=== PATIENT | female | born 1930 | race Caucasian/White ===

== ENCOUNTER 2018-03-09 16:47 | Inpatient (IN) | payer OTHER, MEDICARE ==
[2018-03-09 17:27] LABS: Absolute Lymphocytes (CBC) 2.4 K/uL (0.7-4.9); Absolute Monocytes 1.1 K/uL (0.1-1.3); Absolute Neutrophil 10.2 K/uL (1.8-8.0); Basophils % 2.1 % (0-1.3); Eosinophils % 0.5 % (0-4.4); Hematocrit 36.9 % (36.0-45.0); Lymphocytes % 17.3 % (15.3-44.8); MCH 30.7 pg (27.0-35.0); MCV 92.2 fL (80-100); MPV 9.7 fL (7.6-11.3); Monocytes % 7.9 % (3.3-12.3); RBC Red Blood Cell Count 4.01 M/uL (3.86-4.86)
[2018-03-09 17:31] LABS: Protime INR 1.24
--- NOTE | 2018-03-09 17:41 | RAD REPORT ---
EXAM DESCRIPTION: CT - Head C Spine Cap Wo Con - 03/09/2018 5:28 pm CLINICAL HISTORY: Trauma, head and neck injury. Chest, abdomen and pelvis pain. fall, low back pain COMPARISON: No comparisons TECHNIQUE: CT head without contrast. CT cervical spine without contrast with coronal and sagittal reformatted images. CT chest, abdomen and pelvis without contrast with coronal and sagittal reformatted images of the [facility]. All CT scans are performed using dose optimization technique as appropriate and may include automated exposure control or mA/KV adjustment according to patient size. FINDINGS: CT HEAD WITHOUT CONTRAST: No intracranial hemorrhage, hydrocephalus or extra-axial fluid collection. Mild generalized brain atr ophy is present with mild periventricular and deep white matter chronic microvascular ischemic change s. No areas of brain edema or midline shift. Small amount of fluid is seen in both maxillary antra. The calvarium is intact. Mild vertebral athero sclerosis. CT CERVICAL SPINE WITHOUT CONTRAST: No fracture or subluxation. Mild moderate lower cervical spondylosis is present. The prevertebral sof t tissues are normal in thickness. CT CHEST, ABDOMEN, PELVIS WITHOUT CONTRAST: NOTE: Lack of contrast is a significant limitation in the assessment of trauma related findings. Spec ifically, solid organ, vascular and bowel evaluation is significantly limited. The lungs are clear.No pneumothorax or pericardial/pleural fluid. No evidence of intra-abdominal visceral injury, free fluid or free air is seen within the above detai led limitations. No concerning pelvic findings. No fractures. Advanced degenerative changes involve the thoracolumbar spine. IMPRESSION: Negative for acute traumatic findings within the above detailed limitations.
[2018-03-09 17:57] LABS: Albumin 3.2 g/dL (3.4-5.0); Bilirubin Direct 0.2 mg/dL (0-0.2); Bilirubin Total 0.6 mg/dL (0.2-1.0); Magnesium 2.3 mg/dL (1.8-2.4); Potassium 3.6 mmol/L (3.5-5.1); Protein, Total 6.9 g/dL (6.4-8.2); Troponin (Emerg Dept Use Only) 0.07 ng/mL (0.0-0.045)
--- NOTE | 2018-03-09 18:03 | RAD REPORT ---
EXAM DESCRIPTION: RAD - Chest Single View - 03/09/2018 5:54 pm CLINICAL HISTORY: fall Chest pain. COMPARISON: CHEST PA AND LAT 2 VIEW dated 04/28/2006 FINDINGS: Portable technique limits examination quality. Emphysematous changes are present throughout the lungs. No focal infiltrate detected. The heart is mi ldly prominent size. No displaced fractures. IMPRESSION: COPD.
[2018-03-09 18:24] LABS: Anisocytosis 1+; Blood Morphology Comment NOTED (NOT SEEN); Platelet Estimate DECR; Polychromasia 1+; Urine White Blood Cell Casts OK
[2018-03-09] MEDS ORDERED: HYDRALAZINE HCL 20 MG/ML VIAL ONE (19:00)
[2018-03-09] MEDS ORDERED: ASPIRIN EC 81 MG TAB PO ONE (19:00)
[2018-03-09] MEDS ORDERED: VANCOMYCIN 1 GM/250 ML BAG ONE (20:11)
--- NOTE | 2018-03-09 20:27 | EDPHYS ---
Physician Documentation [facility] Name: Ruth Alva Age: 88 yrs Sex: Female : 1930 Arrival Date: 03/09/2018 Time: 16:49 Bed 23 Private MD: ED Physician Deric Cooper HPI: 03/09 17:08 This 88 yrs old Female presents to ER via EMS with complaints of fall, cp general weakness. 17:08 Details of fall: The patient fell from an upright position, while walking. Onset: The cp symptoms/episode began/occurred this morning, at 02:30. Associated injuries: The patient sustained no obvious injury. Patient reports she walking in home without use of walker when she struck left arm against wall and then fell to ground. Patient reports crawling to bathroom and sitting on toilet until found by friends and assisted back to bed. Denies striking head or LOC. Historical: - Allergies: 16:58 PENICILLINS; ls4 18:43 Codeine; ls4 18:43 CEPHALOSPORINS; ls4 - Home Meds: 17:00 Vitamin C Oral [Active]; Calcium Carbonate Oral [Active]; INSTAFLEX [Active]; rv alprazolam 0.5 mg Oral tab [Active]; doxycycline hyclate 100 mg Oral cap [Active]; atenolol 100 mg Oral tab [Active]; colchicine 0.6 mg Oral tab [Active]; furosemide 40 mg Oral tab [Active]; Uloric 40 mg oral tab [Active]; losartan 100 mg oral tab [Active]; - PMHx: 17:36 CHF; Hypertension; Parkinsons; Gout; ls4 - Immunization history:: Adult Immunizations up to date, Adult Immunizations up to date. - Social history:: Smoking status: Patient/guardian denies using tobacco, never smoked. - Ebola Screening: : Patient negative for fever greater than or equal to 101.5 degrees Fahrenheit, and additional compatible Ebola Virus Disease symptoms Patient denies exposure to infectious person Patient denies travel to an Ebola-affected area in the 21 days before illness onset No symptoms or risks identified at this time. ROS: 17:10 Eyes: Negative for injury, pain, redness, and discharge. cp 17:10 Constitutional: Negative for fever, poor PO intake. 17:10 ENT: Negative for drainage from ear(s), ear pain, sore throat, difficulty swallowing, difficulty handling secretions. 17:10 Cardiovascular: Negative for chest pain, edema, palpitations. 17:10 Respiratory: Negative for cough, shortness of breath, wheezing. 17:10 Abdomen/GI: Negative for abdominal pain, vomiting, diarrhea, constipation, black/tarry stool, rectal bleeding. 17:10 Back: Positive for pain at rest, of the lumbar area. 17:10 MS/extremity: Negative for decreased range of motion, deformity. 17:10 Neuro: Positive for general weakness, Negative for altered mental status, headache. 17:10 All other systems are negative. Exam: 17:15 Constitutional: The patient appears in no acute distress, alert, awake, cp non-diaphoretic, non-toxic, well developed, well nourished. 17:15 Head/Face: Normocephalic, atraumatic. cp 17:15 Eyes: Periorbital structures: appear normal, Pupils: equal, round, and reactive to light and accomodation, Extraocular movements: intact throughout, Conjunctiva: normal, no exudate, no injection, Sclera: no appreciated abnormality, Lids and lashes: appear normal, bilaterally. 17:15 ENT: External ear(s): are unremarkable, Ear canal(s): are normal, clear, TM's: bulging, is not appreciated, bilaterally, dullness, bilaterally, erythema, is not appreciated, bilaterally, Nose: is normal, Mouth: Lips: moist, Oral mucosa: pink and intact, moist, Posterior pharynx: is normal, airway is patent, no erythema, no exudate, Voice: is normal. 17:15 Neck: C-spine: vertebral tenderness, is not appreciated, crepitus, is not appreciated, ROM/movement: is normal, is supple, without pain, no range of motions limitations, no meningismus, no nuchal rigidity. 17:15 Chest/axilla: Inspection: normal, Palpation: is normal, no crepitus, no tenderness. 17:15 Cardiovascular: Rate: normal, Rhythm: regular, Edema: is not appreciated, JVD: is not appreciated. 17:15 Respiratory: the patient does not display signs of respiratory distress, Respirations: normal, no use of accessory muscles, no retractions, no splinting, no tachypnea, labored breathing, is not present, Breath sounds: are clear throughout. 17:15 Abdomen/GI: Inspection: abdomen appears normal, Bowel sounds: active, all quadrants, Palpation: abdomen is soft and non-tender, in all quadrants, rebound tenderness, is not appreciated, voluntary guarding, is not appreciated, involuntary guarding, is not appreciated. 17:15 Back: pain, that is mild, vertebral tenderness, is not appreciated. cp 17:15 Musculoskeletal/extremity: Exam is negative for decreased range of motion, deformity, cp injury. 17:15 Skin: patient with pressure ulcer wounds to bilateral buttocks. cp 17:15 Neuro: Orientation: to person, place \T\ time. Mentation: is normal, Cerebellar function: cp normal finger to nose testing, Motor: moves all fours, negative for focal deficits, Sensation: no obvious gross deficits. 17:20 ECG was reviewed by the Attending Physician. cp Vital Signs: 16:58 BP 199 / 74; Pulse 60; Resp 16; Temp 98.7; Pulse Ox 100% on R/A; Pain 0/10; ls4 18:00 BP 200 / 78; Pulse 59; Resp 16; Pulse Ox 98% on R/A; Pain 0/10; ls4 19:00 BP 168 / 63; Pulse 59; Resp 16; Pulse Ox 99% ; ls4 19:00 BP 182 / 62; Pulse 60; Resp 16; Pulse Ox 99% on R/A; ls4 20:00 BP 177 / 57; Pulse 59; Resp 16; Pulse Ox 99% on R/A; ls4 21:10 BP 178 / 68; Pulse 62; Resp 16; Pulse Ox 98% ; Pain 0/10; ls4 MDM: 16:51 Patient medically screened. cp 18:00 Differential diagnosis: closed head injury, fracture, anemia, sepsis, CVA, sepsis, UTI. cp 20:20 Data reviewed: vital signs, nurses notes, lab test result(s), EKG, radiologic studies, cp CT scan, plain films. 20:20 Test interpretation: by ED physician or midlevel provider: ECG, plain radiologic cp studies. 20:25 Physician consultation: Esperanza Rand MD was called at 20:25, was contacted at 20:25, cp regarding admission, to the telemetry unit. patient's condition. 03/09 17:03 Order name: Urine Microscopic Only; Complete Time: 21:31 cp 03/09 21:31 Interpretation: Normal except: UBACT 20-50. cp 12/ 17:03 Order name: Basic Metabolic Panel; Complete Time: 18:03 cp 12/ 18:03 Interpretation: Normal except: BUN 63; CRE 2.80; GFR 16. cp 12/ 17:03 Order name: CBC with Diff; Complete Time: 18:48 cp 12/ 18:04 Interpretation: Normal except: WBC 14.1; PLT 120; RDW 15.6; BASO% 2.1; NEUT A 10.2. cp 12/ 17:03 Order name: LFT's; Complete Time: 18:03 cp 12/ 18:03 Interpretation: Normal except: AST 186; ALT 88; ALK 132; ALB 3.2; GLOB 3.7; A/G 0.9. cp 12/ 17:03 Order name: Magnesium; Complete Time: 18:03 cp 12/ 18:07 Interpretation: MG 2.3; Reviewed. cp 12/ 17:03 Order name: NT PRO-BNP; Complete Time: 18:03 cp 12/ 18:06 Interpretation: Abnormal: NT PRO-BNP 09750. cp 12/ 17:03 Order name: PT-INR; Complete Time: 18:03 cp 12/ 18:07 Interpretation: PT 14.7; Reviewed. cp 12/ 17:03 Order name: Troponin (emerg Dept Use Only); Complete Time: 18:03 cp 12/ 18:03 Interpretation: Abnormal: TROPED 0.07. cp 12/ 17:03 Order name: Procalcitonin; Complete Time: 18:48 cp 12/ 18:49 Interpretation: Abnormal: Procalcitonin 2.72. cp 12/ 17:03 Order name: Blood Culture Adult (2) cp 12/ 17:03 Order name: Lactate; Complete Time: 18:48 cp 12/ 19:01 Interpretation: LAC 1.2; Reviewed. cp / 17:56 Order name: CBC Smear Scan; Complete Time: 18:48 EDMS 03/09 19:51 Order name: Urine Dipstick--Ancillary (enter results); Complete Time: 21:31 ar5 03/09 19:59 Order name: CPK; Complete Time: 21:31 cp / 21:40 Interpretation: Abnormal: CPK 3350. cp 12/ 17:03 Order name: XRAY Chest (1 view); Complete Time: 18:06 03/09 18:06 Interpretation: Report review. 03/09 17:03 Order name: EKG; Complete Time: 17:04 cp 03/09 17:12 Order name: CT Traumagram (Head C Spine CAP wo con); Complete Time: 17:48 03/09 17:49 Interpretation: Report reviewed. 03/09 20:32 Order name: Urine Culture EDLA 03/09 21:23 Order name: Comprehensive Metabolic Panel EDLA 03/09 21:23 Order name: Comprehensive Metabolic Panel EDLA 03/09 21:24 Order name: CONS Pharmacy Consult EDLA 03/09 21:24 Order name: CBC with Automated Diff EDLA 03/09 21:24 Order name: CBC with Automated Diff EDLA 03/09 17:03 Order name: Cath 03/09 17:03 Order name: Urine Dipstick-Ancillary (obtain specimen) 03/09 17:03 Order name: Cardiac monitoring; Complete Time: 17:11 03/09 17:03 Order name: EKG - Nurse/Tech; Complete Time: 17:18 03/09 17:03 Order name: IV Saline Lock; Complete Time: 17:11 03/09 17:03 Order name: Labs collected and sent; Complete Time: 17:11 03/09 17:03 Order name: O2 Per Protocol; Complete Time: 17:11 03/09 17:03 Order name: O2 Sat Monitoring; Complete Time: 17:11 03/09 21:24 Order name: Heart Healthy EDLA 03/09 21:31 Order name: Bragg; Complete Time: 21:34 cp EC:20 Rate is 60 beats/min. Rhythm is regular. DC interval is prolonged at 244 msec. QRS cp interval is prolonged at 104 msec. QT interval is prolonged at 632 msec. Interpreted by me. Reviewed by me. Administered Medications: 18:59 Drug: hydrALAZINE 5 mg Route: IV; Rate: bolus; Site: right antecubital; ls4 19:30 Follow up: Response: No adverse reaction; Blood pressure is lowered ls4 18:59 Drug: NS 0.9% 250 ml Route: IV; Rate: bolus; Site: left antecubital; ls4 19:31 Follow up: IV Status: Completed infusion; IV Intake: 250ml ls4 19:00 Drug: Aspirin Chewable Tablet 324 mg Route: PO; ls4 19:31 Follow up: Response: No adverse reaction ls4 19:00 Not Given (Other Intervention Used): hydrALAZINE 10 mg IV at calculated rate once ls4 20:35 Drug: vancoMYCIN 1 grams Route: IVPB; Infused Over: 2 hrs; Site: right antecubital; ls4 21:07 Follow up: IV Status: Infusion continued upon admission ls4 21:35 Drug: LevaQUIN 500 mg Volume: 100 ml; Route: IVPB; Infused Over: 60 mins; Site: right ls4 antecubital; 22:09 Follow up: IV Status: Infusion continued upon admission ls4 Disposition: 03/09/18 20:27 Hospitalization ordered by Esperanza Rand for Inpatient Admission. Preliminary diagnosis are Other slipping, tripping and stumbling and falls, Rhabdomyolysis, Weakness, Pressure ulcer, Urinary tract infection, site not specified. - Bed requested for Telemetry/MedSurg (Inpatient). - Status is Inpatient Admission. ls4 - Condition is Stable. - Problem is new. - Symptoms have improved. UTI on Admission? Yes Addendum: 03/13/2018 07:02 Co-signature as Attending Physician, Deric Cooper MD. r n Signatures: Dispatcher [employer] EDLA Cindy Chisholm RN Deric Winston MD MD rn Page, Corey, PA PA cp Vicente, Ronaldo, RN RN rv Stewart, Lisa, RN RN ls4 Corrections: (The following items were deleted from the chart) 03/09 17:16 17:04 Head C Spine MPR Wo Con+CT.RAD.BRZ ordered. EDLA EDMS 19:01 18:43 Allergies: Aspirin; ls4 ls4 20:50 20:27 Hospitalization Ordered by Esperanza Rand MD for Inpatient Admission. Preliminary mw diagnosis is Other slipping, tripping and stumbling and falls. Bed requested for Telemetry/MedSurg (Inpatient). Status is Inpatient Admission. Condition is Stable. Problem is new. Symptoms have improved. UTI on Admission? No. cp 21:33 20:50 03/09/2018 20:27 Hospitalization Ordered by Esperanza Rand MD for Inpatient cp Admission. Preliminary diagnosis is Other slipping, tripping and stumbling and falls. Bed requested for Telemetry/MedSurg (Inpatient). Status is Inpatient Admission. Condition is Stable. Problem is new. Symptoms have improved. UTI on Admission? No. mw 22:09 21:33 03/09/2018 20:27 Hospitalization Ordered by Esperanza Rand MD for Inpatient ls4 Admission. Preliminary diagnosis is Other slipping, tripping and stumbling and falls; Rhabdomyolysis; Weakness; Pressure ulcer; Urinary tract infection, site not specified. Bed requested for Telemetry/MedSurg (Inpatient). Status is Inpatient Admission. Condition is Stable. Problem is new. Symptoms have improved. UTI on Admission? Yes. cp
--- NOTE | 2018-03-09 20:27 | ER ---
Nurse's Notes [facility] Name: Ruth Alva Age: 88 yrs Sex: Female : 1930 Arrival Date: 03/09/2018 Time: 16:49 Bed 23 Private MD: Diagnosis: Other slipping, tripping and stumbling and falls;Rhabdomyolysis;Weakness;Pressure ulcer;Urinary tract infection, site not specified Presentation: 03/09 16:55 Presenting complaint: EMS states: pt was too weak to get off commode last night. pt has ls4 been getting weaker over the last weak and has been falling more frequently. Transition of care: patient was not received from another setting of care. Onset of symptoms was March 09, 2018 at 16:56. Risk Assessment: Do you want to hurt yourself or someone else? Patient reports no desire to harm self or others. Initial Sepsis Screen: Does the patient meet any 2 criteria? No. Patient's initial sepsis screen is negative. Does the patient have a suspected source of infection? No. Patient's initial sepsis screen is negative. Care prior to arrival:. 16:55 Method Of Arrival: EMS: [facility] ls4 16:55 Acuity: JOEY 3 ls4 Triage Assessment: 16:58 General: Appears in no apparent distress. well groomed, Behavior is calm, cooperative. ls4 Pain: Denies pain. Neuro: No deficits noted. Cardiovascular: Denies chest pain, diaphoresis, fatigue, lightheadedness, nausea, palpitations, shortness of breath, syncope, vomiting, Capillary refill < 3 seconds. Respiratory: No deficits noted. Musculoskeletal: No deficits noted. Historical: - Allergies: 16:58 PENICILLINS; ls4 18:43 Codeine; ls4 18:43 CEPHALOSPORINS; ls4 - Home Meds: 17:00 Vitamin C Oral [Active]; Calcium Carbonate Oral [Active]; INSTAFLEX [Active]; rv alprazolam 0.5 mg Oral tab [Active]; doxycycline hyclate 100 mg Oral cap [Active]; atenolol 100 mg Oral tab [Active]; colchicine 0.6 mg Oral tab [Active]; furosemide 40 mg Oral tab [Active]; Uloric 40 mg oral tab [Active]; losartan 100 mg oral tab [Active]; - PMHx: 17:36 CHF; Hypertension; Parkinsons; Gout; ls4 - Immunization history:: Adult Immunizations up to date, Adult Immunizations up to date. - Social history:: Smoking status: Patient/guardian denies using tobacco, never smoked. - Ebola Screening: : Patient negative for fever greater than or equal to 101.5 degrees Fahrenheit, and additional compatible Ebola Virus Disease symptoms Patient denies exposure to infectious person Patient denies travel to an Ebola-affected area in the 21 days before illness onset No symptoms or risks identified at this time. Screenin:19 Abuse screen: Denies threats or abuse. Denies injuries from another. Nutritional ls4 screening: No deficits noted. Tuberculosis screening: No symptoms or risk factors identified. Fall Risk Fall in past 12 months (25 points). Secondary diagnosis (15 points) IV access (20 points). Ambulatory Aid- Crutches/Cane/Walker (15 pts). Gait- Weak (10 pts.). Mental Status- Oriented to own ability (0 pts). Total Garcia Fall Scale indicates High Risk Score (45 or more points). Fall prevention measures have been instituted. Side Rails Up X 2 Placed Close to Nursing Station Frequent Obs/Assessments Occuring Family Present and informed to notify staff if the need to leave the bedside As available patient and family educated on Fall Prevention Program and Strategies. Assessment: 17:04 General: see triage assessment . ls4 18:43 Reassessment: PT HAS DRESSED WOUND ON LEFT FOOT. STATES IT IS ELEANOR HER GOUT. PT HAS ls4 QUARTER SIZE UNSTAGEABLE WOUNDS TO HER LEFT AND RIGHT BUTTOCKS THAT APPEAR TO BE PRESSURE SORES. PT STATES THOSE WOUNDS ARE TREATED BY HER COILER. Vital Signs: 16:58 BP 199 / 74; Pulse 60; Resp 16; Temp 98.7; Pulse Ox 100% on R/A; Pain 0/10; ls4 18:00 BP 200 / 78; Pulse 59; Resp 16; Pulse Ox 98% on R/A; Pain 0/10; ls4 19:00 BP 168 / 63; Pulse 59; Resp 16; Pulse Ox 99% ; ls4 19:00 BP 182 / 62; Pulse 60; Resp 16; Pulse Ox 99% on R/A; ls4 20:00 BP 177 / 57; Pulse 59; Resp 16; Pulse Ox 99% on R/A; ls4 21:10 BP 178 / 68; Pulse 62; Resp 16; Pulse Ox 98% ; Pain 0/10; ls4 ED Course: 16:49 Patient arrived in ED. iw 16:51 Lakhwinder Esposito PA is PHCP. cp 16:51 Deric Cooper MD is Attending Physician. cp 16:54 Nelsy Pelaez, COURTNEY is Primary Nurse. ls4 16:57 Triage completed. ls4 16:58 Arm band placed on left wrist. ls4 17:[address] vm2 17:19 Patient has correct armband on for positive identification. Allergy band placed. Fall ls4 risk band placed. Bed in low position. Call light in reach. Side rails up X2. Adult w/ patient. 17:19 EKG done, by emergency response technician. reviewed by Lakhwinder MOORE. dt2 17:28 CT Traumagram (Head C Spine CAP wo con) In Process Unspecified. EDMS 17:41 First set of blood cultures drawn Second set of blood cultures drawn by me. ls4 17:46 No provider procedures requiring assistance completed. Maintain EMS IV. Dressing ls4 intact. Good blood return noted. Site clean \T\ dry. Gauge \T\ site: 20 g rt ac. Patient maintains SpO2 saturation greater than 95% on room air. 17:54 XRAY Chest (1 view) In Process Unspecified. EDMS 19:32 PT STATES THAT SHE IS NOT ALLERGIC TO ASPIRIN AND THAT SHE TAKES IT EVERY DAY. ls4 20:26 Esperanza Rand MD is Hospitalizing Provider. cp 20:49 Urine Culture Sent. ls4 20:53 Notified Nurse Practitioner and/or Physician Paralegal of a critical lab result(s), CPK fc 3350. 21:43 Bragg cath inserted, using sterile technique, 16 Fr., by me, balloon inflated, returned ls4 cloudy urine. Patient tolerated well. Administered Medications: 18:59 Drug: hydrALAZINE 5 mg Route: IV; Rate: bolus; Site: right antecubital; ls4 19:30 Follow up: Response: No adverse reaction; Blood pressure is lowered ls4 18:59 Drug: NS 0.9% 250 ml Route: IV; Rate: bolus; Site: left antecubital; ls4 19:31 Follow up: IV Status: Completed infusion; IV Intake: 250ml ls4 19:00 Drug: Aspirin Chewable Tablet 324 mg Route: PO; ls4 19:31 Follow up: Response: No adverse reaction ls4 19:00 Not Given (Other Intervention Used): hydrALAZINE 10 mg IV at calculated rate once ls4 20:35 Drug: vancoMYCIN 1 grams Route: IVPB; Infused Over: 2 hrs; Site: right antecubital; ls4 21:07 Follow up: IV Status: Infusion continued upon admission ls4 21:35 Drug: LevaQUIN 500 mg Volume: 100 ml; Route: IVPB; Infused Over: 60 mins; Site: right ls4 antecubital; 22:09 Follow up: IV Status: Infusion continued upon admission ls4 Intake: 19:31 IV: 250ml; Total: 250ml. ls4 Outcome: 20:27 Decision to Hospitalize by Provider. cp 22:06 Admitted to Tele accompanied by nurse, via stretcher, room 401, on monitor, with chart, ls4 Report called to SHAHID 22:06 Condition: stable 22:09 Patient left the ED. ls4 Signatures: Dispatcher [employer] EDMS Sharon Pierre RN RN Vero De Guzman RN RN iw Lakhwinder Esposito PA PA Kassandra Pichardo vm2 Amy Barragan dt2 Jaya Reyes RN RN rv Nelsy Pelaez RN RN ls4 Corrections: (The following items were deleted from the chart) 19:01 18:43 Allergies: Aspirin; ls4 ls4 22:08 22:06 Admitted to Tele accompanied by nurse, via stretcher, room 409, on monitor, with ls4 chart, Report called to SHAHID RODRIGUEZ ls4
[2018-03-09 20:29] LABS: Urine Amorphous Sediment 1+ /HPF (NONE SEEN); Urine Bacteria 20-50 /HPF (<20); Urine Culture Reflex Order REFLEXED; Urine RBC NONE SEEN /HPF (NONE SEEN)
[2018-03-09 21:02] LABS: Urine Blood 2+ (NEG); Urine Glucose NEGATIVE (NEG); Urine Protein 2+ (NEG); Urine pH 5.5 (5.0-7.0)
[2018-03-09] MEDS ORDERED: ONDANSETRON 4 MG/2 ML VIAL IV PRN (21:20)
[2018-03-09] MEDS ORDERED: ACETAMINOPHEN 500 MG TAB PO PRN (21:20)
[2018-03-09] MEDS ORDERED: MORPHINE 2 MG/ML SYR IV PRN (21:20)
[2018-03-09] MEDS ORDERED: Levofloxacin500mg IV 500 MG/100 ML BAG IV ONE (21:45)
[2018-03-09] MEDS ORDERED: NA CHLORIDE 0.9% 1,000 ML IV SCH (22:00)
[2018-03-10 03:07] VITALS: BMI 36.0
[2018-03-10 06:20] LABS: Absolute Lymphocytes (CBC) 1.7 K/uL (0.7-4.9); Absolute Neutrophil 6.4 K/uL (1.8-8.0); Basophils % 0.7 % (0-1.3); Eosinophils % 1.7 % (0-4.4); Hematocrit 32.3 % (36.0-45.0); Lymphocytes % 18.5 % (15.3-44.8); MCH 32.1 pg (27.0-35.0); MCV 91.8 fL (80-100); MPV 9.9 fL (7.6-11.3); Monocytes % 10.7 % (3.3-12.3); RBC Red Blood Cell Count 3.52 M/uL (3.86-4.86)
[2018-03-10 06:30] LABS: Albumin 2.7 g/dL (3.4-5.0); Bilirubin Total 0.5 mg/dL (0.2-1.0); Potassium 3.5 mmol/L (3.5-5.1); Protein, Total 5.6 g/dL (6.4-8.2)
--- NOTE | 2018-03-10 08:29 | EKG ---
Test Date: 2018-03-09 Test Time: 17:16:05 Nut Picker: BOOKER MEASUREMENT RESULTS: Intervals: Rate: 60 KS: 244 QRSD: 104 QT: 632 QTc: 632 [place]: P: 31 KS: 244 QRS: -2 T: 102 INTERPRETIVE STATEMENTS: Sinus rhythm with 1st degree AV block Possible Anterior infarct, age undetermined Prolonged QT Abnormal ECG Compared to ECG 12/18/2007 10:32:12 First degree AV block now present Prolonged QT interval now present Myocardial infarct finding still present Electronically Signed On 03-10-18 08:28:50 JEWEL SAWYER by Wilbert Nielson
--- NOTE | 2018-03-10 10:16 | P.HP ---
Certification for Inpatient Patient admitted to: Inpatient With expected LOS: >2 Midnights Patient will require the following post-hospital care: Home Health Services Practitioner: I am a practitioner with admitting privileges, knowledge of patient current condition, hospital course, and medical plan of care. Services: Services provided to patient in accordance with Admission requirements found in Title 42 Section 412.3 of the Code of Federal Regulations Patient History Date of Service: 03/09/18 Reason for admission: status post fall in a patient with Parkinson's History of Present Illness: Patient is an 88-year-old female who came into the hospital after falling. She has had multiple falls recently. She states because of her Parkinson's whenever she bumps in the something she loses her balance and falls down. She was also severely dehydrated. She was admitted to the hospital for further workup. Her lab workup revealed elevated CPK and elevated renal function. Her liver enzymes are also elevated. Patient will need to be admitted to the hospital and treated for her multiple medical issues. Will get physical therapy evaluation and rehab evaluation. Patient may benefit from going to rehab for 7-10 days to increase her strength and to learn ways to prevent her from falling. Will get neurology consultation as well. Allergies codeine Allergy (Verified 04/08/14 16:12) Itching Penicillins Allergy (Verified 04/08/14 16:12) Hives acetaminophen [From Lortab] Adverse Reaction (Verified 04/08/14 16:15) Rash allopurinol Adverse Reaction (Verified 04/08/14 16:15) Rash carbidopa [From Sinemet] Adverse Reaction (Verified 04/08/14 16:15) Rash fentanyl Adverse Reaction (Verified 04/08/14 16:15) Rash hydrocodone bitartrate [From Lortab] Adverse Reaction (Verified 04/08/14 16:15) Rash levodopa [From Sinemet] Adverse Reaction (Verified 04/08/14 16:15) Rash lidocaine HCl [From Xylocaine] Adverse Reaction (Verified 04/08/14 16:12) Nausea/Vomiting lorazepam [From Ativan] Adverse Reaction (Verified 04/08/14 16:15) Rash propoxyphene HCl [From Darvon] Adverse Reaction (Verified 04/08/14 16:15) Rash rasagiline mesylate [From Azilect] Adverse Reaction (Verified 04/08/14 16:15) Rash ropinirole HCl [From Requip] Adverse Reaction (Verified 04/08/14 16:15) Rash tramadol Adverse Reaction (Verified 04/08/14 16:15) Rash verapamil [Verapamil] Adverse Reaction (Verified 04/08/14 16:15) Rash Home Medications: ALPRAZolam [Xanax*] 0.5 mg PO DAILY 04/08/14 Atenolol [Tenormin*] 50 mg PO DAILY 04/08/14 Cholecalciferol (Vitamin D3) [Vitamin D-3] 2,000 unit PO DAILY 04/08/14 Colchicine [Colcrys] 0.6 mg PO DAILY 04/08/14 Furosemide [Lasix] 40 mg PO DAILY 04/08/14 Losartan Potassium [Cozaar] 100 mg PO DAILY 04/08/14 Febuxostat [Uloric] 40 mg PO DAILY 03/10/18 Mv-Mn/Folic Acid/Calcium/Vit K [Women's 50 Plus Multivit Tab] 1 tab PO DAILY 10/19 - Past Medical/Surgical History Has patient received pneumonia vaccine in the past: No Diabetic: No -: pressure ulcers -: gout -: HTN -: CHF -: parkinsons -: arthritis -: hysterectomy -: lap kelby -: lap appe -: throat surgery -: joint surgery left ring finger - Family History Father Medical History: Heart disease, Hypertension, Stroke Mother History Unknown: Yes Medical History: Heart disease, Hypertension, Stroke Sister Medical History: Stroke - Social History Smoking Status: Never smoker Alcohol use: No CD- Drugs: No Caffeine use: No Place of Residence: Home Review of Systems 10-point ROS is otherwise unremarkable Physical Examination - Vital Signs Temperature: 98.8 F Blood Pressure: 151/64 Pulse: 57 Respirations: 16 Pulse Ox (%): 97 - Physical Exam General: Alert, In no apparent distress, Oriented x3 HEENT: Atraumatic, PERRLA, Mucous membr. moist/pink, EOMI, Sclerae nonicteric Neck: Supple, 2+ carotid pulse no bruit, No LAD, Without JVD or thyroid abnormality Respiratory: Clear to auscultation bilaterally, Normal air movement Cardiovascular: Regular rate/rhythm, Normal S1 S2, No murmurs Gastrointestinal: Normal bowel sounds, Soft and benign, Non-distended, No tenderness Musculoskeletal: No clubbing, No swelling, No tenderness Integumentary: No rashes Neurological: Normal speech, Normal tone, Sensation intact, Cranial nerves 3-12 intact, Normal affect, Abnormal gait, Abnormal strength Lymphatics: No axilla or inguinal lymphadenopathy - Studies Laboratory Data (last 24 hrs) 03/09/18 17:10: PT 14.7 H, INR 1.24 03/09/18 17:10: WBC 14.1 H, Hgb 12.3, Hct 36.9, Plt Count 120 L 03/09/18 17:10: Sodium 143, Potassium 3.6, BUN 63 H, Creatinine 2.80 H, Glucose 93, Magnesium 2.3, Total Bilirubin 0.6, AST 186 H, ALT 88 H, Alkaline Phosphatase 132 H Assessment & Plan - Problems (Diagnosis) (1) Status post fall Current Visit: Yes Status: Acute (2) Rhabdomyolysis Current Visit: Yes Status: Acute (3) Parkinson disease Current Visit: Yes Status: Acute (4) MARGARITO (acute kidney injury) Current Visit: Yes Status: Acute (5) Elevated liver enzymes Current Visit: Yes Status: Acute - Plan Plan: 1. IV hydration 2. monitor renal function 3. monitor CPK and liver enzymes(ALT,AST) 4. Switch fluids to bicarb if not improving 5. physical therapy evaluation 6. Neurology consultation 7. Nephrology consultation 8. rehab evaluation 9. GI and DVT prophylaxis Discharge Plan: Other (rehab) Plan to discharge in: Greater than 2 days - Advance Directives Does patient have a Living Will: No Does patient have a Durable POA for Healthcare: No - Code Status/Comfort Care Code Status Assessed: Yes Code Status: Full Code Critical Care: No Time Spent Managing PTS Care (In Minutes): 50
[2018-03-10 11:11] LABS: Absolute Lymphocytes (CBC) 1.5 K/uL (0.7-4.9); Absolute Neutrophil 5.5 K/uL (1.8-8.0); Basophils % 0.7 % (0-1.3); Eosinophils % 2.2 % (0-4.4); Hematocrit 32.5 % (36.0-45.0); Lymphocytes % 18.1 % (15.3-44.8); MCV 91.7 fL (80-100); MPV 9.3 fL (7.6-11.3); Monocytes % 12.4 % (3.3-12.3); RBC Red Blood Cell Count 3.54 M/uL (3.86-4.86)
[2018-03-10] MEDS: D5W 1,000 ML with NA BICARB 8.4% 50 MEQ IV SCH ×2 (12:54)
[2018-03-10] MEDS ORDERED: PNEUMOCOCCAL VACCINE 0.5 ML IMVAC ONE (13:00)
--- NOTE | 2018-03-10 14:37 | P.PN ---
Subjective Date of Service: 03/10/18 Chief Complaint: status post fall in a patient with Parkinson's Subjective: No C/O voiced (Pending PT consult), Tolerating diet, Improving, Doing well Review of Systems 10-point ROS is otherwise unremarkable Physical Examination - Vital Signs Temperature: 98.0 F Blood Pressure: 170/80 Pulse: 59 Respirations: 16 Pulse Ox (%): 99 - Physical Exam General: Alert, In no apparent distress HEENT: Atraumatic, PERRLA, EOMI Neck: Supple, JVD not distended Respiratory: Clear to auscultation bilaterally, Normal air movement Cardiovascular: Regular rate/rhythm, Normal S1 S2 Gastrointestinal: Normal bowel sounds, No tenderness Musculoskeletal: No tenderness Integumentary: No rashes Neurological: Normal speech, Normal tone, Normal affect Lymphatics: No axilla or inguinal lymphadenopathy - Studies Laboratory Data (last 24 hrs) 03/09/18 17:10: PT 14.7 H, INR 1.24 03/09/18 17:10: WBC 14.1 H, Hgb 12.3, Hct 36.9, Plt Count 120 L 03/09/18 17:10: Sodium 143, Potassium 3.6, BUN 63 H, Creatinine 2.80 H, Glucose 93, Magnesium 2.3, Total Bilirubin 0.6, AST 186 H, ALT 88 H, Alkaline Phosphatase 132 H Medications List Reviewed: Yes Assessment And Plan - Current Problems (Diagnosis) (1) Status post fall Current Visit: Yes Status: Acute Plan: Patient had a fall at the house. Secondary to her Parkinson's -fall precautions given -PT OT consulted awaiting recommendations at this time (2) Rhabdomyolysis Current Visit: Yes Status: Acute Plan: Elevated CK at this time. -continue with IV fluids. -will monitor here closely for next 24-48 hr (3) MARGARITO (acute kidney injury) Current Visit: Yes Status: Acute Plan: Likely secondary to rhabdomyolysis -IV fluids at this time -avoid nephrotoxic agents -continue monitor closely (4) Elevated liver enzymes Current Visit: Yes Status: Resolved (5) Parkinson disease Current Visit: Yes Status: Chronic - Plan Pending clinical improvement at this time along with physical therapy consult. Discharge Plan: Other Plan to discharge in: 48 Hours - Code Status/Comfort Care Code Status Assessed: Yes Critical Care: No
[2018-03-10] MEDS: FUROSEMIDE 40 MG TABLET PO SCH (17:28)
[2018-03-10] MEDS: LOSARTAN POTASSIUM 50 MG TABLET PO SCH (17:31)
[2018-03-10] MEDS: PROMOD 30 ML DOSE PO SCH (20:56)
--- NOTE | 2018-03-11 00:39 | CON ---
Reason For Consultation: Consultation called because of falls with Parkinson disease. History Of Present Illness: Ms. Alva is an 88-year-old patient with a 6-year history of parkinsoni sm, predominantly producing mild tremor in the left hand with little bradykinesia but posture instabi lity. She was seen and diagnosed by Dr. Barnes 6 years ago and said she last saw him about 4 years ag o. She was tried on Sinemet, amantadine, and pramipexole, but reportedly had side effects and stoppe d the medication and stopped seeing Dr. Barnes. She lives alone and does her own activities of daily living and ambulates with a walker, but she said if the walker is not good in reaching the furniture walk and at times if she bumps into objects, she may fall. And the hospital admission on this occasi on occurred because she got out of bed and walked without a walker, hit the end of the bed and fell. She came to [facility] on March 09. Yesterday, she had a trauma alert protocol CT, which showed no intracranial acute findings, no fractures, no hemorrhage, no acute cervical spine issues. She did have mild lower cervical spondylosis. CT chest, abdomen, and pelvis without contrast showed no evidence of any acute injury the abdominal viscera, and pelvic region, vertebrae, and other areas . There was advanced degenerative changes seen in the thoracolumbar spine. Since her admission, she has had no additional falls, and earlier today, she ambulated with physical therapy around 75 feet with a walker with min assist. Past Medical History: As indicated. Allergies: CODEINE, PENICILLIN, ACETAMINOPHEN, ALLOPURINOL, CARBIDOPA-LEVODOPA, FENTANYL PATCH, HYDR OCODONE, LIDOCAINE, LORAZEPAM, PROPOXYPHENE, AZILECT, ROPINIROLE, TRAMADOL, VERAPAMIL. Current Medications: Xanax 0.5 mg daily, atenolol 50 mg daily, vitamin D 2000 units daily, colchicin e 0.6 mg daily, Lasix 40 mg daily, Cozaar 100 mg daily, Uloric 40 mg daily, and multivitamin daily. Past Medical History: Includes pressure ulcers, gout, hypertension, congestive heart failure, cardio vascular disease, arthritis. Past Surgical History: Hysterectomy, laparoscopic cholecystectomy, appendectomy, surgery on the left little finger, and throat surgery. Family History: Positive for heart disease, hypertension and stroke in father and mother, sister had stroke as well. Social History: Denied alcohol, tobacco, or IV drug use. Lives alone at home. Her son lives severa l miles away. Review of Systems: Aside from mentioned above, she denies any recent fevers or chills, nausea, vomiting, any myalgias, a rthralgias. Admits to the falls due to postural instability. No other positives on systems review. Physical Examination: Vital Signs: Blood pressure ranged systolic 170 to 190/70 to 80, pulse in the 50s around 50 to 59, r espiratory rate 14 to 18, temperature 98.8, oxygen saturation 99% on room air, weight 184 pounds, hei ght 5 feet, BMI 35.9. General: Ms. Alva is sitting in a chair beside her bed. She is in no acute distress. HEENT: She is normocephalic, atraumatic. Sclerae anicteric. Oropharynx is moist. Neck: Supple. Chest: Clear. Heart: Regular. Extremities: Show no significant edema or cyanosis. Neurologic: She is alert and oriented to situation, place, person. Follows all commands appropriate ly. Cranial nerves show no focal defects. She does have a mild pill rolling tremor in the left hand , but she does not have mask face. She does not have significant cogwheeling on the right, slightly noted on the left. In terms of motor, she is fully strong in the upper and lower extremities. Coord ination intact but slow in the upper and lower extremities. Reflexes depressed in the upper and lowe r extremities. Gait: She ambulates with assistance and uses a walker and its minimum assistance. Laboratory Studies: White blood cell count 8.2, hemoglobin 10.3, hematocrit 32.5, platelets 146. IN R 1.24. Chemistry: Sodium 144, potassium 4.0, chloride 109, carbon dioxide , BUN 58, crea tinine 2.5. Lactic acid 1.2. Creatine kinase decreased from 3350 on the 6th to today 1431 after hyd ration. Procalcitonin was elevated to 2.72 on the 6th. Urinalysis showed 20 to 50 bacteria, 2+ bloo d, 2+ protein. Cultures are pending. Chest x-ray shows COPD pattern and EKG shows sinus rhythm with first-degree AV block, possible anterior infarct, age undetermined, prolonged QT. Assessment: Ms. Alva is an 88-year-old patient with Parkinson's and slowly progressive affecting l eft side more than right in terms of tremor, but producing postural instability, gait instability wit h multiple falls. She has multiple comorbid conditions managed by primary care team. Plan: 1.She has had multiple medicines related to Parkinson's producing side effects including carbidopa-l evodopa, pramipexole, Azilect, amantadine. Those medications will not be restarted. 2.Physical therapy will likely be more beneficial to the patient than trying other medications that she is not able to tolerate. 3.The patient should be admitted to the inpatient rehabilitation unit for physical, occupational, an d speech therapy as appropriate. Continue with DVT prophylaxis. Currently should be on Eliquis 2.5 mg twice daily. Also continue with management of her gout, hypertension. She has some significant e levation in systolic blood pressure. This plan was discussed with the patient. Also noted that she has renal insufficiency and she is currently receiving hydration and would benefit from evaluation by the Renal Service for optimization of renal function. It should be noted that since April 08, 2014 she has had chronic renal insufficiency. Creatinine at that point was. 1.74 and yesterday was 2.82. MELISSA/EMELIA Voice ID: [id number] Report ID: [id number]
[2018-03-11] MEDS: D5W 1,000 ML with NA BICARB 8.4% 50 MEQ IV SCH ×4 (01:19→15:36)
[2018-03-11] MEDS: MULTIVIT W/ MINERAL TAB PO SCH (08:49)
[2018-03-11] MEDS: COLCHICINE 0.6 MG TAB PO SCH (08:49)
[2018-03-11] MEDS: FUROSEMIDE 40 MG TABLET PO SCH (08:50)
[2018-03-11] MEDS: FEBUXOSTAT 40 MG PO SCH (08:50)
[2018-03-11] MEDS: ATENOLOL 50 MG TAB PO SCH (08:50)
[2018-03-11] MEDS: LOSARTAN POTASSIUM 50 MG TABLET PO SCH (08:50)
[2018-03-11] MEDS: VITAMIN D 1000 UNIT TAB PO SCH (08:50)
[2018-03-11] MEDS: ALPRAZOLAM 0.5 MG TABLET PO SCH (08:50)
[2018-03-11] MEDS: PROMOD 30 ML DOSE PO SCH ×2 (08:51→20:14)
--- NOTE | 2018-03-11 11:14 | P.PN ---
Subjective Date of Service: 03/11/18 Chief Complaint: status post fall in a patient with Parkinson's Subjective: Tolerating diet, Ambulating, Improving, Working w/ PT, Doing well Review of Systems 10-point ROS is otherwise unremarkable Physical Examination - Vital Signs Temperature: 97.5 F Blood Pressure: 183/80 Pulse: 51 Respirations: 18 Pulse Ox (%): 98 - Physical Exam General: Alert, In no apparent distress HEENT: Atraumatic, PERRLA, EOMI Neck: Supple, JVD not distended Respiratory: Clear to auscultation bilaterally, Normal air movement Cardiovascular: Regular rate/rhythm, Normal S1 S2 Gastrointestinal: Normal bowel sounds, No tenderness Musculoskeletal: No tenderness Integumentary: No rashes Neurological: Normal speech, Normal tone, Normal affect Lymphatics: No axilla or inguinal lymphadenopathy - Studies Microbiology Data (last 24 hrs): 03/09/18 19:47 Clean Catch Urine [place] Count - Final >100,000 CFU/ML. Medications List Reviewed: Yes Assessment And Plan - Current Problems (Diagnosis) (1) Status post fall Current Visit: Yes Status: Acute Plan: Patient had a fall at the house. Secondary to her Parkinson's -fall precautions given -PT OT consulted recommendations Appreciated at this time (2) Rhabdomyolysis Current Visit: Yes Status: Acute Plan: Elevated CK at this time. -continue with IV fluids. -will monitor here closely for next 24-48 hr Qualifiers: Rhabdomyolysis type: non-traumatic Qualified Code(s): M62.82 - Rhabdomyolysis (3) MARGARITO (acute kidney injury) Current Visit: Yes Status: Acute Plan: Likely secondary to rhabdomyolysis -IV fluids at this time -avoid nephrotoxic agents -continue monitor closely (4) Elevated liver enzymes Current Visit: Yes Status: Resolved (5) Parkinson disease Current Visit: Yes Status: Chronic - Plan Pending Placement to Inpatient Rehab at this time. Improving Clinically
[2018-03-11 21:59] VITALS: O2SAT 97
[2018-03-12] MEDS: D5W 1,000 ML with NA BICARB 8.4% 50 MEQ IV SCH ×2 (05:00)
[2018-03-12 06:05] LABS: Absolute Lymphocytes (CBC) 1.3 K/uL (0.7-4.9); Absolute Monocytes 0.6 K/uL (0.1-1.3); Eosinophils % 6.2 % (0-4.4); Lymphocytes % 30.9 % (15.3-44.8); MCH 31.3 pg (27.0-35.0); MCV 91.8 fL (80-100); MPV 9.2 fL (7.6-11.3); RBC Red Blood Cell Count 3.48 M/uL (3.86-4.86)
[2018-03-12 06:12] LABS: Albumin 2.2 g/dL (3.4-5.0); Bilirubin Total 0.4 mg/dL (0.2-1.0); Potassium 3.1 mmol/L (3.5-5.1); Protein, Total 5.3 g/dL (6.4-8.2)
[2018-03-12] MEDS: MULTIVIT W/ MINERAL TAB PO SCH (08:15)
[2018-03-12] MEDS: VITAMIN D 1000 UNIT TAB PO SCH (08:15)
[2018-03-12] MEDS: ATENOLOL 50 MG TAB PO SCH (08:15)
[2018-03-12] MEDS: COLCHICINE 0.6 MG TAB PO SCH (08:15)
[2018-03-12] MEDS: LOSARTAN POTASSIUM 50 MG TABLET PO SCH (08:16)
[2018-03-12] MEDS: ALPRAZOLAM 0.5 MG TABLET PO SCH (08:16)
[2018-03-12] MEDS: FEBUXOSTAT 40 MG PO SCH (08:16)
[2018-03-12] MEDS: FUROSEMIDE 40 MG TABLET PO SCH (08:16)
[2018-03-12] MEDS: PROMOD 30 ML DOSE PO SCH (08:17)
[2018-03-12 12:10] VITALS: BP 142/66; TEMP 97.9
[2018-03-12] MEDS ORDERED: POTASSIUM CL SA 10 MEQ TAB PO ONE (13:00)
--- NOTE | 2018-03-12 14:03 | P.DS ---
Admission Date: 03/09/18 Discharge Date: 03/12/18 Disposition: TRANSFER TO INPATIENT REHAB Discharge Condition: GOOD Reason for Admission: status post fall in a patient with Parkinson's - Problems (1) Status post fall Status: Acute (2) Rhabdomyolysis Status: Resolved Qualifiers: Rhabdomyolysis type: non-traumatic Qualified Code(s): M62.82 - Rhabdomyolysis (3) MARGARITO (acute kidney injury) Status: Resolved (4) Elevated liver enzymes Status: Resolved (5) Parkinson disease Status: Chronic Brief History of Present Illness: Patient is an 88-year-old female who came into the hospital after falling. She has had multiple falls recently. She states because of her Parkinson's whenever she bumps in the something she loses her balance and falls down. She was also severely dehydrated. She was admitted to the hospital for further workup. Her lab workup revealed elevated CPK and elevated renal function. Her liver enzymes are also elevated. Patient will need to be admitted to the hospital and treated for her multiple medical issues. Will get physical therapy evaluation and rehab evaluation. Patient may benefit from going to rehab for 7-10 days to increase her strength and to learn ways to prevent her from falling. Will get neurology consultation as well. Hospital Course: Overall during the hospital stay patient remained stable Patient was initially admitted to the hospital for status post fall having rhabdomyolysis in a KI after the fall. It here in the hospital and had physical therapy consulted here in the hospital as well. Patient lab work had marked improvement in her abdomen elicits along with a KI did resolve. Patient then was referred over to physical therapy who recommended the patient be transferred to inpatient rehab for fall prevention an appropriate rehab toe weight frequent hospital visits an appropriate safe discharge home. Patient then had a referral made for inpatient rehab and was accepted and thus was transferred to inpatient rehab for further care. Patient does have underlying Parkinson's disease which makes her high risk for fall at home. Inpatient rehab will be most beneficial for the patient as this will allow for patient to have intense therapy and return home to her baseline with safety practices. Patient demonstrated understanding of the disease process and the plan and thus was discharged home to Rehab under stable condition. Vital Signs/Physical Exam: Temp Pulse Resp BP Pulse Ox 97.9 F 46 L 18 142/66 H 96 03/12/18 12:00 03/12/18 12:00 03/12/18 12:00 03/12/18 12:00 03/12/18 12:00 General: Alert, In no apparent distress HEENT: Atraumatic, PERRLA, EOMI Neck: Supple, JVD not distended Respiratory: Clear to auscultation bilaterally, Normal air movement Cardiovascular: Regular rate/rhythm, Normal S1 S2 Gastrointestinal: Normal bowel sounds, No tenderness Musculoskeletal: No tenderness Integumentary: No rashes Neurological: Normal speech, Normal tone, Normal affect Lymphatics: No axilla or inguinal lymphadenopathy Laboratory Data at Discharge: WBC 4.1 K/uL (4.3-10.9) L D 03/12/18 05:35 Hgb 10.9 g/dL (12.0-15.0) L 03/12/18 05:35 Hct 32.0 % (36.0-45.0) L 03/12/18 05:35 Plt Count 142 K/uL (152-406) L 03/12/18 05:35 PT 14.7 SECONDS (9.5-12.5) H 03/09/18 17:10 INR 1.24 03/09/18 17:10 Sodium 144 mmol/L (136-145) 03/12/18 05:35 Potassium 3.1 mmol/L (3.5-5.1) L 03/12/18 05:35 BUN 48 mg/dL (7-18) H 03/12/18 05:35 Creatinine 1.80 mg/dL (0.55-1.3) H 03/12/18 05:35 Glucose 86 mg/dL (74-106) 03/12/18 05:35 Magnesium 2.3 mg/dL (1.8-2.4) 03/09/18 17:10 Total Bilirubin 0.4 mg/dL (0.2-1.0) 03/12/18 05:35 AST 94 U/L (15-37) H 03/12/18 05:35 ALT 54 U/L (12-78) 03/12/18 05:35 Alkaline Phosphatase 94 U/L (45-117) 03/12/18 05:35 Home Medications: ALPRAZolam [Xanax*] 0.5 mg PO DAILY 04/08/14 Atenolol [Tenormin*] 50 mg PO DAILY 04/08/14 Cholecalciferol (Vitamin D3) [Vitamin D-3] 2,000 unit PO DAILY 04/08/14 Colchicine [Colcrys] 0.6 mg PO DAILY 04/08/14 Furosemide [Lasix] 40 mg PO DAILY 04/08/14 Losartan Potassium [Cozaar] 100 mg PO DAILY 04/08/14 Febuxostat [Uloric] 40 mg PO DAILY 03/10/18 Mv-Mn/Folic Acid/Calcium/Vit K [Women's 50 Plus Multivit Tab] 1 tab PO DAILY 10/19 Diet: Regular Activity: Ad radha
== END 2018-03-12 12:38 | DRG 57 ==
LOC: ER 16:47 → ERHOLD 21:21 → 4TH 21:38
PROVIDERS: ADMIT Hospitalist; ATTEND Family Medicine
DX: G20 Parkinson's disease (principal); M62.82 Rhabdomyolysis; N17.9 Acute kidney failure, unspecified; Z91.81 History of falling; W18.00XA Striking against unspecified object with subsequent fall, initial encounter; Y93.01 Activity, walking, marching and hiking; Y92.019 Unspecified place in single-family (private) house as the place of occurrence of the external cause; R94.5 Abnormal results of liver function studies; Z88.5 Allergy status to narcotic agent; Z88.0 Allergy status to penicillin; Z88.8 Allergy status to other drugs, medicaments and biological substances
CPT/HCPCS: 36415; 51702; 70450; 71045; 71250; 72125; 80048; 80053; 80076; 81003; 81015; 82550; 82553; 83605; 83735; 83880; 84145; 84484; 85025; 85610; 87040; 87086; 87088; 90670; 93005; 97116; 97163; 97530; 99285; G0009; J0360; J3370; J7030

== ENCOUNTER 2018-03-12 12:40 | Inpatient (IN) | payer OTHER, MEDICARE ==
--- NOTE | 2018-03-10 19:44 | R.PREADM ---
SCREENING DATE AND TIME 03/10/2018 17:17 (RESEARCH AND DEVELOPMENT MANAGER) ANTICIPATED REHAB ADMISSION DATE 03/12/2018 REFERRING FACILITY [facility] REFERRAL DATE AND TIME 03/10/2018 17:17 (RESEARCH AND DEVELOPMENT MANAGER) REFERRAL ROOM# 401 ACUTE ADMIT DATE 03/09/2018 Previous Rehabilitation(s): No. REFERRING PHYSICIAN Esperanza Rand REHAB FACILITY [facility] CLINICAL LIAISON Mickey Paniagua PHYSICIAN REVIEWER Dr. Aman Lackey M.D. [id number] [id number] NAME SHANDA BARTON [address]ESS [address] [place]IP [id number] DATE OF 1930 AGE 88 SSN# [id number] GENDER female MARITAL STATUS RACE white [facility] PRE[facility]HOSPITAL LIV[facility] SETTING 01 - Home (private home/apt. board/care, assisted living, retirement, transitional living) HOME TYPE AND DETAILS Type of home: single family house # of levels in the residence: 1 # of steps within the residence: 0 # of steps to enter the residence: 1 PRE-HOSPITAL LIVING WITH Alone FAMILY SUPPORT Yes PRIMARY FAMILY CONTACT NAME RUPINDER BARTON PRIMARY FAMILY CONTACT PHONE PRIMARY FAMILY CONTACT RELATIONSHIP [id number] PHONE PRIMARY FAMILY CONTACT ON ADM.? no IS PRIMARY FAMILY CONTACT AUTH. REP.? no 1ST EMERGENCY CONTACT RUPINDER BARTON 1ST CONTACT PHONE 1ST CONTACT RELATIONSHIP [id number] PHONE 1ST CONTACT ON ADM. no IS 1ST CONTACT AUTH. REP.? no PHONE 2ND CONTACT ON ADM.? no PATIENT EMPLOYMENT STATUS Retired (for age) PATIENT EMPLOYER No Employer PAYOR INFORMATION: 1ST PAYOR NAME MEDICARE 1ST PAYOR PHONE [phone] 1ST PAYOR INJURY/ILLNESS DUE TO ACCIDENT? No ANOTHER [employer] PARTY RESPONSIBLE? No PRIMARY REHAB/ACUTE DIAGNOSIS: Parkinson's Disease ONSET DATE 03/09/2018 REHAB IMPAIRMENT CATEGORY ([place]): 06 Neurological (Neuro) MEETS 60% rule PRIMARY DIAGNOSIS-RELATED SURGERIES: N/A COMORBID REHAB/ACUTE DIAGNOSES: - N/A Gout Pressure Ulcer Hypertension CHF Arthritis INTERVENTIONS: - Hypertension Fluid management Medications VS RISK FOR COMPLICATIONS: - Hypertension CVA Hypotension MN TIA SUMMARY OF ACUTE HOSPITALIZATION: Pt. is a 88 yo Right-handed white female. On 03/09/2018 she was admitted to [facility] with diagnosis Parkinson's Disease . Her impairment category is Neurologic Conditions 03 - Parkinsonism (03.2). Pre-morbidly, Pt. was independent/mod-I in Sphincter Control, Transfers Control, Communication, Socia l Cognition, Self-Care, and Locomotion; and she had good Sphincter Control. Currently, she has deficits of Endurance, Safety Awareness, Transfers Control, Balance, Locomotion, a nd Self-Care. Pt. is now referred to [facility] for acute in-patient rehabilitation in order to maximize patient's functional independence in activities of daily living, strength, ROM, and mobi lity. Patient has realistic goal of being discharged at assistance level 4-Dorota to reside at Home with Fam soumya/Relatives. Ms hSanda Sebastian is an 88 year old female that lives in a single luke home with a ramp to enter. She was independent with ADLs and self care. On 03/09/2018, she fell and because of her Parkinsons she losses her balance and severely dehydrated and fall down was admitted to [facility] and treated. She is now medically stab le but in need of 24-hour nursing, doctor supervision and oversite while receiving participate in 3hours of therapy a day/15 hours per week and receive care with an intensive interdisciplinary approach. CONSULT: Neuro consult PAST MEDICAL HISTORY Arthritis CHF Gout Hypertension Pressure Ulcer PAST SURGICAL HISTORY: Hysterectomy Lap Daphne Lap Appe Throat surgery Joint surgery left ring finger MEDICATION ALLERGIES: Codeine Penicillin Acetaminophen allopurinol carbidopa fentanyl hydrocodone bitartrate levodopa lidocaine lorazepam Propoxyphene HCl rasagiline mesylate ropinirole HCl TRAMADOL verapamil ENVIRONMENTAL ALLERGIES: None Known - Substance Allergies None Known - Other Allergies None Known CODE STATUS: Full code WEIGHT/HEIGHT/BMI: WEIGHT 184 lbs HEIGHT 5' BMI 35.9 DIET: - Diet Type Regular - Diet - Solid Texture Regular - Diet - Liquid Texture Regular - Tube Feed N/A REVIEW OF SYSTEMS: - Gen Alert and awake Lying in bed No apparent distress Oriented to: person, time, and place - Vital Signs Temperature: 98 F SBP/DBP: 170/80 Pulse: 59 Resp: 16 Vital signs stable, afebrile - CVS RRR VITAL SIGNS Temperature: 98 F SBP/DBP: 170/80 Pulse: 59 Resp: 16 Vital signs stable, afebrile CURRENT SPHINCTER CONTROL: Pre-hospital bladder status: continent # of bladder accidents in the last 7 days prior to screenin Pre-hospital bowel status: continent # of bowel accidents in the last 7 days prior to screenin Last Bowel Movement Date: 03/10/2018 DETAILED CURRENT FUNCTIONAL STATUS: - Bladder accident frequency: Ind - No accidents in the past 7 days - Bowel accident frequency: Ind - No accidents in the past 7 days - Walking score based on distance walked: 2(5149ft) - Wheelchair score based on distance traveled: 0(N/A) FUNCTIONAL STATUS: - Self-Care A. Eating Ind Ind B. Grooming Ind Ind C. Bathing Ind sup D. Dressing - Upper Ind sup E. Dressing - Lower Ind sup F. Toileting Ind sup - Sphincter Control G: Bladder control Ind Ind H: Bowel control Ind Ind - Transfers Control I. Bed/Chair/Wheelchair Ind modA J. Toilet Ind Dorota K. Tub/Shower Ind ADNO - Locomotion L. Walk/Wheelchair (C) Ind Dorota L. Walk/Wheelchair (W) Ind Dorota M. Stairs Ind ADNO - Communication N. Comprehension (B) Ind Ind O. Expression (B) Ind Ind - Social Cognition P. Social Interaction Ind Ind Q. Problem Solving Ind Ind R. Memory Ind Ind - Endurance Fair - Balance Fair - Safety Awareness Fair CURRENT FUNC. DEFICITS: Endurance, Safety Awareness, Transfers Control, Balance, Locomotion, and Self-Care THERAPY NOTES FROM ACUTE CARE: Attached. SPECIAL NEEDS: - Safety Concerns Skin breakdown precautions needed due to skin breakdown risk PATIENT NEEDS ACTIVE AND ONGOING THERAPEUTIC INTERVENTION OF MULTIPLE THERAPY DISCIPLINES, INCLUDING: - Occupational Therapy Evaluate and Treat. - Speech Therapy Memory Strategies. Speech Intelligibility Training. - Physical Therapy Evaluate and Treat. PATIENT NEEDS CLOSE MEDICAL SUPERVISION BY A REHABILITATION PHYSICIAN FOR: Coordination of Treatment Team Medical and Co-Morbidity Management PATIENT REQUIRES 24X7 REHAB NURSING FOR MEDICAL AND FUNCTIONAL MGT. OF THE FOLLOWING DEFICITS: ADL's Ambulation Communication Disease Management Medication Management Patient/Family Education Providing Safe Environment Transfers PATIENT REQUIRES INTENSIVE, COORDINATED INTERDISCIPLINARY APPROACH TO REHAB: Arranging Home Equipment/Services Discharge Planning Family Intervention/Training Grocery Supervisor/Case Management PATIENT REHAB POTENTIAL: Expected level of measurable improvement will be of a practical value to patient's functional capacit y or adaptations to impairments Has a viable Discharge Plan Medically appropriate; condition is sufficiently stable to participate in intensive rehab program Patient is able and expected to receive 3 hours of individualized therapy daily on at least 5 of ever y 7 days Patient's prognosis for significant practical improvement within a reasonable period of time appears Good DISCHARGE PLAN: - Estimated Length of Stay (days) 13. - Consensus on plan Discharge plan has been discussed with primary caregiver. Patient/Family is in agreement with the carrol n. Primary caregiver is in agreement with the plan. - Patient/Family Goals Return home with assistance. - Planned Living Setting Upon Discharge Home, to live with Family/Relatives. RECOMMENDED CARE LEVEL: IRF RECOMMENDATION DETAILS: Recommended Admission to Comprehensive Rehabilitation Program to Increase Functional [place] SCREENER'S COMPLETENESS CONFIRMATION: - Screening Confirmation The patient data collection on this preadmission screening form is finished - Ms. Barton has multiple active medical problems which require close medical observation, supervision and management as provided by our inpatient rehabilitation unit. Furthermore, due to progressive untr eated Parkinson's disease, she requires aggressive physical and occupational therapy to improve her g ait balance, postural instability, freezing episodes, decrease fall risk and improve her activities o f daily. Her risk of deep vein thrombosis and pain will be addressed while performing aggressive margoth y therapy. Since she lives along, admission to the acute inpatient rehabilitation unit is necessary a nd appropriate to help prevent additional falls, injury and acute worsening of Parkinson's disease an d co-morbid medical conditions. PHYSICIANS REVIEW AND ADMISSION DETERMINATION Admit - Based on my review of the Pre-Admission Screening results, in my medical judgment and experie nce, I concur with the findings and recommend admission to [facility], as this patient requires an IRF level of care. SIGNATURE PANEL: Clinical Liaison - [electronically] signed by Mickey Paniagua on 03/10/2018 at 17:43 (RESEARCH AND DEVELOPMENT MANAGER) Physician Reviewer - [electronically] signed by Dr. Aman Lackey M.D. on 03/10/2018 at 19:43 (RESEARCH AND DEVELOPMENT MANAGER )
[2018-03-12 13:59] VITALS: BMI 32.2
[2018-03-12 14:27] LABS: Urine Appearance CLEAR; Urine Bilirubin NEGATIVE (NEG); Urine Blood 3+ (NEG); Urine Color YELLOW; Urine Glucose NEGATIVE (NEG); Urine Protein TRACE (NEG); Urine Specific Gravity <=1.005 (1.005-1.030)
--- NOTE | 2018-03-12 14:56 | P.CNS ---
Date of Consult: 03/12/18 Reason for Consult: Medical Mgmt Requesting Physician: Aman Lackey Chief Complaint: S.P Fall History of Present Illness: 88 y/o F now admitted to Inpatient Rehab for 3hours therapy under supervision of Doctor, nurse and rehab services. Pt was admitted to the Acute hospital for Fall, Rhabdomylosis and MARGARITO. This acute illness are now resolved and patient admitted to inpatient rehab. No other complains to offer. Medicine consulted for Chronic Illness. Allergies codeine Allergy (Verified 04/08/14 16:12) Itching Penicillins Allergy (Verified 04/08/14 16:12) Hives acetaminophen [From Lortab] Adverse Reaction (Verified 04/08/14 16:15) Rash allopurinol Adverse Reaction (Verified 04/08/14 16:15) Rash carbidopa [From Sinemet] Adverse Reaction (Verified 04/08/14 16:15) Rash fentanyl Adverse Reaction (Verified 04/08/14 16:15) Rash hydrocodone bitartrate [From Lortab] Adverse Reaction (Verified 04/08/14 16:15) Rash levodopa [From Sinemet] Adverse Reaction (Verified 04/08/14 16:15) Rash lidocaine HCl [From Xylocaine] Adverse Reaction (Verified 04/08/14 16:12) Nausea/Vomiting lorazepam [From Ativan] Adverse Reaction (Verified 04/08/14 16:15) Rash propoxyphene HCl [From Darvon] Adverse Reaction (Verified 04/08/14 16:15) Rash rasagiline mesylate [From Azilect] Adverse Reaction (Verified 04/08/14 16:15) Rash ropinirole HCl [From Requip] Adverse Reaction (Verified 04/08/14 16:15) Rash tramadol Adverse Reaction (Verified 04/08/14 16:15) Rash verapamil [Verapamil] Adverse Reaction (Verified 04/08/14 16:15) Rash Home Medications: ALPRAZolam [Xanax*] 0.5 mg PO DAILY 04/08/14 Atenolol [Tenormin*] 50 mg PO DAILY 04/08/14 Cholecalciferol (Vitamin D3) [Vitamin D-3] 2,000 unit PO DAILY 04/08/14 Colchicine [Colcrys] 0.6 mg PO DAILY 04/08/14 Furosemide [Lasix] 40 mg PO DAILY 04/08/14 Losartan Potassium [Cozaar] 100 mg PO DAILY 04/08/14 Febuxostat [Uloric] 40 mg PO DAILY 03/10/18 Mv-Mn/Folic Acid/Calcium/Vit K [Women's 50 Plus Multivit Tab] 1 tab PO DAILY 10/19 - Past Medical/Surgical History Diabetic: No -: pressure ulcers -: gout -: HTN -: CHF -: parkinsons -: arthritis -: hysterectomy -: lap kelby -: lap appe -: throat surgery -: joint surgery left ring finger - Family History Father Medical History: Heart disease, Hypertension, Stroke Mother Medical History: Heart disease, Hypertension, Stroke Sister Medical History: Stroke - Social History Smoking Status: Never smoker Alcohol use: No CD- Drugs: No Caffeine use: No Place of Residence: Home Review of Systems 10-point ROS is otherwise unremarkable Physical Examination Temp Pulse Resp BP Pulse Ox 97.1 F 52 16 196/82 H 98 03/12/18 13:57 03/12/18 13:57 03/12/18 13:57 03/12/18 13:57 03/12/18 13:57 General: Alert, In no apparent distress HEENT: Atraumatic, PERRLA, Mucous membr. moist/pink, EOMI, Sclerae nonicteric Neck: Supple, 2+ carotid pulse no bruit, No LAD, Without JVD or thyroid abnormality Respiratory: Clear to auscultation bilaterally, Normal air movement Cardiovascular: Regular rate/rhythm, Normal S1 S2 Gastrointestinal: Normal bowel sounds, No tenderness Musculoskeletal: No tenderness Integumentary: No rashes Neurological: Normal gait, Normal speech, Normal tone, Normal affect Lymphatics: No axilla or inguinal lymphadenopathy - Problems (1) Encounter for rehabilitation Current Visit: Yes Status: Acute Plan: Patient Admitted to rehab for Rehab Services. -PT/OT/Speech consulted (2) Status post fall Current Visit: No Status: Acute Plan: Now In Inpatient Rehab. -Fall Precaution given -Patient working with PT and OT (3) Parkinson disease Current Visit: No Status: Chronic (4) MARGARITO (acute kidney injury) Current Visit: No Status: Resolved Plan: Resolved on Discharge from medical Surgery -Will monitor closely (5) Rhabdomyolysis Current Visit: No Status: Resolved Plan: Resolved now in Medical Surgery -Will continue to Monitor closely Qualifiers: Rhabdomyolysis type: non-traumatic Conclusions/Impression: Pt now Admitted to the inpatient Rehab after her Acute illness has resolved. Pt working with PT/OT/Speech. Doing well overall. Will continue to follow with Rehab on as needed basis for medical mgmt.
[2018-03-12 15:38] LABS: Urine Bacteria 20-50 /HPF (<20)
[2018-03-12 15:39] LABS: Urine Culture Reflex Order NOT NEEDED
[2018-03-12] MEDS ORDERED: ATENOLOL 50 MG TAB PO SCH (18:00)
[2018-03-12] MEDS: APIXABAN 2.5 MG TABLET PO SCH (19:31)
--- NOTE | 2018-03-12 20:06 | R.HP ---
FACILITY: [facility] ENCOUNTER DATE AND TIME: 03/12/2018 20:02 (TOP WADDY) MR#: [id number] NAME SHANDA BARTON ADDRESS: [address] [place] [address]: [place]IP [id number] PHONE: DATE OF : 1930 AGE: 88 SSN# [id number] GENDER: Female DEXTERITY Right-handed MARITAL STATUS RACE White PRE-HOSPITAL LIVING SETTING 01 - Home (private home/apt. board/care, assisted living, halfway, transitional living) PRE-HOSPITAL LIVING WITH Alone ENCOUNTER PHYSICIAN: Dr. Aman Lackey M.D. REFERRING DOCTOR: ventura Rand DATE OF ADMISSION: 03/12/2018 12:40 (TOP WADDY) REFERRING FACILITY [facility] HOME TYPE AND DETAILS: Type of home: single family house # of levels in the residence: 1 # of steps within the residence: 0 # of steps to enter the residence: 1 ADMISSION DIAGNOSIS: Parkinson's Disease ONSET DATE: 03/09/2018 PRIMARY DIAGNOSIS-RELATED SURGERIES: N/A SECONDARY/COMORBID DIAGNOSES (TIERED): - N/A Gout Hypertension Pressure Ulcer CHF Arthritis HISTORY OF PRESENT ILLNESS (HPI): Pt. is a 88 yo Right-handed white female. On 03/09/2018 she was admitted to [facility] with diagnosis Parkinson's Disease . Her impairment category is Neurologic Conditions 03 - Parkinsonism (03.2). Pre-morbidly, Pt. was independent/mod-I in Sphincter Control, Transfers Control, Communication, Socia l Cognition, Self-Care, and Locomotion; and she had good Sphincter Control. Currently, she has deficits of Endurance, Safety Awareness, Transfers Control, Balance, Locomotion, a nd Self-Care. Pt. is now referred to [facility] for acute in-patient rehabilitation in order to maximize patient's functional independence in activities of daily living, strength, ROM, and mobi lity. Patient has realistic goal of being discharged at assistance level 4-Dorota to reside at Home with Fam soumya/Relatives. Ms Shanda Sebastian is an 88 year old female that lives in a single luke home with a ramp to enter. She was independent with ADLs and self care. On 03/09/2018, she fell and because of her Parkinsons she losses her balance and severely dehydrated and fall down was admitted to [facility] and treated. She is now medically stab le but in need of 24-hour nursing, doctor supervision and oversite while receiving participate in 3hours of therapy a day/15 hours per week and receive care with an intensive interdisciplinary approach. MEDICATION ALLERGIES: Codeine Penicillin Acetaminophen allopurinol carbidopa fentanyl hydrocodone bitartrate levodopa lidocaine lorazepam Propoxyphene HCl rasagiline mesylate ropinirole HCl TRAMADOL verapamil ENVIRONMENTAL ALLERGIES: None Known - Substance Allergies None Known - Other Allergies None Known PAST MEDICAL HISTORY: Arthritis CHF Gout Hypertension Pressure Ulcer PAST SURGICAL HISTORY: Hysterectomy Lap Daphne Lap Appe Throat surgery Joint surgery left ring finger FAMILY HISTORY: Family history is not contributory. SOCIAL HISTORY: - Home Living Alone REVIEW OF SYSTEMS: - Gen No Chills Fatigue No Fever - Eyes No Double Vision No itchiness - ENMT No Difficulty Swallowing - CVS No Chest Discomfort No Chest Pain Fatigue No Weight Gain - Resp No Cough No Shortness of Breath - GI Continent No Abdominal Pain No Constipation No Diarrhea - Continent No Kidney Pain No Painful Urination No Urinary Urgency - MSK No Joint Pain Muscle Cramps No Stiffness - Skin No Itching No Rash No Suspicious Lesions - Neuro No Coordination Difficulty No Difficulty with Concentration No Memory Loss No Seizures Weakness - Psych No Anxiety No Depression No HIV Exposure No Persistent Infections No Seasonal Allergies - Endo No Cold/Heat Intolerance No Excessive Hunger No Excessive Thirst No Excessive Urination PHYSICAL EXAM - Gen Alert and awake Lying in bed No apparent distress Oriented to: person, time, and place - Skin No skin breakdown. Normacephalic - Eyes No abnormalities - ENMT No abnormalities - Neck No abnormalities - CVS RRR - Chest Clear - Resp Clear to auscultation - Abd Soft - GI Soft Deferred - No abnormalities - Ext no edema - MSK 4/5 weakness in both lower extremities. - Neuro 4/5 strength right upper and lower extremities. - Psych No abnormalities VITAL SIGNS Temperature: 98 F SBP/DBP: 170/80 Pulse: 59 Resp: 16 NURSING: - Shower allowing shower ACTIVITIES OOB only with supervision FUNCTIONAL STATUS: - Self-Care A. Eating Ind Ind B. Grooming Ind Ind C. Bathing Ind sup D. Dressing - Upper Ind sup E. Dressing - Lower Ind sup F. Toileting Ind sup - Sphincter Control G: Bladder control Ind Ind H: Bowel control Ind Ind - Transfers Control I. Bed/Chair/Wheelchair Ind modA J. Toilet Ind Dorota K. Tub/Shower Ind ADNO - Locomotion L. Walk/Wheelchair (C) Ind Dorota L. Walk/Wheelchair (W) Ind Dorota M. Stairs Ind ADNO - Communication N. Comprehension (B) Ind Ind O. Expression (B) Ind Ind - Social Cognition P. Social Interaction Ind Ind Q. Problem Solving Ind Ind R. Memory Ind Ind - Endurance Fair - Balance Fair - Safety Awareness Fair CURRENT FUNC. DEFICITS: Endurance, Safety Awareness, Transfers Control, Balance, Locomotion, and Self-Care ASSESSMENT: Pt. is a 88 yo Right-handed white female.On 03/09/2018 she was admitted to [facility] with diagnosis Parkinson's Disease.Her impairment category is Neurologic Conditions 03 - Park insonism (03.2).Pre-morbidly, Pt. was independent/mod-I in Sphincter Control, Transfers Control, Comm unication, Social Cognition, Self-Care, and Locomotion; and she had good Sphincter Control.Currently, she has deficits of Endurance, Safety Awareness, Transfers Control, Balance, Locomotion, and Self-Ca re.Pt. is now referred to [facility] for acute in-patient rehabilitation in or bj[place] to maximize patient's functional independence in activities of daily living, strength, ROM, and m obility.- Rehab Goal Patient has realistic goal of being discharged at assistance level 4-Dorota to reside at Home with Fam soumya/Relatives. Ms Shanda Sebastian is an 88 year old female that lives in a single luke home with a ramp to enter. She was independent with ADLs and self care. On 03/09/2018, she fell and because of her Parkinsons she losses her balance and severely dehydrated and fall down was admitted to [facility] and treated. She is now medically stab le but in need of 24-hour nursing, doctor supervision and oversite while receiving participate in 3hours of therapy a day/15 hours per week and receive care with an intensive interdisciplinary approach.REHAB PLAN: - Physical Therapy Gait dysfunction - to improve, our physical therapists will perform initial evaluation of pt's status upon admission and devise an individualized program for Gait Training, and Wheel Chair mobility Inability to transfer - to improve, our physical therapists will perform initial evaluation of pt's s tatus upon admission and devise an individualized program for Bed mobility Need for home safety evaluation - to improve, our physical therapists will perform initial evaluation of pt's status upon admission and devise an individualized program for Home Evaluation Need in caregiver upon discharge - to improve, our physical therapists will perform initial evaluatio n of pt's status upon admission and devise an individualized program for Caregiver Training New precaution - to improve, our physical therapists will perform initial evaluation of pt's status u delores admission and devise an individualized program for Patient precaution education Poor balance - to improve, our physical therapists will perform initial evaluation of pt's status upo n admission and devise an individualized program for Balance Training Poor endurance - to improve, our physical therapists will perform initial evaluation of pt's status u delores admission and devise an individualized program for Endurance Training Weakness - to improve, our physical therapists will perform initial evaluation of pt's status upon ad mission and devise an individualized program for Aquatic Therapy, Neuromuscular Reeducation, and Stre ngthening Achieving independence - to improve, our physical therapists will perform initial evaluation of pt's status upon admission and devise an individualized program for Community Reintegration Activities - Occupational Therapy ADL deficits - to improve, our occupation therapists will perform initial evaluation of pt's status u delores admission and devise an individualized program for Bathing, Bed mobility, Community Reintegration , Cooking, Dressing, Eating, Fine Motor Skills, Grooming, Homemaking, Kitchen Mobility, Laundry, Deepthi ent Education, Safety Awareness, Splinting - Positioning, Transfers(Toilet, Tub, Shower), and Wheel C hair Management Need for career guidance technician - to improve, our occupation therapists will perform initial evaluation of pt's s tatus upon admission and devise an individualized program for Caregiver Training Weakness - to improve, our occupation therapists will perform initial evaluation of pt's status upon admission and devise an individualized program for Aquatic Therapy, Balance, Endurance, UE ROM, and U E strengthening MEDICAL PLAN: - Diet Type Start Regular - Diet - Liquid Texture Start Regular - Tube Feed Start N/A - N/A Perform Neuro consult - Diet - Solid Texture Regular - Shower shower DISCHARGE PLAN: - Estimated Length of Stay (days) 13. - Consensus on plan Discharge plan has been discussed with primary caregiver. Patient/Family is in agreement with the carrol n. Primary caregiver is in agreement with the plan. - Patient/Family Goals Return home with assistance. - Planned Living Setting Upon Discharge Home, to live with Family/Relatives. SIGNATURE PANEL: (TOP WADDY)
--- NOTE | 2018-03-12 20:07 | PAPE ---
PATIENT: [facility] MR# [id number] REFERRING DOCTOR ventura Rand EVALUATION DATE AND TIME 03/12/2018 20:05 (PHARMACY DISTRICT MANAGER) NAME SHANDA BARTON DATE OF 1930 AGE 88 PHONE SSN# [id number] GENDER female EVALUATING PHYSICIAN Dr. Aman Lackey M.D. ADMISSION DIAGNOSIS: Parkinson's Disease ONSET DATE 03/09/2018 SECONDARY/COMORBID DIAGNOSES TIERED: - N/A Gout Hypertension Pressure Ulcer CHF Arthritis POST-ADMISSION FUNCTIONAL/MEDICAL STATUS: - Bladder Same accident frequency: Ind - No accidents in the past 7 days - Bowel Same accident frequency: Ind - No accidents in the past 7 days - Walking Same score based on distance walked: 2(5149ft) - Wheelchair Same score based on distance traveled: 0(N/A) STATUS CHANGE EVALUATION: No change in Functional or Medical Status is identified compared with Pre-Admission screening. PATIENT NEEDS CLOSE MEDICAL SUPERVISION BY A REHABILITATION PHYSICIAN FOR: Coordination of Treatment Team Medical and Co-Morbidity Management PATIENT REQUIRES 24X7 REHAB NURSING FOR MEDICAL AND FUNCTIONAL MGT. OF THE FOLLOWING DEFICITS: ADL's Ambulation Communication Disease Management Medication Management Patient/Family Education Providing Safe Environment Transfers PATIENT REQUIRES INTENSIVE, COORDINATED INTERDISCIPLINARY APPROACH TO REHAB: Arranging Home Equipment/Services Discharge Planning Family Intervention/Training Eligibility Manager/Case Management LIST OF IDENTIFIED AND POTENTIAL PROBLEMS: Alteration in leisure activities Bladder, Incontinence Blood Pressure, Hypertension/hypotension Issues Bowel, Incontinence Fluid volume overload related to Congestive Heart Failure (CHF) Infection, Actual or Potential Mobility Impaired Pain, Alteration in Comfort Self Care Deficit Skin Integrity, Actual or Potential Urinary Tract Infection (UTI), Actual or Potential RISK FOR COMPLICATIONS - Hypertension CVA. Hypotension. CT. TIA. INTERVENTIONS - Hypertension PATIENT COULD BE AT RISK FOR COMPLICATIONS FROM ADVERSE MEDICAL CONDITIONS DUE TO HIS/HER COMORBIDITI ES AND THE RIGORS OF THE INTENSIVE REHABILLITATION PROGRAM. METHODS OR INTERVENTIONS TO AVOID COMPLIC ATIONS INCLUDE: - Infection Clinical staff to assess and manage the signs and symptoms of infection including fever, redness, war mth, etc. - Urinary Tract Infection - Falls Patient will be evaluated for Fall Precautions and will be placed on Fall Precautions as indicated pe r protocol. - Skin Breakdown Nursing will assess skin daily using assessment tool and will place on Skin Breakdown Precautions as indicated per protocol. - Pain Clinical staff may employ non-medication methods such as massage, distraction, decrease stimulus, etc . as needed. Clinical staff will assess patient's pain level every shift per protocol to assess and e nsure pain management effectiveness. Medications will be given and the pain level re-assessed. PRELIMINARY PLAN OF CARE: - Physical Therapy Patient needs Physical Therapy for a daily minimum of 1.5 hours at least 5 out of 7 days, to improve: Mobility, Strengthening, Transfers, Stretching, ROM, Endurance, Ability to manage stairs, Gait, and Balance. - Speech Therapy Patient needs Speech Therapy for a daily minimum of 0.5 hours at least 5 out of 7 days, to improve: S wallowing, Cognition, Language Skills, and Compensatory Strategies. - Rehabilitation Nursing Patient requires 24x7 Rehabilitation Nursing for: Pain Issues, Identifying and preventing risk factor s, Monitoring and reporting current medical conditions, Assisting with ambulation and transfer, Zechariah ting with all ADL-s, Teaching patients about disease process and medications, Family teaching, Provid ing safe environment, Bowel and Bladder Issues, Skin Integrity, and Medication Management. Patient needs Eligibility Manager and/or Case Management for: Discharge Planning, Arranging Home Equipmen t or Services, and Family Interventions. - Dietary and Nutrition Services Patient needs Dietary and Nutrition Services for: Adequate Nutrition, Nutritional Supplements, and Nu tritional Education. - Occupational Therapy Patient needs Occupational Therapy for a daily minimum of 1.5 hours at least 5 out of 7 days, to impr ove Activities of Daily Living, including: Eating, Grooming, Bathing, Dressing, Toileting, Toilet Tra nsfers, Community Reintegration, Higher functional activities, Adaptive Equipment, Splinting, Househo ld Tasks, and Other activities as determined. POTENTIAL FUNCTIONAL GOALS FOR PATIENT TO ACHIEVE BY DISCHARGE: - Safety Precaution Patient will remain free from falls or injury at time of discharge. - Bed Mobility Patient will perform bed mobility at 4-Dorota level of assistance. - Transfers Patient will complete transfers from bed to chair at 4-Dorota level of assistance. - Mobility Patient will ambulate 150 ft with 4-Dorota level of assistance with RW. PATIENT REHAB POTENTIAL Expected level of measurable improvement will be of a practical value to patient's functional capacit y or adaptations to impairments Has a viable Discharge Plan Medically appropriate; condition is sufficiently stable to participate in intensive rehab program Patient is able and expected to receive 3 hours of individualized therapy daily on at least 5 of ever y 7 days Patient's prognosis for significant practical improvement within a reasonable period of time appears Good DISCHARGE PLAN: - Estimated Length of Stay (days) 13. - Consensus on plan Discharge plan has been discussed with primary caregiver. Patient/Family is in agreement with the carrol n. Primary caregiver is in agreement with the plan. - Patient/Family Goals Return home with assistance. - Planned Living Setting Upon Discharge Home, to live with Family/Relatives. CONCLUSION ON REHABILITATION NECESSITY: I have evaluated patient's pre-admission functional status and, comparing it to the patient's post-ad mission functional status now, I conclude that the pre-admission assessment was accurate. Patient's c ondition on admission supports the medical necessity of admission to IRF. It is safe to proceed with patient's therapy program. SIGNATURE PANEL: (PHARMACY DISTRICT MANAGER)
[2018-03-12] MEDS: BACLOFEN 10 MG TAB PO SCH (20:34)
--- NOTE | 2018-03-13 02:13 | FAST ---
SHIFT START DATE/TIME: 03/12/2018 19:00 (TAX COMPLIANCE MANAGER) SHIFT END DATE/TIME: 03/13/2018 07:00 (TAX COMPLIANCE MANAGER) NAME SHANDA BARTON DATE OF : 1930 DATE OF ADMISSION: 03/12/2018 12:40 (TAX COMPLIANCE MANAGER) PHONE: AGE: 88 SSN# [id number] GENDER: Female ENCOUNTER PHYSICIAN: Dr. Aman Lackey M.D. ADMISSION DIAGNOSIS: - Neurologic Conditions 03 - Parkinsonism (03.2) Parkinson's Disease. EATING: Activity did not occur on this shift EATING - SCORE: 0-UNK GROOMING: Activity did not occur on this shift GROOMING - SCORE: 0-UNK BATHING: Activity did not occur on this shift BATHING - SCORE: 0-UNK DRESSING - UPPER BODY: Patient is not dressing in public clothing ARTICLES SCORE Total number of steps: 0 DRESSING - UPPER BODY - SCORE: 0-UNK DRESSING - LOWER BODY: Patient is not dressing in public clothing ARTICLES SCORE Total number of steps: 0 DRESSING - LOWER BODY - SCORE: 0-UNK TOILETING: TOILETING - STEP 1: Does the patient require the assistance of a person or device, or need extra time with toileting? Yes . TOILETING - STEP 2: Does the patient require the assistance of a helper? Yes. TOILETING - STEP 3: How much assistance does the patient require from the helper? Hands-on assistance from the helper TOILETING - STEP 4: Of the 3 tasks: 1) Adjusting clothing prior to use, 2) Cleansing of perineal area, 3) Adjusting clot vania after use; How many tasks does the patient perform WITHOUT assistance of the helper? No tasks; h dmitry performs all three tasks TOILETING - SCORE: 1-DEP BLADDER MANAGEMENT: [place] cares for salomon catheter including emptying drainage bag. BLADDER MANAGEMENT - SCORE: 1-DEP BOWEL MANAGEMENT: Activity did not occur on this shift BOWEL MANAGEMENT - SCORE: 7-IND TRANSFERS: BED, CHAIR, WHEELCHAIR: Activity did not occur on this shift TRANSFERS: BED, CHAIR, WHEELCHAIR - SCORE: 0-UNK TRANSFERS: TOILET: Activity did not occur on this shift TRANSFERS: TOILET - SCORE: 0-UNK TRANSFERS: SHOWER: Activity did not occur on this shift TRANSFERS: SHOWER - SCORE: 0-UNK TRANSFERS: TUB: Activity did not occur on this shift TRANSFERS: TUB - SCORE: 0-UNK LOCOMOTION: WALK: Activity did not occur on this shift LOCOMOTION: WALK - SCORE: 0-UNK LOCOMOTION: WHEELCHAIR: Activity did not occur on this shift LOCOMOTION: WHEELCHAIR - SCORE: 0-UNK COMPREHENSION: COMPREHENSION: TYPE: Both COMPREHENSION - STEP 1: Does the patient require help from a person or device, or need extra time to understand complex and a bstract ideas (such as current events, finances, discharge planning, medical issues, relationships, e tc)? No. COMPREHENSION - STEP 2: Does the patient need extra time, require an assistive device (such as glasses for visual comprehensi on or a hearing aid for auditory comprehension) or does s/he have mild difficulty understanding compl ex and abstract information? Yes. COMPREHENSION - SCORE: 6-VINNY EXPRESSION EXPRESSION: TYPE: Both EXPRESSION - STEP 1: Does the patient require help from a person or device, or need extra time expressing complex and abst ract ideas (such as current events, finances, discharge planning, medical issues, relationships, etc) ? No. EXPRESSION - STEP 2: Does the patient need extra time, require an assistive device (such as augmentive communication syste m or a communication board), OR does s/he have mild difficulty expressing complex and abstract ideas (including mild dysarthria or mild word-find problems)? Yes. EXPRESSION - SCORE: 6-VINNY SOCIAL INTERACTION: SOCIAL INTERACTION - STEP 1: Does the patient require a helper to interact with others in social and therapeutic situations? No. SOCIAL INTERACTION - STEP 2: Does the patient need extra time in social situations, OR does s/he interact with staff, other patien ts, and family members ONLY in structured environments, OR does s/he require medication for social in teraction? Yes, patient needs extra time SOCIAL INTERACTION - SCORE: 6-VINNY PROBLEM SOLVING: PROBLEM SOLVING - STEP 1: Does the patient need help from a person or device, or need extra time to solve complex problems such as managing a checking account or confronting interpersonal problems? No. PROBLEM SOLVING - STEP 2: Does the patient require extra time to make decisions or solve problems, OR does s/he have slight dif ficulty reading, initiating, or self-correcting in unfamiliar situations? Yes, patient needs extra ti me. PROBLEM SOLVING - SCORE: 6-VINNY MEMORY: MEMORY - STEP 1: Does the patient need help from a person or device, or need extra time to remember frequently encount ered people, daily routines, and executing requests? No. MEMORY - STEP 2: Does the patient have slight difficulty recognizing frequently encountered people, daily routines, or executing requests without the need for repetition or using self-initiated or environmental cues to remember? Yes. MEMORY - SCORE: 6-VINNY SIGNATURE PANEL: The following modified sections: Eating - Score, Grooming - Score, Dressing - Upper Body - Score, Emmanuel ssing - Lower Body - Score, Toileting - Score, Bladder Management - Score, Bowel Management - Score, Transfers: Bed, Chair, Wheelchair - Score, Transfers: Toilet - Score, Transfers: Shower - Score, Meyer sfers: Tub - Score, Locomotion: Walk - Score, Locomotion: Wheelchair - Score, Comprehension - Score, Expression - Score, Social Interaction - Score, Problem Solving - Score, Memory - Score were [electro nically] signed by Tamela Casey CNA on TueMar 13 2018 02:13:37 GMT-0600 (Central Standard Time)
[2018-03-13] MEDS: ATENOLOL 25 MG TAB PO SCH (06:00)
[2018-03-13 06:06] LABS: Absolute Lymphocytes (CBC) 1.4 K/uL (0.7-4.9); Absolute Monocytes 0.6 K/uL (0.1-1.3); Basophils % 1.8 % (0-1.3); Eosinophils % 6.6 % (0-4.4); Hematocrit 33.5 % (36.0-45.0); Lymphocytes % 31.2 % (15.3-44.8); MPV 9.1 fL (7.6-11.3); RBC Red Blood Cell Count 3.64 M/uL (3.86-4.86)
[2018-03-13 06:39] LABS: Albumin 2.3 g/dL (3.4-5.0); Magnesium 2.1 mg/dL (1.8-2.4); Potassium 3.8 mmol/L (3.5-5.1); Prealbumin 10.2 mg/dL (20-40)
[2018-03-13] MEDS ORDERED: HOME MED 1 EA UNK PO SCH (08:00)
[2018-03-13] MEDS: VITAMIN D 1000 UNIT TAB PO SCH (08:32)
[2018-03-13] MEDS: FUROSEMIDE 40 MG TABLET PO SCH (08:32)
[2018-03-13] MEDS: COLCHICINE 0.6 MG TAB PO SCH (08:32)
[2018-03-13] MEDS: LOSARTAN POTASSIUM 50 MG TABLET PO SCH (08:32)
[2018-03-13] MEDS: MULTIVITAMIN TAB PO SCH (08:32)
[2018-03-13] MEDS: BACLOFEN 10 MG TAB PO SCH ×2 (08:32→20:58)
[2018-03-13] MEDS: ALPRAZOLAM 0.5 MG TABLET PO SCH (08:33)
[2018-03-13] MEDS: APIXABAN 2.5 MG TABLET PO SCH ×2 (08:33→20:58)
[2018-03-13] MEDS: ASPIRIN EC 81 MG TAB PO SCH (08:33)
--- NOTE | 2018-03-13 14:04 | P.PN ---
Subjective Date of Service: 03/13/18 Chief Complaint: S.P Fall Subjective: No C/O voiced, Tolerating diet, Ambulating, Improving, Working w/ PT , Doing well Review of Systems 10-point ROS is otherwise unremarkable Physical Examination - Vital Signs Temperature: 97.2 F Blood Pressure: 192/90 Pulse: 52 Respirations: 16 Pulse Ox (%): 93 - Physical Exam General: Alert, In no apparent distress HEENT: Atraumatic, PERRLA, EOMI Neck: Supple, JVD not distended Respiratory: Clear to auscultation bilaterally, Normal air movement Cardiovascular: Regular rate/rhythm, Normal S1 S2 Gastrointestinal: Normal bowel sounds, No tenderness Musculoskeletal: No tenderness Integumentary: No rashes Neurological: Normal speech, Normal tone, Normal affect Lymphatics: No axilla or inguinal lymphadenopathy - Studies Laboratory Data (last 24 hrs) 03/13/18 05:50: Sodium 144, Potassium 3.8, BUN 43 H, Creatinine 1.80 H, Glucose 81, Magnesium 2.1 03/13/18 05:50: WBC 4.3, Hgb 11.7 L, Hct 33.5 L, Plt Count 168 Medications List Reviewed: Yes Assessment And Plan - Current Problems (Diagnosis) (1) Encounter for rehabilitation Current Visit: Yes Status: Acute Plan: Patient Admitted to rehab for Rehab Services. -PT/OT/Speech Working with Patient (2) Status post fall Current Visit: No Status: Acute Plan: Now In Inpatient Rehab. -Fall Precaution given -Patient working with PT and OT (3) Parkinson disease Current Visit: No Status: Chronic (4) MARGARITO (acute kidney injury) Current Visit: No Status: Resolved Plan: Resolved on Discharge from medical Surgery -Will monitor closely (5) Rhabdomyolysis Current Visit: No Status: Resolved Plan: Resolved now in Medical Surgery -Will continue to Monitor closely Qualifiers: Rhabdomyolysis type: non-traumatic Qualified Code(s): M62.82 - Rhabdomyolysis - Plan Pt now Admitted to the inpatient Rehab after her Acute illness has resolved. Pt working with PT/OT/Speech. Doing well overall. Will continue to follow with Rehab on as needed basis for medical mgmt. Discharge Plan: Home Plan to discharge in: 48 Hours - Code Status/Comfort Care Code Status Assessed: Yes Critical Care: No
--- NOTE | 2018-03-13 15:27 | FAST ---
ENCOUNTER DATE AND TIME: 03/13/2018 08:00 (ORE FIELDER) NAME SHANDA BARTON DATE OF : 1930 DATE OF ADMISSION: 03/12/2018 12:40 (ORE FIELDER) PHONE: AGE: 88 SSN# [id number] GENDER: Female ENCOUNTER PHYSICIAN: Dr. Aman Lackey M.D. ADMISSION DIAGNOSIS: - Neurologic Conditions 03 - Parkinsonism (03.2) Parkinson's Disease. EATING: Activity did not occur on this shift EATING - SCORE: 0-UNK GROOMING: Activity did not occur on this shift GROOMING - SCORE: 0-UNK BATHING: Activity did not occur on this shift BATHING - SCORE: 0-UNK DRESSING - UPPER BODY: Activity did not occur on this shift Patient is not dressing in public clothing ARTICLES SCORE Total number of steps: 0 DRESSING - UPPER BODY - SCORE: 0-UNK DRESSING - LOWER BODY: Activity did not occur on this shift Patient is not dressing in public clothing ARTICLES SCORE Total number of steps: 0 DRESSING - LOWER BODY - SCORE: 0-UNK TOILETING: Activity did not occur on this shift TOILETING - SCORE: 0-UNK BLADDER MANAGEMENT: Activity did not occur on this shift BLADDER MANAGEMENT - SCORE: 7-IND BOWEL MANAGEMENT: Activity did not occur on this shift BOWEL MANAGEMENT - SCORE: 7-IND TRANSFERS: BED, CHAIR, WHEELCHAIR: TRANSFERS: BED, CHAIR, WHEELCHAIR - STEP 1: Does the patient require assistance of a person or device, or need extra time with bed, chair, or whe elchair transfers? Yes. TRANSFERS: BED, CHAIR, WHEELCHAIR - STEP 2: Does the patient require the assistance of a helper? Yes. TRANSFERS: BED, CHAIR, WHEELCHAIR - STEP 3: How much assistance does the patient require from the helper? Steadying/guiding assistance TRANSFERS: BED, CHAIR, WHEELCHAIR - SCORE: 4-MIN TRANSFERS: TOILET: Activity did not occur on this shift TRANSFERS: TOILET - SCORE: 0-UNK TRANSFERS: SHOWER: Activity did not occur on this shift TRANSFERS: SHOWER - SCORE: 0-UNK TRANSFERS: TUB: Activity did not occur on this shift TRANSFERS: TUB - SCORE: 0-UNK LOCOMOTION: WALK: LOCOMOTION: WALK - STEP 1: Does the patient need help from a person or device, or need extra time to walk 150 feet? Yes. LOCOMOTION: WALK - STEP 2: How much assistance does the patient require to walk a minimum of 150 feet? Patient walks less than 1 50 feet - but more than 50 feet - with the assistance of only one helper LOCOMOTION: WALK - SCORE: 2-MAX LOCOMOTION: WHEELCHAIR: Activity did not occur on this shift LOCOMOTION: WHEELCHAIR - SCORE: 0-UNK LOCOMOTION: STAIRS: Activity did not occur on this shift LOCOMOTION: STAIRS - SCORE: 0-UNK COMPREHENSION: COMPREHENSION - SCORE: 0-UNK EXPRESSION EXPRESSION - SCORE: 0-UNK SOCIAL INTERACTION: SOCIAL INTERACTION - SCORE: 0-UNK PROBLEM SOLVING: PROBLEM SOLVING - SCORE: 0-UNK MEMORY: MEMORY - SCORE: 0-UNK SIGNATURE PANEL: The following modified sections: Transfers: Bed, Chair, Wheelchair - Score, Transfers: Toilet - Score , Locomotion: Walk - Score, Locomotion: Wheelchair - Score, Locomotion: Stairs - Score were [electron mary] signed by Joon Persaud PTA on TueMar 13 2018 15:26:37 GMT-0600 (Central Standard Time)
--- NOTE | 2018-03-13 17:01 | FAST ---
SHIFT START DATE/TIME: 03/13/2018 07:00 (CRAFT COORDINATOR) SHIFT END DATE/TIME: 03/13/2018 19:00 (CRAFT COORDINATOR) NAME SHANDA BARTON DATE OF : 1930 DATE OF ADMISSION: 03/12/2018 12:40 (CRAFT COORDINATOR) PHONE: AGE: 88 SSN# [id number] GENDER: Female ENCOUNTER PHYSICIAN: Dr. Aman Lackey M.D. ADMISSION DIAGNOSIS: - Neurologic Conditions 03 - Parkinsonism (03.2) Parkinson's Disease. EATING: EATING - STEP 1: Does the patient require the assistance of a person or device, or need extra time when eating? Yes. EATING - STEP 2: Does the patient require the assistance of a helper? Yes. EATING - STEP 3: Does the patient perform half or more of the eating tasks? Yes. EATING - STEP 4: Does the patient need only supervision, cuing, coaxing OR help to apply an orthosis OR help to cut fo od, open containers, pour liquids, or butter bread? Yes. EATING - SCORE: 5-SUP GROOMING: Activity did not occur on this shift GROOMING - SCORE: 0-UNK BATHING: Activity did not occur on this shift BATHING - SCORE: 0-UNK DRESSING - UPPER BODY: Activity did not occur on this shift ARTICLES SCORE Total number of steps: 0 DRESSING - UPPER BODY - SCORE: 0-UNK DRESSING - LOWER BODY: Activity did not occur on this shift ARTICLES SCORE Total number of steps: 0 DRESSING - LOWER BODY - SCORE: 0-UNK TOILETING: TOILETING - STEP 1: Does the patient require the assistance of a person or device, or need extra time with toileting? Yes . TOILETING - STEP 2: Does the patient require the assistance of a helper? Yes. TOILETING - STEP 3: How much assistance does the patient require from the helper? Hands-on assistance from the helper TOILETING - STEP 4: Of the 3 tasks: 1) Adjusting clothing prior to use, 2) Cleansing of perineal area, 3) Adjusting clot vania after use; How many tasks does the patient perform WITHOUT assistance of the helper? Two tasks TOILETING - SCORE: 3-MOD BLADDER MANAGEMENT: [place] cares for salomon catheter including emptying drainage bag. BLADDER MANAGEMENT - SCORE: 1-DEP BOWEL MANAGEMENT: Activity did not occur on this shift BOWEL MANAGEMENT - SCORE: 7-IND TRANSFERS: BED, CHAIR, WHEELCHAIR: TRANSFERS: BED, CHAIR, WHEELCHAIR - STEP 1: Does the patient require assistance of a person or device, or need extra time with bed, chair, or whe elchair transfers? Yes. TRANSFERS: BED, CHAIR, WHEELCHAIR - STEP 2: Does the patient require the assistance of a helper? Yes. TRANSFERS: BED, CHAIR, WHEELCHAIR - STEP 3: How much assistance does the patient require from the helper? Steadying/guiding assistance TRANSFERS: BED, CHAIR, WHEELCHAIR - SCORE: 4-MIN TRANSFERS: TOILET: TRANSFERS: TOILET - STEP 1: Does the patient require the assistance of a person or device, or need extra time with toilet transfe rs? Yes. TRANSFERS: TOILET - STEP 2: Does the patient require the assistance of a helper? Yes. TRANSFERS: TOILET - STEP 3: How much assistance does the patient require from the helper? Patient performs half or more of the tr ansferring tasks TRANSFERS: TOILET - STEP 4: Does the patient need only incidental help such as contact guard or steadying during toilet transfer? Yes. TRANSFERS: TOILET - SCORE: 4-MIN TRANSFERS: SHOWER: Activity did not occur on this shift TRANSFERS: SHOWER - SCORE: 0-UNK TRANSFERS: TUB: Activity did not occur on this shift TRANSFERS: TUB - SCORE: 0-UNK LOCOMOTION: WALK: Activity did not occur on this shift LOCOMOTION: WALK - SCORE: 0-UNK LOCOMOTION: WHEELCHAIR: Activity did not occur on this shift LOCOMOTION: WHEELCHAIR - SCORE: 0-UNK COMPREHENSION: COMPREHENSION: TYPE: Both COMPREHENSION - STEP 1: Does the patient require help from a person or device, or need extra time to understand complex and a bstract ideas (such as current events, finances, discharge planning, medical issues, relationships, e tc)? No. COMPREHENSION - STEP 2: Does the patient need extra time, require an assistive device (such as glasses for visual comprehensi on or a hearing aid for auditory comprehension) or does s/he have mild difficulty understanding compl ex and abstract information? Yes. COMPREHENSION - SCORE: 6-VINNY EXPRESSION EXPRESSION: TYPE: Both EXPRESSION - STEP 1: Does the patient require help from a person or device, or need extra time expressing complex and abst ract ideas (such as current events, finances, discharge planning, medical issues, relationships, etc) ? No. EXPRESSION - STEP 2: Does the patient need extra time, require an assistive device (such as augmentive communication syste m or a communication board), OR does s/he have mild difficulty expressing complex and abstract ideas (including mild dysarthria or mild word-find problems)? Yes. EXPRESSION - SCORE: 6-VINNY SOCIAL INTERACTION: SOCIAL INTERACTION - STEP 1: Does the patient require a helper to interact with others in social and therapeutic situations? No. SOCIAL INTERACTION - STEP 2: Does the patient need extra time in social situations, OR does s/he interact with staff, other patien ts, and family members ONLY in structured environments, OR does s/he require medication for social in teraction? Yes, patient needs extra time SOCIAL INTERACTION - SCORE: 6-VINNY PROBLEM SOLVING: PROBLEM SOLVING - STEP 1: Does the patient need help from a person or device, or need extra time to solve complex problems such as managing a checking account or confronting interpersonal problems? No. PROBLEM SOLVING - STEP 2: Does the patient require extra time to make decisions or solve problems, OR does s/he have slight dif ficulty reading, initiating, or self-correcting in unfamiliar situations? Yes, patient needs extra ti me. PROBLEM SOLVING - SCORE: 6-VINNY MEMORY: MEMORY - STEP 1: Does the patient need help from a person or device, or need extra time to remember frequently encount ered people, daily routines, and executing requests? No. MEMORY - STEP 2: Does the patient have slight difficulty recognizing frequently encountered people, daily routines, or executing requests without the need for repetition or using self-initiated or environmental cues to remember? Yes. MEMORY - SCORE: 6-VINNY SIGNATURE PANEL: The following modified sections: Eating - Score, Grooming - Score, Bathing - Score, Dressing - Upper Body - Score, Dressing - Lower Body - Score, Toileting - Score, Bladder Management - Score, Bowel Man agement - Score, Transfers: Bed, Chair, Wheelchair - Score, Transfers: Toilet - Score, Transfers: Sammie wer - Score, Transfers: Tub - Score, Locomotion: Walk - Score, Locomotion: Wheelchair - Score, Compre hension - Score, Expression - Score, Social Interaction - Score, Problem Solving - Score, Memory - Sc ore were [electronically] signed by Floyd Smith on TueMar 13 2018 17:01:16 GMT-0600 (Central Standard Time)
--- NOTE | 2018-03-13 17:29 | R.PN ---
ENCOUNTER DATE AND TIME: 03/13/2018 17:24 (INSTRUCTOR WARPER) NAME SHANDA BARTON DATE OF : 1930 DATE OF ADMISSION: 03/12/2018 12:40 (INSTRUCTOR WARPER) Parkinson's DiseaseCHIEF COMPLAINT: Postural and gait instability secondary to Parkinson's disease. SUBJECTIVE: Pt denied any depression. Pt denied any Shortness of Breath. Ambulated 100 x 2 and 125 feet with rolling walker and contact guard assistance. Kyphotic posture wit h slow erika. VITAL SIGNS Temperature: 98 F SBP/DBP: 142-198/52-82 Pulse: 52 Resp: 16 MEDICATION ALLERGIES: Codeine Penicillin Acetaminophen allopurinol carbidopa fentanyl hydrocodone bitartrate levodopa lidocaine lorazepam Propoxyphene HCl rasagiline mesylate ropinirole HCl TRAMADOL verapamil ENVIRONMENTAL ALLERGIES: None Known - Substance Allergies None Known - Other Allergies None Known CONSULT: Perform Neuro consult NURSING: - Shower allowing shower ACTIVITIES OOB only with supervision THERAPIES: - Occupational Therapy Evaluate and Treat. - Speech Therapy Memory Strategies. Speech Intelligibility Training. - Physical Therapy Evaluate and Treat. PHYSICAL EXAM - Gen Alert and awake Lying in bed No apparent distress Oriented to: person, time, and place - Skin No skin breakdown. Normacephalic - Eyes No abnormalities - ENMT No abnormalities - Neck No abnormalities - CVS RRR - Chest Clear - Resp Clear to auscultation - Abd Soft - GI Soft Deferred - No abnormalities - Ext no edema - MSK 4/5 weakness in both lower extremities. - Neuro 4/5 strength right upper and lower extremities. - Psych No abnormalities ASSESSMENT: Pt. is a 88 yo Right-handed white female.On 03/09/2018 she was admitted to [facility] with diagnosis Parkinson's Disease.Her impairment category is Neurologic Conditions 03 - Park insonism (03.2).Pre-morbidly, Pt. was independent/mod-I in Sphincter Control, Transfers Control, Comm unication, Social Cognition, Self-Care, and Locomotion; and she had good Sphincter Control.Currently, she has deficits of Endurance, Safety Awareness, Transfers Control, Balance, Locomotion, and Self-Ca re.Pt. is now referred to [facility] for acute in-patient rehabilitation in [place] to maximize patient's functional independence in activities of daily living, strength, ROM, and m obility.- Rehab Goal Patient has realistic goal of being discharged at assistance level 4-Dorota to reside at Home with Fam soumya/Relatives. MDM/PLAN: - Physical Therapy Gait dysfunction - to improve, our physical therapists will perform initial evaluation of pt's statu s upon admission and devise an individualized program for Gait Training, and Wheel Chair mobility Inability to transfer - to improve, our physical therapists will perform initial evaluation of pt's status upon admission and devise an individualized program for Bed mobility Need for home safety evaluation - to improve, our physical therapists will perform initial evaluatio n of pt's status upon admission and devise an individualized program for Home Evaluation Need in caregiver upon discharge - to improve, our physical therapists will perform initial evaluati on of pt's status upon admission and devise an individualized program for Caregiver Training New precaution - to improve, our physical therapists will perform initial evaluation of pt's status upon admission and devise an individualized program for Patient precaution education Poor balance - to improve, our physical therapists will perform initial evaluation of pt's status up on admission and devise an individualized program for Balance Training Poor endurance - to improve, our physical therapists will perform initial evaluation of pt's status upon admission and devise an individualized program for Endurance Training Weakness - to improve, our physical therapists will perform initial evaluation of pt's status upon a dmission and devise an individualized program for Aquatic Therapy, Neuromuscular Reeducation, and Str engthening Achieving independence - to improve, our physical therapists will perform initial evaluation of pt's status upon admission and devise an individualized program for Community Reintegration Activities - Occupational Therapy ADL deficits - to improve, our occupation therapists will perform initial evaluation of pt's status upon admission and devise an individualized program for Bathing, Bed mobility, Community Reintegratio n, Cooking, Dressing, Eating, Fine Motor Skills, Grooming, Homemaking, Kitchen Mobility, Laundry, Pat ient Education, Safety Awareness, Splinting - Positioning, Transfers(Toilet, Tub, Shower), and Wheel Chair Management Need for ambulatory care coordinator - to improve, our occupation therapists will perform initial evaluation of pt's status upon admission and devise an individualized program for Caregiver Training Weakness - to improve, our occupation therapists will perform initial evaluation of pt's status upon admission and devise an individualized program for Aquatic Therapy, Balance, Endurance, UE ROM, and UE strengthening - Diet Type Continue Regular - Diet - Liquid Texture Continue Regular - Tube Feed Continue N/A - N/A Perform Neuro consult - Diet - Solid Texture Continue Regular - Shower allowing shower FUNCTIONAL STATUS: UPDATED AT WEEKLY TEAM CONFERENCE - Bladder Same accident frequency: 7-Ind - No accidents in the past 7 days - Bowel Same accident frequency: 7-Ind - No accidents in the past 7 days - Walking Same score based on distance walked: 2(50-149ft) - Wheelchair Same score based on distance traveled: 0(N/A) FUNCTIONAL STATUS: - Self-Care A. Eating Ind B. Grooming Ind C. Bathing sup D. Dressing - Upper sup E. Dressing - Lower sup F. Toileting sup - Sphincter Control G: Bladder control Ind H: Bowel control Ind - Transfers Control I. Bed/Chair/Wheelchair modA J. Toilet Dorota K. Tub/Shower ADNO - Locomotion L. Walk/Wheelchair (C) Dorota L. Walk/Wheelchair (W) Dorota M. Stairs ADNO - Communication N. Comprehension (B) Ind O. Expression (B) Ind - Social Cognition P. Social Interaction Ind Q. Problem Solving Ind R. Memory Ind - Endurance Fair - Balance Fair - Safety Awareness Fair CURRENT FUNC. DEFICITS: Endurance, Safety Awareness, Transfers Control, Balance, Locomotion, and Self-Care SIGNATURE PANEL: (INSTRUCTOR WARPER)
[2018-03-13] MEDS: PROMOD 30 ML DOSE PO SCH (20:00)
--- NOTE | 2018-03-14 00:25 | FAST ---
SHIFT START DATE/TIME: 03/13/2018 19:00 (PROGRAMMER ENGINEERING AND SCIENTIFIC) SHIFT END DATE/TIME: 03/14/2018 07:00 (PROGRAMMER ENGINEERING AND SCIENTIFIC) NAME SHANDA BARTON DATE OF : 1930 DATE OF ADMISSION: 03/12/2018 12:40 (PROGRAMMER ENGINEERING AND SCIENTIFIC) PHONE: AGE: 88 SSN# [id number] GENDER: Female ENCOUNTER PHYSICIAN: Dr. Aman Lackey M.D. ADMISSION DIAGNOSIS: - Neurologic Conditions 03 - Parkinsonism (03.2) Parkinson's Disease. EATING: Activity did not occur on this shift EATING - SCORE: 0-UNK GROOMING: Wash, rinse, and dry hands GROOMING - STEP 1: Does the patient require the assistance of a person or device, or need extra time when grooming? Yes. GROOMING - STEP 2: Does the patient require the assistance of a helper? Yes. GROOMING - STEP 3: How much assistance does the patient require from the helper? Cuing, coaxing, instructions, or encour agement for completion of grooming GROOMING - SCORE: 5-SUP BATHING: Activity did not occur on this shift BATHING - SCORE: 0-UNK DRESSING - UPPER BODY: Patient is not dressing in public clothing ARTICLES SCORE Total number of steps: 0 DRESSING - UPPER BODY - SCORE: 0-UNK DRESSING - LOWER BODY: Patient is not dressing in public clothing ARTICLES SCORE Total number of steps: 0 DRESSING - LOWER BODY - SCORE: 0-UNK TOILETING: TOILETING - STEP 1: Does the patient require the assistance of a person or device, or need extra time with toileting? Yes . TOILETING - STEP 2: Does the patient require the assistance of a helper? Yes. TOILETING - STEP 3: How much assistance does the patient require from the helper? Hands-on assistance from the helper TOILETING - STEP 4: Of the 3 tasks: 1) Adjusting clothing prior to use, 2) Cleansing of perineal area, 3) Adjusting clot vania after use; How many tasks does the patient perform WITHOUT assistance of the helper? Two tasks TOILETING - SCORE: 3-MOD BLADDER MANAGEMENT: BLADDER MANAGEMENT - STEP 1: Does the patient control the bladder completely and intentionally without equipment or devices or med ications, and is always continent? No. BLADDER MANAGEMENT - STEP 2: Does the patient require the assistance of a helper? Yes. BLADDER MANAGEMENT - STEP 3: How much assistance does the patient require from the helper? Only set-up of equipment - such as plac ing it within reach of the patient or emptying a device - to maintain either satisfactory voiding pat tern or managing an external device, such as an absorbent pad, ileal device, or catheter BLADDER MANAGEMENT - SCORE: 5-SUP BOWEL MANAGEMENT: BOWEL MANAGEMENT - STEP 1: Does the patient control bowels completely and intentionally without equipment devices or medications AND is always continent? No. BOWEL MANAGEMENT - STEP 2: Does the patient require the assistance of a helper? No, patient requires medication for control such as stool softeners, suppositories, laxatives, enemas, or OTC medications BOWEL MANAGEMENT - SCORE: 6-VINNY TRANSFERS: BED, CHAIR, WHEELCHAIR: TRANSFERS: BED, CHAIR, WHEELCHAIR - STEP 1: Does the patient require assistance of a person or device, or need extra time with bed, chair, or whe elchair transfers? Yes. TRANSFERS: BED, CHAIR, WHEELCHAIR - STEP 2: Does the patient require the assistance of a helper? Yes. TRANSFERS: BED, CHAIR, WHEELCHAIR - STEP 3: How much assistance does the patient require from the helper? Lifting of the patient TRANSFERS: BED, CHAIR, WHEELCHAIR - STEP 4: Does the helper lift the patient ONLY up? ONLY down? Up AND Down? Up AND Down. TRANSFERS: BED, CHAIR, WHEELCHAIR - SCORE: 2-MAX TRANSFERS: TOILET: TRANSFERS: TOILET - STEP 1: Does the patient require the assistance of a person or device, or need extra time with toilet transfe rs? Yes. TRANSFERS: TOILET - STEP 2: Does the patient require the assistance of a helper? Yes. TRANSFERS: TOILET - STEP 3: How much assistance does the patient require from the helper? Patient performs half or more of the tr ansferring tasks TRANSFERS: TOILET - STEP 4: Does the patient need only incidental help such as contact guard or steadying during toilet transfer? No. Patient needs more than incidental help TRANSFERS: TOILET - SCORE: 3-MOD TRANSFERS: SHOWER: Activity did not occur on this shift TRANSFERS: SHOWER - SCORE: 0-UNK TRANSFERS: TUB: Activity did not occur on this shift TRANSFERS: TUB - SCORE: 0-UNK LOCOMOTION: WALK: Activity did not occur on this shift LOCOMOTION: WALK - SCORE: 0-UNK LOCOMOTION: WHEELCHAIR: Activity did not occur on this shift LOCOMOTION: WHEELCHAIR - SCORE: 0-UNK COMPREHENSION: COMPREHENSION: TYPE: Both COMPREHENSION - STEP 1: Does the patient require help from a person or device, or need extra time to understand complex and a bstract ideas (such as current events, finances, discharge planning, medical issues, relationships, e tc)? No. COMPREHENSION - STEP 2: Does the patient need extra time, require an assistive device (such as glasses for visual comprehensi on or a hearing aid for auditory comprehension) or does s/he have mild difficulty understanding compl ex and abstract information? Yes. COMPREHENSION - SCORE: 6-VINNY EXPRESSION EXPRESSION: TYPE: Both EXPRESSION - STEP 1: Does the patient require help from a person or device, or need extra time expressing complex and abst ract ideas (such as current events, finances, discharge planning, medical issues, relationships, etc) ? No. EXPRESSION - STEP 2: Does the patient need extra time, require an assistive device (such as augmentive communication syste m or a communication board), OR does s/he have mild difficulty expressing complex and abstract ideas (including mild dysarthria or mild word-find problems)? No. EXPRESSION - SCORE: 7-IND SOCIAL INTERACTION: SOCIAL INTERACTION - STEP 1: Does the patient require a helper to interact with others in social and therapeutic situations? No. SOCIAL INTERACTION - STEP 2: Does the patient need extra time in social situations, OR does s/he interact with staff, other patien ts, and family members ONLY in structured environments, OR does s/he require medication for social in teraction? Yes, patient needs extra time SOCIAL INTERACTION - SCORE: 6-VINNY PROBLEM SOLVING: PROBLEM SOLVING - STEP 1: Does the patient need help from a person or device, or need extra time to solve complex problems such as managing a checking account or confronting interpersonal problems? Yes. PROBLEM SOLVING - STEP 2: Does the patient solve basic routine problems half or more of the time? Yes. PROBLEM SOLVING - STEP 3: How often does the patient need help to solve basic routine problems? 10%-24% of the time PROBLEM SOLVING - SCORE: 4-MIN MEMORY: MEMORY - STEP 1: Does the patient need help from a person or device, or need extra time to remember frequently encount ered people, daily routines, and executing requests? No. MEMORY - STEP 2: Does the patient have slight difficulty recognizing frequently encountered people, daily routines, or executing requests without the need for repetition or using self-initiated or environmental cues to remember? Yes. MEMORY - SCORE: 6-VINNY SIGNATURE PANEL: The following modified sections: Eating - Score, Grooming - Score, Dressing - Upper Body - Score, Emmanuel ssing - Lower Body - Score, Toileting - Score, Bladder Management - Score, Bowel Management - Score, Transfers: Bed, Chair, Wheelchair - Score, Transfers: Toilet - Score, Transfers: Shower - Score, Meyer sfers: Tub - Score, Locomotion: Walk - Score, Locomotion: Wheelchair - Score, Comprehension - Score, Expression - Score, Social Interaction - Score, Problem Solving - Score, Memory - Score were [electro nically] signed by Tamela Casey CNA on TueMar 14 2018 00:24:47 GMT-0600 (Central Standard Time)
[2018-03-14] MEDS: ATENOLOL 25 MG TAB PO SCH (05:27)
[2018-03-14] MEDS: PROMOD 30 ML DOSE PO SCH ×3 (08:00→19:54)
[2018-03-14] MEDS: MEDIHONEY 44 ML TOPICAL TUBE TOP SCH (08:00)
[2018-03-14] MEDS: FUROSEMIDE 40 MG TABLET PO SCH (08:08)
[2018-03-14] MEDS: FERROUS SULFATE 325 MG TAB PO SCH (08:08)
[2018-03-14] MEDS: VITAMIN D 1000 UNIT TAB PO SCH (08:08)
[2018-03-14] MEDS: ALPRAZOLAM 0.5 MG TABLET PO SCH (08:08)
[2018-03-14] MEDS: MULTIVITAMIN TAB PO SCH (08:08)
[2018-03-14] MEDS: COLCHICINE 0.6 MG TAB PO SCH (08:08)
[2018-03-14] MEDS: ASPIRIN EC 81 MG TAB PO SCH (08:08)
[2018-03-14] MEDS: ULORIC 40 MG PO SCH (08:08)
[2018-03-14] MEDS: BACLOFEN 10 MG TAB PO SCH ×2 (08:08→19:50)
[2018-03-14] MEDS: FE SULF/FA/VIT B COMP & C TAB PO SCH (08:08)
[2018-03-14] MEDS: LOSARTAN POTASSIUM 50 MG TABLET PO SCH (08:09)
[2018-03-14] MEDS: APIXABAN 2.5 MG TABLET PO SCH ×2 (08:09→19:50)
[2018-03-14] MEDS: ACETAMINOPHEN 325 MG TABLET PO PRN (09:47)
--- NOTE | 2018-03-14 10:09 | FAST ---
ENCOUNTER DATE AND TIME: 03/14/2018 08:00 (MASTER FIRE CONTROL TECHNICIAN) NAME SHANDA BARTON DATE OF : 1930 DATE OF ADMISSION: 03/12/2018 12:40 (MASTER FIRE CONTROL TECHNICIAN) PHONE: AGE: 88 SSN# [id number] GENDER: Female ENCOUNTER PHYSICIAN: Dr. Aman Lackey M.D. ADMISSION DIAGNOSIS: - Neurologic Conditions 03 - Parkinsonism (03.2) Parkinson's Disease. EATING: Activity did not occur on this shift EATING - SCORE: 0-UNK GROOMING: Activity did not occur on this shift GROOMING - SCORE: 0-UNK BATHING: Activity did not occur on this shift BATHING - SCORE: 0-UNK DRESSING - UPPER BODY: Activity did not occur on this shift Patient is not dressing in public clothing ARTICLES SCORE Total number of steps: 0 DRESSING - UPPER BODY - SCORE: 0-UNK DRESSING - LOWER BODY: Activity did not occur on this shift Patient is not dressing in public clothing ARTICLES SCORE Total number of steps: 0 DRESSING - LOWER BODY - SCORE: 0-UNK TOILETING: Activity did not occur on this shift TOILETING - SCORE: 0-UNK BLADDER MANAGEMENT: Activity did not occur on this shift BLADDER MANAGEMENT - SCORE: 7-IND BOWEL MANAGEMENT: Activity did not occur on this shift BOWEL MANAGEMENT - SCORE: 7-IND TRANSFERS: BED, CHAIR, WHEELCHAIR: TRANSFERS: BED, CHAIR, WHEELCHAIR - STEP 1: Does the patient require assistance of a person or device, or need extra time with bed, chair, or whe elchair transfers? Yes. TRANSFERS: BED, CHAIR, WHEELCHAIR - STEP 2: Does the patient require the assistance of a helper? Yes. TRANSFERS: BED, CHAIR, WHEELCHAIR - STEP 3: How much assistance does the patient require from the helper? Steadying/guiding assistance TRANSFERS: BED, CHAIR, WHEELCHAIR - SCORE: 4-MIN TRANSFERS: TOILET: Activity did not occur on this shift TRANSFERS: TOILET - SCORE: 0-UNK TRANSFERS: SHOWER: Activity did not occur on this shift TRANSFERS: SHOWER - SCORE: 0-UNK TRANSFERS: TUB: Activity did not occur on this shift TRANSFERS: TUB - SCORE: 0-UNK LOCOMOTION: WALK: LOCOMOTION: WALK - STEP 1: Does the patient need help from a person or device, or need extra time to walk 150 feet? Yes. LOCOMOTION: WALK - STEP 2: How much assistance does the patient require to walk a minimum of 150 feet? Patient walks less than 1 50 feet - but more than 50 feet - with the assistance of only one helper LOCOMOTION: WALK - SCORE: 2-MAX LOCOMOTION: WHEELCHAIR: LOCOMOTION: WHEELCHAIR - STEP 1: Does the patient need help to go 150 feet in a wheelchair? Yes. LOCOMOTION: WHEELCHAIR - STEP 2: How much assistance does the patient need from the helper? Only supervision, cuing, or coaxing LOCOMOTION: WHEELCHAIR - SCORE: 5-SUP LOCOMOTION: STAIRS: Activity did not occur on this shift LOCOMOTION: STAIRS - SCORE: 0-UNK COMPREHENSION: COMPREHENSION - SCORE: 0-UNK EXPRESSION EXPRESSION - SCORE: 0-UNK SOCIAL INTERACTION: SOCIAL INTERACTION - SCORE: 0-UNK PROBLEM SOLVING: PROBLEM SOLVING - SCORE: 0-UNK MEMORY: MEMORY - SCORE: 0-UNK SIGNATURE PANEL: The following modified sections: Transfers: Bed, Chair, Wheelchair - Score, Transfers: Toilet - Score , Locomotion: Walk - Score, Locomotion: Wheelchair - Score, Locomotion: Stairs - Score were [electron mary] signed by Vamsi Salinas PT on TueMar 14 2018 10:08:39 GMT-0600 (Central Standard Time)
--- NOTE | 2018-03-14 16:15 | FAST ---
SHIFT START DATE/TIME: 03/14/2018 07:00 (AUTOMATION CLERK) SHIFT END DATE/TIME: 03/14/2018 19:00 (AUTOMATION CLERK) NAME SHANDA BARTON DATE OF : 1930 DATE OF ADMISSION: 03/12/2018 12:40 (AUTOMATION CLERK) PHONE: AGE: 88 SSN# [id number] GENDER: Female ENCOUNTER PHYSICIAN: Dr. Aman Lackey M.D. ADMISSION DIAGNOSIS: - Neurologic Conditions 03 - Parkinsonism (03.2) Parkinson's Disease. EATING: EATING - STEP 1: Does the patient require the assistance of a person or device, or need extra time when eating? Yes. EATING - STEP 2: Does the patient require the assistance of a helper? No, patient only requires an assistive device, O R s/he takes more than reasonable time to eat, OR there is a safety concern, OR s/he requires modifie d food consistency EATING - SCORE: 6-VINNY GROOMING: Comb/brush hair Oral care GROOMING - STEP 1: Does the patient require the assistance of a person or device, or need extra time when grooming? Yes. GROOMING - STEP 2: Does the patient require the assistance of a helper? No. The patient only requires an assistive devic e, OR takes more than reasonable time to groom, OR there is a concern for safety as the patient groom s GROOMING - SCORE: 6-VINNY BATHING: Activity did not occur on this shift BATHING - SCORE: 0-UNK DRESSING - UPPER BODY: Button down shirt or blouse - NOT tucked in (four steps) ARTICLES SCORE Total number of steps: 4 DRESSING - UPPER BODY - STEP 1: Does the patient require help from a person or device, or need extra time when dressing above the jess st? Yes. DRESSING - UPPER BODY - STEP 2: Does the patient require the assistance of a helper? Yes. DRESSING - UPPER BODY - STEP 3: Does the helper touch the patient while dressing? Yes. DRESSING - UPPER BODY - STEP 4: How many of the total steps does the patient complete on his/her own? 4 DRESSING - UPPER BODY - SCORE: 4-MIN DRESSING - LOWER BODY: ARTICLES SCORE Total number of steps: 3 DRESSING - LOWER BODY - STEP 1: Does the patient require help from a person or device, or need extra time when dressing below the jess st? Yes. DRESSING - LOWER BODY - STEP 2: Does the patient require the assistance of a helper? Yes. DRESSING - LOWER BODY - STEP 3: Does the helper touch the patient while dressing? Yes. DRESSING - LOWER BODY - STEP 4: How many of the total steps does the patient complete on his/her own? 3 DRESSING - LOWER BODY - SCORE: 4-MIN TOILETING: TOILETING - STEP 1: Does the patient require the assistance of a person or device, or need extra time with toileting? Yes . TOILETING - STEP 2: Does the patient require the assistance of a helper? Yes. TOILETING - STEP 3: How much assistance does the patient require from the helper? Hands-on assistance from the helper TOILETING - STEP 4: Of the 3 tasks: 1) Adjusting clothing prior to use, 2) Cleansing of perineal area, 3) Adjusting clot vania after use; How many tasks does the patient perform WITHOUT assistance of the helper? Two tasks TOILETING - SCORE: 3-MOD BLADDER MANAGEMENT: [place] cares for salomon catheter including emptying drainage bag. BLADDER MANAGEMENT - SCORE: 1-DEP BOWEL MANAGEMENT: Activity did not occur on this shift BOWEL MANAGEMENT - SCORE: 7-IND TRANSFERS: BED, CHAIR, WHEELCHAIR: TRANSFERS: BED, CHAIR, WHEELCHAIR - STEP 1: Does the patient require assistance of a person or device, or need extra time with bed, chair, or whe elchair transfers? Yes. TRANSFERS: BED, CHAIR, WHEELCHAIR - STEP 2: Does the patient require the assistance of a helper? Yes. TRANSFERS: BED, CHAIR, WHEELCHAIR - STEP 3: How much assistance does the patient require from the helper? Lifting of the legs TRANSFERS: BED, CHAIR, WHEELCHAIR - STEP 4: How many legs does the patient require the helper to lift? one leg TRANSFERS: BED, CHAIR, WHEELCHAIR - SCORE: 4-MIN TRANSFERS: TOILET: Activity did not occur on this shift TRANSFERS: TOILET - SCORE: 0-UNK TRANSFERS: SHOWER: Activity did not occur on this shift TRANSFERS: SHOWER - SCORE: 0-UNK TRANSFERS: TUB: Activity did not occur on this shift TRANSFERS: TUB - SCORE: 0-UNK LOCOMOTION: WALK: Activity did not occur on this shift LOCOMOTION: WALK - SCORE: 0-UNK LOCOMOTION: WHEELCHAIR: Activity did not occur on this shift LOCOMOTION: WHEELCHAIR - SCORE: 0-UNK COMPREHENSION: COMPREHENSION: TYPE: Both COMPREHENSION - STEP 1: Does the patient require help from a person or device, or need extra time to understand complex and a bstract ideas (such as current events, finances, discharge planning, medical issues, relationships, e tc)? No. COMPREHENSION - STEP 2: Does the patient need extra time, require an assistive device (such as glasses for visual comprehensi on or a hearing aid for auditory comprehension) or does s/he have mild difficulty understanding compl ex and abstract information? Yes. COMPREHENSION - SCORE: 6-VINNY EXPRESSION EXPRESSION: TYPE: Both EXPRESSION - STEP 1: Does the patient require help from a person or device, or need extra time expressing complex and abst ract ideas (such as current events, finances, discharge planning, medical issues, relationships, etc) ? No. EXPRESSION - STEP 2: Does the patient need extra time, require an assistive device (such as augmentive communication syste m or a communication board), OR does s/he have mild difficulty expressing complex and abstract ideas (including mild dysarthria or mild word-find problems)? Yes. EXPRESSION - SCORE: 6-VINNY SOCIAL INTERACTION: SOCIAL INTERACTION - STEP 1: Does the patient require a helper to interact with others in social and therapeutic situations? No. SOCIAL INTERACTION - STEP 2: Does the patient need extra time in social situations, OR does s/he interact with staff, other patien ts, and family members ONLY in structured environments, OR does s/he require medication for social in teraction? Yes, patient needs extra time SOCIAL INTERACTION - SCORE: 6-VINNY PROBLEM SOLVING: PROBLEM SOLVING - STEP 1: Does the patient need help from a person or device, or need extra time to solve complex problems such as managing a checking account or confronting interpersonal problems? No. PROBLEM SOLVING - STEP 2: Does the patient require extra time to make decisions or solve problems, OR does s/he have slight dif ficulty reading, initiating, or self-correcting in unfamiliar situations? Yes, patient needs extra ti me. PROBLEM SOLVING - SCORE: 6-VINNY MEMORY: MEMORY - STEP 1: Does the patient need help from a person or device, or need extra time to remember frequently encount ered people, daily routines, and executing requests? No. MEMORY - STEP 2: Does the patient have slight difficulty recognizing frequently encountered people, daily routines, or executing requests without the need for repetition or using self-initiated or environmental cues to remember? Yes. MEMORY - SCORE: 6-VINNY SIGNATURE PANEL: The following modified sections: Eating - Score, Grooming - Score, Bathing - Score, Dressing - Upper Body - Score, Dressing - Lower Body - Score, Toileting - Score, Bladder Management - Score, Bowel Man agement - Score, Transfers: Bed, Chair, Wheelchair - Score, Transfers: Toilet - Score, Transfers: Sammie wer - Score, Transfers: Tub - Score, Locomotion: Walk - Score, Locomotion: Wheelchair - Score, Compre hension - Score, Expression - Score, Social Interaction - Score, Problem Solving - Score, Memory - Sc ore were [electronically] signed by Floyd Smith on TueMar 14 2018 16:14:28 GMT-0600 (Central Standard Time)
--- NOTE | 2018-03-14 18:09 | R.PN ---
ENCOUNTER DATE AND TIME: 03/14/2018 18:05 (CLERK OF COURT) NAME SHANDA BARTON DATE OF : 1930 DATE OF ADMISSION: 03/12/2018 12:40 (CLERK OF COURT) Parkinson's DiseaseCHIEF COMPLAINT: Postural and gait instability secondary to Parkinson's disease. SUBJECTIVE: Pt denied any depression. Pt denied any Shortness of Breath. Self-propelled wheelchair 300 feet with standby assistance. Ambulated 350' with contact guard assista nce using a rolling walker with slow kyphotic erika. VITAL SIGNS Temperature: 98 F SBP/DBP: 138-194/62-78 Pulse: 64 Resp: 16 MEDICATION ALLERGIES: Codeine Penicillin Acetaminophen allopurinol carbidopa fentanyl hydrocodone bitartrate levodopa lidocaine lorazepam Propoxyphene HCl rasagiline mesylate ropinirole HCl TRAMADOL verapamil ENVIRONMENTAL ALLERGIES: None Known - Substance Allergies None Known - Other Allergies None Known CONSULT: Perform Neuro consult NURSING: - Shower allowing shower ACTIVITIES OOB only with supervision THERAPIES: - Occupational Therapy Evaluate and Treat. - Speech Therapy Memory Strategies. Speech Intelligibility Training. - Physical Therapy Evaluate and Treat. PHYSICAL EXAM - Gen Alert and awake Lying in bed No apparent distress Oriented to: person, time, and place - Skin No skin breakdown. Normacephalic - Eyes No abnormalities - ENMT No abnormalities - Neck No abnormalities - CVS RRR - Chest Clear - Resp Clear to auscultation - Abd Soft - GI Soft Deferred - No abnormalities - Ext no edema - MSK 4/5 weakness in both lower extremities. - Neuro 4/5 strength right upper and lower extremities. - Psych No abnormalities ASSESSMENT: Pt. is a 88 yo Right-handed white female.On 03/09/2018 she was admitted to [facility] with diagnosis Parkinson's Disease.Her impairment category is Neurologic Conditions 03 - Park insonism (03.2).Pre-morbidly, Pt. was independent/mod-I in Sphincter Control, Transfers Control, Comm unication, Social Cognition, Self-Care, and Locomotion; and she had good Sphincter Control.Currently, she has deficits of Endurance, Safety Awareness, Transfers Control, Balance, Locomotion, and Self-Ca re.Pt. is now referred to [facility] for acute in-patient rehabilitation in [place] to maximize patient's functional independence in activities of daily living, strength, ROM, and m obility.- Rehab Goal Patient has realistic goal of being discharged at assistance level 4-Dorota to reside at Home with Fam soumya/Relatives. MDM/PLAN: - Physical Therapy Gait dysfunction - to improve, our physical therapists will perform initial evaluation of pt's statu s upon admission and devise an individualized program for Gait Training, and Wheel Chair mobility Inability to transfer - to improve, our physical therapists will perform initial evaluation of pt's status upon admission and devise an individualized program for Bed mobility Need for home safety evaluation - to improve, our physical therapists will perform initial evaluatio n of pt's status upon admission and devise an individualized program for Home Evaluation Need in caregiver upon discharge - to improve, our physical therapists will perform initial evaluati on of pt's status upon admission and devise an individualized program for Caregiver Training New precaution - to improve, our physical therapists will perform initial evaluation of pt's status upon admission and devise an individualized program for Patient precaution education Poor balance - to improve, our physical therapists will perform initial evaluation of pt's status up on admission and devise an individualized program for Balance Training Poor endurance - to improve, our physical therapists will perform initial evaluation of pt's status upon admission and devise an individualized program for Endurance Training Weakness - to improve, our physical therapists will perform initial evaluation of pt's status upon a dmission and devise an individualized program for Aquatic Therapy, Neuromuscular Reeducation, and Str engthening Achieving independence - to improve, our physical therapists will perform initial evaluation of pt's status upon admission and devise an individualized program for Community Reintegration Activities - Occupational Therapy ADL deficits - to improve, our occupation therapists will perform initial evaluation of pt's status upon admission and devise an individualized program for Bathing, Bed mobility, Community Reintegratio n, Cooking, Dressing, Eating, Fine Motor Skills, Grooming, Homemaking, Kitchen Mobility, Laundry, Pat ient Education, Safety Awareness, Splinting - Positioning, Transfers(Toilet, Tub, Shower), and Wheel Chair Management Need for career development counselor - to improve, our occupation therapists will perform initial evaluation of pt's status upon admission and devise an individualized program for Caregiver Training Weakness - to improve, our occupation therapists will perform initial evaluation of pt's status upon admission and devise an individualized program for Aquatic Therapy, Balance, Endurance, UE ROM, and UE strengthening - Diet Type Continue Regular - Diet - Liquid Texture Continue Regular - Tube Feed Continue N/A - N/A Perform Neuro consult - Diet - Solid Texture Continue Regular - Shower allowing shower FUNCTIONAL STATUS: UPDATED AT WEEKLY TEAM CONFERENCE - Bladder Same accident frequency: 7-Ind - No accidents in the past 7 days - Bowel Same accident frequency: 7-Ind - No accidents in the past 7 days - Walking Same score based on distance walked: 2(50-149ft) - Wheelchair Same score based on distance traveled: 0(N/A) FUNCTIONAL STATUS: - Self-Care A. Eating Ind B. Grooming Ind C. Bathing sup D. Dressing - Upper sup E. Dressing - Lower sup F. Toileting sup - Sphincter Control G: Bladder control Ind H: Bowel control Ind - Transfers Control I. Bed/Chair/Wheelchair modA J. Toilet Dorota K. Tub/Shower ADNO - Locomotion L. Walk/Wheelchair (C) Dorota L. Walk/Wheelchair (W) Dorota M. Stairs ADNO - Communication N. Comprehension (B) Ind O. Expression (B) Ind - Social Cognition P. Social Interaction Ind Q. Problem Solving Ind R. Memory Ind - Endurance Fair - Balance Fair - Safety Awareness Fair CURRENT FUNC. DEFICITS: Endurance, Safety Awareness, Transfers Control, Balance, Locomotion, and Self-Care SIGNATURE PANEL: ([facility])
[2018-03-14] MEDS: CIPROFLOXACIN HCL 500 MG TAB PO SCH (19:50)
[2018-03-14] MEDS ORDERED: HYDRALAZINE HCL 20 MG/ML VIAL IV PRN (22:48)
--- NOTE | 2018-03-14 22:50 | P.PN ---
Subjective Date of Service: 03/14/18 Chief Complaint: S.P Fall patient gradually improving, no fever no chills. Physical Examination - Vital Signs Temperature: 97.0 F Blood Pressure: 165/62 Pulse: 96 Respirations: 18 Pulse Ox (%): 95 - Physical Exam General: Alert, In no apparent distress HEENT: Atraumatic, PERRLA, EOMI Neck: Supple, JVD not distended Respiratory: Clear to auscultation bilaterally, Normal air movement Cardiovascular: Regular rate/rhythm, Normal S1 S2 Gastrointestinal: Normal bowel sounds, No tenderness Musculoskeletal: No tenderness Integumentary: No rashes Neurological: Normal speech, Normal tone, Normal affect - Studies Microbiology Data (last 24 hrs): 03/12/18 13:55 Catheterized Urine Willard Count - Final BETWEEN 10,000 & 100,000 CFU/ML 03/12/18 13:55 Catheterized Urine - Final Escherichia Coli Medications List Reviewed: Yes Assessment And Plan - Current Problems (Diagnosis) (1) Encounter for rehabilitation Current Visit: Yes Status: Acute (2) Status post fall Current Visit: No Status: Acute (3) Parkinson disease Current Visit: No Status: Chronic (4) MARGARITO (acute kidney injury) Current Visit: No Status: Resolved (5) HTN (hypertension) Current Visit: Yes Status: Acute Qualifiers: Hypertension type: essential hypertension Qualified Code(s): I10 - Essential (primary) hypertension - Plan 1. Will D/C folley catheter. 2 Will order PRN Hydralazine for HTN 3 continue PT
[2018-03-14] MEDS: LOSARTAN POTASSIUM 50 MG TABLET PO ONE ×2 (23:16→23:21)
--- NOTE | 2018-03-15 02:04 | FAST ---
SHIFT START DATE/TIME: 03/14/2018 19:00 (BABBITTER) SHIFT END DATE/TIME: 03/15/2018 07:00 (BABBITTER) NAME SHANDA BARTON DATE OF : 1930 DATE OF ADMISSION: 03/12/2018 12:40 (BABBITTER) PHONE: AGE: 88 SSN# [id number] GENDER: Female ENCOUNTER PHYSICIAN: Dr. Aman Lackey M.D. ADMISSION DIAGNOSIS: - Neurologic Conditions 03 - Parkinsonism (03.2) Parkinson's Disease. EATING: Activity did not occur on this shift EATING - SCORE: 0-UNK GROOMING: Activity did not occur on this shift GROOMING - SCORE: 0-UNK BATHING: Activity did not occur on this shift BATHING - SCORE: 0-UNK DRESSING - UPPER BODY: Patient is not dressing in public clothing ARTICLES SCORE Total number of steps: 0 DRESSING - UPPER BODY - SCORE: 0-UNK DRESSING - LOWER BODY: Patient is not dressing in public clothing ARTICLES SCORE Total number of steps: 0 DRESSING - LOWER BODY - SCORE: 0-UNK TOILETING: TOILETING - STEP 1: Does the patient require the assistance of a person or device, or need extra time with toileting? Yes . TOILETING - STEP 2: Does the patient require the assistance of a helper? Yes. TOILETING - STEP 3: How much assistance does the patient require from the helper? Hands-on assistance from the helper TOILETING - STEP 4: Of the 3 tasks: 1) Adjusting clothing prior to use, 2) Cleansing of perineal area, 3) Adjusting clot vania after use; How many tasks does the patient perform WITHOUT assistance of the helper? Two tasks TOILETING - SCORE: 3-MOD BLADDER MANAGEMENT: BLADDER MANAGEMENT - STEP 1: Does the patient control the bladder completely and intentionally without equipment or devices or med ications, and is always continent? No. BLADDER MANAGEMENT - STEP 2: Does the patient require the assistance of a helper? Yes. BLADDER MANAGEMENT - STEP 3: How much assistance does the patient require from the helper? Only set-up of equipment - such as plac ing it within reach of the patient or emptying a device - to maintain either satisfactory voiding pat tern or managing an external device, such as an absorbent pad, ileal device, or catheter BLADDER MANAGEMENT - SCORE: 5-SUP BOWEL MANAGEMENT: Activity did not occur on this shift BOWEL MANAGEMENT - SCORE: 7-IND TRANSFERS: BED, CHAIR, WHEELCHAIR: Activity did not occur on this shift TRANSFERS: BED, CHAIR, WHEELCHAIR - SCORE: 0-UNK TRANSFERS: TOILET: Activity did not occur on this shift TRANSFERS: TOILET - SCORE: 0-UNK TRANSFERS: SHOWER: Activity did not occur on this shift TRANSFERS: SHOWER - SCORE: 0-UNK TRANSFERS: TUB: Activity did not occur on this shift TRANSFERS: TUB - SCORE: 0-UNK LOCOMOTION: WALK: Activity did not occur on this shift LOCOMOTION: WALK - SCORE: 0-UNK LOCOMOTION: WHEELCHAIR: Activity did not occur on this shift LOCOMOTION: WHEELCHAIR - SCORE: 0-UNK COMPREHENSION: COMPREHENSION: TYPE: Both COMPREHENSION - STEP 1: Does the patient require help from a person or device, or need extra time to understand complex and a bstract ideas (such as current events, finances, discharge planning, medical issues, relationships, e tc)? No. COMPREHENSION - STEP 2: Does the patient need extra time, require an assistive device (such as glasses for visual comprehensi on or a hearing aid for auditory comprehension) or does s/he have mild difficulty understanding compl ex and abstract information? Yes. COMPREHENSION - SCORE: 6-VINNY EXPRESSION EXPRESSION: TYPE: Both EXPRESSION - STEP 1: Does the patient require help from a person or device, or need extra time expressing complex and abst ract ideas (such as current events, finances, discharge planning, medical issues, relationships, etc) ? No. EXPRESSION - STEP 2: Does the patient need extra time, require an assistive device (such as augmentive communication syste m or a communication board), OR does s/he have mild difficulty expressing complex and abstract ideas (including mild dysarthria or mild word-find problems)? Yes. EXPRESSION - SCORE: 6-VINNY SOCIAL INTERACTION: SOCIAL INTERACTION - STEP 1: Does the patient require a helper to interact with others in social and therapeutic situations? No. SOCIAL INTERACTION - STEP 2: Does the patient need extra time in social situations, OR does s/he interact with staff, other patien ts, and family members ONLY in structured environments, OR does s/he require medication for social in teraction? Yes, patient needs extra time SOCIAL INTERACTION - SCORE: 6-VINNY PROBLEM SOLVING: PROBLEM SOLVING - STEP 1: Does the patient need help from a person or device, or need extra time to solve complex problems such as managing a checking account or confronting interpersonal problems? Yes. PROBLEM SOLVING - STEP 2: Does the patient solve basic routine problems half or more of the time? Yes. PROBLEM SOLVING - STEP 3: How often does the patient need help to solve basic routine problems? 10%-24% of the time PROBLEM SOLVING - SCORE: 4-MIN MEMORY: MEMORY - STEP 1: Does the patient need help from a person or device, or need extra time to remember frequently encount ered people, daily routines, and executing requests? Yes. MEMORY - STEP 2: How often does the patient need help to remember frequently encountered people, daily routines, and e xecuting requests? Less than 10% of the time MEMORY - SCORE: 5-SUP
[2018-03-15] MEDS ORDERED: ATENOLOL 25 MG TAB ONE (04:35)
[2018-03-15] MEDS: LOSARTAN POTASSIUM 50 MG TABLET PO SCH ×2 (05:10→07:59)
[2018-03-15] MEDS: ATENOLOL 25 MG TAB PO SCH (05:11)
[2018-03-15] MEDS: ULORIC 40 MG PO SCH (07:56)
[2018-03-15] MEDS: MEDIHONEY 44 ML TOPICAL TUBE TOP SCH (07:56)
[2018-03-15] MEDS: ASPIRIN EC 81 MG TAB PO SCH (07:57)
[2018-03-15] MEDS: FE SULF/FA/VIT B COMP & C TAB PO SCH (07:57)
[2018-03-15] MEDS: FERROUS SULFATE 325 MG TAB PO SCH (07:57)
[2018-03-15] MEDS: APIXABAN 2.5 MG TABLET PO SCH ×2 (07:58→20:39)
[2018-03-15] MEDS: MULTIVITAMIN TAB PO SCH (07:58)
[2018-03-15] MEDS: CIPROFLOXACIN HCL 500 MG TAB PO SCH ×2 (07:58→20:38)
[2018-03-15] MEDS: BACLOFEN 10 MG TAB PO SCH ×2 (07:58→20:39)
[2018-03-15] MEDS: FUROSEMIDE 40 MG TABLET PO SCH (07:59)
[2018-03-15] MEDS: PROMOD 30 ML DOSE PO SCH ×3 (08:00→20:40)
[2018-03-15] MEDS: ALPRAZOLAM 0.5 MG TABLET PO SCH (08:00)
[2018-03-15] MEDS: VITAMIN D 1000 UNIT TAB PO SCH (08:00)
[2018-03-15] MEDS: COLCHICINE 0.6 MG TAB PO SCH (08:01)
--- NOTE | 2018-03-15 14:56 | FAST ---
SHIFT START DATE/TIME: 03/15/2018 07:00 (AGRICULTURAL EDUCATION TEACHER) SHIFT END DATE/TIME: 03/15/2018 19:00 (AGRICULTURAL EDUCATION TEACHER) NAME SHANDA BARTON DATE OF : 1930 DATE OF ADMISSION: 03/12/2018 12:40 (AGRICULTURAL EDUCATION TEACHER) PHONE: AGE: 88 SSN# [id number] GENDER: Female ENCOUNTER PHYSICIAN: Dr. Aman Lackey M.D. ADMISSION DIAGNOSIS: - Neurologic Conditions 03 - Parkinsonism (03.2) Parkinson's Disease. EATING: EATING - STEP 1: Does the patient require the assistance of a person or device, or need extra time when eating? Yes. EATING - STEP 2: Does the patient require the assistance of a helper? No, patient only requires an assistive device, O R s/he takes more than reasonable time to eat, OR there is a safety concern, OR s/he requires modifie d food consistency EATING - SCORE: 6-VINNY GROOMING: Comb/brush hair Oral care GROOMING - STEP 1: Does the patient require the assistance of a person or device, or need extra time when grooming? Yes. GROOMING - STEP 2: Does the patient require the assistance of a helper? No. The patient only requires an assistive devic e, OR takes more than reasonable time to groom, OR there is a concern for safety as the patient groom s GROOMING - SCORE: 6-VINNY BATHING: Activity did not occur on this shift BATHING - SCORE: 0-UNK DRESSING - UPPER BODY: Button down shirt or blouse - NOT tucked in (four steps) ARTICLES SCORE Total number of steps: 4 DRESSING - UPPER BODY - STEP 1: Does the patient require help from a person or device, or need extra time when dressing above the jess st? Yes. DRESSING - UPPER BODY - STEP 2: Does the patient require the assistance of a helper? Yes. DRESSING - UPPER BODY - STEP 3: Does the helper touch the patient while dressing? Yes. DRESSING - UPPER BODY - STEP 4: How many of the total steps does the patient complete on his/her own? 4 DRESSING - UPPER BODY - SCORE: 4-MIN DRESSING - LOWER BODY: Elastic waist pants (three steps) Underwear (three steps) ARTICLES SCORE Total number of steps: 6 DRESSING - LOWER BODY - STEP 1: Does the patient require help from a person or device, or need extra time when dressing below the jess st? Yes. DRESSING - LOWER BODY - STEP 2: Does the patient require the assistance of a helper? Yes. DRESSING - LOWER BODY - STEP 3: Does the helper touch the patient while dressing? Yes. DRESSING - LOWER BODY - STEP 4: How many of the total steps does the patient complete on his/her own? 3 DRESSING - LOWER BODY - SCORE: 3-MOD TOILETING: TOILETING - STEP 1: Does the patient require the assistance of a person or device, or need extra time with toileting? Yes . TOILETING - STEP 2: Does the patient require the assistance of a helper? Yes. TOILETING - STEP 3: How much assistance does the patient require from the helper? Hands-on assistance from the helper TOILETING - STEP 4: Of the 3 tasks: 1) Adjusting clothing prior to use, 2) Cleansing of perineal area, 3) Adjusting clot vania after use; How many tasks does the patient perform WITHOUT assistance of the helper? Two tasks TOILETING - SCORE: 3-MOD BLADDER MANAGEMENT: BLADDER MANAGEMENT - STEP 1: Does the patient control the bladder completely and intentionally without equipment or devices or med ications, and is always continent? No. BLADDER MANAGEMENT - STEP 2: Does the patient require the assistance of a helper? Yes. BLADDER MANAGEMENT - STEP 3: How much assistance does the patient require from the helper? Only supervision, stand-by, cuing, or c oaxing BLADDER MANAGEMENT - SCORE: 5-SUP BLADDER MANAGEMENT - FREQUENCY OF ACCIDENTS: BLADDER MANAGEMENT(FA) - STEP 1: How many accidents has the patient had during the current shift? 0 BOWEL MANAGEMENT: Activity did not occur on this shift BOWEL MANAGEMENT - SCORE: 7-IND BOWEL MANAGEMENT - FREQUENCY OF ACCIDENTS: BOWEL MANAGEMENT(FA) - STEP 1: How many accidents has the patient had during the current shift? 0 TRANSFERS: BED, CHAIR, WHEELCHAIR: TRANSFERS: BED, CHAIR, WHEELCHAIR - STEP 1: Does the patient require assistance of a person or device, or need extra time with bed, chair, or whe elchair transfers? Yes. TRANSFERS: BED, CHAIR, WHEELCHAIR - STEP 2: Does the patient require the assistance of a helper? Yes. TRANSFERS: BED, CHAIR, WHEELCHAIR - STEP 3: How much assistance does the patient require from the helper? Lifting of the legs TRANSFERS: BED, CHAIR, WHEELCHAIR - STEP 4: How many legs does the patient require the helper to lift? both legs TRANSFERS: BED, CHAIR, WHEELCHAIR - SCORE: 3-MOD TRANSFERS: TOILET: TRANSFERS: TOILET - STEP 1: Does the patient require the assistance of a person or device, or need extra time with toilet transfe rs? Yes. TRANSFERS: TOILET - STEP 2: Does the patient require the assistance of a helper? Yes. TRANSFERS: TOILET - STEP 3: How much assistance does the patient require from the helper? Patient performs half or more of the tr ansferring tasks TRANSFERS: TOILET - STEP 4: Does the patient need only incidental help such as contact guard or steadying during toilet transfer? Yes. TRANSFERS: TOILET - SCORE: 4-MIN TRANSFERS: SHOWER: Activity did not occur on this shift TRANSFERS: SHOWER - SCORE: 0-UNK TRANSFERS: TUB: Activity did not occur on this shift TRANSFERS: TUB - SCORE: 0-UNK LOCOMOTION: WALK: Activity did not occur on this shift LOCOMOTION: WALK - SCORE: 0-UNK LOCOMOTION: WHEELCHAIR: Activity did not occur on this shift LOCOMOTION: WHEELCHAIR - SCORE: 0-UNK COMPREHENSION: COMPREHENSION: TYPE: Both COMPREHENSION - STEP 1: Does the patient require help from a person or device, or need extra time to understand complex and a bstract ideas (such as current events, finances, discharge planning, medical issues, relationships, e tc)? No. COMPREHENSION - STEP 2: Does the patient need extra time, require an assistive device (such as glasses for visual comprehensi on or a hearing aid for auditory comprehension) or does s/he have mild difficulty understanding compl ex and abstract information? Yes. COMPREHENSION - SCORE: 6-VINNY EXPRESSION EXPRESSION: TYPE: Both EXPRESSION - STEP 1: Does the patient require help from a person or device, or need extra time expressing complex and abst ract ideas (such as current events, finances, discharge planning, medical issues, relationships, etc) ? No. EXPRESSION - STEP 2: Does the patient need extra time, require an assistive device (such as augmentive communication syste m or a communication board), OR does s/he have mild difficulty expressing complex and abstract ideas (including mild dysarthria or mild word-find problems)? Yes. EXPRESSION - SCORE: 6-VINNY SOCIAL INTERACTION: SOCIAL INTERACTION - STEP 1: Does the patient require a helper to interact with others in social and therapeutic situations? No. SOCIAL INTERACTION - STEP 2: Does the patient need extra time in social situations, OR does s/he interact with staff, other patien ts, and family members ONLY in structured environments, OR does s/he require medication for social in teraction? Yes, patient needs extra time SOCIAL INTERACTION - SCORE: 6-VINNY PROBLEM SOLVING: PROBLEM SOLVING - STEP 1: Does the patient need help from a person or device, or need extra time to solve complex problems such as managing a checking account or confronting interpersonal problems? No. PROBLEM SOLVING - STEP 2: Does the patient require extra time to make decisions or solve problems, OR does s/he have slight dif ficulty reading, initiating, or self-correcting in unfamiliar situations? Yes, patient needs extra ti me. PROBLEM SOLVING - SCORE: 6-VINNY MEMORY: MEMORY - STEP 1: Does the patient need help from a person or device, or need extra time to remember frequently encount ered people, daily routines, and executing requests? No. MEMORY - STEP 2: Does the patient have slight difficulty recognizing frequently encountered people, daily routines, or executing requests without the need for repetition or using self-initiated or environmental cues to remember? Yes. MEMORY - SCORE: 6-VINNY SIGNATURE PANEL: The following modified sections: Eating - Score, Grooming - Score, Bathing - Score, Dressing - Upper Body - Score, Toileting - Score, Bladder Management - Score, Bowel Management - Score, Transfers: Bed , Chair, Wheelchair - Score, Transfers: Toilet - Score, Transfers: Shower - Score, Transfers: Tub - S core, Locomotion: Walk - Score, Locomotion: Wheelchair - Score, Comprehension - Score, Social Interac tion - Score, Problem Solving - Score, Memory - Score, Expression - Score, Dressing - Lower Body - Sc ore were [electronically] signed by Oneyda Cavazos C.N.A. on TueMar 15 2018 14:55:14 GMT-0600 (Centra [place] Standard Time)
--- NOTE | 2018-03-15 17:04 | P.CNS ---
Date of Consult: 03/15/18 Reason for Consult: wounds to left foot Requesting Physician: Aman Lackey Chief Complaint: S.P Fall Allergies codeine Allergy (Verified 04/08/14 16:12) Itching Penicillins Allergy (Verified 04/08/14 16:12) Hives acetaminophen [From Lortab] Adverse Reaction (Verified 04/08/14 16:15) Rash allopurinol Adverse Reaction (Verified 04/08/14 16:15) Rash carbidopa [From Sinemet] Adverse Reaction (Verified 04/08/14 16:15) Rash fentanyl Adverse Reaction (Verified 04/08/14 16:15) Rash hydrocodone bitartrate [From Lortab] Adverse Reaction (Verified 04/08/14 16:15) Rash levodopa [From Sinemet] Adverse Reaction (Verified 04/08/14 16:15) Rash lidocaine HCl [From Xylocaine] Adverse Reaction (Verified 04/08/14 16:12) Nausea/Vomiting lorazepam [From Ativan] Adverse Reaction (Verified 04/08/14 16:15) Rash propoxyphene HCl [From Darvon] Adverse Reaction (Verified 04/08/14 16:15) Rash rasagiline mesylate [From Azilect] Adverse Reaction (Verified 04/08/14 16:15) Rash ropinirole HCl [From Requip] Adverse Reaction (Verified 04/08/14 16:15) Rash tramadol Adverse Reaction (Verified 04/08/14 16:15) Rash verapamil [Verapamil] Adverse Reaction (Verified 04/08/14 16:15) Rash Home Medications: ALPRAZolam [Xanax*] 0.5 mg PO DAILY 04/08/14 Atenolol [Tenormin*] 50 mg PO DAILY 04/08/14 Cholecalciferol (Vitamin D3) [Vitamin D-3] 2,000 unit PO DAILY 04/08/14 Colchicine [Colcrys] 0.6 mg PO DAILY 04/08/14 Furosemide [Lasix] 40 mg PO DAILY 04/08/14 Losartan Potassium [Cozaar] 100 mg PO DAILY 04/08/14 Febuxostat [Uloric] 40 mg PO DAILY 03/10/18 Mv-Mn/Folic Acid/Calcium/Vit K [Women's 50 Plus Multivit Tab] 1 tab PO DAILY 10/19 - Past Medical/Surgical History Diabetic: No -: pressure ulcers -: gout -: HTN -: CHF -: parkinsons -: arthritis -: hysterectomy -: lap kelby -: lap appe -: throat surgery -: joint surgery left ring finger - Family History Father Medical History: Heart disease, Hypertension, Stroke Mother Medical History: Heart disease, Hypertension, Stroke Sister Medical History: Stroke - Social History Smoking Status: Never smoker Alcohol use: No CD- Drugs: No Caffeine use: No Place of Residence: Home Review of Systems 10-point ROS is otherwise unremarkable Physical Examination Temp Pulse Resp BP Pulse Ox 96.8 F 48 L 20 182/76 H 98 03/15/18 06:58 03/15/18 07:59 03/15/18 06:58 03/15/18 07:59 03/15/18 06:58 General: Alert, In no apparent distress, Oriented x3 Cardiovascular: No edema, Abnormal pulses Capillary refill: <2 Seconds Musculoskeletal: No clubbing, No swelling, No contractures, No erythema, No tenderness, No warmth Integumentary: Other (ulceratin to dorsum left fourth digit is healed. It has been treated recently with stimulen powder. New wound to medial left hallux measuring 1cm X 0.6cm X 0.3cm with fibrinous base. Periwound erythema, no purulence present) Neurological: Sensation intact - Problems (1) Pressure ulcer of foot, stage 3 Current Visit: Yes Status: Acute Plan: santyl to wound daily with saline moistened gauze. Awaiting MRI results Physician Review: Patient Assessed, Agree with Above Assessment and Plan Critical Care: Yes Time Spent Managing Pts care (In Minutes): 30
[2018-03-15] MEDS ORDERED: LORAZEPAM 0.5 MG TABLET PO PRN (17:52)
[2018-03-15] MEDS ORDERED: LORAZEPAM 0.5 MG TABLET ONE (18:03)
--- NOTE | 2018-03-15 18:49 | RAD REPORT ---
EXAM DESCRIPTION: MRI - Foot Left Wo Cont - 03/15/2018 6:34 pm CLINICAL HISTORY: wound to L foot, R/O Osteomyelitis COMPARISON: No comparisons FINDINGS: Ill-defined soft tissue thickening and edema is seen along the plantar anterior aspect of the left foot. A soft tissue wound is seen at the level of the first metatarsal head plantar aspect. Abnormal diminished T1 signal is seen involving the plantar aspect of the first metatarsal head as we ll as the base of the proximal phalanx of the great toe. Abnormal marrow signal is also noted involvi ng the interphalangeal joint of the great toe. A fracture is seen involving the plantar base of the d istal phalanx of the great toe. These regions demonstrate correlating T2/IR hyperintensity. Abnormal poorly defined diminished areas of T1 signal are seen involving the distal fifth metatarsal head and base of the proximal phalanx of the fifth toe. T2/IR hyperintensity is also present in these regions. No drainable fluid collection. IMPRESSION: Moderate osteomyelitis of the great toe is present with involvement of the first metatar michel head. Mild osteomyelitis also likely present involving the distal fifth metatarsal and proximal phalanx of the fifth toe.
[2018-03-15] MEDS: HYDRALAZINE HCL 25 MG TABLET PO SCH (20:39)
--- NOTE | 2018-03-16 01:42 | FAST ---
SHIFT START DATE/TIME: 03/15/2018 19:00 (DATA REVIEW SPECIALIST) SHIFT END DATE/TIME: 03/16/2018 07:00 (DATA REVIEW SPECIALIST) NAME SHANDA BARTON DATE OF : 1930 DATE OF ADMISSION: 03/12/2018 12:40 (DATA REVIEW SPECIALIST) PHONE: AGE: 88 SSN# [id number] GENDER: Female ENCOUNTER PHYSICIAN: Dr. Aman Lackey M.D. ADMISSION DIAGNOSIS: - Neurologic Conditions 03 - Parkinsonism (03.2) Parkinson's Disease. EATING: Activity did not occur on this shift EATING - SCORE: 0-UNK GROOMING: Activity did not occur on this shift GROOMING - SCORE: 0-UNK BATHING: Activity did not occur on this shift BATHING - SCORE: 0-UNK DRESSING - UPPER BODY: Patient is not dressing in public clothing ARTICLES SCORE Total number of steps: 0 DRESSING - UPPER BODY - SCORE: 0-UNK DRESSING - LOWER BODY: Patient is not dressing in public clothing ARTICLES SCORE Total number of steps: 0 DRESSING - LOWER BODY - SCORE: 0-UNK TOILETING: TOILETING - STEP 1: Does the patient require the assistance of a person or device, or need extra time with toileting? Yes . TOILETING - STEP 2: Does the patient require the assistance of a helper? Yes. TOILETING - STEP 3: How much assistance does the patient require from the helper? Hands-on assistance from the helper TOILETING - STEP 4: Of the 3 tasks: 1) Adjusting clothing prior to use, 2) Cleansing of perineal area, 3) Adjusting clot vania after use; How many tasks does the patient perform WITHOUT assistance of the helper? One task TOILETING - SCORE: 2-MAX BLADDER MANAGEMENT: BLADDER MANAGEMENT - STEP 1: Does the patient control the bladder completely and intentionally without equipment or devices or med ications, and is always continent? No. BLADDER MANAGEMENT - STEP 2: Does the patient require the assistance of a helper? Yes. BLADDER MANAGEMENT - STEP 3: How much assistance does the patient require from the helper? Only set-up of equipment - such as plac ing it within reach of the patient or emptying a device - to maintain either satisfactory voiding pat tern or managing an external device, such as an absorbent pad, ileal device, or catheter BLADDER MANAGEMENT - SCORE: 5-SUP BOWEL MANAGEMENT: Activity did not occur on this shift BOWEL MANAGEMENT - SCORE: 7-IND TRANSFERS: BED, CHAIR, WHEELCHAIR: TRANSFERS: BED, CHAIR, WHEELCHAIR - STEP 1: Does the patient require assistance of a person or device, or need extra time with bed, chair, or whe elchair transfers? Yes. TRANSFERS: BED, CHAIR, WHEELCHAIR - STEP 2: Does the patient require the assistance of a helper? Yes. TRANSFERS: BED, CHAIR, WHEELCHAIR - STEP 3: How much assistance does the patient require from the helper? Lifting of the legs TRANSFERS: BED, CHAIR, WHEELCHAIR - STEP 4: How many legs does the patient require the helper to lift? both legs TRANSFERS: BED, CHAIR, WHEELCHAIR - SCORE: 3-MOD TRANSFERS: TOILET: TRANSFERS: TOILET - STEP 1: Does the patient require the assistance of a person or device, or need extra time with toilet transfe rs? Yes. TRANSFERS: TOILET - STEP 2: Does the patient require the assistance of a helper? Yes. TRANSFERS: TOILET - STEP 3: How much assistance does the patient require from the helper? Patient performs half or more of the tr ansferring tasks TRANSFERS: TOILET - STEP 4: Does the patient need only incidental help such as contact guard or steadying during toilet transfer? Yes. TRANSFERS: TOILET - SCORE: 4-MIN TRANSFERS: SHOWER: Activity did not occur on this shift TRANSFERS: SHOWER - SCORE: 0-UNK TRANSFERS: TUB: Activity did not occur on this shift TRANSFERS: TUB - SCORE: 0-UNK LOCOMOTION: WALK: Activity did not occur on this shift LOCOMOTION: WALK - SCORE: 0-UNK LOCOMOTION: WHEELCHAIR: Activity did not occur on this shift LOCOMOTION: WHEELCHAIR - SCORE: 0-UNK COMPREHENSION: COMPREHENSION: TYPE: Both COMPREHENSION - STEP 1: Does the patient require help from a person or device, or need extra time to understand complex and a bstract ideas (such as current events, finances, discharge planning, medical issues, relationships, e tc)? No. COMPREHENSION - STEP 2: Does the patient need extra time, require an assistive device (such as glasses for visual comprehensi on or a hearing aid for auditory comprehension) or does s/he have mild difficulty understanding compl ex and abstract information? Yes. COMPREHENSION - SCORE: 6-VINNY EXPRESSION EXPRESSION: TYPE: Both EXPRESSION - STEP 1: Does the patient require help from a person or device, or need extra time expressing complex and abst ract ideas (such as current events, finances, discharge planning, medical issues, relationships, etc) ? No. EXPRESSION - STEP 2: Does the patient need extra time, require an assistive device (such as augmentive communication syste m or a communication board), OR does s/he have mild difficulty expressing complex and abstract ideas (including mild dysarthria or mild word-find problems)? No. EXPRESSION - SCORE: 7-IND SOCIAL INTERACTION: SOCIAL INTERACTION - STEP 1: Does the patient require a helper to interact with others in social and therapeutic situations? No. SOCIAL INTERACTION - STEP 2: Does the patient need extra time in social situations, OR does s/he interact with staff, other patien ts, and family members ONLY in structured environments, OR does s/he require medication for social in teraction? Yes, patient needs extra time SOCIAL INTERACTION - SCORE: 6-VINNY PROBLEM SOLVING: PROBLEM SOLVING - STEP 1: Does the patient need help from a person or device, or need extra time to solve complex problems such as managing a checking account or confronting interpersonal problems? No. PROBLEM SOLVING - STEP 2: Does the patient require extra time to make decisions or solve problems, OR does s/he have slight dif ficulty reading, initiating, or self-correcting in unfamiliar situations? Yes, patient needs extra ti me. PROBLEM SOLVING - SCORE: 6-VINNY MEMORY: MEMORY - STEP 1: Does the patient need help from a person or device, or need extra time to remember frequently encount ered people, daily routines, and executing requests? No. MEMORY - STEP 2: Does the patient have slight difficulty recognizing frequently encountered people, daily routines, or executing requests without the need for repetition or using self-initiated or environmental cues to remember? Yes. MEMORY - SCORE: 6-VINNY SIGNATURE PANEL: The following modified sections: Eating - Score, Grooming - Score, Dressing - Upper Body - Score, Emmanuel ssing - Lower Body - Score, Toileting - Score, Bladder Management - Score, Bowel Management - Score, Transfers: Bed, Chair, Wheelchair - Score, Transfers: Toilet - Score, Transfers: Shower - Score, Meyer sfers: Tub - Score, Locomotion: Walk - Score, Locomotion: Wheelchair - Score, Comprehension - Score, Expression - Score, Social Interaction - Score, Problem Solving - Score, Memory - Score were [electro nically] signed by Tamela Casey CNA on TueMar 16 2018 01:41:38 GMT-0600 (Central Standard Time)
[2018-03-16] MEDS: ATENOLOL 25 MG TAB PO SCH (05:10)
[2018-03-16 06:29] LABS: Albumin 2.6 g/dL (3.4-5.0); Potassium 3.6 mmol/L (3.5-5.1); Prealbumin 13.2 mg/dL (20-40)
[2018-03-16 06:30] LABS: Absolute Lymphocytes (CBC) 1.2 K/uL (0.7-4.9); Absolute Monocytes 0.6 K/uL (0.1-1.3); Absolute Neutrophil 2.4 K/uL (1.8-8.0); Basophils % 1.3 % (0-1.3); Eosinophils % 6.4 % (0-4.4); Lymphocytes % 26.1 % (15.3-44.8); Monocytes % 13.8 % (3.3-12.3); RBC Red Blood Cell Count 3.62 M/uL (3.86-4.86)
[2018-03-16] MEDS: MEDIHONEY 44 ML TOPICAL TUBE TOP SCH (06:51)
[2018-03-16] MEDS: COLLAGENASE 30 GM OINTMENT TOP SCH (07:32)
[2018-03-16] MEDS: ULORIC 40 MG PO SCH (07:33)
[2018-03-16] MEDS: FUROSEMIDE 40 MG TABLET PO SCH (07:33)
[2018-03-16] MEDS: FERROUS SULFATE 325 MG TAB PO SCH (07:33)
[2018-03-16] MEDS: FE SULF/FA/VIT B COMP & C TAB PO SCH (07:33)
[2018-03-16] MEDS: COLCHICINE 0.6 MG TAB PO SCH (07:33)
[2018-03-16] MEDS: ASPIRIN EC 81 MG TAB PO SCH (07:34)
[2018-03-16] MEDS: BACLOFEN 10 MG TAB PO SCH ×2 (07:34→20:03)
[2018-03-16] MEDS: ALPRAZOLAM 0.5 MG TABLET PO SCH (07:34)
[2018-03-16] MEDS: CIPROFLOXACIN HCL 500 MG TAB PO SCH (07:34)
[2018-03-16] MEDS: ACETAMINOPHEN 325 MG TABLET PO PRN (07:34)
[2018-03-16] MEDS: APIXABAN 2.5 MG TABLET PO SCH ×2 (07:34→20:03)
[2018-03-16] MEDS: MULTIVITAMIN TAB PO SCH (07:34)
[2018-03-16] MEDS: LOSARTAN POTASSIUM 50 MG TABLET PO SCH (07:34)
[2018-03-16] MEDS: VITAMIN D 1000 UNIT TAB PO SCH (07:35)
[2018-03-16] MEDS: PROMOD 30 ML DOSE PO SCH ×2 (07:35→20:05)
[2018-03-16] MEDS: HYDRALAZINE HCL 25 MG TABLET PO SCH ×2 (07:35→20:03)
[2018-03-16] MEDS ORDERED: guaiFENesin 100 MG/5 ML UCUP PO PRN (13:58)
--- NOTE | 2018-03-16 14:43 | FAST ---
SHIFT START DATE/TIME: 03/16/2018 07:00 (SUPPLIES PACKER) SHIFT END DATE/TIME: 03/16/2018 19:00 (SUPPLIES PACKER) NAME SHANDA BARTON DATE OF : 1930 DATE OF ADMISSION: 03/12/2018 12:40 (SUPPLIES PACKER) PHONE: AGE: 88 SSN# [id number] GENDER: Female ENCOUNTER PHYSICIAN: Dr. Aman Lackey M.D. ADMISSION DIAGNOSIS: - Neurologic Conditions 03 - Parkinsonism (03.2) Parkinson's Disease. EATING: EATING - STEP 1: Does the patient require the assistance of a person or device, or need extra time when eating? Yes. EATING - STEP 2: Does the patient require the assistance of a helper? No, patient only requires an assistive device, O R s/he takes more than reasonable time to eat, OR there is a safety concern, OR s/he requires modifie d food consistency EATING - SCORE: 6-VINNY GROOMING: Comb/brush hair Oral care Wash, rinse, and dry face Wash, rinse, and dry hands GROOMING - STEP 1: Does the patient require the assistance of a person or device, or need extra time when grooming? Yes. GROOMING - STEP 2: Does the patient require the assistance of a helper? No. The patient only requires an assistive devic e, OR takes more than reasonable time to groom, OR there is a concern for safety as the patient groom s GROOMING - SCORE: 6-VINNY BATHING: Activity did not occur on this shift BATHING - SCORE: 0-UNK DRESSING - UPPER BODY: ARTICLES SCORE Total number of steps: 0 DRESSING - UPPER BODY - STEP 1: Does the patient require help from a person or device, or need extra time when dressing above the jess st? Yes. DRESSING - UPPER BODY - STEP 2: Does the patient require the assistance of a helper? Yes. DRESSING - UPPER BODY - STEP 3: Does the helper touch the patient while dressing? No. DRESSING - UPPER BODY - SCORE: 5-SUP DRESSING - LOWER BODY: Elastic waist pants (three steps) Underwear (three steps) ARTICLES SCORE Total number of steps: 6 DRESSING - LOWER BODY - STEP 1: Does the patient require help from a person or device, or need extra time when dressing below the jess st? Yes. DRESSING - LOWER BODY - STEP 2: Does the patient require the assistance of a helper? Yes. DRESSING - LOWER BODY - STEP 3: Does the helper touch the patient while dressing? Yes. DRESSING - LOWER BODY - STEP 4: How many of the total steps does the patient complete on his/her own? 4 DRESSING - LOWER BODY - SCORE: 3-MOD TOILETING: TOILETING - STEP 1: Does the patient require the assistance of a person or device, or need extra time with toileting? Yes . TOILETING - STEP 2: Does the patient require the assistance of a helper? Yes. TOILETING - STEP 3: How much assistance does the patient require from the helper? Only supervision TOILETING - SCORE: 5-SUP BLADDER MANAGEMENT: BLADDER MANAGEMENT - STEP 1: Does the patient control the bladder completely and intentionally without equipment or devices or med ications, and is always continent? No. BLADDER MANAGEMENT - STEP 2: Does the patient require the assistance of a helper? No, patient only requires extra time BLADDER MANAGEMENT - SCORE: 6-VINNY BLADDER MANAGEMENT - FREQUENCY OF ACCIDENTS: BLADDER MANAGEMENT(FA) - STEP 1: How many accidents has the patient had during the current shift? 0 BOWEL MANAGEMENT: Activity did not occur on this shift BOWEL MANAGEMENT - SCORE: 7-IND TRANSFERS: BED, CHAIR, WHEELCHAIR: TRANSFERS: BED, CHAIR, WHEELCHAIR - STEP 1: Does the patient require assistance of a person or device, or need extra time with bed, chair, or whe elchair transfers? Yes. TRANSFERS: BED, CHAIR, WHEELCHAIR - STEP 2: Does the patient require the assistance of a helper? Yes. TRANSFERS: BED, CHAIR, WHEELCHAIR - STEP 3: How much assistance does the patient require from the helper? Lifting of the legs TRANSFERS: BED, CHAIR, WHEELCHAIR - STEP 4: How many legs does the patient require the helper to lift? both legs TRANSFERS: BED, CHAIR, WHEELCHAIR - SCORE: 3-MOD TRANSFERS: TOILET: TRANSFERS: TOILET - STEP 1: Does the patient require the assistance of a person or device, or need extra time with toilet transfe rs? Yes. TRANSFERS: TOILET - STEP 2: Does the patient require the assistance of a helper? Yes. TRANSFERS: TOILET - STEP 3: How much assistance does the patient require from the helper? Patient performs half or more of the tr ansferring tasks TRANSFERS: TOILET - STEP 4: Does the patient need only incidental help such as contact guard or steadying during toilet transfer? Yes. TRANSFERS: TOILET - SCORE: 4-MIN TRANSFERS: SHOWER: Activity did not occur on this shift TRANSFERS: SHOWER - SCORE: 0-UNK TRANSFERS: TUB: Activity did not occur on this shift TRANSFERS: TUB - SCORE: 0-UNK LOCOMOTION: WALK: Activity did not occur on this shift LOCOMOTION: WALK - SCORE: 0-UNK LOCOMOTION: WHEELCHAIR: Activity did not occur on this shift LOCOMOTION: WHEELCHAIR - SCORE: 0-UNK COMPREHENSION: COMPREHENSION: TYPE: Both COMPREHENSION - STEP 1: Does the patient require help from a person or device, or need extra time to understand complex and a bstract ideas (such as current events, finances, discharge planning, medical issues, relationships, e tc)? Yes. COMPREHENSION - STEP 2: Does the patient require help to understand questions or statements about basic needs or ideas (such as hunger, thirst, sleep, safety, daily schedule, room location, or discomfort) half or more of the t carissa? No. COMPREHENSION - STEP 3: How often does the patient need help to understand directions and conversation about basic needs? Les s than 10% of the time COMPREHENSION - SCORE: 5-SUP EXPRESSION EXPRESSION: TYPE: Both EXPRESSION - STEP 1: Does the patient require help from a person or device, or need extra time expressing complex and abst ract ideas (such as current events, finances, discharge planning, medical issues, relationships, etc) ? Yes. EXPRESSION - STEP 2: Does the patient require help to express basic necessities or ideas (such as hunger, thirst, sleep, s afety, daily schedule, room location, or discomfort) half or more of the time? No. EXPRESSION - STEP 3: How often does the patient need help to express directions and conversation about basic needs? Less t bustillo 10% of the time EXPRESSION - SCORE: 5-SUP SOCIAL INTERACTION: SOCIAL INTERACTION - STEP 1: Does the patient require a helper to interact with others in social and therapeutic situations? No. SOCIAL INTERACTION - STEP 2: Does the patient need extra time in social situations, OR does s/he interact with staff, other patien ts, and family members ONLY in structured environments, OR does s/he require medication for social in teraction? Yes, patient needs extra time SOCIAL INTERACTION - SCORE: 6-VINNY PROBLEM SOLVING: PROBLEM SOLVING - STEP 1: Does the patient need help from a person or device, or need extra time to solve complex problems such as managing a checking account or confronting interpersonal problems? Yes. PROBLEM SOLVING - STEP 2: Does the patient solve basic routine problems half or more of the time? Yes. PROBLEM SOLVING - STEP 3: How often does the patient need help to solve basic routine problems? Less than 10% of the time PROBLEM SOLVING - SCORE: 5-SUP MEMORY: MEMORY - STEP 1: Does the patient need help from a person or device, or need extra time to remember frequently encount ered people, daily routines, and executing requests? Yes. MEMORY - STEP 2: How often does the patient need help to remember frequently encountered people, daily routines, and e xecuting requests? Less than 10% of the time MEMORY - SCORE: 5-SUP SIGNATURE PANEL: The following modified sections: Eating - Score, Grooming - Score, Bathing - Score, Dressing - Upper Body - Score, Dressing - Lower Body - Score, Toileting - Score, Bladder Management - Score, Bowel Man agement - Score, Transfers: Bed, Chair, Wheelchair - Score, Transfers: Toilet - Score, Transfers: Sammie wer - Score, Transfers: Tub - Score, Locomotion: Walk - Score, Locomotion: Wheelchair - Score, Compre hension - Score, Expression - Score, Social Interaction - Score, Problem Solving - Score, Memory - Sc ore were [electronically] signed by Oneyda Cavazos C.N.A. on TueMar 16 2018 14:42:54 T-0600 (Centra [place] Standard Time)
[2018-03-16] MEDS ORDERED: VANCOMYCIN 1.75 GM in NA CHLORIDE 0.9% 500 ML IVPB ONE (15:00)
--- NOTE | 2018-03-16 15:38 | RAD REPORT ---
EXAM DESCRIPTION: RAD - Chest Pa And Lat (2 Views) - 03/16/2018 3:33 pm CLINICAL HISTORY: Cough and congestion, pneumonia COMPARISON: March 09 TECHNIQUE: PA and lateral views of the chest were obtained. FINDINGS: The lungs are clear. Patient has mild chronic interstitial lung disease similar or less p rominent than seen March 09. No new or progressive lung parenchymal process. Heart size is normal a nd central vasculature is within normal limits. No pleural effusion or pneumothorax seen. No acute bony finding noted. No aortic abnormality. IMPRESSION: Mild chronic interstitial lung disease. Lung markings are less pronounced than seen on D ecember 6. No focal pneumonia identified. No new or progressive finding from prior study.
--- NOTE | 2018-03-16 15:50 | FAST ---
ENCOUNTER DATE AND TIME: 03/16/2018 08:00 (HPLC CHEMIST) NAME SHANDA BARTON DATE OF : 1930 DATE OF ADMISSION: 03/12/2018 12:40 (HPLC CHEMIST) PHONE: AGE: 88 SSN# [id number] GENDER: Female ENCOUNTER PHYSICIAN: Dr. Aman Lackey M.D. ADMISSION DIAGNOSIS: - Neurologic Conditions 03 - Parkinsonism (03.2) Parkinson's Disease. EATING: Activity did not occur on this shift EATING - SCORE: 0-UNK GROOMING: Activity did not occur on this shift GROOMING - SCORE: 0-UNK BATHING: Activity did not occur on this shift BATHING - SCORE: 0-UNK DRESSING - UPPER BODY: Activity did not occur on this shift Patient is not dressing in public clothing ARTICLES SCORE Total number of steps: 0 DRESSING - UPPER BODY - SCORE: 0-UNK DRESSING - LOWER BODY: Activity did not occur on this shift Patient is not dressing in public clothing ARTICLES SCORE Total number of steps: 0 DRESSING - LOWER BODY - SCORE: 0-UNK TOILETING: Activity did not occur on this shift TOILETING - SCORE: 0-UNK BLADDER MANAGEMENT: Activity did not occur on this shift BLADDER MANAGEMENT - SCORE: 7-IND BOWEL MANAGEMENT: Activity did not occur on this shift BOWEL MANAGEMENT - SCORE: 7-IND TRANSFERS: BED, CHAIR, WHEELCHAIR: TRANSFERS: BED, CHAIR, WHEELCHAIR - STEP 1: Does the patient require assistance of a person or device, or need extra time with bed, chair, or whe elchair transfers? Yes. TRANSFERS: BED, CHAIR, WHEELCHAIR - STEP 2: Does the patient require the assistance of a helper? Yes. TRANSFERS: BED, CHAIR, WHEELCHAIR - STEP 3: How much assistance does the patient require from the helper? Only supervision TRANSFERS: BED, CHAIR, WHEELCHAIR - SCORE: 5-SUP TRANSFERS: TOILET: Activity did not occur on this shift TRANSFERS: TOILET - SCORE: 0-UNK TRANSFERS: SHOWER: Activity did not occur on this shift TRANSFERS: SHOWER - SCORE: 0-UNK TRANSFERS: TUB: Activity did not occur on this shift TRANSFERS: TUB - SCORE: 0-UNK LOCOMOTION: WALK: LOCOMOTION: WALK - STEP 1: Does the patient need help from a person or device, or need extra time to walk 150 feet? Yes. LOCOMOTION: WALK - STEP 2: How much assistance does the patient require to walk a minimum of 150 feet? Patient walks less than 1 50 feet - but more than 50 feet - with the assistance of only one helper LOCOMOTION: WALK - SCORE: 2-MAX LOCOMOTION: WHEELCHAIR: LOCOMOTION: WHEELCHAIR - STEP 1: Does the patient need help to go 150 feet in a wheelchair? Yes. LOCOMOTION: WHEELCHAIR - STEP 2: How much assistance does the patient need from the helper? Only supervision, cuing, or coaxing LOCOMOTION: WHEELCHAIR - SCORE: 5-SUP LOCOMOTION: STAIRS: LOCOMOTION: STAIRS - STEP 1: Does the patient need help to go up and down 12 to 14 stairs? Yes. LOCOMOTION: STAIRS - STEP 2: How much assistance does the patient need from the helper to go a minimum of 12 to 14 stairs? Only barillas pervision, cuing, or coaxing LOCOMOTION: STAIRS - SCORE: 5-SUP COMPREHENSION: COMPREHENSION - SCORE: 0-UNK EXPRESSION EXPRESSION - SCORE: 0-UNK SOCIAL INTERACTION: SOCIAL INTERACTION - SCORE: 0-UNK PROBLEM SOLVING: PROBLEM SOLVING - SCORE: 0-UNK MEMORY: MEMORY - SCORE: 0-UNK SIGNATURE PANEL: The following modified sections: Transfers: Bed, Chair, Wheelchair - Score, Transfers: Toilet - Score , Locomotion: Walk - Score, Locomotion: Wheelchair - Score, Locomotion: Stairs - Score were [fouzia hernandez] signed by Joon Persaud PTA on TueMar 16 2018 15:49:16 GMT-0600 (Central Standard Time)
--- NOTE | 2018-03-16 15:52 | FAST ---
ENCOUNTER DATE AND TIME: 03/15/2018 08:00 (STEEL ANALYST) NAME SHANDA BARTON DATE OF : 1930 DATE OF ADMISSION: 03/12/2018 12:40 (STEEL ANALYST) PHONE: AGE: 88 SSN# [id number] GENDER: Female ENCOUNTER PHYSICIAN: Dr. Aman Lackey M.D. ADMISSION DIAGNOSIS: - Neurologic Conditions 03 - Parkinsonism (03.2) Parkinson's Disease. EATING: Activity did not occur on this shift EATING - SCORE: 0-UNK GROOMING: Activity did not occur on this shift GROOMING - SCORE: 0-UNK BATHING: Activity did not occur on this shift BATHING - SCORE: 0-UNK DRESSING - UPPER BODY: Activity did not occur on this shift Patient is not dressing in public clothing ARTICLES SCORE Total number of steps: 0 DRESSING - UPPER BODY - SCORE: 0-UNK DRESSING - LOWER BODY: Activity did not occur on this shift Patient is not dressing in public clothing ARTICLES SCORE Total number of steps: 0 DRESSING - LOWER BODY - SCORE: 0-UNK TOILETING: Activity did not occur on this shift TOILETING - SCORE: 0-UNK BLADDER MANAGEMENT: Activity did not occur on this shift BLADDER MANAGEMENT - SCORE: 7-IND BOWEL MANAGEMENT: Activity did not occur on this shift BOWEL MANAGEMENT - SCORE: 7-IND TRANSFERS: BED, CHAIR, WHEELCHAIR: TRANSFERS: BED, CHAIR, WHEELCHAIR - STEP 1: Does the patient require assistance of a person or device, or need extra time with bed, chair, or whe elchair transfers? Yes. TRANSFERS: BED, CHAIR, WHEELCHAIR - STEP 2: Does the patient require the assistance of a helper? Yes. TRANSFERS: BED, CHAIR, WHEELCHAIR - STEP 3: How much assistance does the patient require from the helper? Only supervision TRANSFERS: BED, CHAIR, WHEELCHAIR - SCORE: 5-SUP TRANSFERS: TOILET: Activity did not occur on this shift TRANSFERS: TOILET - SCORE: 0-UNK TRANSFERS: SHOWER: Activity did not occur on this shift TRANSFERS: SHOWER - SCORE: 0-UNK TRANSFERS: TUB: Activity did not occur on this shift TRANSFERS: TUB - SCORE: 0-UNK LOCOMOTION: WALK: LOCOMOTION: WALK - STEP 1: Does the patient need help from a person or device, or need extra time to walk 150 feet? Yes. LOCOMOTION: WALK - STEP 2: How much assistance does the patient require to walk a minimum of 150 feet? Patient walks less than 1 50 feet - but more than 50 feet - with the assistance of only one helper LOCOMOTION: WALK - SCORE: 2-MAX LOCOMOTION: WHEELCHAIR: LOCOMOTION: WHEELCHAIR - STEP 1: Does the patient need help to go 150 feet in a wheelchair? Yes. LOCOMOTION: WHEELCHAIR - STEP 2: How much assistance does the patient need from the helper? Only supervision, cuing, or coaxing LOCOMOTION: WHEELCHAIR - SCORE: 5-SUP LOCOMOTION: STAIRS: LOCOMOTION: STAIRS - STEP 1: Does the patient need help to go up and down 12 to 14 stairs? Yes. LOCOMOTION: STAIRS - STEP 2: How much assistance does the patient need from the helper to go a minimum of 12 to 14 stairs? Only in cidental help such as contact guarding or steadying LOCOMOTION: STAIRS - SCORE: 4-MIN COMPREHENSION: COMPREHENSION - SCORE: 0-UNK EXPRESSION EXPRESSION - SCORE: 0-UNK SOCIAL INTERACTION: SOCIAL INTERACTION - SCORE: 0-UNK PROBLEM SOLVING: PROBLEM SOLVING - SCORE: 0-UNK MEMORY: MEMORY - SCORE: 0-UNK SIGNATURE PANEL: The following modified sections: Transfers: Bed, Chair, Wheelchair - Score, Transfers: Toilet - Score , Locomotion: Walk - Score, Locomotion: Wheelchair - Score, Locomotion: Stairs - Score were [fouzia hernandez] signed by Joon Persaud PTA on TueMar 16 2018 15:51:32 GMT-0600 (Central Standard Time)
--- NOTE | 2018-03-16 17:32 | P.PN ---
Subjective Date of Service: 03/16/18 Primary Care Provider: Nephrology-Dr. Pruitt Chief Complaint: S.P Fall Subjective: Other (Patient doing fair at this time. No significant complaints. Patient recently found to have osteomyelitis of the left foot.) Physical Examination - Vital Signs Temperature: 97.5 F Blood Pressure: 186/78 Pulse: 65 Respirations: 16 Pulse Ox (%): 95 - Physical Exam General: Alert, In no apparent distress, Oriented x3, Cooperative HEENT: Atraumatic Neck: Supple Respiratory: Clear to auscultation bilaterally, Normal air movement Cardiovascular: Normal pulses, Regular rate/rhythm Gastrointestinal: Normal bowel sounds, Soft and benign, Non-distended, No tenderness, No masses, No rebound, No guarding Musculoskeletal: No erythema, No tenderness, No warmth Integumentary: Other (Left foot bandaged) Neurological: Normal speech, Normal strength at 5/5 x4 extr, Normal tone, Normal affect - Studies Laboratory Data (last 24 hrs) 03/16/18 05:46: Sodium 144, Potassium 3.6, BUN 40 H, Creatinine 1.80 H, Glucose 83 03/16/18 05:46: WBC 4.6, Hgb 11.5 L, Hct 33.0 L, Plt Count 187 Medications List Reviewed: Yes Assessment & Plan Discharge Plan: Other (Skilled facility) Plan to discharge in: Greater than 2 days Physician Review Additional Text: Impression: Left great toe osteomyelitis of the metatarsal and 5th distal metatarsal and phalanx UTI, urine culture positive for E coli Hypertension Chronic kidney disease, stage IV Parkinson's Anemia of chronic disease with iron deficiency Plan: Left great toe osteomyelitis of the 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 Patient seen by infectious disease and podiatry. Patient will require IV antibiotic therapy for 6 weeks. Will continue with current wound care. Patient will require a PICC line. Patient will likely need to be transferred from inpatient rehab to skilled facility to continue IV antibiotic therapy. Will need to discuss with criminal justice social worker. Will discuss with rehab spec. Will discuss case with infectious disease. UTI, urine culture positive for E coli: Patient currently on Cipro. Patient to complete course of antibiotic therapy. Hypertension: Blood pressure still elevated. Will increase hydralazine. Chronic kidney disease, stage IV: Currently stable this time. Renal function will need to be monitored closely as the patient will be on vancomycin. Will consult Nephrology to further evaluate and assess. Parkinson's: Continue with her medication. Anemia of chronic disease with iron deficiency: Will continue with iron supplementation. Will monitor closely. Time Spent Managing Pts Care (In Minutes): 55
--- NOTE | 2018-03-16 17:50 | R.PN ---
ENCOUNTER DATE AND TIME: 03/16/2018 17:45 (MODEL PHOTOGRAPHERS') NAME SHANDA BARTON DATE OF : 1930 DATE OF ADMISSION: 03/12/2018 12:40 (MODEL PHOTOGRAPHERS') Parkinson's DiseaseCHIEF COMPLAINT: Postural and gait instability secondary to Parkinson's disease. SUBJECTIVE: Pt denied any depression. Pt denied any Shortness of Breath. Self-propelled wheelchair 300 feet with standby assistance. Ambulated 350' with contact guard assista nce using a rolling walker with slow kyphotic erika. Up and down 15 steps with standby assistance. MRI of the left foot shows moderate osteomyelitis of the first metatarsal head. Dr. Harley is followin g the patient. Will start vancomycin. Chest x-ray shows chronic interstitial lung disease. No pneumon ia. VITAL SIGNS Temperature: 98 F SBP/DBP: 138-194/62-78 Pulse: 64 Resp: 16 MEDICATION ALLERGIES: Codeine Penicillin Acetaminophen allopurinol carbidopa fentanyl hydrocodone bitartrate levodopa lidocaine lorazepam Propoxyphene HCl rasagiline mesylate ropinirole HCl TRAMADOL verapamil ENVIRONMENTAL ALLERGIES: None Known - Substance Allergies None Known - Other Allergies None Known CONSULT: Perform Neuro consult NURSING: - Shower allowing shower ACTIVITIES OOB only with supervision THERAPIES: - Occupational Therapy Evaluate and Treat. - Speech Therapy Memory Strategies. Speech Intelligibility Training. - Physical Therapy Evaluate and Treat. PHYSICAL EXAM - Gen Alert and awake Lying in bed No apparent distress Oriented to: person, time, and place - Skin No skin breakdown. Normacephalic - Eyes No abnormalities - ENMT No abnormalities - Neck No abnormalities - CVS RRR - Chest Clear - Resp Clear to auscultation - Abd Soft - GI Soft Deferred - No abnormalities - Ext no edema - MSK 4/5 weakness in both lower extremities. - Neuro 4/5 strength right upper and lower extremities. - Psych No abnormalities ASSESSMENT: Pt. is a 88 yo Right-handed white female.On 03/09/2018 she was admitted to [facility] with diagnosis Parkinson's Disease.Her impairment category is Neurologic Conditions 03 - Park insonism (03.2).Pre-morbidly, Pt. was independent/mod-I in Sphincter Control, Transfers Control, Comm unication, Social Cognition, Self-Care, and Locomotion; and she had good Sphincter Control.Currently, she has deficits of Endurance, Safety Awareness, Transfers Control, Balance, Locomotion, and Self-Ca re.Pt. is now referred to [facility] for acute in-patient rehabilitation in [place] to maximize patient's functional independence in activities of daily living, strength, ROM, and m obility.- Rehab Goal Patient has realistic goal of being discharged at assistance level 4-Dorota to reside at Home with Fam soumya/Relatives. MDM/PLAN: - Physical Therapy Gait dysfunction - to improve, our physical therapists will perform initial evaluation of pt's statu s upon admission and devise an individualized program for Gait Training, and Wheel Chair mobility Inability to transfer - to improve, our physical therapists will perform initial evaluation of pt's status upon admission and devise an individualized program for Bed mobility Need for home safety evaluation - to improve, our physical therapists will perform initial evaluatio n of pt's status upon admission and devise an individualized program for Home Evaluation Need in caregiver upon discharge - to improve, our physical therapists will perform initial evaluati on of pt's status upon admission and devise an individualized program for Caregiver Training New precaution - to improve, our physical therapists will perform initial evaluation of pt's status upon admission and devise an individualized program for Patient precaution education Poor balance - to improve, our physical therapists will perform initial evaluation of pt's status up on admission and devise an individualized program for Balance Training Poor endurance - to improve, our physical therapists will perform initial evaluation of pt's status upon admission and devise an individualized program for Endurance Training Weakness - to improve, our physical therapists will perform initial evaluation of pt's status upon a dmission and devise an individualized program for Aquatic Therapy, Neuromuscular Reeducation, and Str engthening Achieving independence - to improve, our physical therapists will perform initial evaluation of pt's status upon admission and devise an individualized program for Community Reintegration Activities - Occupational Therapy ADL deficits - to improve, our occupation therapists will perform initial evaluation of pt's status upon admission and devise an individualized program for Bathing, Bed mobility, Community Reintegratio n, Cooking, Dressing, Eating, Fine Motor Skills, Grooming, Homemaking, Kitchen Mobility, Laundry, Pat ient Education, Safety Awareness, Splinting - Positioning, Transfers(Toilet, Tub, Shower), and Wheel Chair Management Need for ocular care technologist - to improve, our occupation therapists will perform initial evaluation of pt's status upon admission and devise an individualized program for Caregiver Training Weakness - to improve, our occupation therapists will perform initial evaluation of pt's status upon admission and devise an individualized program for Aquatic Therapy, Balance, Endurance, UE ROM, and UE strengthening - Diet Type Continue Regular - Diet - Liquid Texture Continue Regular - Tube Feed Continue N/A - N/A Perform Neuro consult - Diet - Solid Texture Continue Regular - Shower allowing shower FUNCTIONAL STATUS: UPDATED AT WEEKLY TEAM CONFERENCE - Bladder Same accident frequency: 7-Ind - No accidents in the past 7 days - Bowel Same accident frequency: 7-Ind - No accidents in the past 7 days - Walking Same score based on distance walked: 2(50-149ft) - Wheelchair Same score based on distance traveled: 0(N/A) FUNCTIONAL STATUS: - Self-Care A. Eating Ind B. Grooming Ind C. Bathing sup D. Dressing - Upper sup E. Dressing - Lower sup F. Toileting sup - Sphincter Control G: Bladder control Ind H: Bowel control Ind - Transfers Control I. Bed/Chair/Wheelchair modA J. Toilet Dorota K. Tub/Shower ADNO - Locomotion L. Walk/Wheelchair (C) Dorota L. Walk/Wheelchair (W) Dorota M. Stairs ADNO - Communication N. Comprehension (B) Ind O. Expression (B) Ind - Social Cognition P. Social Interaction Ind Q. Problem Solving Ind R. Memory Ind - Endurance Fair - Balance Fair - Safety Awareness Fair CURRENT FUNC. DEFICITS: Endurance, Safety Awareness, Transfers Control, Balance, Locomotion, and Self-Care SIGNATURE PANEL: (MODEL PHOTOGRAPHERS')
[2018-03-16] MEDS: PROPRANOLOL HCL 10 MG TAB PO SCH (20:04)
--- NOTE | 2018-03-16 21:29 | CON ---
History Of Present Illness: This is an 88-year-old old female which I was consulted for osteomyeliti s of the left foot involving the fourth toe and first metatarsal on the medial aspect. The patient d enies any headache, nausea, vomiting, chest pain, abdominal pain, constipation, diarrhea. Past Medical History: Urinary tract infection with E coli being treated with Cipro, gout, arthritis, congestive heart failure, hypertension, pressure ulcers. Social History: Nonsmoker, nondrinker. Family History: Noncontributory. Medications: Vancomycin and Cipro. Allergies: PENICILLIN, CODEINE, ACETAMINOPHEN, ALLOPURINOL, CARBIDOPA, FENTANYL. Review of Systems: A 10-point review was performed. Physical Examination: General: This is an 88-year-old female lying in bed, not in any acute cardiopulmonary distress. Vital Signs: Temperature 97.5, pulse 65, respiration rate 16, blood pressure 186/ . HEENT: Unremarkable. Neck: Supple. Lungs: Basal crackles. Heart: S1, S2. Regular. Abdomen: Soft, nontender. Bowel sounds present. Extremities: Left foot with wounds noted on the first metatarsal head and fourth phalanx. Laboratory Data: Shows WBC 4.6, hemoglobin 11.5, platelets are 187. Chemistry shows sodium 144, pot assium 3.6, chloride 110, bicarb 28, BUN 40, creatinine 1.8, glucose is 83. Urine culture is E coli. Assessment And Plan: Osteomyelitis of left foot, urinary tract infection secondary to Escherichia co li. Continue antibiotic course of 6 weeks. I agree with Santyl and keep foot elevated. Total cours e of 42 days with vancomycin. Wound cultures should be obtained. We will follow the patient as need ed. NF/MODL Voice ID: [id number] Report ID: [id number]
--- NOTE | 2018-03-17 01:51 | FAST ---
SHIFT START DATE/TIME: 03/16/2018 19:00 (DIGITAL SALES ASSISTANT) SHIFT END DATE/TIME: 03/17/2018 07:00 (DIGITAL SALES ASSISTANT) NAME SHANDA BARTON DATE OF : 1930 DATE OF ADMISSION: 03/12/2018 12:40 (DIGITAL SALES ASSISTANT) PHONE: AGE: 88 SSN# [id number] GENDER: Female ENCOUNTER PHYSICIAN: Dr. Aman Lackey M.D. ADMISSION DIAGNOSIS: - Neurologic Conditions 03 - Parkinsonism (03.2) Parkinson's Disease. EATING: Activity did not occur on this shift EATING - SCORE: 0-UNK GROOMING: Activity did not occur on this shift GROOMING - SCORE: 0-UNK BATHING: Activity did not occur on this shift BATHING - SCORE: 0-UNK DRESSING - UPPER BODY: Patient is not dressing in public clothing ARTICLES SCORE Total number of steps: 0 DRESSING - UPPER BODY - SCORE: 0-UNK DRESSING - LOWER BODY: Patient is not dressing in public clothing ARTICLES SCORE Total number of steps: 0 DRESSING - LOWER BODY - SCORE: 0-UNK TOILETING: TOILETING - STEP 1: Does the patient require the assistance of a person or device, or need extra time with toileting? Yes . TOILETING - STEP 2: Does the patient require the assistance of a helper? Yes. TOILETING - STEP 3: How much assistance does the patient require from the helper? Hands-on assistance from the helper TOILETING - STEP 4: Of the 3 tasks: 1) Adjusting clothing prior to use, 2) Cleansing of perineal area, 3) Adjusting clot vania after use; How many tasks does the patient perform WITHOUT assistance of the helper? One task TOILETING - SCORE: 2-MAX BLADDER MANAGEMENT: [place] removes incontinent device (Depends, pull ups, etc.); cleans the patient after accident / inco ntinent episode; and, applies new incontinent device. BLADDER MANAGEMENT - SCORE: 1-DEP BOWEL MANAGEMENT: Activity did not occur on this shift BOWEL MANAGEMENT - SCORE: 7-IND TRANSFERS: BED, CHAIR, WHEELCHAIR: TRANSFERS: BED, CHAIR, WHEELCHAIR - STEP 1: Does the patient require assistance of a person or device, or need extra time with bed, chair, or whe elchair transfers? Yes. TRANSFERS: BED, CHAIR, WHEELCHAIR - STEP 2: Does the patient require the assistance of a helper? Yes. TRANSFERS: BED, CHAIR, WHEELCHAIR - STEP 3: How much assistance does the patient require from the helper? Lifting of the legs TRANSFERS: BED, CHAIR, WHEELCHAIR - STEP 4: How many legs does the patient require the helper to lift? both legs TRANSFERS: BED, CHAIR, WHEELCHAIR - SCORE: 3-MOD TRANSFERS: TOILET: TRANSFERS: TOILET - STEP 1: Does the patient require the assistance of a person or device, or need extra time with toilet transfe rs? Yes. TRANSFERS: TOILET - STEP 2: Does the patient require the assistance of a helper? Yes. TRANSFERS: TOILET - STEP 3: How much assistance does the patient require from the helper? Patient performs half or more of the tr ansferring tasks TRANSFERS: TOILET - STEP 4: Does the patient need only incidental help such as contact guard or steadying during toilet transfer? No. Patient needs more than incidental help TRANSFERS: TOILET - SCORE: 3-MOD TRANSFERS: SHOWER: Activity did not occur on this shift TRANSFERS: SHOWER - SCORE: 0-UNK TRANSFERS: TUB: Activity did not occur on this shift TRANSFERS: TUB - SCORE: 0-UNK LOCOMOTION: WALK: Activity did not occur on this shift LOCOMOTION: WALK - SCORE: 0-UNK LOCOMOTION: WHEELCHAIR: Activity did not occur on this shift LOCOMOTION: WHEELCHAIR - SCORE: 0-UNK COMPREHENSION: COMPREHENSION: TYPE: Both COMPREHENSION - STEP 1: Does the patient require help from a person or device, or need extra time to understand complex and a bstract ideas (such as current events, finances, discharge planning, medical issues, relationships, e tc)? No. COMPREHENSION - STEP 2: Does the patient need extra time, require an assistive device (such as glasses for visual comprehensi on or a hearing aid for auditory comprehension) or does s/he have mild difficulty understanding compl ex and abstract information? Yes. COMPREHENSION - SCORE: 6-VINNY EXPRESSION EXPRESSION: TYPE: Both EXPRESSION - STEP 1: Does the patient require help from a person or device, or need extra time expressing complex and abst ract ideas (such as current events, finances, discharge planning, medical issues, relationships, etc) ? No. EXPRESSION - STEP 2: Does the patient need extra time, require an assistive device (such as augmentive communication syste m or a communication board), OR does s/he have mild difficulty expressing complex and abstract ideas (including mild dysarthria or mild word-find problems)? Yes. EXPRESSION - SCORE: 6-VINNY SOCIAL INTERACTION: SOCIAL INTERACTION - STEP 1: Does the patient require a helper to interact with others in social and therapeutic situations? No. SOCIAL INTERACTION - STEP 2: Does the patient need extra time in social situations, OR does s/he interact with staff, other patien ts, and family members ONLY in structured environments, OR does s/he require medication for social in teraction? Yes, patient needs extra time SOCIAL INTERACTION - SCORE: 6-VINNY PROBLEM SOLVING: PROBLEM SOLVING - STEP 1: Does the patient need help from a person or device, or need extra time to solve complex problems such as managing a checking account or confronting interpersonal problems? Yes. PROBLEM SOLVING - STEP 2: Does the patient solve basic routine problems half or more of the time? Yes. PROBLEM SOLVING - STEP 3: How often does the patient need help to solve basic routine problems? 10%-24% of the time PROBLEM SOLVING - SCORE: 4-MIN MEMORY: MEMORY - STEP 1: Does the patient need help from a person or device, or need extra time to remember frequently encount ered people, daily routines, and executing requests? No. MEMORY - STEP 2: Does the patient have slight difficulty recognizing frequently encountered people, daily routines, or executing requests without the need for repetition or using self-initiated or environmental cues to remember? Yes. MEMORY - SCORE: 6-VINNY SIGNATURE PANEL: The following modified sections: Eating - Score, Grooming - Score, Dressing - Upper Body - Score, Emmanuel ssing - Lower Body - Score, Toileting - Score, Bladder Management - Score, Bowel Management - Score, Transfers: Bed, Chair, Wheelchair - Score, Transfers: Toilet - Score, Transfers: Shower - Score, Meyer sfers: Tub - Score, Locomotion: Walk - Score, Locomotion: Wheelchair - Score, Comprehension - Score, Expression - Score, Social Interaction - Score, Problem Solving - Score, Memory - Score were [electro nically] signed by Tamela Casey CNA on TueMar 17 2018 01:50:47 GMT-0600 (Central Standard Time)
[2018-03-17 06:04] LABS: Absolute Lymphocytes (CBC) 0.7 K/uL (0.7-4.9); Absolute Monocytes 0.7 K/uL (0.1-1.3); Basophils % 1.4 % (0-1.3); Eosinophils % 5.2 % (0-4.4); Hematocrit 33.8 % (36.0-45.0); Lymphocytes % 11.8 % (15.3-44.8); MPV 8.9 fL (7.6-11.3); RBC Red Blood Cell Count 3.67 M/uL (3.86-4.86)
[2018-03-17 06:37] LABS: Magnesium 2.1 mg/dL (1.8-2.4); Potassium 3.7 mmol/L (3.5-5.1)
[2018-03-17] MEDS: ALPRAZOLAM 0.5 MG TABLET PO SCH ×2 (08:00→20:57)
[2018-03-17] MEDS: PROMOD 30 ML DOSE PO SCH (08:00)
[2018-03-17] MEDS: ULORIC 40 MG PO SCH (08:31)
[2018-03-17] MEDS: FERROUS SULFATE 325 MG TAB PO SCH (08:32)
[2018-03-17] MEDS: HYDRALAZINE HCL 25 MG TABLET PO SCH ×2 (08:32→20:58)
[2018-03-17] MEDS: COLCHICINE 0.6 MG TAB PO SCH (08:32)
[2018-03-17] MEDS: VITAMIN D 1000 UNIT TAB PO SCH (08:33)
[2018-03-17] MEDS: APIXABAN 2.5 MG TABLET PO SCH ×2 (08:33→20:58)
[2018-03-17] MEDS: FE SULF/FA/VIT B COMP & C TAB PO SCH (08:33)
[2018-03-17] MEDS: FUROSEMIDE 40 MG TABLET PO SCH (08:33)
[2018-03-17] MEDS: MULTIVITAMIN TAB PO SCH (08:33)
[2018-03-17] MEDS: ASPIRIN EC 81 MG TAB PO SCH (08:34)
[2018-03-17] MEDS: BACLOFEN 10 MG TAB PO SCH ×2 (08:34→20:59)
--- NOTE | 2018-03-17 09:50 | P.RH.PN ---
Estimated Length of Stay: 12 Expected Discharge Date: 03/24/18 Discharge Disposition Plan: Home Family Support: Yes [facility] Goal: Mobility, Transfers, Self Care Vital Signs: Last Vital Signs Temp 98.2 F 03/17/18 06:45 Pulse 60 03/17/18 08:33 Resp 16 03/17/18 06:45 BP 180/70 H 03/17/18 08:33 Pulse Ox 97 03/17/18 06:45 Laboratory: Laboratory Last Values WBC 5.7 K/uL (4.3-10.9) D 03/17/18 05:34 RBC 3.67 M/uL (3.86-4.86) L 03/17/18 05:34 Hgb 11.6 g/dL (12.0-15.0) L 03/17/18 05:34 Hct 33.8 % (36.0-45.0) L 03/17/18 05:34 MCV 92.0 fL (80-100) 03/17/18 05:34 MCH 31.5 pg (27.0-35.0) 03/17/18 05:34 MCHC 34.2 g/dL (32.0-36.0) 03/17/18 05:34 RDW 15.5 % (12.1-15.2) H 03/17/18 05:34 Plt Count 167 K/uL (152-406) 03/17/18 05:34 MPV 8.9 fL (7.6-11.3) 03/17/18 05:34 Neutrophils % 69.6 % (41.7-73.7) 03/17/18 05:34 Lymphocytes % 11.8 % (15.3-44.8) L 03/17/18 05:34 Monocytes % 12.0 % (3.3-12.3) 03/17/18 05:34 Eosinophils % 5.2 % (0-4.4) H 03/17/18 05:34 Basophils % 1.4 % (0-1.3) H 03/17/18 05:34 Absolute Neutrophils 4.0 K/uL (1.8-8.0) 03/17/18 05:34 Absolute Lymphocytes 0.7 K/uL (0.7-4.9) 03/17/18 05:34 Absolute Monocytes 0.7 K/uL (0.1-1.3) 03/17/18 05:34 Absolute Eosinophils 0.3 K/uL (0-0.5) 03/17/18 05:34 Absolute Basophils 0.1 K/uL (0-0.5) 03/17/18 05:34 Sodium 143 mmol/L (136-145) 03/17/18 05:34 Potassium 3.7 mmol/L (3.5-5.1) 03/17/18 05:34 Chloride 109 mmol/L (98-107) H 03/17/18 05:34 Carbon Dioxide 27 mmol/L (21-32) 03/17/18 05:34 BUN 40 mg/dL (7-18) H 03/17/18 05:34 Creatinine 1.90 mg/dL (0.55-1.3) H 03/17/18 05:34 Estimated GFR 25 mL/min (=/>90) L 03/17/18 05:34 Glucose 88 mg/dL (74-106) 03/17/18 05:34 Calcium 8.2 mg/dL (8.5-10.1) L 03/17/18 05:34 Magnesium 2.1 mg/dL (1.8-2.4) 03/17/18 05:34 Albumin 2.6 g/dL (3.4-5.0) L 03/16/18 05:46 Prealbumin 13.2 mg/dL (20-40) L 03/16/18 05:46 Urine Color Yellow 03/12/18 13:55 Urine Appearance Clear 03/12/18 13:55 Urine pH 7.0 (5.0-7.0) 03/12/18 13:55 Ur Specific [place] <=1.005 (1.005-1.030) 03/12/18 13:55 Urine Ketones Negative (NEG) 03/12/18 13:55 Urine Blood 3+ (NEG) H 03/12/18 13:55 Urine Nitrite Negative (NEG) 03/12/18 13:55 Urine Bilirubin Negative (NEG) 03/12/18 13:55 Urine Urobilinogen 1.0 mg/dL (0.2-1.0) 03/12/18 13:55 Ur Leukocyte Esterase 2+ (NEG) H 03/12/18 13:55 Urine RBC 10-20 /HPF (NONE SEEN) H 03/12/18 13:55 Urine WBC 5-10 /HPF (<5) H 03/12/18 13:55 Ur Squamous Epith Cells <5 /HPF (NONE SEEN) 03/12/18 13:55 Urine Bacteria 20-50 /HPF (<20) H 03/12/18 13:55 Urine Culture Reflexed Not needed 12 13:55 Urine Glucose Negative (NEG) 03/12/18 13:55 Urine Total Protein Trace (NEG) 03/12/18 13:55 Weight: 160 lb 6 oz Wound Present: Yes Closed Surgical Incision Present: No Negative Pressure Wound Therapy Present: No Physician Update: Her labs have been reviewed and are stable. Her right toe has mild to moderate osteomyelitis. She has IV vanc to continue for 6 weeks with santyl on the wound. Dr. Harley is following the patient. She is still having daily headaches. She has mild Parkiinson's disease without medications. She is otherwise doing very well with physical and occupational therapy. Functional Improvement: Patient has met all short-term goals at this time, w/ the exception of distance travelled for gait tx. and is progressing toward long- term goals. Patient is showing improvement, however distance on gait is low. Summary: Patient's care plan and half-way goals have been reviewed and revised as necessary. Please see the Rehabilitation Signature page for all necessary signatures.
[2018-03-17] MEDS: PROPRANOLOL HCL 10 MG TAB PO SCH ×2 (10:13→20:57)
[2018-03-17] MEDS: ACETAMINOPHEN 325 MG TABLET PO PRN ×2 (10:13→20:56)
[2018-03-17] MEDS: LOSARTAN POTASSIUM 50 MG TABLET PO SCH (10:14)
[2018-03-17] MEDS: COLLAGENASE 30 GM OINTMENT TOP SCH (10:15)
[2018-03-17] MEDS: MEDIHONEY 44 ML TOPICAL TUBE TOP SCH (10:16)
--- NOTE | 2018-03-17 14:19 | FAST ---
ENCOUNTER DATE AND TIME: 03/17/2018 08:00 (DIESEL SERVICE APPRENTICE) NAME SHANDA BARTON DATE OF : 1930 DATE OF ADMISSION: 03/12/2018 12:40 (DIESEL SERVICE APPRENTICE) PHONE: AGE: 88 SSN# [id number] GENDER: Female ENCOUNTER PHYSICIAN: Dr. Aman Lackey M.D. ADMISSION DIAGNOSIS: - Neurologic Conditions 03 - Parkinsonism (03.2) Parkinson's Disease. EATING: Activity did not occur on this shift EATING - SCORE: 0-UNK GROOMING: Activity did not occur on this shift GROOMING - SCORE: 0-UNK BATHING: Activity did not occur on this shift BATHING - SCORE: 0-UNK DRESSING - UPPER BODY: Activity did not occur on this shift Patient is not dressing in public clothing ARTICLES SCORE Total number of steps: 0 DRESSING - UPPER BODY - SCORE: 0-UNK DRESSING - LOWER BODY: Activity did not occur on this shift Patient is not dressing in public clothing ARTICLES SCORE Total number of steps: 0 DRESSING - LOWER BODY - SCORE: 0-UNK TOILETING: Activity did not occur on this shift TOILETING - SCORE: 0-UNK BLADDER MANAGEMENT: Activity did not occur on this shift BLADDER MANAGEMENT - SCORE: 7-IND BOWEL MANAGEMENT: Activity did not occur on this shift BOWEL MANAGEMENT - SCORE: 7-IND TRANSFERS: BED, CHAIR, WHEELCHAIR: TRANSFERS: BED, CHAIR, WHEELCHAIR - STEP 1: Does the patient require assistance of a person or device, or need extra time with bed, chair, or whe elchair transfers? Yes. TRANSFERS: BED, CHAIR, WHEELCHAIR - STEP 2: Does the patient require the assistance of a helper? Yes. TRANSFERS: BED, CHAIR, WHEELCHAIR - STEP 3: How much assistance does the patient require from the helper? Lifting of the patient TRANSFERS: BED, CHAIR, WHEELCHAIR - STEP 4: Does the helper lift the patient ONLY up? ONLY down? Up AND Down? ONLY up. TRANSFERS: BED, CHAIR, WHEELCHAIR - SCORE: 3-MOD TRANSFERS: TOILET: Activity did not occur on this shift TRANSFERS: TOILET - SCORE: 0-UNK TRANSFERS: SHOWER: Activity did not occur on this shift TRANSFERS: SHOWER - SCORE: 0-UNK TRANSFERS: TUB: Activity did not occur on this shift TRANSFERS: TUB - SCORE: 0-UNK LOCOMOTION: WALK: LOCOMOTION: WALK - STEP 1: Does the patient need help from a person or device, or need extra time to walk 150 feet? Yes. LOCOMOTION: WALK - STEP 2: How much assistance does the patient require to walk a minimum of 150 feet? Patient walks less than 1 50 feet - but more than 50 feet - with the assistance of only one helper LOCOMOTION: WALK - SCORE: 2-MAX LOCOMOTION: WHEELCHAIR: LOCOMOTION: WHEELCHAIR - STEP 1: Does the patient need help to go 150 feet in a wheelchair? Yes. LOCOMOTION: WHEELCHAIR - STEP 2: How much assistance does the patient need from the helper? Only supervision, cuing, or coaxing LOCOMOTION: WHEELCHAIR - SCORE: 5-SUP LOCOMOTION: STAIRS: Activity did not occur on this shift LOCOMOTION: STAIRS - SCORE: 0-UNK COMPREHENSION: COMPREHENSION - SCORE: 0-UNK EXPRESSION EXPRESSION - SCORE: 0-UNK SOCIAL INTERACTION: SOCIAL INTERACTION - SCORE: 0-UNK PROBLEM SOLVING: PROBLEM SOLVING - SCORE: 0-UNK MEMORY: MEMORY - SCORE: 0-UNK SIGNATURE PANEL: The following modified sections: Transfers: Bed, Chair, Wheelchair - Score, Transfers: Toilet - Score , Locomotion: Walk - Score, Locomotion: Wheelchair - Score, Locomotion: Stairs - Score were [electron mary] signed by Vamsi Salinas PT on TueMar 17 2018 14:18:07 GMT-0600 (Central Standard Time)
--- NOTE | 2018-03-17 17:31 | FAST ---
SHIFT START DATE/TIME: 03/17/2018 07:00 (JORDAN MAN) SHIFT END DATE/TIME: 03/17/2018 19:00 (JORDAN MAN) NAME SHANDA BARTON DATE OF : 1930 DATE OF ADMISSION: 03/12/2018 12:40 (JORDAN MAN) PHONE: AGE: 88 SSN# [id number] GENDER: Female ENCOUNTER PHYSICIAN: Dr. Aman Lackey M.D. ADMISSION DIAGNOSIS: - Neurologic Conditions 03 - Parkinsonism (03.2) Parkinson's Disease. EATING: EATING - STEP 1: Does the patient require the assistance of a person or device, or need extra time when eating? No. EATING - SCORE: 7-IND GROOMING: Activity did not occur on this shift GROOMING - SCORE: 0-UNK BATHING: Activity did not occur on this shift BATHING - SCORE: 0-UNK DRESSING - UPPER BODY: Activity did not occur on this shift ARTICLES SCORE Total number of steps: 0 DRESSING - UPPER BODY - SCORE: 0-UNK DRESSING - LOWER BODY: Activity did not occur on this shift ARTICLES SCORE Total number of steps: 0 DRESSING - LOWER BODY - SCORE: 0-UNK TOILETING: TOILETING - STEP 1: Does the patient require the assistance of a person or device, or need extra time with toileting? Yes . TOILETING - STEP 2: Does the patient require the assistance of a helper? Yes. TOILETING - STEP 3: How much assistance does the patient require from the helper? Hands-on assistance from the helper TOILETING - STEP 4: Of the 3 tasks: 1) Adjusting clothing prior to use, 2) Cleansing of perineal area, 3) Adjusting clot vania after use; How many tasks does the patient perform WITHOUT assistance of the helper? No tasks; h dmitry performs all three tasks TOILETING - SCORE: 1-DEP BLADDER MANAGEMENT: BLADDER MANAGEMENT - STEP 1: Does the patient control the bladder completely and intentionally without equipment or devices or med ications, and is always continent? No. BLADDER MANAGEMENT - STEP 2: Does the patient require the assistance of a helper? No, patient requires and independently uses an a ssistive device, such as a urinal, bedpan, bedside commode, catheter, absorbent pad, or collecting de vice BLADDER MANAGEMENT - SCORE: 6-VINNY BLADDER MANAGEMENT - FREQUENCY OF ACCIDENTS: BLADDER MANAGEMENT(FA) - STEP 1: How many accidents has the patient had during the current shift? 0 BOWEL MANAGEMENT: BOWEL MANAGEMENT - STEP 1: Does the patient control bowels completely and intentionally without equipment devices or medications AND is always continent? Yes. BOWEL MANAGEMENT - SCORE: 7-IND BOWEL MANAGEMENT - FREQUENCY OF ACCIDENTS: BOWEL MANAGEMENT(FA) - STEP 1: How many accidents has the patient had during the current shift? 0 TRANSFERS: BED, CHAIR, WHEELCHAIR: TRANSFERS: BED, CHAIR, WHEELCHAIR - STEP 1: Does the patient require assistance of a person or device, or need extra time with bed, chair, or whe elchair transfers? Yes. TRANSFERS: BED, CHAIR, WHEELCHAIR - STEP 2: Does the patient require the assistance of a helper? Yes. TRANSFERS: BED, CHAIR, WHEELCHAIR - STEP 3: How much assistance does the patient require from the helper? Lifting of the patient TRANSFERS: BED, CHAIR, WHEELCHAIR - STEP 4: Does the helper lift the patient ONLY up? ONLY down? Up AND Down? ONLY up. TRANSFERS: BED, CHAIR, WHEELCHAIR - SCORE: 3-MOD TRANSFERS: TOILET: Activity did not occur on this shift TRANSFERS: TOILET - SCORE: 0-UNK TRANSFERS: SHOWER: Activity did not occur on this shift TRANSFERS: SHOWER - SCORE: 0-UNK TRANSFERS: TUB: Activity did not occur on this shift TRANSFERS: TUB - SCORE: 0-UNK LOCOMOTION: WALK: Activity did not occur on this shift LOCOMOTION: WALK - SCORE: 0-UNK LOCOMOTION: WHEELCHAIR: Activity did not occur on this shift LOCOMOTION: WHEELCHAIR - SCORE: 0-UNK COMPREHENSION: COMPREHENSION - SCORE: 0-UNK EXPRESSION EXPRESSION - SCORE: 0-UNK SOCIAL INTERACTION: SOCIAL INTERACTION - SCORE: 0-UNK PROBLEM SOLVING: PROBLEM SOLVING - SCORE: 0-UNK MEMORY: MEMORY - SCORE: 0-UNK SIGNATURE PANEL: The following modified sections: Eating - Score, Grooming - Score, Bathing - Score, Dressing - Upper Body - Score, Dressing - Lower Body - Score, Toileting - Score, Bladder Management - Score, Bowel Man agement - Score, Transfers: Bed, Chair, Wheelchair - Score, Transfers: Toilet - Score, Transfers: Sammie wer - Score, Transfers: Tub - Score, Locomotion: Walk - Score, Locomotion: Wheelchair - Score, Compre hension - Score, Expression - Score, Social Interaction - Score, Problem Solving - Score, Memory - Sc ore were [electronically] signed by Eliza Greco CNA on TueMar 17 2018 17:30:57 GMT-0600 ([facility] Standard Time)
--- NOTE | 2018-03-17 17:36 | PN ---
Subjective: The sitting in a wheelchair. Complains of headache, not feeling that well today. Denie s any other problems. No new acute event since last night. Was not able to eat much today. Objective: Vital signs: Temperature 98.2, pulse 59, respirations 16, blood pressure 180/70. Lungs: Basal crackles. Heart: S1, S2. Regular. Abdomen: Soft, nontender. Bowel sounds positive. Extremity: Wound noted. Laboratory Data: Shows WBC 5.7, hemoglobin 11.6, platelets are 167. Chemistry shows sodium 143, pot assium 3.7, chloride 109, bicarb 27, BUN 40, creatinine 1.9, glucose is 88. Assessment And Plan: Osteomyelitis of foot. Continue total course of 6 weeks. Consider transferrin g to long-term acute care. Headache, most likely secondary to positional, and kyphosis of the upper back. Continue current medications including vancomycin. We will follow the patient as needed. NF/MODL Voice ID: [id number] Report ID: [id number]
[2018-03-17] MEDS ORDERED: NA CHLORIDE 0.9% 1,000 ML IV SCH ×2 (18:00→19:00)
[2018-03-17] MEDS: JUVEN PACKET PO SCH (20:58)
--- NOTE | 2018-03-18 02:36 | FAST ---
SHIFT START DATE/TIME: 03/17/2018 19:00 (SAUSAGE SMOKER) SHIFT END DATE/TIME: 03/18/2018 07:00 (SAUSAGE SMOKER) NAME SHANDA BARTON DATE OF : 1930 DATE OF ADMISSION: 03/12/2018 12:40 (SAUSAGE SMOKER) PHONE: AGE: 88 SSN# [id number] GENDER: Female ENCOUNTER PHYSICIAN: Dr. Aman Lackey M.D. ADMISSION DIAGNOSIS: - Neurologic Conditions 03 - Parkinsonism (03.2) Parkinson's Disease. EATING: Activity did not occur on this shift EATING - SCORE: 0-UNK GROOMING: Activity did not occur on this shift GROOMING - SCORE: 0-UNK BATHING: Activity did not occur on this shift BATHING - SCORE: 0-UNK DRESSING - UPPER BODY: Patient is not dressing in public clothing ARTICLES SCORE Total number of steps: 0 DRESSING - UPPER BODY - SCORE: 0-UNK DRESSING - LOWER BODY: Patient is not dressing in public clothing ARTICLES SCORE Total number of steps: 0 DRESSING - LOWER BODY - SCORE: 0-UNK TOILETING: TOILETING - STEP 1: Does the patient require the assistance of a person or device, or need extra time with toileting? Yes . TOILETING - STEP 2: Does the patient require the assistance of a helper? Yes. TOILETING - STEP 3: How much assistance does the patient require from the helper? Hands-on assistance from the helper TOILETING - STEP 4: Of the 3 tasks: 1) Adjusting clothing prior to use, 2) Cleansing of perineal area, 3) Adjusting clot vania after use; How many tasks does the patient perform WITHOUT assistance of the helper? No tasks; h elper performs all three tasks TOILETING - SCORE: 1-DEP BLADDER MANAGEMENT: [place] removes incontinent device (Depends, pull ups, etc.); cleans the patient after accident / inco ntinent episode; and, applies new incontinent device. BLADDER MANAGEMENT - SCORE: 1-DEP BLADDER MANAGEMENT - FREQUENCY OF ACCIDENTS: BLADDER MANAGEMENT(FA) - STEP 1: How many accidents has the patient had during the current shift? 1 BOWEL MANAGEMENT: Activity did not occur on this shift BOWEL MANAGEMENT - SCORE: 7-IND TRANSFERS: BED, CHAIR, WHEELCHAIR: TRANSFERS: BED, CHAIR, WHEELCHAIR - STEP 1: Does the patient require assistance of a person or device, or need extra time with bed, chair, or whe elchair transfers? Yes. TRANSFERS: BED, CHAIR, WHEELCHAIR - STEP 2: Does the patient require the assistance of a helper? Yes. TRANSFERS: BED, CHAIR, WHEELCHAIR - STEP 3: How much assistance does the patient require from the helper? Lifting of the patient TRANSFERS: BED, CHAIR, WHEELCHAIR - STEP 4: Does the helper lift the patient ONLY up? ONLY down? Up AND Down? Up AND Down. TRANSFERS: BED, CHAIR, WHEELCHAIR - SCORE: 2-MAX TRANSFERS: TOILET: Patient requires more than one helper and/or the use of a mechanical lift is utilized TRANSFERS: TOILET - SCORE: 1-DEP TRANSFERS: SHOWER: Activity did not occur on this shift TRANSFERS: SHOWER - SCORE: 0-UNK TRANSFERS: TUB: Activity did not occur on this shift TRANSFERS: TUB - SCORE: 0-UNK LOCOMOTION: WALK: Activity did not occur on this shift LOCOMOTION: WALK - SCORE: 0-UNK LOCOMOTION: WHEELCHAIR: Activity did not occur on this shift LOCOMOTION: WHEELCHAIR - SCORE: 0-UNK COMPREHENSION: COMPREHENSION: TYPE: Both COMPREHENSION - STEP 1: Does the patient require help from a person or device, or need extra time to understand complex and a bstract ideas (such as current events, finances, discharge planning, medical issues, relationships, e tc)? No. COMPREHENSION - STEP 2: Does the patient need extra time, require an assistive device (such as glasses for visual comprehensi on or a hearing aid for auditory comprehension) or does s/he have mild difficulty understanding compl ex and abstract information? Yes. COMPREHENSION - SCORE: 6-VINNY EXPRESSION EXPRESSION: TYPE: Both EXPRESSION - STEP 1: Does the patient require help from a person or device, or need extra time expressing complex and abst ract ideas (such as current events, finances, discharge planning, medical issues, relationships, etc) ? No. EXPRESSION - STEP 2: Does the patient need extra time, require an assistive device (such as augmentive communication syste m or a communication board), OR does s/he have mild difficulty expressing complex and abstract ideas (including mild dysarthria or mild word-find problems)? Yes. EXPRESSION - SCORE: 6-VINNY SOCIAL INTERACTION: SOCIAL INTERACTION - STEP 1: Does the patient require a helper to interact with others in social and therapeutic situations? No. SOCIAL INTERACTION - STEP 2: Does the patient need extra time in social situations, OR does s/he interact with staff, other patien ts, and family members ONLY in structured environments, OR does s/he require medication for social in teraction? Yes, patient needs extra time SOCIAL INTERACTION - SCORE: 6-VINNY PROBLEM SOLVING: PROBLEM SOLVING - STEP 1: Does the patient need help from a person or device, or need extra time to solve complex problems such as managing a checking account or confronting interpersonal problems? Yes. PROBLEM SOLVING - STEP 2: Does the patient solve basic routine problems half or more of the time? Yes. PROBLEM SOLVING - STEP 3: How often does the patient need help to solve basic routine problems? Less than 10% of the time PROBLEM SOLVING - SCORE: 5-SUP MEMORY: MEMORY - STEP 1: Does the patient need help from a person or device, or need extra time to remember frequently encount ered people, daily routines, and executing requests? No. MEMORY - STEP 2: Does the patient have slight difficulty recognizing frequently encountered people, daily routines, or executing requests without the need for repetition or using self-initiated or environmental cues to remember? Yes. MEMORY - SCORE: 6-VINNY
[2018-03-18] MEDS ORDERED: VANCOMYCIN 1.25 GM in NA CHLORIDE 0.9% 250 ML IVPB SCH (03:00)
[2018-03-18] MEDS: ASPIRIN EC 81 MG TAB PO SCH (08:44)
[2018-03-18] MEDS: FE SULF/FA/VIT B COMP & C TAB PO SCH (08:44)
[2018-03-18] MEDS: FERROUS SULFATE 325 MG TAB PO SCH (08:44)
[2018-03-18] MEDS: FUROSEMIDE 20 MG TABLET PO SCH (08:45)
[2018-03-18] MEDS: VITAMIN D 1000 UNIT TAB PO SCH (08:46)
[2018-03-18] MEDS: HYDRALAZINE HCL 25 MG TABLET PO SCH ×2 (08:47→20:15)
[2018-03-18] MEDS: MULTIVITAMIN TAB PO SCH (08:48)
[2018-03-18] MEDS: BACLOFEN 10 MG TAB PO SCH (08:48)
[2018-03-18] MEDS: APIXABAN 2.5 MG TABLET PO SCH ×2 (08:48→20:16)
[2018-03-18] MEDS: ULORIC 40 MG PO SCH (08:49)
[2018-03-18] MEDS: ACETAMINOPHEN 325 MG TABLET PO PRN (08:53)
[2018-03-18] MEDS: PROPRANOLOL HCL 10 MG TAB PO SCH ×2 (10:48→20:15)
[2018-03-18] MEDS: LOSARTAN POTASSIUM 50 MG TABLET PO SCH (10:49)
[2018-03-18] MEDS: COLCHICINE 0.6 MG TAB PO SCH (10:49)
[2018-03-18] MEDS: JUVEN PACKET PO SCH ×2 (10:58→20:16)
[2018-03-18] MEDS: COLLAGENASE 30 GM OINTMENT TOP SCH (10:58)
[2018-03-18] MEDS: MEDIHONEY 44 ML TOPICAL TUBE TOP SCH (10:58)
--- NOTE | 2018-03-18 11:33 | P.PN ---
Subjective Date of Service: 03/18/18 Primary Care Provider: Nephrology-Dr. Pruitt Chief Complaint: S.P Fall Subjective: Other (Patient not liking her food without salt. Nurses report that she is eating less.) Physical Examination - Vital Signs Temperature: 97.2 F Blood Pressure: 161/70 Pulse: 64 Respirations: 14 Pulse Ox (%): 96 - Physical Exam General: Alert, In no apparent distress, Oriented x3, Cooperative HEENT: Atraumatic Neck: Supple - Studies Laboratory Data (last 24 hrs) 03/18/18 02:03: Creatinine 2.20 H Medications List Reviewed: Yes Assessment & Plan Discharge Plan: LTAC Plan to discharge in: 48 Hours Physician Review Additional Text: Impression: Left great toe osteomyelitis of the metatarsal and 5th distal metatarsal and phalanx Asymptomatic bacteriuria, urine culture positive for E coli Hypertension Chronic kidney disease, stage IV Parkinson's Anemia of chronic disease with iron deficiency Poor oral intake Possible Depression Plan: Left great toe osteomyelitis of the 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 Patient seen by infectious disease and podiatry. Patient will require IV antibiotic therapy for 6 weeks. Will continue with current wound care. Case discussed with Neurology. Arrangements for LTAC placement to continue IV antibiotic therapy is to be arranged. Asymptomatic bacteriuria, urine culture positive for E coli: Case reviewed with pharmacy. No need for antibiotic therapy at this time. Will monitor closely. Hypertension: Blood pressure improved with adjustment in medication. Will continue to monitor and adjust appropriately. Chronic kidney disease, stage IV: Currently stable this time. Renal function will need to be monitored closely as the patient will be on vancomycin. Nephrology has been consulted to further monitor. Parkinson's: Continue with her medication. Anemia of chronic disease with iron deficiency: Will continue with iron supplementation. Will monitor closely. Poor oral intake: Encourage oral intake. Addressed while patient eating lunch. Will change Baclofen to PRN. Possible Depression: Will need to consider adding medication for depression if oral intake not improving. Time Spent Managing Pts Care (In Minutes): 55
[2018-03-18] MEDS ORDERED: BACLOFEN 10 MG TAB PO PRN (12:12)
--- NOTE | 2018-03-18 13:57 | FAST ---
SHIFT START DATE/TIME: 03/18/2018 07:00 ([employer] WEIGHTER) SHIFT END DATE/TIME: 03/18/2018 19:00 ([employer] WEIGHTER) NAME SHANDA BARTON DATE OF : 1930 DATE OF ADMISSION: 03/12/2018 12:40 (G[employer] WEIGHTER) PHONE: AGE: 88 SSN# [id number] GENDER: Female ENCOUNTER PHYSICIAN: Dr. Aman Lackey M.D. ADMISSION DIAGNOSIS: - Neurologic Conditions 03 - Parkinsonism (03.2) Parkinson's Disease. EATING: EATING - STEP 1: Does the patient require the assistance of a person or device, or need extra time when eating? Yes. EATING - STEP 2: Does the patient require the assistance of a helper? Yes. EATING - STEP 3: Does the patient perform half or more of the eating tasks? Yes. EATING - STEP 4: Does the patient need only supervision, cuing, coaxing OR help to apply an orthosis OR help to cut fo od, open containers, pour liquids, or butter bread? Yes. EATING - SCORE: 5-SUP GROOMING: Activity did not occur on this shift GROOMING - SCORE: 0-UNK BATHING: Activity did not occur on this shift BATHING - SCORE: 0-UNK DRESSING - UPPER BODY: Button down shirt or blouse - NOT tucked in (four steps) ARTICLES SCORE Total number of steps: 4 DRESSING - UPPER BODY - STEP 1: Does the patient require help from a person or device, or need extra time when dressing above the jess st? Yes. DRESSING - UPPER BODY - STEP 2: Does the patient require the assistance of a helper? Yes. DRESSING - UPPER BODY - STEP 3: Does the helper touch the patient while dressing? Yes. DRESSING - UPPER BODY - STEP 4: How many of the total steps does the patient complete on his/her own? 2 DRESSING - UPPER BODY - SCORE: 3-MOD DRESSING - LOWER BODY: ARTICLES SCORE Total number of steps: 3 DRESSING - LOWER BODY - STEP 1: Does the patient require help from a person or device, or need extra time when dressing below the jess st? Yes. DRESSING - LOWER BODY - STEP 2: Does the patient require the assistance of a helper? Yes. DRESSING - LOWER BODY - STEP 3: Does the helper touch the patient while dressing? Yes. DRESSING - LOWER BODY - STEP 4: How many of the total steps does the patient complete on his/her own? 2 DRESSING - LOWER BODY - SCORE: 3-MOD TOILETING: TOILETING - STEP 1: Does the patient require the assistance of a person or device, or need extra time with toileting? Yes . TOILETING - STEP 2: Does the patient require the assistance of a helper? Yes. TOILETING - STEP 3: How much assistance does the patient require from the helper? Hands-on assistance from the helper TOILETING - STEP 4: Of the 3 tasks: 1) Adjusting clothing prior to use, 2) Cleansing of perineal area, 3) Adjusting clot vania after use; How many tasks does the patient perform WITHOUT assistance of the helper? One task TOILETING - SCORE: 2-MAX BLADDER MANAGEMENT: BLADDER MANAGEMENT - STEP 1: Does the patient control the bladder completely and intentionally without equipment or devices or med ications, and is always continent? No. BLADDER MANAGEMENT - STEP 2: Does the patient require the assistance of a helper? No, patient requires and independently uses an a ssistive device, such as a urinal, bedpan, bedside commode, catheter, absorbent pad, or collecting de vice BLADDER MANAGEMENT - SCORE: 6-VINNY BLADDER MANAGEMENT - FREQUENCY OF ACCIDENTS: BLADDER MANAGEMENT(FA) - STEP 1: How many accidents has the patient had during the current shift? 2 BOWEL MANAGEMENT: BOWEL MANAGEMENT - STEP 1: Does the patient control bowels completely and intentionally without equipment devices or medications AND is always continent? No. BOWEL MANAGEMENT - STEP 2: Does the patient require the assistance of a helper? No, patient requires medication for control such as stool softeners, suppositories, laxatives, enemas, or OTC medications BOWEL MANAGEMENT - SCORE: 6-VINNY TRANSFERS: BED, CHAIR, WHEELCHAIR: TRANSFERS: BED, CHAIR, WHEELCHAIR - STEP 1: Does the patient require assistance of a person or device, or need extra time with bed, chair, or whe elchair transfers? Yes. TRANSFERS: BED, CHAIR, WHEELCHAIR - STEP 2: Does the patient require the assistance of a helper? Yes. TRANSFERS: BED, CHAIR, WHEELCHAIR - STEP 3: How much assistance does the patient require from the helper? Lifting of the patient TRANSFERS: BED, CHAIR, WHEELCHAIR - STEP 4: Does the helper lift the patient ONLY up? ONLY down? Up AND Down? ONLY up. TRANSFERS: BED, CHAIR, WHEELCHAIR - SCORE: 3-MOD TRANSFERS: TOILET: TRANSFERS: TOILET - STEP 1: Does the patient require the assistance of a person or device, or need extra time with toilet transfe rs? Yes. TRANSFERS: TOILET - STEP 2: Does the patient require the assistance of a helper? Yes. TRANSFERS: TOILET - STEP 3: How much assistance does the patient require from the helper? Patient performs half or more of the tr ansferring tasks TRANSFERS: TOILET - STEP 4: Does the patient need only incidental help such as contact guard or steadying during toilet transfer? No. Patient needs more than incidental help TRANSFERS: TOILET - SCORE: 3-MOD TRANSFERS: SHOWER: Activity did not occur on this shift TRANSFERS: SHOWER - SCORE: 0-UNK TRANSFERS: TUB: Activity did not occur on this shift TRANSFERS: TUB - SCORE: 0-UNK LOCOMOTION: WALK: Activity did not occur on this shift LOCOMOTION: WALK - SCORE: 0-UNK LOCOMOTION: WHEELCHAIR: Activity did not occur on this shift LOCOMOTION: WHEELCHAIR - SCORE: 0-UNK COMPREHENSION: COMPREHENSION: TYPE: Both COMPREHENSION - STEP 1: Does the patient require help from a person or device, or need extra time to understand complex and a bstract ideas (such as current events, finances, discharge planning, medical issues, relationships, e tc)? No. COMPREHENSION - STEP 2: Does the patient need extra time, require an assistive device (such as glasses for visual comprehensi on or a hearing aid for auditory comprehension) or does s/he have mild difficulty understanding compl ex and abstract information? No. COMPREHENSION - SCORE: 7-IND EXPRESSION EXPRESSION: TYPE: Both EXPRESSION - STEP 1: Does the patient require help from a person or device, or need extra time expressing complex and abst ract ideas (such as current events, finances, discharge planning, medical issues, relationships, etc) ? No. EXPRESSION - STEP 2: Does the patient need extra time, require an assistive device (such as augmentive communication syste m or a communication board), OR does s/he have mild difficulty expressing complex and abstract ideas (including mild dysarthria or mild word-find problems)? Yes. EXPRESSION - SCORE: 6-VINNY SOCIAL INTERACTION: SOCIAL INTERACTION - STEP 1: Does the patient require a helper to interact with others in social and therapeutic situations? Yes. SOCIAL INTERACTION - STEP 2: Does the patient interact appropriately half or more of the time? Yes. SOCIAL INTERACTION - STEP 3: How often does the patient need help to interact appropriately? Less than 10% of the time SOCIAL INTERACTION - SCORE: 5-SUP PROBLEM SOLVING: PROBLEM SOLVING - STEP 1: Does the patient need help from a person or device, or need extra time to solve complex problems such as managing a checking account or confronting interpersonal problems? Yes. PROBLEM SOLVING - STEP 2: Does the patient solve basic routine problems half or more of the time? Yes. PROBLEM SOLVING - STEP 3: How often does the patient need help to solve basic routine problems? Less than 10% of the time PROBLEM SOLVING - SCORE: 5-SUP MEMORY: MEMORY - STEP 1: Does the patient need help from a person or device, or need extra time to remember frequently encount ered people, daily routines, and executing requests? Yes. MEMORY - STEP 2: How often does the patient need help to remember frequently encountered people, daily routines, and e xecuting requests? Less than 10% of the time MEMORY - SCORE: 5-SUP SIGNATURE PANEL: The following modified sections: Eating - Score, Grooming - Score, Bathing - Score, Dressing - Upper Body - Score, Dressing - Lower Body - Score, Toileting - Score, Bladder Management - Score, Bowel Man agement - Score, Transfers: Bed, Chair, Wheelchair - Score, Transfers: Toilet - Score, Transfers: Sammie wer - Score, Transfers: Tub - Score, Locomotion: Walk - Score, Locomotion: Wheelchair - Score, Compre hension - Score, Expression - Score, Social Interaction - Score, Problem Solving - Score, Memory - Sc ore were [electronically] signed by Floyd Smith on Sat Mar 18 2018 13:56:30 GMT-0600 (Central Standard Time)
[2018-03-18] MEDS: ALPRAZOLAM 0.5 MG TABLET PO SCH (20:16)
--- NOTE | 2018-03-19 01:48 | FAST ---
SHIFT START DATE/TIME: 03/18/2018 19:00 (WAX ROOM SUPERVISOR) SHIFT END DATE/TIME: 03/19/2018 07:00 (WAX ROOM SUPERVISOR) NAME SHANDA BARTON DATE OF : 1930 DATE OF ADMISSION: 03/12/2018 12:40 (WAX ROOM SUPERVISOR) PHONE: AGE: 88 SSN# [id number] GENDER: Female ENCOUNTER PHYSICIAN: Dr. Aman Lackey M.D. ADMISSION DIAGNOSIS: - Neurologic Conditions 03 - Parkinsonism (03.2) Parkinson's Disease. EATING: Activity did not occur on this shift EATING - SCORE: 0-UNK GROOMING: Wash, rinse, and dry hands GROOMING - STEP 1: Does the patient require the assistance of a person or device, or need extra time when grooming? Yes. GROOMING - STEP 2: Does the patient require the assistance of a helper? Yes. GROOMING - STEP 3: How much assistance does the patient require from the helper? Cuing, coaxing, instructions, or encour agement for completion of grooming GROOMING - SCORE: 5-SUP BATHING: Activity did not occur on this shift BATHING - SCORE: 0-UNK DRESSING - UPPER BODY: Activity did not occur on this shift ARTICLES SCORE Total number of steps: 0 DRESSING - UPPER BODY - SCORE: 0-UNK DRESSING - LOWER BODY: Activity did not occur on this shift ARTICLES SCORE Total number of steps: 0 DRESSING - LOWER BODY - SCORE: 0-UNK TOILETING: TOILETING - STEP 1: Does the patient require the assistance of a person or device, or need extra time with toileting? Yes . TOILETING - STEP 2: Does the patient require the assistance of a helper? Yes. TOILETING - STEP 3: How much assistance does the patient require from the helper? Hands-on assistance from the helper TOILETING - STEP 4: Of the 3 tasks: 1) Adjusting clothing prior to use, 2) Cleansing of perineal area, 3) Adjusting clot vania after use; How many tasks does the patient perform WITHOUT assistance of the helper? No tasks; h sadeper performs all three tasks TOILETING - SCORE: 1-DEP BLADDER MANAGEMENT: BLADDER MANAGEMENT - STEP 1: Does the patient control the bladder completely and intentionally without equipment or devices or med ications, and is always continent? No. BLADDER MANAGEMENT - STEP 2: Does the patient require the assistance of a helper? Yes. BLADDER MANAGEMENT - STEP 3: How much assistance does the patient require from the helper? Patient requires contact assistance fro m the helper BLADDER MANAGEMENT - STEP 4: How much contact assistance does the patient require from the helper? Patient requires maximal assist ance, and only performs 25% to 49% of bladder management tasks BLADDER MANAGEMENT - SCORE: 2-MAX BOWEL MANAGEMENT: Activity did not occur on this shift BOWEL MANAGEMENT - SCORE: 7-IND TRANSFERS: BED, CHAIR, WHEELCHAIR: TRANSFERS: BED, CHAIR, WHEELCHAIR - STEP 1: Does the patient require assistance of a person or device, or need extra time with bed, chair, or whe elchair transfers? Yes. TRANSFERS: BED, CHAIR, WHEELCHAIR - STEP 2: Does the patient require the assistance of a helper? Yes. TRANSFERS: BED, CHAIR, WHEELCHAIR - STEP 3: How much assistance does the patient require from the helper? Lifting of the patient TRANSFERS: BED, CHAIR, WHEELCHAIR - STEP 4: Does the helper lift the patient ONLY up? ONLY down? Up AND Down? Patient needs help with all lifting TRANSFERS: BED, CHAIR, WHEELCHAIR - SCORE: 1-DEP TRANSFERS: TOILET: TRANSFERS: TOILET - STEP 1: Does the patient require the assistance of a person or device, or need extra time with toilet transfe rs? Yes. TRANSFERS: TOILET - STEP 2: Does the patient require the assistance of a helper? Yes. TRANSFERS: TOILET - STEP 3: How much assistance does the patient require from the helper? Patient performs less than half of the transferring tasks TRANSFERS: TOILET - STEP 4: Does the patient require total assistance for the toilet transfer such as the helper doing basically all the lifting? Yes. TRANSFERS: TOILET - SCORE: 1-DEP TRANSFERS: SHOWER: Activity did not occur on this shift TRANSFERS: SHOWER - SCORE: 0-UNK TRANSFERS: TUB: Activity did not occur on this shift TRANSFERS: TUB - SCORE: 0-UNK LOCOMOTION: WALK: Activity did not occur on this shift LOCOMOTION: WALK - SCORE: 0-UNK LOCOMOTION: WHEELCHAIR: Activity did not occur on this shift LOCOMOTION: WHEELCHAIR - SCORE: 0-UNK COMPREHENSION: COMPREHENSION: TYPE: Both COMPREHENSION - STEP 1: Does the patient require help from a person or device, or need extra time to understand complex and a bstract ideas (such as current events, finances, discharge planning, medical issues, relationships, e tc)? No. COMPREHENSION - STEP 2: Does the patient need extra time, require an assistive device (such as glasses for visual comprehensi on or a hearing aid for auditory comprehension) or does s/he have mild difficulty understanding compl ex and abstract information? Yes. COMPREHENSION - SCORE: 6-VINNY EXPRESSION EXPRESSION: TYPE: Both EXPRESSION - STEP 1: Does the patient require help from a person or device, or need extra time expressing complex and abst ract ideas (such as current events, finances, discharge planning, medical issues, relationships, etc) ? No. EXPRESSION - STEP 2: Does the patient need extra time, require an assistive device (such as augmentive communication syste m or a communication board), OR does s/he have mild difficulty expressing complex and abstract ideas (including mild dysarthria or mild word-find problems)? No. EXPRESSION - SCORE: 7-IND SOCIAL INTERACTION: SOCIAL INTERACTION - STEP 1: Does the patient require a helper to interact with others in social and therapeutic situations? No. SOCIAL INTERACTION - STEP 2: Does the patient need extra time in social situations, OR does s/he interact with staff, other patien ts, and family members ONLY in structured environments, OR does s/he require medication for social in teraction? No. SOCIAL INTERACTION - SCORE: 7-IND PROBLEM SOLVING: PROBLEM SOLVING - STEP 1: Does the patient need help from a person or device, or need extra time to solve complex problems such as managing a checking account or confronting interpersonal problems? No. PROBLEM SOLVING - STEP 2: Does the patient require extra time to make decisions or solve problems, OR does s/he have slight dif ficulty reading, initiating, or self-correcting in unfamiliar situations? No. PROBLEM SOLVING - SCORE: 7-IND MEMORY: MEMORY - STEP 1: Does the patient need help from a person or device, or need extra time to remember frequently encount ered people, daily routines, and executing requests? No. MEMORY - STEP 2: Does the patient have slight difficulty recognizing frequently encountered people, daily routines, or executing requests without the need for repetition or using self-initiated or environmental cues to remember? No. MEMORY - SCORE: 7-IND SIGNATURE PANEL: The following modified sections: Eating - Score, Grooming - Score, Bathing - Score, Dressing - Upper Body - Score, Dressing - Lower Body - Score, Toileting - Score, Bladder Management - Score, Bowel Man agement - Score, Transfers: Bed, Chair, Wheelchair - Score, Transfers: Toilet - Score, Transfers: Sammie wer - Score, Transfers: Tub - Score, Locomotion: Walk - Score, Locomotion: Wheelchair - Score, Compre hension - Score, Expression - Score, Social Interaction - Score, Problem Solving - Score, Memory - Sc ore were [electronically] signed by Mariaa Ramirez RN on TueMar 19 2018 01:47:54 GMT-0600 (Central Stand shant Time)
[2018-03-19] MEDS ORDERED: ESCITALOPRAM 20 MG TAB PO SCH (08:00)
[2018-03-19] MEDS: MEDIHONEY 44 ML TOPICAL TUBE TOP SCH (08:00)
[2018-03-19] MEDS: JUVEN PACKET PO SCH ×2 (08:00→19:33)
[2018-03-19] MEDS: FERROUS SULFATE 325 MG TAB PO SCH (08:06)
[2018-03-19] MEDS: VITAMIN D 1000 UNIT TAB PO SCH (08:06)
[2018-03-19] MEDS: ACETAMINOPHEN 325 MG TABLET PO PRN ×2 (08:07→19:33)
[2018-03-19] MEDS: HYDRALAZINE HCL 25 MG TABLET PO SCH ×2 (08:07→19:32)
[2018-03-19] MEDS: ASPIRIN EC 81 MG TAB PO SCH (08:07)
[2018-03-19] MEDS: APIXABAN 2.5 MG TABLET PO SCH ×2 (08:08→19:32)
[2018-03-19] MEDS: FUROSEMIDE 20 MG TABLET PO SCH (08:08)
[2018-03-19] MEDS: MULTIVITAMIN TAB PO SCH (08:08)
[2018-03-19] MEDS: COLCHICINE 0.6 MG TAB PO SCH (08:08)
[2018-03-19] MEDS: FE SULF/FA/VIT B COMP & C TAB PO SCH (10:18)
[2018-03-19] MEDS: PROPRANOLOL HCL 10 MG TAB PO SCH ×2 (10:18→19:32)
[2018-03-19] MEDS: LOSARTAN POTASSIUM 50 MG TABLET PO SCH (10:19)
[2018-03-19] MEDS: ULORIC 40 MG PO SCH (10:20)
[2018-03-19] MEDS: COLLAGENASE 30 GM OINTMENT TOP SCH (10:20)
--- NOTE | 2018-03-19 12:50 | FAST ---
SHIFT START DATE/TIME: 03/19/2018 07:00 (CLERK TRAVEL RESERVATIONS) SHIFT END DATE/TIME: 03/19/2018 19:00 (CLERK TRAVEL RESERVATIONS) NAME SHANDA BARTON DATE OF : 1930 DATE OF ADMISSION: 03/12/2018 12:40 (CLERK TRAVEL RESERVATIONS) PHONE: AGE: 88 SSN# [id number] GENDER: Female ENCOUNTER PHYSICIAN: Dr. Aman Lackey M.D. ADMISSION DIAGNOSIS: - Neurologic Conditions 03 - Parkinsonism (03.2) Parkinson's Disease. EATING: EATING - STEP 1: Does the patient require the assistance of a person or device, or need extra time when eating? Yes. EATING - STEP 2: Does the patient require the assistance of a helper? Yes. EATING - STEP 3: Does the patient perform half or more of the eating tasks? Yes. EATING - STEP 4: Does the patient need only supervision, cuing, coaxing OR help to apply an orthosis OR help to cut fo od, open containers, pour liquids, or butter bread? No. EATING - SCORE: 4-MIN GROOMING: Activity did not occur on this shift GROOMING - SCORE: 0-UNK BATHING: Activity did not occur on this shift BATHING - SCORE: 0-UNK DRESSING - UPPER BODY: Patient is not dressing in public clothing ARTICLES SCORE Total number of steps: 0 DRESSING - UPPER BODY - SCORE: 0-UNK DRESSING - LOWER BODY: Patient is not dressing in public clothing ARTICLES SCORE Total number of steps: 0 DRESSING - LOWER BODY - SCORE: 0-UNK TOILETING: TOILETING - STEP 1: Does the patient require the assistance of a person or device, or need extra time with toileting? Yes . TOILETING - STEP 2: Does the patient require the assistance of a helper? Yes. TOILETING - STEP 3: How much assistance does the patient require from the helper? Hands-on assistance from the helper TOILETING - STEP 4: Of the 3 tasks: 1) Adjusting clothing prior to use, 2) Cleansing of perineal area, 3) Adjusting clot vania after use; How many tasks does the patient perform WITHOUT assistance of the helper? No tasks; h elper performs all three tasks TOILETING - SCORE: 1-DEP BLADDER MANAGEMENT: BLADDER MANAGEMENT - STEP 1: Does the patient control the bladder completely and intentionally without equipment or devices or med ications, and is always continent? No. BLADDER MANAGEMENT - STEP 2: Does the patient require the assistance of a helper? No, patient requires and independently uses an a ssistive device, such as a urinal, bedpan, bedside commode, catheter, absorbent pad, or collecting de vice BLADDER MANAGEMENT - SCORE: 6-VINNY BOWEL MANAGEMENT: Activity did not occur on this shift BOWEL MANAGEMENT - SCORE: 7-IND TRANSFERS: BED, CHAIR, WHEELCHAIR: TRANSFERS: BED, CHAIR, WHEELCHAIR - STEP 1: Does the patient require assistance of a person or device, or need extra time with bed, chair, or whe elchair transfers? Yes. TRANSFERS: BED, CHAIR, WHEELCHAIR - STEP 2: Does the patient require the assistance of a helper? Yes. TRANSFERS: BED, CHAIR, WHEELCHAIR - STEP 3: How much assistance does the patient require from the helper? Lifting of the patient TRANSFERS: BED, CHAIR, WHEELCHAIR - STEP 4: Does the helper lift the patient ONLY up? ONLY down? Up AND Down? Up AND Down. TRANSFERS: BED, CHAIR, WHEELCHAIR - SCORE: 2-MAX TRANSFERS: TOILET: TRANSFERS: TOILET - STEP 1: Does the patient require the assistance of a person or device, or need extra time with toilet transfe rs? Yes. TRANSFERS: TOILET - STEP 2: Does the patient require the assistance of a helper? Yes. TRANSFERS: TOILET - STEP 3: How much assistance does the patient require from the helper? Patient performs less than half of the transferring tasks TRANSFERS: TOILET - STEP 4: Does the patient require total assistance for the toilet transfer such as the helper doing basically all the lifting? No. TRANSFERS: TOILET - SCORE: 2-MAX TRANSFERS: SHOWER: Activity did not occur on this shift TRANSFERS: SHOWER - SCORE: 0-UNK TRANSFERS: TUB: Activity did not occur on this shift TRANSFERS: TUB - SCORE: 0-UNK LOCOMOTION: WALK: Activity did not occur on this shift LOCOMOTION: WALK - SCORE: 0-UNK LOCOMOTION: WHEELCHAIR: Activity did not occur on this shift LOCOMOTION: WHEELCHAIR - SCORE: 0-UNK COMPREHENSION: COMPREHENSION: TYPE: Both COMPREHENSION - STEP 1: Does the patient require help from a person or device, or need extra time to understand complex and a bstract ideas (such as current events, finances, discharge planning, medical issues, relationships, e tc)? Yes. COMPREHENSION - STEP 2: Does the patient require help to understand questions or statements about basic needs or ideas (such as hunger, thirst, sleep, safety, daily schedule, room location, or discomfort) half or more of the t carissa? No. COMPREHENSION - STEP 3: How often does the patient need help to understand directions and conversation about basic needs? Les s than 10% of the time COMPREHENSION - SCORE: 5-SUP EXPRESSION EXPRESSION: TYPE: Both EXPRESSION - STEP 1: Does the patient require help from a person or device, or need extra time expressing complex and abst ract ideas (such as current events, finances, discharge planning, medical issues, relationships, etc) ? No. EXPRESSION - STEP 2: Does the patient need extra time, require an assistive device (such as augmentive communication syste m or a communication board), OR does s/he have mild difficulty expressing complex and abstract ideas (including mild dysarthria or mild word-find problems)? Yes. EXPRESSION - SCORE: 6-VINNY SOCIAL INTERACTION: SOCIAL INTERACTION - STEP 1: Does the patient require a helper to interact with others in social and therapeutic situations? No. SOCIAL INTERACTION - STEP 2: Does the patient need extra time in social situations, OR does s/he interact with staff, other patien ts, and family members ONLY in structured environments, OR does s/he require medication for social in teraction? Yes, patient needs extra time SOCIAL INTERACTION - SCORE: 6-VINNY PROBLEM SOLVING: PROBLEM SOLVING - STEP 1: Does the patient need help from a person or device, or need extra time to solve complex problems such as managing a checking account or confronting interpersonal problems? No. PROBLEM SOLVING - STEP 2: Does the patient require extra time to make decisions or solve problems, OR does s/he have slight dif ficulty reading, initiating, or self-correcting in unfamiliar situations? Yes, patient needs extra ti me. PROBLEM SOLVING - SCORE: 6-VINNY MEMORY: MEMORY - STEP 1: Does the patient need help from a person or device, or need extra time to remember frequently encount ered people, daily routines, and executing requests? No. MEMORY - STEP 2: Does the patient have slight difficulty recognizing frequently encountered people, daily routines, or executing requests without the need for repetition or using self-initiated or environmental cues to remember? Yes. MEMORY - SCORE: 6-VINNY SIGNATURE PANEL: The following modified sections: Eating - Score, Grooming - Score, Bathing - Score, Dressing - Upper Body - Score, Dressing - Lower Body - Score, Toileting - Score, Bladder Management - Score, Bowel Man agement - Score, Transfers: Bed, Chair, Wheelchair - Score, Transfers: Toilet - Score, Transfers: Sammie wer - Score, Transfers: Tub - Score, Locomotion: Walk - Score, Locomotion: Wheelchair - Score, Compre hension - Score, Expression - Score, Social Interaction - Score, Problem Solving - Score, Memory - Sc ore were [electronically] signed by Floyd Smith on TueMar 19 2018 12:49:17 GMT-0600 (Central Standard Time)
[2018-03-19] MEDS ORDERED: VANCOMYCIN 1.5 GM in NA CHLORIDE 0.9% 500 ML IVPB SCH (15:00)
[2018-03-19] MEDS: ALPRAZOLAM 0.5 MG TABLET PO SCH (20:15)
--- NOTE | 2018-03-20 01:46 | FAST ---
SHIFT START DATE/TIME: 03/19/2018 19:00 (SANITATION INSPECTOR) SHIFT END DATE/TIME: 03/20/2018 07:00 (SANITATION INSPECTOR) NAME SHANDA BARTON DATE OF : 1930 DATE OF ADMISSION: 03/12/2018 12:40 (SANITATION INSPECTOR) PHONE: AGE: 88 SSN# [id number] GENDER: Female ENCOUNTER PHYSICIAN: Dr. Aman Lackey M.D. ADMISSION DIAGNOSIS: - Neurologic Conditions 03 - Parkinsonism (03.2) Parkinson's Disease. EATING: Activity did not occur on this shift EATING - SCORE: 0-UNK GROOMING: Activity did not occur on this shift GROOMING - SCORE: 0-UNK BATHING: Activity did not occur on this shift BATHING - SCORE: 0-UNK DRESSING - UPPER BODY: Patient is not dressing in public clothing ARTICLES SCORE Total number of steps: 0 DRESSING - UPPER BODY - SCORE: 0-UNK DRESSING - LOWER BODY: Patient is not dressing in public clothing ARTICLES SCORE Total number of steps: 0 DRESSING - LOWER BODY - SCORE: 0-UNK TOILETING: Activity did not occur on this shift TOILETING - SCORE: 0-UNK BLADDER MANAGEMENT: [place] removes incontinent device (Depends, pull ups, etc.); cleans the patient after accident / inco ntinent episode; and, applies new incontinent device. BLADDER MANAGEMENT - SCORE: 1-DEP BOWEL MANAGEMENT: Activity did not occur on this shift BOWEL MANAGEMENT - SCORE: 7-IND TRANSFERS: BED, CHAIR, WHEELCHAIR: Activity did not occur on this shift TRANSFERS: BED, CHAIR, WHEELCHAIR - SCORE: 0-UNK TRANSFERS: TOILET: Activity did not occur on this shift TRANSFERS: TOILET - SCORE: 0-UNK TRANSFERS: SHOWER: Activity did not occur on this shift TRANSFERS: SHOWER - SCORE: 0-UNK TRANSFERS: TUB: Activity did not occur on this shift TRANSFERS: TUB - SCORE: 0-UNK LOCOMOTION: WALK: Activity did not occur on this shift LOCOMOTION: WALK - SCORE: 0-UNK LOCOMOTION: WHEELCHAIR: Activity did not occur on this shift LOCOMOTION: WHEELCHAIR - SCORE: 0-UNK COMPREHENSION: COMPREHENSION: TYPE: Both COMPREHENSION - STEP 1: Does the patient require help from a person or device, or need extra time to understand complex and a bstract ideas (such as current events, finances, discharge planning, medical issues, relationships, e tc)? No. COMPREHENSION - STEP 2: Does the patient need extra time, require an assistive device (such as glasses for visual comprehensi on or a hearing aid for auditory comprehension) or does s/he have mild difficulty understanding compl ex and abstract information? Yes. COMPREHENSION - SCORE: 6-VINNY EXPRESSION EXPRESSION: TYPE: Both EXPRESSION - STEP 1: Does the patient require help from a person or device, or need extra time expressing complex and abst ract ideas (such as current events, finances, discharge planning, medical issues, relationships, etc) ? No. EXPRESSION - STEP 2: Does the patient need extra time, require an assistive device (such as augmentive communication syste m or a communication board), OR does s/he have mild difficulty expressing complex and abstract ideas (including mild dysarthria or mild word-find problems)? Yes. EXPRESSION - SCORE: 6-VINNY SOCIAL INTERACTION: SOCIAL INTERACTION - STEP 1: Does the patient require a helper to interact with others in social and therapeutic situations? No. SOCIAL INTERACTION - STEP 2: Does the patient need extra time in social situations, OR does s/he interact with staff, other patien ts, and family members ONLY in structured environments, OR does s/he require medication for social in teraction? Yes, patient needs extra time SOCIAL INTERACTION - SCORE: 6-VINNY PROBLEM SOLVING: PROBLEM SOLVING - STEP 1: Does the patient need help from a person or device, or need extra time to solve complex problems such as managing a checking account or confronting interpersonal problems? Yes. PROBLEM SOLVING - STEP 2: Does the patient solve basic routine problems half or more of the time? Yes. PROBLEM SOLVING - STEP 3: How often does the patient need help to solve basic routine problems? 10%-24% of the time PROBLEM SOLVING - SCORE: 4-MIN MEMORY: MEMORY - STEP 1: Does the patient need help from a person or device, or need extra time to remember frequently encount ered people, daily routines, and executing requests? No. MEMORY - STEP 2: Does the patient have slight difficulty recognizing frequently encountered people, daily routines, or executing requests without the need for repetition or using self-initiated or environmental cues to remember? Yes. MEMORY - SCORE: 6-VINNY SIGNATURE PANEL: The following modified sections: Eating - Score, Grooming - Score, Dressing - Upper Body - Score, Emmanuel ssing - Lower Body - Score, Toileting - Score, Bladder Management - Score, Bowel Management - Score, Transfers: Bed, Chair, Wheelchair - Score, Transfers: Toilet - Score, Transfers: Shower - Score, Meyer sfers: Tub - Score, Locomotion: Walk - Score, Locomotion: Wheelchair - Score, Comprehension - Score, Expression - Score, Social Interaction - Score, Problem Solving - Score, Memory - Score were [electro nically] signed by Tamela Casey CNA on TueMar 20 2018 01:45:19 GMT-0600 (Central Standard Time)
[2018-03-20] MEDS ORDERED: VANCOMYCIN 1.5 GM in NA CHLORIDE 0.9% 500 ML IVPB SCH (03:00)
[2018-03-20] MEDS: ACETAMINOPHEN 325 MG TABLET PO PRN (04:08)
[2018-03-20] MEDS: VITAMIN D 1000 UNIT TAB PO SCH (08:00)
[2018-03-20] MEDS: FUROSEMIDE 20 MG TABLET PO SCH (08:00)
[2018-03-20] MEDS: COLLAGENASE 30 GM OINTMENT TOP SCH (08:00)
[2018-03-20] MEDS: JUVEN PACKET PO SCH ×2 (08:00→19:27)
[2018-03-20] MEDS: ASPIRIN EC 81 MG TAB PO SCH (08:00)
[2018-03-20] MEDS: HYDRALAZINE HCL 25 MG TABLET PO SCH ×2 (08:00→19:27)
[2018-03-20] MEDS: ULORIC 40 MG PO SCH (08:00)
[2018-03-20] MEDS: APIXABAN 2.5 MG TABLET PO SCH ×2 (08:00→19:27)
[2018-03-20] MEDS: MEDIHONEY 44 ML TOPICAL TUBE TOP SCH (08:00)
[2018-03-20] MEDS: FERROUS SULFATE 325 MG TAB PO SCH (08:00)
[2018-03-20] MEDS: PROPRANOLOL HCL 10 MG TAB PO SCH ×2 (08:00→19:27)
[2018-03-20] MEDS: COLCHICINE 0.6 MG TAB PO SCH (08:00)
[2018-03-20] MEDS: MULTIVITAMIN TAB PO SCH (08:00)
[2018-03-20] MEDS: FE SULF/FA/VIT B COMP & C TAB PO SCH (08:00)
[2018-03-20] MEDS: LOSARTAN POTASSIUM 50 MG TABLET PO SCH (10:51)
--- NOTE | 2018-03-20 13:18 | P.PN ---
Subjective Date of Service: 03/20/18 Primary Care Provider: Nephrology-Dr. 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 Infectious disease will reassess patient today. Patient may require 2 IV antibiotic therapies for approval for long-term acute care facility placement. Case discussed with infectious disease. Infectious disease to determine what antibiotic of choice will be required. Asymptomatic bacteriuria, urine culture positive for E coli: Case reviewed with pharmacy. No need for antibiotic therapy at this time. Will monitor closely. Hypertension: Blood pressure improved with adjustment in medication. Will continue to monitor and adjust appropriately. Chronic kidney disease, stage IV: Currently stable this time. Renal function will need to be monitored closely as the nephrology to continue to monitor closely. Parkinson's: Continue with her medication. Anemia of chronic disease with iron deficiency: Will continue with iron supplementation. Will monitor closely. Poor oral intake: Encourage oral intake. Addressed while patient eating lunch. Will change Baclofen to PRN. Possible Depression: Patient doing better today. Care discussed with Neurology. Will need to consider adding medication for depression if oral intake not improving. Time Spent Managing Pts Care (In Minutes): 55
--- NOTE | 2018-03-20 15:15 | FAST ---
ENCOUNTER DATE AND TIME: 03/20/2018 08:00 (INSTITUTE SCIENTIST) NAME SHANDA BARTON DATE OF : 1930 DATE OF ADMISSION: 03/12/2018 12:40 (INSTITUTE SCIENTIST) PHONE: AGE: 88 SSN# [id number] GENDER: Female ENCOUNTER PHYSICIAN: Dr. Aman Lackey M.D. ADMISSION DIAGNOSIS: - Neurologic Conditions 03 - Parkinsonism (03.2) Parkinson's Disease. EATING: Activity did not occur on this shift EATING - SCORE: 0-UNK GROOMING: Activity did not occur on this shift GROOMING - SCORE: 0-UNK BATHING: Activity did not occur on this shift BATHING - SCORE: 0-UNK DRESSING - UPPER BODY: Activity did not occur on this shift Patient is not dressing in public clothing ARTICLES SCORE Total number of steps: 0 DRESSING - UPPER BODY - SCORE: 0-UNK DRESSING - LOWER BODY: Activity did not occur on this shift Patient is not dressing in public clothing ARTICLES SCORE Total number of steps: 0 DRESSING - LOWER BODY - SCORE: 0-UNK TOILETING: Activity did not occur on this shift TOILETING - SCORE: 0-UNK BLADDER MANAGEMENT: Activity did not occur on this shift BLADDER MANAGEMENT - SCORE: 7-IND BOWEL MANAGEMENT: Activity did not occur on this shift BOWEL MANAGEMENT - SCORE: 7-IND TRANSFERS: BED, CHAIR, WHEELCHAIR: TRANSFERS: BED, CHAIR, WHEELCHAIR - STEP 1: Does the patient require assistance of a person or device, or need extra time with bed, chair, or whe elchair transfers? Yes. TRANSFERS: BED, CHAIR, WHEELCHAIR - STEP 2: Does the patient require the assistance of a helper? Yes. TRANSFERS: BED, CHAIR, WHEELCHAIR - STEP 3: How much assistance does the patient require from the helper? Steadying/guiding assistance TRANSFERS: BED, CHAIR, WHEELCHAIR - SCORE: 4-MIN TRANSFERS: TOILET: Activity did not occur on this shift TRANSFERS: TOILET - SCORE: 0-UNK TRANSFERS: SHOWER: Activity did not occur on this shift TRANSFERS: SHOWER - SCORE: 0-UNK TRANSFERS: TUB: Activity did not occur on this shift TRANSFERS: TUB - SCORE: 0-UNK LOCOMOTION: WALK: Patient walks less than 50 feet LOCOMOTION: WALK - SCORE: 1-DEP LOCOMOTION: WHEELCHAIR: LOCOMOTION: WHEELCHAIR - STEP 1: Does the patient need help to go 150 feet in a wheelchair? Yes. LOCOMOTION: WHEELCHAIR - STEP 2: How much assistance does the patient need from the helper? Only supervision, cuing, or coaxing LOCOMOTION: WHEELCHAIR - SCORE: 5-SUP LOCOMOTION: STAIRS: Activity did not occur on this shift LOCOMOTION: STAIRS - SCORE: 0-UNK COMPREHENSION: COMPREHENSION - SCORE: 0-UNK EXPRESSION EXPRESSION - SCORE: 0-UNK SOCIAL INTERACTION: SOCIAL INTERACTION - SCORE: 0-UNK PROBLEM SOLVING: PROBLEM SOLVING - SCORE: 0-UNK MEMORY: MEMORY - SCORE: 0-UNK SIGNATURE PANEL: The following modified sections: Transfers: Bed, Chair, Wheelchair - Score, Transfers: Toilet - Score , Locomotion: Walk - Score, Locomotion: Wheelchair - Score, Locomotion: Stairs - Score were [fouzia hernandez] signed by Joon Persaud PTA on TueMar 20 2018 15:14:08 GMT-0600 (Central Standard Time)
--- NOTE | 2018-03-20 18:17 | R.PN ---
ENCOUNTER DATE AND TIME: 03/20/2018 18:13 (SEARCH STRATEGIST) NAME SHANDA BARTON DATE OF : 1930 DATE OF ADMISSION: 03/12/2018 12:40 (SEARCH STRATEGIST) Parkinson's DiseaseCHIEF COMPLAINT: Postural and gait instability secondary to Parkinson's disease. SUBJECTIVE: Pt denied any depression. Pt denied any Shortness of Breath. Self-propelled wheelchair 250 feet with standby assistance. Ambulated 70' with contact guard assistan ce using a rolling walker with slow kyphotic erika. Up and down 15 steps with standby assistance. MRI of the left foot shows moderate osteomyelitis of the first metatarsal head. Dr. Harley and Dr. Mitzy olvera are following the patient. Continue vancomycin per ID. Chest x-ray shows chronic interstitial raffi g disease. No pneumonia. VITAL SIGNS Temperature: 98 F SBP/DBP: 154/57 Pulse: 60 Resp: 16 MEDICATION ALLERGIES: Codeine Penicillin Acetaminophen allopurinol carbidopa fentanyl hydrocodone bitartrate levodopa lidocaine lorazepam Propoxyphene HCl rasagiline mesylate ropinirole HCl TRAMADOL verapamil ENVIRONMENTAL ALLERGIES: None Known - Substance Allergies None Known - Other Allergies None Known CONSULT: Perform Neuro consult NURSING: - Shower allowing shower ACTIVITIES OOB only with supervision THERAPIES: - Occupational Therapy Evaluate and Treat. - Speech Therapy Memory Strategies. Speech Intelligibility Training. - Physical Therapy Evaluate and Treat. PHYSICAL EXAM - Gen Alert and awake Lying in bed No apparent distress Oriented to: person, time, and place - Skin No skin breakdown. Normacephalic - Eyes No abnormalities - ENMT No abnormalities - Neck No abnormalities - CVS RRR - Chest Clear - Resp Clear to auscultation - Abd Soft - GI Soft Deferred - No abnormalities - Ext no edema - MSK 4/5 weakness in both lower extremities. - Neuro 4/5 strength right upper and lower extremities. - Psych No abnormalities ASSESSMENT: Pt. is a 88 yo Right-handed white female.On 03/09/2018 she was admitted to [facility] with diagnosis Parkinson's Disease.Her impairment category is Neurologic Conditions 03 - Parrish insonism (03.2).Pre-morbidly, Pt. was independent/mod-I in Sphincter Control, Transfers Control, Comm unication, Social Cognition, Self-Care, and Locomotion; and she had good Sphincter Control.Currently, she has deficits of Endurance, Safety Awareness, Transfers Control, Balance, Locomotion, and Self-Ca re.Pt. is now referred to [facility] for acute in-patient rehabilitation in [place] to maximize patient's functional independence in activities of daily living, strength, ROM, and m obility.- Rehab Goal Patient has realistic goal of being discharged at assistance level 4-Dorota to reside at Home with Fam soumya/Relatives. MDM/PLAN: - Physical Therapy Gait dysfunction - to improve, our physical therapists will perform initial evaluation of pt's statu s upon admission and devise an individualized program for Gait Training, and Wheel Chair mobility Inability to transfer - to improve, our physical therapists will perform initial evaluation of pt's status upon admission and devise an individualized program for Bed mobility Need for home safety evaluation - to improve, our physical therapists will perform initial evaluatio n of pt's status upon admission and devise an individualized program for Home Evaluation Need in caregiver upon discharge - to improve, our physical therapists will perform initial evaluati on of pt's status upon admission and devise an individualized program for Caregiver Training New precaution - to improve, our physical therapists will perform initial evaluation of pt's status upon admission and devise an individualized program for Patient precaution education Poor balance - to improve, our physical therapists will perform initial evaluation of pt's status up on admission and devise an individualized program for Balance Training Poor endurance - to improve, our physical therapists will perform initial evaluation of pt's status upon admission and devise an individualized program for Endurance Training Weakness - to improve, our physical therapists will perform initial evaluation of pt's status upon a dmission and devise an individualized program for Aquatic Therapy, Neuromuscular Reeducation, and Str engthening Achieving independence - to improve, our physical therapists will perform initial evaluation of pt's status upon admission and devise an individualized program for Community Reintegration Activities - Occupational Therapy ADL deficits - to improve, our occupation therapists will perform initial evaluation of pt's status upon admission and devise an individualized program for Bathing, Bed mobility, Community Reintegratio n, Cooking, Dressing, Eating, Fine Motor Skills, Grooming, Homemaking, Kitchen Mobility, Laundry, Pat ient Education, Safety Awareness, Splinting - Positioning, Transfers(Toilet, Tub, Shower), and Wheel Chair Management Need for transitional care liaison - to improve, our occupation therapists will perform initial evaluation of pt's status upon admission and devise an individualized program for Caregiver Training Weakness - to improve, our occupation therapists will perform initial evaluation of pt's status upon admission and devise an individualized program for Aquatic Therapy, Balance, Endurance, UE ROM, and UE strengthening - Diet Type Continue Regular - Diet - Liquid Texture Continue Regular - Tube Feed Continue N/A - N/A Perform Neuro consult - Diet - Solid Texture Continue Regular - Shower allowing shower FUNCTIONAL STATUS: UPDATED AT WEEKLY TEAM CONFERENCE - Bladder Same accident frequency: 7-Ind - No accidents in the past 7 days - Bowel Same accident frequency: 7-Ind - No accidents in the past 7 days - Walking Same score based on distance walked: 2(50-149ft) - Wheelchair Same score based on distance traveled: 0(N/A) FUNCTIONAL STATUS: - Self-Care A. Eating Ind B. Grooming Ind C. Bathing sup D. Dressing - Upper sup E. Dressing - Lower sup F. Toileting sup - Sphincter Control G: Bladder control Ind H: Bowel control Ind - Transfers Control I. Bed/Chair/Wheelchair modA J. Toilet Dorota K. Tub/Shower ADNO - Locomotion L. Walk/Wheelchair (C) Dorota L. Walk/Wheelchair (W) Dorota M. Stairs ADNO - Communication N. Comprehension (B) Ind O. Expression (B) Ind - Social Cognition P. Social Interaction Ind Q. Problem Solving Ind R. Memory Ind - Endurance Fair - Balance Fair - Safety Awareness Fair CURRENT FUNC. DEFICITS: Endurance, Safety Awareness, Transfers Control, Balance, Locomotion, and Self-Care SIGNATURE PANEL: (SEARCH STRATEGIST)
[2018-03-20] MEDS: Ciprofloxacin 200mg IV 200 MG/100 ML IV.SOLN. IV SCH (19:26)
[2018-03-20] MEDS: ALPRAZOLAM 0.5 MG TABLET PO SCH (19:27)
[2018-03-20] MEDS ORDERED: Ciprofloxacin 200mg IV 200 MG/100 ML IV.SOLN. IV SCH (20:00)
[2018-03-20] MEDS: DOXYCYCLINE 100 MG in NA CHLORIDE 0.9% 100 ML IVPB SCH (20:42)
--- NOTE | 2018-03-21 01:57 | FAST ---
SHIFT START DATE/TIME: 03/20/2018 19:00 (JOINER HELPER) SHIFT END DATE/TIME: 03/21/2018 07:00 (JOINER HELPER) NAME SHANDA BARTON DATE OF : 1930 DATE OF ADMISSION: 03/12/2018 12:40 (JOINER HELPER) PHONE: AGE: 88 SSN# [id number] GENDER: Female ENCOUNTER PHYSICIAN: Dr. Aman Lackey M.D. ADMISSION DIAGNOSIS: - Neurologic Conditions 03 - Parkinsonism (03.2) Parkinson's Disease. EATING: Activity did not occur on this shift EATING - SCORE: 0-UNK GROOMING: Activity did not occur on this shift GROOMING - SCORE: 0-UNK BATHING: Activity did not occur on this shift BATHING - SCORE: 0-UNK DRESSING - UPPER BODY: Patient is not dressing in public clothing ARTICLES SCORE Total number of steps: 0 DRESSING - UPPER BODY - SCORE: 0-UNK DRESSING - LOWER BODY: Patient is not dressing in public clothing ARTICLES SCORE Total number of steps: 0 DRESSING - LOWER BODY - SCORE: 0-UNK TOILETING: TOILETING - STEP 1: Does the patient require the assistance of a person or device, or need extra time with toileting? Yes . TOILETING - STEP 2: Does the patient require the assistance of a helper? Yes. TOILETING - STEP 3: How much assistance does the patient require from the helper? Hands-on assistance from the helper TOILETING - STEP 4: Of the 3 tasks: 1) Adjusting clothing prior to use, 2) Cleansing of perineal area, 3) Adjusting clot vania after use; How many tasks does the patient perform WITHOUT assistance of the helper? No tasks; h elper performs all three tasks TOILETING - SCORE: 1-DEP BLADDER MANAGEMENT: Chemult removes incontinent device (Depends, pull ups, etc.); cleans the patient after accident / inco ntinent episode; and, applies new incontinent device. BLADDER MANAGEMENT - SCORE: 1-DEP BOWEL MANAGEMENT: Activity did not occur on this shift BOWEL MANAGEMENT - SCORE: 7-IND TRANSFERS: BED, CHAIR, WHEELCHAIR: TRANSFERS: BED, CHAIR, WHEELCHAIR - STEP 1: Does the patient require assistance of a person or device, or need extra time with bed, chair, or whe elchair transfers? Yes. TRANSFERS: BED, CHAIR, WHEELCHAIR - STEP 2: Does the patient require the assistance of a helper? Yes. TRANSFERS: BED, CHAIR, WHEELCHAIR - STEP 3: How much assistance does the patient require from the helper? Lifting of the patient TRANSFERS: BED, CHAIR, WHEELCHAIR - STEP 4: Does the helper lift the patient ONLY up? ONLY down? Up AND Down? ONLY up. TRANSFERS: BED, CHAIR, WHEELCHAIR - SCORE: 3-MOD TRANSFERS: TOILET: TRANSFERS: TOILET - STEP 1: Does the patient require the assistance of a person or device, or need extra time with toilet transfe rs? Yes. TRANSFERS: TOILET - STEP 2: Does the patient require the assistance of a helper? Yes. TRANSFERS: TOILET - STEP 3: How much assistance does the patient require from the helper? Patient performs half or more of the tr ansferring tasks TRANSFERS: TOILET - STEP 4: Does the patient need only incidental help such as contact guard or steadying during toilet transfer? No. Patient needs more than incidental help TRANSFERS: TOILET - SCORE: 3-MOD TRANSFERS: SHOWER: Activity did not occur on this shift TRANSFERS: SHOWER - SCORE: 0-UNK TRANSFERS: TUB: Activity did not occur on this shift TRANSFERS: TUB - SCORE: 0-UNK LOCOMOTION: WALK: Activity did not occur on this shift LOCOMOTION: WALK - SCORE: 0-UNK LOCOMOTION: WHEELCHAIR: Activity did not occur on this shift LOCOMOTION: WHEELCHAIR - SCORE: 0-UNK COMPREHENSION: COMPREHENSION: TYPE: Both COMPREHENSION - STEP 1: Does the patient require help from a person or device, or need extra time to understand complex and a bstract ideas (such as current events, finances, discharge planning, medical issues, relationships, e tc)? No. COMPREHENSION - STEP 2: Does the patient need extra time, require an assistive device (such as glasses for visual comprehensi on or a hearing aid for auditory comprehension) or does s/he have mild difficulty understanding compl ex and abstract information? Yes. COMPREHENSION - SCORE: 6-VINNY EXPRESSION EXPRESSION: TYPE: Both EXPRESSION - STEP 1: Does the patient require help from a person or device, or need extra time expressing complex and abst ract ideas (such as current events, finances, discharge planning, medical issues, relationships, etc) ? No. EXPRESSION - STEP 2: Does the patient need extra time, require an assistive device (such as augmentive communication syste m or a communication board), OR does s/he have mild difficulty expressing complex and abstract ideas (including mild dysarthria or mild word-find problems)? Yes. EXPRESSION - SCORE: 6-VINNY SOCIAL INTERACTION: SOCIAL INTERACTION - STEP 1: Does the patient require a helper to interact with others in social and therapeutic situations? No. SOCIAL INTERACTION - STEP 2: Does the patient need extra time in social situations, OR does s/he interact with staff, other patien ts, and family members ONLY in structured environments, OR does s/he require medication for social in teraction? Yes, patient needs extra time SOCIAL INTERACTION - SCORE: 6-VINNY PROBLEM SOLVING: PROBLEM SOLVING - STEP 1: Does the patient need help from a person or device, or need extra time to solve complex problems such as managing a checking account or confronting interpersonal problems? Yes. PROBLEM SOLVING - STEP 2: Does the patient solve basic routine problems half or more of the time? Yes. PROBLEM SOLVING - STEP 3: How often does the patient need help to solve basic routine problems? 10%-24% of the time PROBLEM SOLVING - SCORE: 4-MIN MEMORY: MEMORY - STEP 1: Does the patient need help from a person or device, or need extra time to remember frequently encount ered people, daily routines, and executing requests? No. MEMORY - STEP 2: Does the patient have slight difficulty recognizing frequently encountered people, daily routines, or executing requests without the need for repetition or using self-initiated or environmental cues to remember? Yes. MEMORY - SCORE: 6-VINNY SIGNATURE PANEL: The following modified sections: Eating - Score, Grooming - Score, Dressing - Upper Body - Score, Emmanuel ssing - Lower Body - Score, Toileting - Score, Bladder Management - Score, Bowel Management - Score, Transfers: Bed, Chair, Wheelchair - Score, Transfers: Toilet - Score, Transfers: Shower - Score, Meyer sfers: Tub - Score, Locomotion: Walk - Score, Locomotion: Wheelchair - Score, Comprehension - Score, Expression - Score, Social Interaction - Score, Problem Solving - Score, Memory - Score were [electro nically] signed by Tamela Casey CNA on TueMar 21 2018 01:56:19 GMT-0600 (Central Standard Time)
[2018-03-21 06:22] LABS: Absolute Monocytes 0.6 K/uL (0.1-1.3); Absolute Neutrophil 3.7 K/uL (1.8-8.0); Basophils % 1.2 % (0-1.3); Eosinophils % 3.5 % (0-4.4); Hematocrit 30.7 % (36.0-45.0); Lymphocytes % 18.5 % (15.3-44.8); MPV 8.9 fL (7.6-11.3); Monocytes % 10.3 % (3.3-12.3); RBC Red Blood Cell Count 3.31 M/uL (3.86-4.86)
[2018-03-21 06:42] LABS: Magnesium 2.5 mg/dL (1.8-2.4); Potassium 3.9 mmol/L (3.5-5.1)
[2018-03-21] MEDS: JUVEN PACKET PO SCH ×2 (08:00→21:28)
[2018-03-21] MEDS: MEDIHONEY 44 ML TOPICAL TUBE TOP SCH (08:00)
[2018-03-21] MEDS: ULORIC 40 MG PO SCH (08:20)
[2018-03-21] MEDS: MULTIVITAMIN TAB PO SCH (08:21)
[2018-03-21] MEDS: VITAMIN D 1000 UNIT TAB PO SCH (08:21)
[2018-03-21] MEDS: PROPRANOLOL HCL 10 MG TAB PO SCH ×2 (08:22→21:25)
[2018-03-21] MEDS: FERROUS SULFATE 325 MG TAB PO SCH (08:23)
[2018-03-21] MEDS: FUROSEMIDE 20 MG TABLET PO SCH (08:24)
[2018-03-21] MEDS: ASPIRIN EC 81 MG TAB PO SCH (08:24)
[2018-03-21] MEDS: APIXABAN 2.5 MG TABLET PO SCH ×2 (08:24→21:26)
[2018-03-21] MEDS: HYDRALAZINE HCL 25 MG TABLET PO SCH ×2 (08:25→21:25)
[2018-03-21] MEDS: FE SULF/FA/VIT B COMP & C TAB PO SCH (08:25)
[2018-03-21] MEDS: COLCHICINE 0.6 MG TAB PO SCH (08:25)
[2018-03-21] MEDS: LOSARTAN POTASSIUM 50 MG TABLET PO SCH (08:26)
[2018-03-21] MEDS: DOXYCYCLINE 100 MG in NA CHLORIDE 0.9% 100 ML IVPB SCH ×2 (08:38→21:26)
[2018-03-21] MEDS: COLLAGENASE 30 GM OINTMENT TOP SCH (14:30)
--- NOTE | 2018-03-21 14:51 | FAST ---
SHIFT START DATE/TIME: 03/21/2018 07:00 (CROWN BLOCKER) SHIFT END DATE/TIME: 03/21/2018 19:00 (CROWN BLOCKER) NAME SHANDA BARTON DATE OF : 1930 DATE OF ADMISSION: 03/12/2018 12:40 (CROWN BLOCKER) PHONE: AGE: 88 SSN# [id number] GENDER: Female ENCOUNTER PHYSICIAN: Dr. Aman Lackey M.D. ADMISSION DIAGNOSIS: - Neurologic Conditions 03 - Parkinsonism (03.2) Parkinson's Disease. EATING: EATING - STEP 1: Does the patient require the assistance of a person or device, or need extra time when eating? Yes. EATING - STEP 2: Does the patient require the assistance of a helper? Yes. EATING - STEP 3: Does the patient perform half or more of the eating tasks? Yes. EATING - STEP 4: Does the patient need only supervision, cuing, coaxing OR help to apply an orthosis OR help to cut fo od, open containers, pour liquids, or butter bread? Yes. EATING - SCORE: 5-SUP GROOMING: Comb/brush hair Wash, rinse, and dry face Wash, rinse, and dry hands GROOMING - STEP 1: Does the patient require the assistance of a person or device, or need extra time when grooming? Yes. GROOMING - STEP 2: Does the patient require the assistance of a helper? No. The patient only requires an assistive devic e, OR takes more than reasonable time to groom, OR there is a concern for safety as the patient groom s GROOMING - SCORE: 6-VINNY BATHING: Activity did not occur on this shift BATHING - SCORE: 0-UNK DRESSING - UPPER BODY: T-shirt/pullover shirt (four steps) ARTICLES SCORE Total number of steps: 4 DRESSING - UPPER BODY - STEP 1: Does the patient require help from a person or device, or need extra time when dressing above the jess st? Yes. DRESSING - UPPER BODY - STEP 2: Does the patient require the assistance of a helper? Yes. DRESSING - UPPER BODY - STEP 3: Does the helper touch the patient while dressing? Yes. DRESSING - UPPER BODY - STEP 4: How many of the total steps does the patient complete on his/her own? 0 DRESSING - UPPER BODY - STEP 5: Does Patient require total assistance for dressing above the waist such as the helper holding clothin g and performing basically all the activities? Yes. DRESSING - UPPER BODY - SCORE: 1-DEP DRESSING - LOWER BODY: Elastic waist pants (three steps) ARTICLES SCORE Total number of steps: 3 DRESSING - LOWER BODY - STEP 1: Does the patient require help from a person or device, or need extra time when dressing below the jess st? Yes. DRESSING - LOWER BODY - STEP 2: Does the patient require the assistance of a helper? Yes. DRESSING - LOWER BODY - STEP 3: Does the helper touch the patient while dressing? Yes. DRESSING - LOWER BODY - STEP 4: How many of the total steps does the patient complete on his/her own? 0 DRESSING - LOWER BODY - STEP 5: Does patient require total assistance for dressing below the waist such as the helper holding clothin g and performing basically all the activities? Yes. DRESSING - LOWER BODY - SCORE: 1-DEP TOILETING: TOILETING - STEP 1: Does the patient require the assistance of a person or device, or need extra time with toileting? Yes . TOILETING - STEP 2: Does the patient require the assistance of a helper? Yes. TOILETING - STEP 3: How much assistance does the patient require from the helper? Hands-on assistance from the helper TOILETING - STEP 4: Of the 3 tasks: 1) Adjusting clothing prior to use, 2) Cleansing of perineal area, 3) Adjusting clot vania after use; How many tasks does the patient perform WITHOUT assistance of the helper? No tasks; h sadeper performs all three tasks TOILETING - SCORE: 1-DEP BLADDER MANAGEMENT: BLADDER MANAGEMENT - STEP 1: Does the patient control the bladder completely and intentionally without equipment or devices or med ications, and is always continent? No. BLADDER MANAGEMENT - STEP 2: Does the patient require the assistance of a helper? No, patient requires and independently uses an a ssistive device, such as a urinal, bedpan, bedside commode, catheter, absorbent pad, or collecting de vice BLADDER MANAGEMENT - SCORE: 6-VINNY BLADDER MANAGEMENT - FREQUENCY OF ACCIDENTS: BLADDER MANAGEMENT(FA) - STEP 1: How many accidents has the patient had during the current shift? 0 BOWEL MANAGEMENT: Activity did not occur on this shift BOWEL MANAGEMENT - SCORE: 7-IND BOWEL MANAGEMENT - FREQUENCY OF ACCIDENTS: BOWEL MANAGEMENT(FA) - STEP 1: How many accidents has the patient had during the current shift? 0 TRANSFERS: BED, CHAIR, WHEELCHAIR: TRANSFERS: BED, CHAIR, WHEELCHAIR - STEP 1: Does the patient require assistance of a person or device, or need extra time with bed, chair, or whe elchair transfers? Yes. TRANSFERS: BED, CHAIR, WHEELCHAIR - STEP 2: Does the patient require the assistance of a helper? Yes. TRANSFERS: BED, CHAIR, WHEELCHAIR - STEP 3: How much assistance does the patient require from the helper? Lifting of the patient TRANSFERS: BED, CHAIR, WHEELCHAIR - STEP 4: Does the helper lift the patient ONLY up? ONLY down? Up AND Down? Up AND Down. TRANSFERS: BED, CHAIR, WHEELCHAIR - SCORE: 2-MAX TRANSFERS: TOILET: TRANSFERS: TOILET - STEP 1: Does the patient require the assistance of a person or device, or need extra time with toilet transfe rs? Yes. TRANSFERS: TOILET - STEP 2: Does the patient require the assistance of a helper? Yes. TRANSFERS: TOILET - STEP 3: How much assistance does the patient require from the helper? Patient performs less than half of the transferring tasks TRANSFERS: TOILET - STEP 4: Does the patient require total assistance for the toilet transfer such as the helper doing basically all the lifting? Yes. TRANSFERS: TOILET - SCORE: 1-DEP TRANSFERS: SHOWER: Activity did not occur on this shift TRANSFERS: SHOWER - SCORE: 0-UNK TRANSFERS: TUB: Activity did not occur on this shift TRANSFERS: TUB - SCORE: 0-UNK LOCOMOTION: WALK: Activity did not occur on this shift LOCOMOTION: WALK - SCORE: 0-UNK LOCOMOTION: WHEELCHAIR: Activity did not occur on this shift LOCOMOTION: WHEELCHAIR - SCORE: 0-UNK COMPREHENSION: COMPREHENSION: TYPE: Both COMPREHENSION - STEP 1: Does the patient require help from a person or device, or need extra time to understand complex and a bstract ideas (such as current events, finances, discharge planning, medical issues, relationships, e tc)? Yes. COMPREHENSION - STEP 2: Does the patient require help to understand questions or statements about basic needs or ideas (such as hunger, thirst, sleep, safety, daily schedule, room location, or discomfort) half or more of the t carissa? No. COMPREHENSION - STEP 3: How often does the patient need help to understand directions and conversation about basic needs? Les s than 10% of the time COMPREHENSION - SCORE: 5-SUP EXPRESSION EXPRESSION: TYPE: Both EXPRESSION - STEP 1: Does the patient require help from a person or device, or need extra time expressing complex and abst ract ideas (such as current events, finances, discharge planning, medical issues, relationships, etc) ? No. EXPRESSION - STEP 2: Does the patient need extra time, require an assistive device (such as augmentive communication syste m or a communication board), OR does s/he have mild difficulty expressing complex and abstract ideas (including mild dysarthria or mild word-find problems)? Yes. EXPRESSION - SCORE: 6-VINNY SOCIAL INTERACTION: SOCIAL INTERACTION - STEP 1: Does the patient require a helper to interact with others in social and therapeutic situations? No. SOCIAL INTERACTION - STEP 2: Does the patient need extra time in social situations, OR does s/he interact with staff, other patien ts, and family members ONLY in structured environments, OR does s/he require medication for social in teraction? Yes, patient needs extra time SOCIAL INTERACTION - SCORE: 6-VINNY PROBLEM SOLVING: PROBLEM SOLVING - STEP 1: Does the patient need help from a person or device, or need extra time to solve complex problems such as managing a checking account or confronting interpersonal problems? No. PROBLEM SOLVING - STEP 2: Does the patient require extra time to make decisions or solve problems, OR does s/he have slight dif ficulty reading, initiating, or self-correcting in unfamiliar situations? Yes, patient needs extra ti me. PROBLEM SOLVING - SCORE: 6-VINNY MEMORY: MEMORY - STEP 1: Does the patient need help from a person or device, or need extra time to remember frequently encount ered people, daily routines, and executing requests? No. MEMORY - STEP 2: Does the patient have slight difficulty recognizing frequently encountered people, daily routines, or executing requests without the need for repetition or using self-initiated or environmental cues to remember? Yes. MEMORY - SCORE: 6-VINNY SIGNATURE PANEL: The following modified sections: Eating - Score, Grooming - Score, Bathing - Score, Dressing - Upper Body - Score, Dressing - Lower Body - Score, Toileting - Score, Bladder Management - Score, Bowel Man agement - Score, Transfers: Bed, Chair, Wheelchair - Score, Transfers: Toilet - Score, Transfers: Sammie wer - Score, Transfers: Tub - Score, Locomotion: Walk - Score, Locomotion: Wheelchair - Score, Compre hension - Score, Expression - Score, Social Interaction - Score, Problem Solving - Score, Memory - Sc ore were [electronically] signed by Oneyda Cavazos C.N.A. on TueMar 21 2018 14:50:22 GMT-0600 ([facility] Standard Time)
--- NOTE | 2018-03-21 15:00 | FAST ---
SHIFT START DATE/TIME: 03/20/2018 07:00 (DECK LID FITTER) SHIFT END DATE/TIME: 03/20/2018 19:00 (DECK LID FITTER) NAME SHANDA BARTON DATE OF : 1930 DATE OF ADMISSION: 03/12/2018 12:40 (DECK LID FITTER) PHONE: AGE: 88 SSN# [id number] GENDER: Female ENCOUNTER PHYSICIAN: Dr. Aman Lackey M.D. ADMISSION DIAGNOSIS: - Neurologic Conditions 03 - Parkinsonism (03.2) Parkinson's Disease. EATING: EATING - STEP 1: Does the patient require the assistance of a person or device, or need extra time when eating? Yes. EATING - STEP 2: Does the patient require the assistance of a helper? Yes. EATING - STEP 3: Does the patient perform half or more of the eating tasks? Yes. EATING - STEP 4: Does the patient need only supervision, cuing, coaxing OR help to apply an orthosis OR help to cut fo od, open containers, pour liquids, or butter bread? Yes. EATING - SCORE: 5-SUP GROOMING: Comb/brush hair Oral care Wash, rinse, and dry face Wash, rinse, and dry hands GROOMING - STEP 1: Does the patient require the assistance of a person or device, or need extra time when grooming? Yes. GROOMING - STEP 2: Does the patient require the assistance of a helper? No. The patient only requires an assistive devic e, OR takes more than reasonable time to groom, OR there is a concern for safety as the patient groom s GROOMING - SCORE: 6-VINNY BATHING: Activity did not occur on this shift BATHING - SCORE: 0-UNK DRESSING - UPPER BODY: Button down shirt or blouse - NOT tucked in (four steps) ARTICLES SCORE Total number of steps: 4 DRESSING - UPPER BODY - STEP 1: Does the patient require help from a person or device, or need extra time when dressing above the jess st? Yes. DRESSING - UPPER BODY - STEP 2: Does the patient require the assistance of a helper? Yes. DRESSING - UPPER BODY - STEP 3: Does the helper touch the patient while dressing? Yes. DRESSING - UPPER BODY - STEP 4: How many of the total steps does the patient complete on his/her own? 0 DRESSING - UPPER BODY - STEP 5: Does Patient require total assistance for dressing above the waist such as the helper holding clothin g and performing basically all the activities? Yes. DRESSING - UPPER BODY - SCORE: 1-DEP DRESSING - LOWER BODY: Elastic waist pants (three steps) ARTICLES SCORE Total number of steps: 3 DRESSING - LOWER BODY - STEP 1: Does the patient require help from a person or device, or need extra time when dressing below the jess st? Yes. DRESSING - LOWER BODY - STEP 2: Does the patient require the assistance of a helper? Yes. DRESSING - LOWER BODY - STEP 3: Does the helper touch the patient while dressing? Yes. DRESSING - LOWER BODY - STEP 4: How many of the total steps does the patient complete on his/her own? 0 DRESSING - LOWER BODY - STEP 5: Does patient require total assistance for dressing below the waist such as the helper holding clothin g and performing basically all the activities? Yes. DRESSING - LOWER BODY - SCORE: 1-DEP TOILETING: TOILETING - STEP 1: Does the patient require the assistance of a person or device, or need extra time with toileting? Yes . TOILETING - STEP 2: Does the patient require the assistance of a helper? Yes. TOILETING - STEP 3: How much assistance does the patient require from the helper? Hands-on assistance from the helper TOILETING - STEP 4: Of the 3 tasks: 1) Adjusting clothing prior to use, 2) Cleansing of perineal area, 3) Adjusting clot vania after use; How many tasks does the patient perform WITHOUT assistance of the helper? No tasks; h elper performs all three tasks TOILETING - SCORE: 1-DEP BLADDER MANAGEMENT: BLADDER MANAGEMENT - STEP 1: Does the patient control the bladder completely and intentionally without equipment or devices or med ications, and is always continent? No. BLADDER MANAGEMENT - STEP 2: Does the patient require the assistance of a helper? No, patient only requires extra time BLADDER MANAGEMENT - SCORE: 6-VINNY BLADDER MANAGEMENT - FREQUENCY OF ACCIDENTS: BLADDER MANAGEMENT(FA) - STEP 1: How many accidents has the patient had during the current shift? 0 BOWEL MANAGEMENT: Activity did not occur on this shift BOWEL MANAGEMENT - SCORE: 7-IND BOWEL MANAGEMENT - FREQUENCY OF ACCIDENTS: BOWEL MANAGEMENT(FA) - STEP 1: How many accidents has the patient had during the current shift? 0 TRANSFERS: BED, CHAIR, WHEELCHAIR: TRANSFERS: BED, CHAIR, WHEELCHAIR - STEP 1: Does the patient require assistance of a person or device, or need extra time with bed, chair, or whe elchair transfers? Yes. TRANSFERS: BED, CHAIR, WHEELCHAIR - STEP 2: Does the patient require the assistance of a helper? Yes. TRANSFERS: BED, CHAIR, WHEELCHAIR - STEP 3: How much assistance does the patient require from the helper? Lifting of the patient TRANSFERS: BED, CHAIR, WHEELCHAIR - STEP 4: Does the helper lift the patient ONLY up? ONLY down? Up AND Down? Patient needs help with all lifting TRANSFERS: BED, CHAIR, WHEELCHAIR - SCORE: 1-DEP TRANSFERS: TOILET: TRANSFERS: TOILET - STEP 1: Does the patient require the assistance of a person or device, or need extra time with toilet transfe rs? Yes. TRANSFERS: TOILET - STEP 2: Does the patient require the assistance of a helper? Yes. TRANSFERS: TOILET - STEP 3: How much assistance does the patient require from the helper? Patient performs less than half of the transferring tasks TRANSFERS: TOILET - STEP 4: Does the patient require total assistance for the toilet transfer such as the helper doing basically all the lifting? No. TRANSFERS: TOILET - SCORE: 2-MAX TRANSFERS: SHOWER: Activity did not occur on this shift TRANSFERS: SHOWER - SCORE: 0-UNK TRANSFERS: TUB: Activity did not occur on this shift TRANSFERS: TUB - SCORE: 0-UNK LOCOMOTION: WALK: Activity did not occur on this shift LOCOMOTION: WALK - SCORE: 0-UNK LOCOMOTION: WHEELCHAIR: Activity did not occur on this shift LOCOMOTION: WHEELCHAIR - SCORE: 0-UNK COMPREHENSION: COMPREHENSION: TYPE: Both COMPREHENSION - STEP 1: Does the patient require help from a person or device, or need extra time to understand complex and a bstract ideas (such as current events, finances, discharge planning, medical issues, relationships, e tc)? Yes. COMPREHENSION - STEP 2: Does the patient require help to understand questions or statements about basic needs or ideas (such as hunger, thirst, sleep, safety, daily schedule, room location, or discomfort) half or more of the t carissa? No. COMPREHENSION - STEP 3: How often does the patient need help to understand directions and conversation about basic needs? Les s than 10% of the time COMPREHENSION - SCORE: 5-SUP EXPRESSION EXPRESSION: TYPE: Both EXPRESSION - STEP 1: Does the patient require help from a person or device, or need extra time expressing complex and abst ract ideas (such as current events, finances, discharge planning, medical issues, relationships, etc) ? No. EXPRESSION - STEP 2: Does the patient need extra time, require an assistive device (such as augmentive communication syste m or a communication board), OR does s/he have mild difficulty expressing complex and abstract ideas (including mild dysarthria or mild word-find problems)? Yes. EXPRESSION - SCORE: 6-VINNY SOCIAL INTERACTION: SOCIAL INTERACTION - STEP 1: Does the patient require a helper to interact with others in social and therapeutic situations? No. SOCIAL INTERACTION - STEP 2: Does the patient need extra time in social situations, OR does s/he interact with staff, other patien ts, and family members ONLY in structured environments, OR does s/he require medication for social in teraction? Yes, patient needs extra time SOCIAL INTERACTION - SCORE: 6-VINNY PROBLEM SOLVING: PROBLEM SOLVING - STEP 1: Does the patient need help from a person or device, or need extra time to solve complex problems such as managing a checking account or confronting interpersonal problems? No. PROBLEM SOLVING - STEP 2: Does the patient require extra time to make decisions or solve problems, OR does s/he have slight dif ficulty reading, initiating, or self-correcting in unfamiliar situations? Yes, patient needs extra ti me. PROBLEM SOLVING - SCORE: 6-VINNY MEMORY: MEMORY - STEP 1: Does the patient need help from a person or device, or need extra time to remember frequently encount ered people, daily routines, and executing requests? No. MEMORY - STEP 2: Does the patient have slight difficulty recognizing frequently encountered people, daily routines, or executing requests without the need for repetition or using self-initiated or environmental cues to remember? Yes. MEMORY - SCORE: 6-VINNY SIGNATURE PANEL: The following modified sections: Eating - Score, Grooming - Score, Bathing - Score, Dressing - Upper Body - Score, Dressing - Lower Body - Score, Toileting - Score, Bladder Management - Score, Bowel Man agement - Score, Transfers: Bed, Chair, Wheelchair - Score, Transfers: Toilet - Score, Transfers: Sammie wer - Score, Transfers: Tub - Score, Locomotion: Walk - Score, Locomotion: Wheelchair - Score, Compre hension - Score, Expression - Score, Social Interaction - Score, Problem Solving - Score, Memory - Sc ore were [electronically] signed by Oneyda Cavazos C.N.A. on TueMar 21 2018 14:59:24 GMT-0600 ([facility] Standard Time)
[2018-03-21] MEDS ORDERED: ONDANSETRON 4 MG/2 ML VIAL IV ONE ×2 (15:02→20:00)
--- NOTE | 2018-03-21 15:33 | FAST ---
ENCOUNTER DATE AND TIME: 03/21/2018 08:00 (SANDBLAST CARVER) NAME SHANDA BARTON DATE OF : 1930 DATE OF ADMISSION: 03/12/2018 12:40 (SANDBLAST CARVER) PHONE: AGE: 88 SSN# [id number] GENDER: Female ENCOUNTER PHYSICIAN: Dr. Aman Lackey M.D. ADMISSION DIAGNOSIS: - Neurologic Conditions 03 - Parkinsonism (03.2) Parkinson's Disease. EATING: Activity did not occur on this shift EATING - SCORE: 0-UNK GROOMING: Activity did not occur on this shift GROOMING - SCORE: 0-UNK BATHING: Activity did not occur on this shift BATHING - SCORE: 0-UNK DRESSING - UPPER BODY: Activity did not occur on this shift Patient is not dressing in public clothing ARTICLES SCORE Total number of steps: 0 DRESSING - UPPER BODY - SCORE: 0-UNK DRESSING - LOWER BODY: Activity did not occur on this shift Patient is not dressing in public clothing ARTICLES SCORE Total number of steps: 0 DRESSING - LOWER BODY - SCORE: 0-UNK TOILETING: Activity did not occur on this shift TOILETING - SCORE: 0-UNK BLADDER MANAGEMENT: Activity did not occur on this shift BLADDER MANAGEMENT - SCORE: 7-IND BOWEL MANAGEMENT: Activity did not occur on this shift BOWEL MANAGEMENT - SCORE: 7-IND TRANSFERS: BED, CHAIR, WHEELCHAIR: TRANSFERS: BED, CHAIR, WHEELCHAIR - STEP 1: Does the patient require assistance of a person or device, or need extra time with bed, chair, or whe elchair transfers? Yes. TRANSFERS: BED, CHAIR, WHEELCHAIR - STEP 2: Does the patient require the assistance of a helper? Yes. TRANSFERS: BED, CHAIR, WHEELCHAIR - STEP 3: How much assistance does the patient require from the helper? Steadying/guiding assistance TRANSFERS: BED, CHAIR, WHEELCHAIR - SCORE: 4-MIN TRANSFERS: TOILET: Activity did not occur on this shift TRANSFERS: TOILET - SCORE: 0-UNK TRANSFERS: SHOWER: Activity did not occur on this shift TRANSFERS: SHOWER - SCORE: 0-UNK TRANSFERS: TUB: Activity did not occur on this shift TRANSFERS: TUB - SCORE: 0-UNK LOCOMOTION: WALK: LOCOMOTION: WALK - STEP 1: Does the patient need help from a person or device, or need extra time to walk 150 feet? Yes. LOCOMOTION: WALK - STEP 2: How much assistance does the patient require to walk a minimum of 150 feet? Patient walks less than 1 50 feet - but more than 50 feet - with the assistance of only one helper LOCOMOTION: WALK - SCORE: 2-MAX LOCOMOTION: WHEELCHAIR: LOCOMOTION: WHEELCHAIR - STEP 1: Does the patient need help to go 150 feet in a wheelchair? Yes. LOCOMOTION: WHEELCHAIR - STEP 2: How much assistance does the patient need from the helper? Only supervision, cuing, or coaxing LOCOMOTION: WHEELCHAIR - SCORE: 5-SUP LOCOMOTION: STAIRS: Activity did not occur on this shift LOCOMOTION: STAIRS - SCORE: 0-UNK COMPREHENSION: COMPREHENSION - SCORE: 0-UNK EXPRESSION EXPRESSION - SCORE: 0-UNK SOCIAL INTERACTION: SOCIAL INTERACTION - SCORE: 0-UNK PROBLEM SOLVING: PROBLEM SOLVING - SCORE: 0-UNK MEMORY: MEMORY - SCORE: 0-UNK SIGNATURE PANEL: The following modified sections: Transfers: Bed, Chair, Wheelchair - Score, Transfers: Toilet - Score , Locomotion: Walk - Score, Locomotion: Wheelchair - Score, Locomotion: Stairs - Score were [electron mary] signed by Joon Presaud PTA on TueMar 21 2018 15:32:55 GMT-0600 (Central Standard Time)
--- NOTE | 2018-03-21 17:51 | P.PN ---
Subjective Date of Service: 03/21/18 Primary Care Provider: Nephrology-Dr. Pruitt Chief Complaint: S.P Fall Subjective: Tolerating diet, Ambulating, Improving, Working w/ PT, Doing well Review of Systems 10-point ROS is otherwise unremarkable Physical Examination - Vital Signs Temperature: 97 F Blood Pressure: 139/53 Pulse: 61 Respirations: 16 Pulse Ox (%): 96 - Physical Exam General: Alert, In no apparent distress HEENT: Atraumatic, PERRLA, EOMI Neck: Supple, JVD not distended Respiratory: Clear to auscultation bilaterally, Normal air movement Cardiovascular: Regular rate/rhythm, Normal S1 S2 Gastrointestinal: Normal bowel sounds, No tenderness Musculoskeletal: No tenderness Integumentary: No rashes Neurological: Normal speech, Normal tone, Normal affect Lymphatics: No axilla or inguinal lymphadenopathy - Studies Laboratory Data (last 24 hrs) 03/21/18 06:08: Sodium 142, Potassium 3.9, BUN 75 H D, Creatinine 2.30 H, Glucose 84, Magnesium 2.5 H 03/21/18 06:08: WBC 5.6, Hgb 10.4 L, Hct 30.7 L, Plt Count 147 L Medications List Reviewed: Yes Assessment And Plan - Current Problems (Diagnosis) (1) Osteomyelitis Current Visit: Yes Status: Acute Plan: Left great toe osteomyelitis of the metatarsal and 5th distal metatarsal and phalanx -the patient currently on IV antibiotics. Will continue that here in the hospital -infectious disease consulted. Appreciated recommendations at this time. -pending placement to long-term acute care facility at this time. (2) Encounter for rehabilitation Current Visit: Yes Status: Acute Plan: Patient Admitted to rehab for Rehab Services. -PT/OT/Speech Working with Patient (3) Status post fall Current Visit: No Status: Acute Plan: Now In Inpatient Rehab. -Fall Precaution given -Patient working with PT and OT (4) MARGARITO (acute kidney injury) Current Visit: No Status: Resolved Plan: Resolved on Discharge from medical Surgery -Will monitor closely (5) Rhabdomyolysis Current Visit: No Status: Resolved Plan: Resolved now in Medical Surgery -Will continue to Monitor closely Qualifiers: Rhabdomyolysis type: non-traumatic Qualified Code(s): M62.82 - Rhabdomyolysis (6) Parkinson disease Current Visit: No Status: Chronic - Plan Pt now Admitted to the inpatient Rehab after her Acute illness has resolved. Pt working with PT/OT/Speech. Doing well overall. Currently pending placement to a long-term acute care facility for IV antibiotics. Continue to monitor closely Discharge Plan: Home Plan to discharge in: 48 Hours - Code Status/Comfort Care Code Status Assessed: Yes Physician Review: Patient Assessed, Agree with Above Assessment and Plan Critical Care: No
--- NOTE | 2018-03-21 19:10 | R.PN ---
ENCOUNTER DATE AND TIME: 03/21/2018 19:08 (DOOR MAKER) NAME SHANDA BARTON DATE OF : 1930 DATE OF ADMISSION: 03/12/2018 12:40 (DOOR MAKER) Parkinson's DiseaseCHIEF COMPLAINT: Postural and gait instability secondary to Parkinson's disease. SUBJECTIVE: Pt denied any depression. Pt denied any Shortness of Breath. Self-propelled wheelchair 250 feet with standby assistance. Ambulated 70' with contact guard assistan ce using a rolling walker with slow kyphotic erika. Up and down 15 steps with standby assistance. MRI of the left foot shows moderate osteomyelitis of the first metatarsal head. Dr. Harley and Dr. Mitzy olvera are following the patient. Continue vancomycin per ID. Chest x-ray shows chronic interstitial raffi g disease. No pneumonia. VITAL SIGNS Temperature: 98 F SBP/DBP: 139/53 Pulse: 61 Resp: 16 MEDICATION ALLERGIES: Codeine Penicillin Acetaminophen allopurinol carbidopa fentanyl hydrocodone bitartrate levodopa lidocaine lorazepam Propoxyphene HCl rasagiline mesylate ropinirole HCl TRAMADOL verapamil ENVIRONMENTAL ALLERGIES: None Known - Substance Allergies None Known - Other Allergies None Known CONSULT: Perform Neuro consult NURSING: - Shower allowing shower ACTIVITIES OOB only with supervision THERAPIES: - Occupational Therapy Evaluate and Treat. - Speech Therapy Memory Strategies. Speech Intelligibility Training. - Physical Therapy Evaluate and Treat. PHYSICAL EXAM - Gen Alert and awake Lying in bed No apparent distress Oriented to: person, time, and place - Skin No skin breakdown. Normacephalic - Eyes No abnormalities - ENMT No abnormalities - Neck No abnormalities - CVS RRR - Chest Clear - Resp Clear to auscultation - Abd Soft - GI Soft Deferred - No abnormalities - Ext no edema - MSK 4/5 weakness in both lower extremities. - Neuro 4/5 strength right upper and lower extremities. - Psych No abnormalities ASSESSMENT: Pt. is a 88 yo Right-handed white female.On 03/09/2018 she was admitted to [facility] with diagnosis Parkinson's Disease.Her impairment category is Neurologic Conditions 03 - [place] insonism (03.2).Pre-morbidly, Pt. was independent/mod-I in Sphincter Control, Transfers Control, Comm unication, Social Cognition, Self-Care, and Locomotion; and she had good Sphincter Control.Currently, she has deficits of Endurance, Safety Awareness, Transfers Control, Balance, Locomotion, and Self-Ca re.Pt. is now referred to [facility] for acute in-patient rehabilitation in [place] to maximize patient's functional independence in activities of daily living, strength, ROM, and m obility.- Rehab Goal Patient has realistic goal of being discharged at assistance level 4-Dorota to reside at Home with Fam soumya/Relatives. MDM/PLAN: - Physical Therapy Gait dysfunction - to improve, our physical therapists will perform initial evaluation of pt's statu s upon admission and devise an individualized program for Gait Training, and Wheel Chair mobility Inability to transfer - to improve, our physical therapists will perform initial evaluation of pt's status upon admission and devise an individualized program for Bed mobility Need for home safety evaluation - to improve, our physical therapists will perform initial evaluatio n of pt's status upon admission and devise an individualized program for Home Evaluation Need in caregiver upon discharge - to improve, our physical therapists will perform initial evaluati on of pt's status upon admission and devise an individualized program for Caregiver Training New precaution - to improve, our physical therapists will perform initial evaluation of pt's status upon admission and devise an individualized program for Patient precaution education Poor balance - to improve, our physical therapists will perform initial evaluation of pt's status up on admission and devise an individualized program for Balance Training Poor endurance - to improve, our physical therapists will perform initial evaluation of pt's status upon admission and devise an individualized program for Endurance Training Weakness - to improve, our physical therapists will perform initial evaluation of pt's status upon a dmission and devise an individualized program for Aquatic Therapy, Neuromuscular Reeducation, and Str engthening Achieving independence - to improve, our physical therapists will perform initial evaluation of pt's status upon admission and devise an individualized program for Community Reintegration Activities - Occupational Therapy ADL deficits - to improve, our occupation therapists will perform initial evaluation of pt's status upon admission and devise an individualized program for Bathing, Bed mobility, Community Reintegratio n, Cooking, Dressing, Eating, Fine Motor Skills, Grooming, Homemaking, Kitchen Mobility, Laundry, Pat ient Education, Safety Awareness, Splinting - Positioning, Transfers(Toilet, Tub, Shower), and Wheel Chair Management Need for direct care provider - to improve, our occupation therapists will perform initial evaluation of pt's status upon admission and devise an individualized program for Caregiver Training Weakness - to improve, our occupation therapists will perform initial evaluation of pt's status upon admission and devise an individualized program for Aquatic Therapy, Balance, Endurance, UE ROM, and UE strengthening - Diet Type Continue Regular - Diet - Liquid Texture Continue Regular - Tube Feed Continue N/A - N/A Perform Neuro consult - Diet - Solid Texture Continue Regular - Shower allowing shower FUNCTIONAL STATUS: UPDATED AT WEEKLY TEAM CONFERENCE - Bladder Same accident frequency: 7-Ind - No accidents in the past 7 days - Bowel Same accident frequency: 7-Ind - No accidents in the past 7 days - Walking Same score based on distance walked: 2(50-149ft) - Wheelchair Same score based on distance traveled: 0(N/A) FUNCTIONAL STATUS: - Self-Care A. Eating Ind B. Grooming Ind C. Bathing sup D. Dressing - Upper sup E. Dressing - Lower sup F. Toileting sup - Sphincter Control G: Bladder control Ind H: Bowel control Ind - Transfers Control I. Bed/Chair/Wheelchair modA J. Toilet Dorota K. Tub/Shower ADNO - Locomotion L. Walk/Wheelchair (C) Dorota L. Walk/Wheelchair (W) Dorota M. Stairs ADNO - Communication N. Comprehension (B) Ind O. Expression (B) Ind - Social Cognition P. Social Interaction Ind Q. Problem Solving Ind R. Memory Ind - Endurance Fair - Balance Fair - Safety Awareness Fair CURRENT FUNC. DEFICITS: Endurance, Safety Awareness, Transfers Control, Balance, Locomotion, and Self-Care SIGNATURE PANEL: (DOOR MAKER)
[2018-03-21] MEDS: CAFFEINE PO SCH (21:24)
[2018-03-21] MEDS: ASPIRIN PO SCH (21:24)
[2018-03-21] MEDS: ALPRAZOLAM 0.5 MG TABLET PO SCH (21:26)
[2018-03-21] MEDS: Ciprofloxacin 200mg IV 200 MG/100 ML IV.SOLN. IV SCH (21:27)
--- NOTE | 2018-03-21 22:16 | RAD REPORT ---
EXAM DESCRIPTION: RAD - Chest Single View - 03/21/2018 9:44 pm CLINICAL HISTORY: PICC line placement COMPARISON: None. FINDINGS: Portable chest was obtained following placement of a left upper extremity PICC line. The c atheter tip is in the mid SVC. Tip of the catheter is directed towards the lateral wall. This potentially affects function of the PI CC line. Patient has a relatively short SVC ; however, the PICC line probably needs to be advanced by 2 cm to correct the positioning.
--- NOTE | 2018-03-22 07:03 | RAD REPORT ---
EXAM DESCRIPTION: RAD - Chest Single View - 03/22/2018 6:49 am CLINICAL HISTORY: PICC line placement COMPARISON: PICC line film March 21 FINDINGS: Portable chest was obtained following placement of a left upper extremity PICC line. The c atheter has been replaced or repositioned. The tip is now inferiorly directed in good positioning at the distal SVC.
[2018-03-22] MEDS: HYDRALAZINE HCL 25 MG TABLET PO SCH ×3 (08:00→19:33)
[2018-03-22] MEDS: COLLAGENASE 30 GM OINTMENT TOP SCH (08:00)
[2018-03-22] MEDS: LOSARTAN POTASSIUM 50 MG TABLET PO SCH ×2 (08:00→09:33)
[2018-03-22] MEDS: CAFFEINE PO SCH (08:10)
[2018-03-22] MEDS: ASPIRIN PO SCH (08:10)
[2018-03-22] MEDS: COLCHICINE 0.6 MG TAB PO SCH (08:12)
[2018-03-22] MEDS: PROPRANOLOL HCL 10 MG TAB PO SCH ×2 (08:12→19:33)
[2018-03-22] MEDS: FE SULF/FA/VIT B COMP & C TAB PO SCH (08:13)
[2018-03-22] MEDS: FERROUS SULFATE 325 MG TAB PO SCH (08:14)
[2018-03-22] MEDS: ASPIRIN EC 81 MG TAB PO SCH (08:14)
[2018-03-22] MEDS: VITAMIN D 1000 UNIT TAB PO SCH (08:14)
[2018-03-22] MEDS: FUROSEMIDE 20 MG TABLET PO SCH (08:14)
[2018-03-22] MEDS: APIXABAN 2.5 MG TABLET PO SCH ×2 (08:14→19:29)
[2018-03-22] MEDS: MULTIVITAMIN TAB PO SCH (08:15)
[2018-03-22] MEDS: JUVEN PACKET PO SCH ×2 (08:18→19:32)
[2018-03-22] MEDS: DOXYCYCLINE 100 MG in NA CHLORIDE 0.9% 100 ML IVPB SCH ×2 (08:46→20:43)
[2018-03-22 13:32] LABS: Potassium 4.1 mmol/L (3.5-5.1)
[2018-03-22 13:33] LABS: Absolute Monocytes 0.8 K/uL (0.1-1.3); Absolute Neutrophil 4.1 K/uL (1.8-8.0); Basophils % 1.5 % (0-1.3); Eosinophils % 3.6 % (0-4.4); Hematocrit 34.6 % (36.0-45.0); Lymphocytes % 15.9 % (15.3-44.8); MPV 9.3 fL (7.6-11.3); Monocytes % 12.5 % (3.3-12.3); RBC Red Blood Cell Count 3.74 M/uL (3.86-4.86)
[2018-03-22] MEDS ORDERED: MEDIHONEY 44 ML TOPICAL TUBE TOP SCH (14:00)
--- NOTE | 2018-03-22 15:43 | FAST ---
SHIFT START DATE/TIME: 03/22/2018 07:00 (TECHNICAL COMMUNICATION TEACHER) SHIFT END DATE/TIME: 03/22/2018 19:00 (TECHNICAL COMMUNICATION TEACHER) NAME SHANDA BARTON DATE OF : 1930 DATE OF ADMISSION: 03/12/2018 12:40 (TECHNICAL COMMUNICATION TEACHER) PHONE: AGE: 88 SSN# [id number] GENDER: Female ENCOUNTER PHYSICIAN: Dr. Aman Lackey M.D. ADMISSION DIAGNOSIS: - Neurologic Conditions 03 - Parkinsonism (03.2) Parkinson's Disease. EATING: EATING - STEP 1: Does the patient require the assistance of a person or device, or need extra time when eating? Yes. EATING - STEP 2: Does the patient require the assistance of a helper? Yes. EATING - STEP 3: Does the patient perform half or more of the eating tasks? Yes. EATING - STEP 4: Does the patient need only supervision, cuing, coaxing OR help to apply an orthosis OR help to cut fo od, open containers, pour liquids, or butter bread? Yes. EATING - SCORE: 5-SUP GROOMING: Comb/brush hair Oral care Wash, rinse, and dry face Wash, rinse, and dry hands GROOMING - STEP 1: Does the patient require the assistance of a person or device, or need extra time when grooming? Yes. GROOMING - STEP 2: Does the patient require the assistance of a helper? No. The patient only requires an assistive devic e, OR takes more than reasonable time to groom, OR there is a concern for safety as the patient groom s GROOMING - SCORE: 6-VINNY BATHING: Activity did not occur on this shift BATHING - SCORE: 0-UNK DRESSING - UPPER BODY: Activity did not occur on this shift ARTICLES SCORE Total number of steps: 0 DRESSING - UPPER BODY - SCORE: 0-UNK DRESSING - LOWER BODY: Activity did not occur on this shift ARTICLES SCORE Total number of steps: 0 DRESSING - LOWER BODY - SCORE: 0-UNK TOILETING: TOILETING - STEP 1: Does the patient require the assistance of a person or device, or need extra time with toileting? Yes . TOILETING - STEP 2: Does the patient require the assistance of a helper? Yes. TOILETING - STEP 3: How much assistance does the patient require from the helper? Hands-on assistance from the helper TOILETING - STEP 4: Of the 3 tasks: 1) Adjusting clothing prior to use, 2) Cleansing of perineal area, 3) Adjusting clot vania after use; How many tasks does the patient perform WITHOUT assistance of the helper? Two tasks TOILETING - SCORE: 3-MOD BLADDER MANAGEMENT: BLADDER MANAGEMENT - STEP 1: Does the patient control the bladder completely and intentionally without equipment or devices or med ications, and is always continent? No. BLADDER MANAGEMENT - STEP 2: Does the patient require the assistance of a helper? No, patient requires and independently uses an a ssistive device, such as a urinal, bedpan, bedside commode, catheter, absorbent pad, or collecting de vice BLADDER MANAGEMENT - SCORE: 6-VINNY BOWEL MANAGEMENT: Activity did not occur on this shift BOWEL MANAGEMENT - SCORE: 7-IND TRANSFERS: BED, CHAIR, WHEELCHAIR: TRANSFERS: BED, CHAIR, WHEELCHAIR - STEP 1: Does the patient require assistance of a person or device, or need extra time with bed, chair, or whe elchair transfers? Yes. TRANSFERS: BED, CHAIR, WHEELCHAIR - STEP 2: Does the patient require the assistance of a helper? Yes. TRANSFERS: BED, CHAIR, WHEELCHAIR - STEP 3: How much assistance does the patient require from the helper? Lifting of the legs TRANSFERS: BED, CHAIR, WHEELCHAIR - STEP 4: How many legs does the patient require the helper to lift? both legs TRANSFERS: BED, CHAIR, WHEELCHAIR - SCORE: 3-MOD TRANSFERS: TOILET: TRANSFERS: TOILET - STEP 1: Does the patient require the assistance of a person or device, or need extra time with toilet transfe rs? Yes. TRANSFERS: TOILET - STEP 2: Does the patient require the assistance of a helper? Yes. TRANSFERS: TOILET - STEP 3: How much assistance does the patient require from the helper? Patient performs half or more of the tr ansferring tasks TRANSFERS: TOILET - STEP 4: Does the patient need only incidental help such as contact guard or steadying during toilet transfer? Yes. TRANSFERS: TOILET - SCORE: 4-MIN TRANSFERS: SHOWER: Activity did not occur on this shift TRANSFERS: SHOWER - SCORE: 0-UNK TRANSFERS: TUB: Activity did not occur on this shift TRANSFERS: TUB - SCORE: 0-UNK LOCOMOTION: WALK: Activity did not occur on this shift LOCOMOTION: WALK - SCORE: 0-UNK LOCOMOTION: WHEELCHAIR: Activity did not occur on this shift LOCOMOTION: WHEELCHAIR - SCORE: 0-UNK COMPREHENSION: COMPREHENSION: TYPE: Both COMPREHENSION - STEP 1: Does the patient require help from a person or device, or need extra time to understand complex and a bstract ideas (such as current events, finances, discharge planning, medical issues, relationships, e tc)? No. COMPREHENSION - STEP 2: Does the patient need extra time, require an assistive device (such as glasses for visual comprehensi on or a hearing aid for auditory comprehension) or does s/he have mild difficulty understanding compl ex and abstract information? Yes. COMPREHENSION - SCORE: 6-VINNY EXPRESSION EXPRESSION: TYPE: Both EXPRESSION - STEP 1: Does the patient require help from a person or device, or need extra time expressing complex and abst ract ideas (such as current events, finances, discharge planning, medical issues, relationships, etc) ? No. EXPRESSION - STEP 2: Does the patient need extra time, require an assistive device (such as augmentive communication syste m or a communication board), OR does s/he have mild difficulty expressing complex and abstract ideas (including mild dysarthria or mild word-find problems)? Yes. EXPRESSION - SCORE: 6-VINNY SOCIAL INTERACTION: SOCIAL INTERACTION - STEP 1: Does the patient require a helper to interact with others in social and therapeutic situations? No. SOCIAL INTERACTION - STEP 2: Does the patient need extra time in social situations, OR does s/he interact with staff, other patien ts, and family members ONLY in structured environments, OR does s/he require medication for social in teraction? Yes, patient needs extra time SOCIAL INTERACTION - SCORE: 6-VINNY PROBLEM SOLVING: PROBLEM SOLVING - STEP 1: Does the patient need help from a person or device, or need extra time to solve complex problems such as managing a checking account or confronting interpersonal problems? No. PROBLEM SOLVING - STEP 2: Does the patient require extra time to make decisions or solve problems, OR does s/he have slight dif ficulty reading, initiating, or self-correcting in unfamiliar situations? Yes, patient needs extra ti me. PROBLEM SOLVING - SCORE: 6-VINNY MEMORY: MEMORY - STEP 1: Does the patient need help from a person or device, or need extra time to remember frequently encount ered people, daily routines, and executing requests? No. MEMORY - STEP 2: Does the patient have slight difficulty recognizing frequently encountered people, daily routines, or executing requests without the need for repetition or using self-initiated or environmental cues to remember? Yes. MEMORY - SCORE: 6-VINNY SIGNATURE PANEL: The following modified sections: Eating - Score, Grooming - Score, Bathing - Score, Dressing - Upper Body - Score, Dressing - Lower Body - Score, Toileting - Score, Bladder Management - Score, Bowel Man agement - Score, Transfers: Bed, Chair, Wheelchair - Score, Transfers: Toilet - Score, Transfers: Sammie wer - Score, Transfers: Tub - Score, Locomotion: Walk - Score, Locomotion: Wheelchair - Score, Compre hension - Score, Expression - Score, Social Interaction - Score, Problem Solving - Score, Memory - Sc ore were [electronically] signed by Floyd Smith on TueMar 22 2018 15:42:45 GMT-0600 (Central Standard Time)
--- NOTE | 2018-03-22 16:17 | P.CNS ---
Date of Consult: 03/22/18 Reason for Consult: CKD Requesting Physician: Aman Lackey Primary Care Provider: Nephrology-Dr. Pruitt Chief Complaint: S.P Fall History of Present Illness: 88 y/o F now admitted to Inpatient Rehab for 3hours therapy under supervision of Doctor, nurse and rehab services. Pt was admitted to the Acute hospital for Fall, Rhabdomylosis and MARGARITO. This acute illness are now resolved and patient admitted to inpatient rehab. No other complains to offer. Patient is an 88-year-old female who came into the hospital after falling. She has had multiple falls recently. She states because of her Parkinson's whenever she bumps in the something she loses her balance and falls down. She was also severely dehydrated. She was admitted to the hospital for further workup. Her lab workup revealed elevated CPK and elevated renal function. Her liver enzymes are also elevated. Patient will need to be admitted to the hospital and treated for her multiple medical issues. Will get physical therapy evaluation and rehab evaluation. Patient may benefit from going to rehab for 7-10 days to increase her strength and to learn ways to prevent her from falling. Will get neurology consultation as well. 17:08 This 88 yrs old Female presents to ER via EMS with complaints of fall, cp general weakness. 17:08 Details of fall: The patient fell from an upright position, while walking. Onset: The cp symptoms/episode began/occurred this morning, at 02:30. Associated injuries: The patient sustained no obvious injury. Patient reports she walking in home without use of walker when she struck left arm against wall and then fell to ground. Patient reports crawling to bathroom and sitting on toilet until found by friends and assisted back to bed. Denies striking head or LOC. Allergies codeine Allergy (Verified 04/08/14 16:12) Itching Penicillins Allergy (Verified 04/08/14 16:12) Hives acetaminophen [From Lortab] Adverse Reaction (Verified 04/08/14 16:15) Rash allopurinol Adverse Reaction (Verified 04/08/14 16:15) Rash carbidopa [From Sinemet] Adverse Reaction (Verified 04/08/14 16:15) Rash fentanyl Adverse Reaction (Verified 04/08/14 16:15) Rash hydrocodone bitartrate [From Lortab] Adverse Reaction (Verified 04/08/14 16:15) Rash levodopa [From Sinemet] Adverse Reaction (Verified 04/08/14 16:15) Rash lidocaine HCl [From Xylocaine] Adverse Reaction (Verified 04/08/14 16:12) Nausea/Vomiting lorazepam [From Ativan] Adverse Reaction (Verified 04/08/14 16:15) Rash propoxyphene HCl [From Darvon] Adverse Reaction (Verified 04/08/14 16:15) Rash rasagiline mesylate [From Azilect] Adverse Reaction (Verified 04/08/14 16:15) Rash ropinirole HCl [From Requip] Adverse Reaction (Verified 04/08/14 16:15) Rash tramadol Adverse Reaction (Verified 04/08/14 16:15) Rash verapamil [Verapamil] Adverse Reaction (Verified 04/08/14 16:15) Rash Home medications list reviewed: Yes Home Medications: ALPRAZolam [Xanax*] 0.5 mg PO DAILY 04/08/14 Atenolol [Tenormin*] 50 mg PO DAILY 04/08/14 Cholecalciferol (Vitamin D3) [Vitamin D-3] 2,000 unit PO DAILY 04/08/14 Colchicine [Colcrys] 0.6 mg PO DAILY 04/08/14 Furosemide [Lasix] 40 mg PO DAILY 04/08/14 Losartan Potassium [Cozaar] 100 mg PO DAILY 04/08/14 Febuxostat [Uloric] 40 mg PO DAILY 03/10/18 Mv-Mn/Folic Acid/Calcium/Vit K [Women's 50 Plus Multivit Tab] 1 tab PO DAILY 10/19 - Past Medical/Surgical History Diabetic: No -: pressure ulcers -: gout -: HTN -: CHF -: parkinsons -: arthritis -: hysterectomy -: lap kelby -: lap appe -: throat surgery -: joint surgery left ring finger - Family History Father Medical History: Heart disease, Hypertension, Stroke Mother Medical History: Heart disease, Hypertension, Stroke Sister Medical History: Stroke - Social History Smoking Status: Never smoker Alcohol use: No CD- Drugs: No Caffeine use: No Place of Residence: Home Review of Systems 10-point ROS is otherwise unremarkable Physical Examination Temp Pulse Resp BP Pulse Ox 96.8 F 66 14 156/64 H 95 03/22/18 08:00 03/22/18 09:33 03/22/18 08:00 03/22/18 09:33 03/22/18 08:00 Laboratory Data (last 24 hrs) 03/22/18 12:21: Sodium 139, Potassium 4.1, BUN 66 H, Creatinine 2.40 H, Glucose 113 H 03/22/18 12:21: WBC 6.1, Hgb 11.7 L, Hct 34.6 L, Plt Count 182 D Imagings Data: EXAM DESCRIPTION: RAD - Chest Pa And Lat (2 Views) - 03/16/2018 3:33 pm CLINICAL HISTORY: Cough and congestion, pneumonia COMPARISON: March 09 TECHNIQUE: PA and lateral views of the chest were obtained. FINDINGS: The lungs are clear. Patient has mild chronic interstitial lung disease similar or less prominent than seen March 09. No new or progressive lung parenchymal process. Heart size is normal and central vasculature is within normal limits. No pleural effusion or pneumothorax seen. No acute bony finding noted. No aortic abnormality. IMPRESSION: Mild chronic interstitial lung disease. Lung markings are less pronounced than seen on March 09. No focal pneumonia identified. No new or progressive finding from prior study. EXAM DESCRIPTION: MRI - Foot Left Wo Cont - 03/15/2018 6:34 pm CLINICAL HISTORY: wound to L foot, R/O Osteomyelitis COMPARISON: No comparisons FINDINGS: Ill-defined soft tissue thickening and edema is seen along the plantar anterior aspect of the left foot. A soft tissue wound is seen at the level of the first metatarsal head plantar aspect. Abnormal diminished T1 signal is seen involving the plantar aspect of the first metatarsal head as well as the base of the proximal phalanx of the great toe. Abnormal marrow signal is also noted involving the interphalangeal joint of the great toe. A fracture is seen involving the plantar base of the distal phalanx of the great toe. These regions demonstrate correlating T2/IR hyperintensity. Abnormal poorly defined diminished areas of T1 signal are seen involving the distal fifth metatarsal head and base of the proximal phalanx of the fifth toe. T2/IR hyperintensity is also present in these regions. No drainable fluid collection. IMPRESSION: Moderate osteomyelitis of the great toe is present with involvement of the first metatarsal head. Mild osteomyelitis also likely present involving the distal fifth metatarsal and proximal phalanx of the fifth toe. EXAM DESCRIPTION: CT - Head C Spine Cap Wo Con - 03/09/2018 5:28 pm CLINICAL HISTORY: Trauma, head and neck injury. Chest, abdomen and pelvis pain. fall, low back pain COMPARISON: No comparisons TECHNIQUE: CT head without contrast. CT cervical spine without contrast with coronal and sagittal reformatted images. CT chest, abdomen and pelvis without contrast with coronal and sagittal reformatted images of the spine. All CT scans are performed using dose optimization technique as appropriate and may include automated exposure control or mA/KV adjustment according to patient size. FINDINGS: CT HEAD WITHOUT CONTRAST: No intracranial hemorrhage, hydrocephalus or extra-axial fluid collection. Mild generalized brain atrophy is present with mild periventricular and deep white matter chronic microvascular ischemic changes. No areas of brain edema or midline shift. Small amount of fluid is seen in both maxillary antra. The calvarium is intact. Mild vertebral atherosclerosis. CT CERVICAL SPINE WITHOUT CONTRAST: No fracture or subluxation. Mild moderate lower cervical spondylosis is present. The prevertebral soft tissues are normal in thickness. CT CHEST, ABDOMEN, PELVIS WITHOUT CONTRAST: NOTE: Lack of contrast is a significant limitation in the assessment of trauma related findings. Specifically, solid organ, vascular and bowel evaluation is significantly limited. The lungs are clear.No pneumothorax or pericardial/pleural fluid. No evidence of intra-abdominal visceral injury, free fluid or free air is seen within the above detailed limitations. No concerning pelvic findings. No fractures. Advanced degenerative changes involve the thoracolumbar spine. IMPRESSION: Negative for acute traumatic findings within the above detailed limitations. Conclusions/Impression: A/ MARGARITO may be due to overdiuresis. CKD III with proteinuria. HTN with CKD. Edema, controlled. 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 Iron Deficiency. Gout. Hypocalcemia. Hypoalbuminemia. Chronic Pain/ Diffuse OA. Chronic pyuria. Acute osteomyelitis of the left 1st toe. P/ Continue current POC and Medications. Agree with abx. Stop Lasix. Give only one MVI. No NSAIDs. AM labs. Daily weight. Encourage nutrition. PT as tolerated. Thank you kindly for the consultation.
--- NOTE | 2018-03-22 16:58 | R.PN ---
ENCOUNTER DATE AND TIME: 03/22/2018 16:56 (DRAWING TRACER) NAME SHANDA BARTON DATE OF : 1930 DATE OF ADMISSION: 03/12/2018 12:40 (DRAWING TRACER) Parkinson's DiseaseCHIEF COMPLAINT: Postural and gait instability secondary to Parkinson's disease. SUBJECTIVE: Pt denied any depression. Pt denied any Shortness of Breath. Self-propelled wheelchair 450 feet with standby assistance. Ambulated 115' with standby assistance us ing a rolling walker with slow kyphotic erika. Up and down 15 steps with standby assistance. MRI of the left foot shows moderate osteomyelitis of the first metatarsal head. Dr. Harley and Dr. Mitzy olvera are following the patient. Continue vancomycin per ID. Chest x-ray shows chronic interstitial raffi g disease. No pneumonia. VITAL SIGNS Temperature: 98 F SBP/DBP: 156/64 Pulse: 66 Resp: 16 MEDICATION ALLERGIES: Codeine Penicillin Acetaminophen allopurinol carbidopa fentanyl hydrocodone bitartrate levodopa lidocaine lorazepam Propoxyphene HCl rasagiline mesylate ropinirole HCl TRAMADOL verapamil ENVIRONMENTAL ALLERGIES: None Known - Substance Allergies None Known - Other Allergies None Known CONSULT: Perform Neuro consult NURSING: - Shower allowing shower ACTIVITIES OOB only with supervision THERAPIES: - Occupational Therapy Evaluate and Treat. - Speech Therapy Memory Strategies. Speech Intelligibility Training. - Physical Therapy Evaluate and Treat. PHYSICAL EXAM - Gen Alert and awake Lying in bed No apparent distress Oriented to: person, time, and place - Skin No skin breakdown. Normacephalic - Eyes No abnormalities - ENMT No abnormalities - Neck No abnormalities - CVS RRR - Chest Clear - Resp Clear to auscultation - Abd Soft - GI Soft Deferred - No abnormalities - Ext no edema - MSK 4/5 weakness in both lower extremities. - Neuro 4/5 strength right upper and lower extremities. - Psych No abnormalities ASSESSMENT: Pt. is a 88 yo Right-handed white female.On 03/09/2018 she was admitted to [facility] with diagnosis Parkinson's Disease.Her impairment category is Neurologic Conditions 03 - [place] insoni (03.2).Pre-morbidly, Pt. was independent/mod-I in Sphincter Control, Transfers Control, Comm unication, Social Cognition, Self-Care, and Locomotion; and she had good Sphincter Control.Currently, she has deficits of Endurance, Safety Awareness, Transfers Control, Balance, Locomotion, and Self-Ca re.Pt. is now referred to [facility] for acute in-patient rehabilitation in [place] to maximize patient's functional independence in activities of daily living, strength, ROM, and m obility.- Rehab Goal Patient has realistic goal of being discharged at assistance level 4-Dorota to reside at Home with Fam soumya/Relatives. MDM/PLAN: - Physical Therapy Gait dysfunction - to improve, our physical therapists will perform initial evaluation of pt's statu s upon admission and devise an individualized program for Gait Training, and Wheel Chair mobility Inability to transfer - to improve, our physical therapists will perform initial evaluation of pt's status upon admission and devise an individualized program for Bed mobility Need for home safety evaluation - to improve, our physical therapists will perform initial evaluatio n of pt's status upon admission and devise an individualized program for Home Evaluation Need in caregiver upon discharge - to improve, our physical therapists will perform initial evaluati on of pt's status upon admission and devise an individualized program for Caregiver Training New precaution - to improve, our physical therapists will perform initial evaluation of pt's status upon admission and devise an individualized program for Patient precaution education Poor balance - to improve, our physical therapists will perform initial evaluation of pt's status up on admission and devise an individualized program for Balance Training Poor endurance - to improve, our physical therapists will perform initial evaluation of pt's status upon admission and devise an individualized program for Endurance Training Weakness - to improve, our physical therapists will perform initial evaluation of pt's status upon a dmission and devise an individualized program for Aquatic Therapy, Neuromuscular Reeducation, and Str engthening Achieving independence - to improve, our physical therapists will perform initial evaluation of pt's status upon admission and devise an individualized program for Community Reintegration Activities - Occupational Therapy ADL deficits - to improve, our occupation therapists will perform initial evaluation of pt's status upon admission and devise an individualized program for Bathing, Bed mobility, Community Reintegratio n, Cooking, Dressing, Eating, Fine Motor Skills, Grooming, Homemaking, Kitchen Mobility, Laundry, Pat ient Education, Safety Awareness, Splinting - Positioning, Transfers(Toilet, Tub, Shower), and Wheel Chair Management Need for customer care specialist - to improve, our occupation therapists will perform initial evaluation of pt's status upon admission and devise an individualized program for Caregiver Training Weakness - to improve, our occupation therapists will perform initial evaluation of pt's status upon admission and devise an individualized program for Aquatic Therapy, Balance, Endurance, UE ROM, and UE strengthening - Diet Type Continue Regular - Diet - Liquid Texture Continue Regular - Tube Feed Continue N/A - N/A Perform Neuro consult - Diet - Solid Texture Continue Regular - Shower allowing shower FUNCTIONAL STATUS: UPDATED AT WEEKLY TEAM CONFERENCE - Bladder Same accident frequency: 7-Ind - No accidents in the past 7 days - Bowel Same accident frequency: 7-Ind - No accidents in the past 7 days - Walking Same score based on distance walked: 2(50-149ft) - Wheelchair Same score based on distance traveled: 0(N/A) FUNCTIONAL STATUS: - Self-Care A. Eating Ind B. Grooming Ind C. Bathing sup D. Dressing - Upper sup E. Dressing - Lower sup F. Toileting sup - Sphincter Control G: Bladder control Ind H: Bowel control Ind - Transfers Control I. Bed/Chair/Wheelchair modA J. Toilet Dorota K. Tub/Shower ADNO - Locomotion L. Walk/Wheelchair (C) Dorota L. Walk/Wheelchair (W) Dorota M. Stairs ADNO - Communication N. Comprehension (B) Ind O. Expression (B) Ind - Social Cognition P. Social Interaction Ind Q. Problem Solving Ind R. Memory Ind - Endurance Fair - Balance Fair - Safety Awareness Fair CURRENT [facility]. DEFICITS: Endurance, Safety Awareness, Transfers Control, Balance, Locomotion, and Self-Care SIGNATURE PANEL: (DRAWING TRACER)
--- NOTE | 2018-03-22 17:11 | PN ---
Subjective: The patient is sitting in wheelchair. Denies any headache, nausea, vomiting, chest pain , abdominal pain, constipation, or diarrhea. Objective: Vital Signs: Temperature 96.8, pulse 66, respirations 14, blood pressure 156/64. Lungs: Basal crackles. Heart: S1, S2. Regular. Abdomen: Soft, nontender. Bowel sounds positive. Extremity: No edema right foot. Skin: Left foot wound noted at the metatarsal region. Laboratory Data: Reviewed. Medications: Current antibiotic includes Cipro and doxycycline. Assessment And Plan: Osteomyelitis of left first metatarsal. Renal insufficiency. Vancomycin was s tarted and the patient was switched to doxycycline and Cipro. Continue antibiotic and supportive car e. Repeat BMP. We will follow the patient as needed. NF/MODL Voice ID: [id number] Report ID: [id number]
[2018-03-22] MEDS: Ciprofloxacin 200mg IV 200 MG/100 ML IV.SOLN. IV SCH (19:33)
[2018-03-22] MEDS: ALPRAZOLAM 0.5 MG TABLET PO SCH (20:44)
--- NOTE | 2018-03-23 01:33 | FAST ---
SHIFT START DATE/TIME: 03/22/2018 19:00 (CAMP MAINTENANCE SUPERVISOR) SHIFT END DATE/TIME: 03/23/2018 07:00 (CAMP MAINTENANCE SUPERVISOR) NAME SHANDA BARTON DATE OF : 1930 DATE OF ADMISSION: 03/12/2018 12:40 (CAMP MAINTENANCE SUPERVISOR) PHONE: AGE: 88 SSN# [id number] GENDER: Female ENCOUNTER PHYSICIAN: Dr. Aman Lackey M.D. ADMISSION DIAGNOSIS: - Neurologic Conditions 03 - Parkinsonism (03.2) Parkinson's Disease. EATING: Activity did not occur on this shift EATING - SCORE: 0-UNK GROOMING: Activity did not occur on this shift GROOMING - SCORE: 0-UNK BATHING: Activity did not occur on this shift BATHING - SCORE: 0-UNK DRESSING - UPPER BODY: Patient is not dressing in public clothing ARTICLES SCORE Total number of steps: 0 DRESSING - UPPER BODY - SCORE: 0-UNK DRESSING - LOWER BODY: Patient is not dressing in public clothing ARTICLES SCORE Total number of steps: 0 DRESSING - LOWER BODY - SCORE: 0-UNK TOILETING: TOILETING - STEP 1: Does the patient require the assistance of a person or device, or need extra time with toileting? Yes . TOILETING - STEP 2: Does the patient require the assistance of a helper? Yes. TOILETING - STEP 3: How much assistance does the patient require from the helper? Hands-on assistance from the helper TOILETING - STEP 4: Of the 3 tasks: 1) Adjusting clothing prior to use, 2) Cleansing of perineal area, 3) Adjusting clot vania after use; How many tasks does the patient perform WITHOUT assistance of the helper? No tasks; h elper performs all three tasks TOILETING - SCORE: 1-DEP BLADDER MANAGEMENT: Duncan removes incontinent device (Depends, pull ups, etc.); cleans the patient after accident / inco ntinent episode; and, applies new incontinent device. BLADDER MANAGEMENT - SCORE: 1-DEP BOWEL MANAGEMENT: Activity did not occur on this shift BOWEL MANAGEMENT - SCORE: 7-IND TRANSFERS: BED, CHAIR, WHEELCHAIR: TRANSFERS: BED, CHAIR, WHEELCHAIR - STEP 1: Does the patient require assistance of a person or device, or need extra time with bed, chair, or whe elchair transfers? Yes. TRANSFERS: BED, CHAIR, WHEELCHAIR - STEP 2: Does the patient require the assistance of a helper? Yes. TRANSFERS: BED, CHAIR, WHEELCHAIR - STEP 3: How much assistance does the patient require from the helper? Lifting of the patient TRANSFERS: BED, CHAIR, WHEELCHAIR - STEP 4: Does the helper lift the patient ONLY up? ONLY down? Up AND Down? ONLY up. TRANSFERS: BED, CHAIR, WHEELCHAIR - SCORE: 3-MOD TRANSFERS: TOILET: TRANSFERS: TOILET - STEP 1: Does the patient require the assistance of a person or device, or need extra time with toilet transfe rs? Yes. TRANSFERS: TOILET - STEP 2: Does the patient require the assistance of a helper? Yes. TRANSFERS: TOILET - STEP 3: How much assistance does the patient require from the helper? Patient performs half or more of the tr ansferring tasks TRANSFERS: TOILET - STEP 4: Does the patient need only incidental help such as contact guard or steadying during toilet transfer? No. Patient needs more than incidental help TRANSFERS: TOILET - SCORE: 3-MOD TRANSFERS: SHOWER: Activity did not occur on this shift TRANSFERS: SHOWER - SCORE: 0-UNK TRANSFERS: TUB: Activity did not occur on this shift TRANSFERS: TUB - SCORE: 0-UNK LOCOMOTION: WALK: Activity did not occur on this shift LOCOMOTION: WALK - SCORE: 0-UNK LOCOMOTION: WHEELCHAIR: Activity did not occur on this shift LOCOMOTION: WHEELCHAIR - SCORE: 0-UNK COMPREHENSION: COMPREHENSION: TYPE: Both COMPREHENSION - STEP 1: Does the patient require help from a person or device, or need extra time to understand complex and a bstract ideas (such as current events, finances, discharge planning, medical issues, relationships, e tc)? Yes. COMPREHENSION - STEP 2: Does the patient require help to understand questions or statements about basic needs or ideas (such as hunger, thirst, sleep, safety, daily schedule, room location, or discomfort) half or more of the t carissa? No. COMPREHENSION - STEP 3: How often does the patient need help to understand directions and conversation about basic needs? 10% - 24% of the time COMPREHENSION - SCORE: 4-MIN EXPRESSION EXPRESSION: TYPE: Both EXPRESSION - STEP 1: Does the patient require help from a person or device, or need extra time expressing complex and abst ract ideas (such as current events, finances, discharge planning, medical issues, relationships, etc) ? No. EXPRESSION - STEP 2: Does the patient need extra time, require an assistive device (such as augmentive communication syste m or a communication board), OR does s/he have mild difficulty expressing complex and abstract ideas (including mild dysarthria or mild word-find problems)? Yes. EXPRESSION - SCORE: 6-VINNY SOCIAL INTERACTION: SOCIAL INTERACTION - STEP 1: Does the patient require a helper to interact with others in social and therapeutic situations? No. SOCIAL INTERACTION - STEP 2: Does the patient need extra time in social situations, OR does s/he interact with staff, other patien ts, and family members ONLY in structured environments, OR does s/he require medication for social in teraction? Yes, patient needs extra time SOCIAL INTERACTION - SCORE: 6-VINNY PROBLEM SOLVING: PROBLEM SOLVING - STEP 1: Does the patient need help from a person or device, or need extra time to solve complex problems such as managing a checking account or confronting interpersonal problems? Yes. PROBLEM SOLVING - STEP 2: Does the patient solve basic routine problems half or more of the time? Yes. PROBLEM SOLVING - STEP 3: How often does the patient need help to solve basic routine problems? 10%-24% of the time PROBLEM SOLVING - SCORE: 4-MIN MEMORY: MEMORY - STEP 1: Does the patient need help from a person or device, or need extra time to remember frequently encount ered people, daily routines, and executing requests? No. MEMORY - STEP 2: Does the patient have slight difficulty recognizing frequently encountered people, daily routines, or executing requests without the need for repetition or using self-initiated or environmental cues to remember? Yes. MEMORY - SCORE: 6-VINNY SIGNATURE PANEL: The following modified sections: Eating - Score, Grooming - Score, Dressing - Upper Body - Score, Emmanuel ssing - Lower Body - Score, Toileting - Score, Bladder Management - Score, Bowel Management - Score, Transfers: Bed, Chair, Wheelchair - Score, Transfers: Toilet - Score, Transfers: Shower - Score, Meyer sfers: Tub - Score, Locomotion: Walk - Score, Locomotion: Wheelchair - Score, Comprehension - Score, Expression - Score, Social Interaction - Score, Problem Solving - Score, Memory - Score were [electro nically] signed by Tamela Carmela, MARKET NEWS REPORTER on TueMar 23 2018 01:32:44 GMT-0600 (Central Standard Time)
[2018-03-23 06:37] LABS: Absolute Lymphocytes (CBC) 1.1 K/uL (0.7-4.9); Absolute Monocytes 0.9 K/uL (0.1-1.3); Absolute Neutrophil 3.8 K/uL (1.8-8.0); Basophils % 0.6 % (0-1.3); Eosinophils % 4.4 % (0-4.4); Hematocrit 30.5 % (36.0-45.0); Lymphocytes % 18.2 % (15.3-44.8); MPV 9.6 fL (7.6-11.3); Monocytes % 14.6 % (3.3-12.3); RBC Red Blood Cell Count 3.31 M/uL (3.86-4.86)
[2018-03-23 07:08] LABS: Albumin 2.4 g/dL (3.4-5.0); Bilirubin Direct 0.1 mg/dL (0-0.2); Bilirubin Total 0.4 mg/dL (0.2-1.0); Phosphorus 4.7 mg/dL (2.5-4.9); Potassium 4.3 mmol/L (3.5-5.1); Prealbumin 12.3 mg/dL (20-40); Protein, Total 5.7 g/dL (6.4-8.2)
[2018-03-23] MEDS: JUVEN PACKET PO SCH ×2 (08:00→20:27)
[2018-03-23 08:21] LABS: Blood Morphology Comment NOT SEEN (NOT SEEN); Platelet Estimate ADEQ
[2018-03-23] MEDS: DOXYCYCLINE 100 MG in NA CHLORIDE 0.9% 100 ML IVPB SCH ×2 (08:42→21:26)
[2018-03-23] MEDS: COLCHICINE 0.6 MG TAB PO SCH (08:51)
[2018-03-23] MEDS: FE SULF/FA/VIT B COMP & C TAB PO SCH (08:51)
[2018-03-23] MEDS: VITAMIN D 1000 UNIT TAB PO SCH (08:52)
[2018-03-23] MEDS: HYDRALAZINE HCL 25 MG TABLET PO SCH ×2 (08:52→20:28)
[2018-03-23] MEDS: APIXABAN 2.5 MG TABLET PO SCH ×2 (08:53→20:27)
[2018-03-23] MEDS: LOSARTAN POTASSIUM 50 MG TABLET PO SCH (08:53)
[2018-03-23] MEDS: PROPRANOLOL HCL 10 MG TAB PO SCH ×2 (08:53→20:27)
[2018-03-23] MEDS: COLLAGENASE 30 GM OINTMENT TOP SCH (08:54)
[2018-03-23] MEDS: ASPIRIN PO SCH (08:55)
[2018-03-23] MEDS: CAFFEINE PO SCH (08:55)
--- NOTE | 2018-03-23 11:42 | FAST ---
SHIFT START DATE/TIME: 03/23/2018 07:00 (LABORER FILTER PLANT) SHIFT END DATE/TIME: 03/23/2018 19:00 (LABORER FILTER PLANT) NAME SHANDA BARTON DATE OF : 1930 DATE OF ADMISSION: 03/12/2018 12:40 (LABORER FILTER PLANT) PHONE: AGE: 88 SSN# [id number] GENDER: Female ENCOUNTER PHYSICIAN: Dr. Aman Lackey M.D. ADMISSION DIAGNOSIS: - Neurologic Conditions 03 - Parkinsonism (03.2) Parkinson's Disease. EATING: EATING - STEP 1: Does the patient require the assistance of a person or device, or need extra time when eating? Yes. EATING - STEP 2: Does the patient require the assistance of a helper? No, patient only requires an assistive device, O R s/he takes more than reasonable time to eat, OR there is a safety concern, OR s/he requires modifie d food consistency EATING - SCORE: 6-VINNY GROOMING: Comb/brush hair Oral care Wash, rinse, and dry face Wash, rinse, and dry hands GROOMING - STEP 1: Does the patient require the assistance of a person or device, or need extra time when grooming? Yes. GROOMING - STEP 2: Does the patient require the assistance of a helper? No. The patient only requires an assistive devic e, OR takes more than reasonable time to groom, OR there is a concern for safety as the patient groom s GROOMING - SCORE: 6-VINNY BATHING: Activity did not occur on this shift BATHING - SCORE: 0-UNK DRESSING - UPPER BODY: T-shirt/pullover shirt (four steps) ARTICLES SCORE Total number of steps: 4 DRESSING - UPPER BODY - STEP 1: Does the patient require help from a person or device, or need extra time when dressing above the jess st? Yes. DRESSING - UPPER BODY - STEP 2: Does the patient require the assistance of a helper? Yes. DRESSING - UPPER BODY - STEP 3: Does the helper touch the patient while dressing? No. DRESSING - UPPER BODY - SCORE: 5-SUP DRESSING - LOWER BODY: ARTICLES SCORE Total number of steps: 4 DRESSING - LOWER BODY - STEP 1: Does the patient require help from a person or device, or need extra time when dressing below the jess st? Yes. DRESSING - LOWER BODY - STEP 2: Does the patient require the assistance of a helper? Yes. DRESSING - LOWER BODY - STEP 3: Does the helper touch the patient while dressing? Yes. DRESSING - LOWER BODY - STEP 4: How many of the total steps does the patient complete on his/her own? 4 DRESSING - LOWER BODY - SCORE: 4-MIN TOILETING: TOILETING - STEP 1: Does the patient require the assistance of a person or device, or need extra time with toileting? Yes . TOILETING - STEP 2: Does the patient require the assistance of a helper? Yes. TOILETING - STEP 3: How much assistance does the patient require from the helper? Hands-on assistance from the helper TOILETING - STEP 4: Of the 3 tasks: 1) Adjusting clothing prior to use, 2) Cleansing of perineal area, 3) Adjusting clot vania after use; How many tasks does the patient perform WITHOUT assistance of the helper? Two tasks TOILETING - SCORE: 3-MOD BLADDER MANAGEMENT: BLADDER MANAGEMENT - STEP 1: Does the patient control the bladder completely and intentionally without equipment or devices or med ications, and is always continent? No. BLADDER MANAGEMENT - STEP 2: Does the patient require the assistance of a helper? No, patient requires and independently uses an a ssistive device, such as a urinal, bedpan, bedside commode, catheter, absorbent pad, or collecting de vice BLADDER MANAGEMENT - SCORE: 6-VINNY BOWEL MANAGEMENT: Activity did not occur on this shift BOWEL MANAGEMENT - SCORE: 7-IND TRANSFERS: BED, CHAIR, WHEELCHAIR: TRANSFERS: BED, CHAIR, WHEELCHAIR - STEP 1: Does the patient require assistance of a person or device, or need extra time with bed, chair, or whe elchair transfers? Yes. TRANSFERS: BED, CHAIR, WHEELCHAIR - STEP 2: Does the patient require the assistance of a helper? Yes. TRANSFERS: BED, CHAIR, WHEELCHAIR - STEP 3: How much assistance does the patient require from the helper? Lifting of the patient TRANSFERS: BED, CHAIR, WHEELCHAIR - STEP 4: Does the helper lift the patient ONLY up? ONLY down? Up AND Down? ONLY up. TRANSFERS: BED, CHAIR, WHEELCHAIR - SCORE: 3-MOD TRANSFERS: TOILET: TRANSFERS: TOILET - STEP 1: Does the patient require the assistance of a person or device, or need extra time with toilet transfe rs? Yes. TRANSFERS: TOILET - STEP 2: Does the patient require the assistance of a helper? Yes. TRANSFERS: TOILET - STEP 3: How much assistance does the patient require from the helper? Patient performs half or more of the tr ansferring tasks TRANSFERS: TOILET - STEP 4: Does the patient need only incidental help such as contact guard or steadying during toilet transfer? No. Patient needs more than incidental help TRANSFERS: TOILET - SCORE: 3-MOD TRANSFERS: SHOWER: Activity did not occur on this shift TRANSFERS: SHOWER - SCORE: 0-UNK TRANSFERS: TUB: Activity did not occur on this shift TRANSFERS: TUB - SCORE: 0-UNK LOCOMOTION: WALK: Activity did not occur on this shift LOCOMOTION: WALK - SCORE: 0-UNK LOCOMOTION: WHEELCHAIR: Activity did not occur on this shift LOCOMOTION: WHEELCHAIR - SCORE: 0-UNK COMPREHENSION: COMPREHENSION: TYPE: Both COMPREHENSION - STEP 1: Does the patient require help from a person or device, or need extra time to understand complex and a bstract ideas (such as current events, finances, discharge planning, medical issues, relationships, e tc)? No. COMPREHENSION - STEP 2: Does the patient need extra time, require an assistive device (such as glasses for visual comprehensi on or a hearing aid for auditory comprehension) or does s/he have mild difficulty understanding compl ex and abstract information? Yes. COMPREHENSION - SCORE: 6-VINNY EXPRESSION EXPRESSION: TYPE: Both EXPRESSION - STEP 1: Does the patient require help from a person or device, or need extra time expressing complex and abst ract ideas (such as current events, finances, discharge planning, medical issues, relationships, etc) ? No. EXPRESSION - STEP 2: Does the patient need extra time, require an assistive device (such as augmentive communication syste m or a communication board), OR does s/he have mild difficulty expressing complex and abstract ideas (including mild dysarthria or mild word-find problems)? Yes. EXPRESSION - SCORE: 6-VINNY SOCIAL INTERACTION: SOCIAL INTERACTION - STEP 1: Does the patient require a helper to interact with others in social and therapeutic situations? No. SOCIAL INTERACTION - STEP 2: Does the patient need extra time in social situations, OR does s/he interact with staff, other patien ts, and family members ONLY in structured environments, OR does s/he require medication for social in teraction? Yes, patient needs extra time SOCIAL INTERACTION - SCORE: 6-VINNY PROBLEM SOLVING: PROBLEM SOLVING - STEP 1: Does the patient need help from a person or device, or need extra time to solve complex problems such as managing a checking account or confronting interpersonal problems? No. PROBLEM SOLVING - STEP 2: Does the patient require extra time to make decisions or solve problems, OR does s/he have slight dif ficulty reading, initiating, or self-correcting in unfamiliar situations? Yes, patient needs extra ti me. PROBLEM SOLVING - SCORE: 6-VINNY MEMORY: MEMORY - STEP 1: Does the patient need help from a person or device, or need extra time to remember frequently encount ered people, daily routines, and executing requests? No. MEMORY - STEP 2: Does the patient have slight difficulty recognizing frequently encountered people, daily routines, or executing requests without the need for repetition or using self-initiated or environmental cues to remember? Yes. MEMORY - SCORE: 6-VINNY SIGNATURE PANEL: The following modified sections: Eating - Score, Grooming - Score, Bathing - Score, Dressing - Upper Body - Score, Dressing - Lower Body - Score, Toileting - Score, Bladder Management - Score, Bowel Man agement - Score, Transfers: Bed, Chair, Wheelchair - Score, Transfers: Toilet - Score, Transfers: Sammie wer - Score, Transfers: Tub - Score, Locomotion: Walk - Score, Locomotion: Wheelchair - Score, Compre hension - Score, Expression - Score, Social Interaction - Score, Problem Solving - Score, Memory - Sc ore were [electronically] signed by Floyd Smith on TueMar 23 2018 11:41:31 GMT-0600 (Central Standard Time)
[2018-03-23] MEDS ORDERED: FERROUS SULFATE 325 MG TAB PO SCH (12:00)
--- NOTE | 2018-03-23 15:39 | FAST ---
ENCOUNTER DATE AND TIME: 03/22/2018 08:00 (SLATE CUTTER OPERATOR) NAME SHANDA BARTON DATE OF : 1930 DATE OF ADMISSION: 03/12/2018 12:40 (SLATE CUTTER OPERATOR) PHONE: AGE: 88 SSN# [id number] GENDER: Female ENCOUNTER PHYSICIAN: Dr. Aman Lackey M.D. ADMISSION DIAGNOSIS: - Neurologic Conditions 03 - Parkinsonism (03.2) Parkinson's Disease. EATING: Activity did not occur on this shift EATING - SCORE: 0-UNK GROOMING: Activity did not occur on this shift GROOMING - SCORE: 0-UNK BATHING: Activity did not occur on this shift BATHING - SCORE: 0-UNK DRESSING - UPPER BODY: Activity did not occur on this shift Patient is not dressing in public clothing ARTICLES SCORE Total number of steps: 0 DRESSING - UPPER BODY - SCORE: 0-UNK DRESSING - LOWER BODY: Activity did not occur on this shift Patient is not dressing in public clothing ARTICLES SCORE Total number of steps: 0 DRESSING - LOWER BODY - SCORE: 0-UNK TOILETING: Activity did not occur on this shift TOILETING - SCORE: 0-UNK BLADDER MANAGEMENT: Activity did not occur on this shift BLADDER MANAGEMENT - SCORE: 7-IND BOWEL MANAGEMENT: Activity did not occur on this shift BOWEL MANAGEMENT - SCORE: 7-IND TRANSFERS: BED, CHAIR, WHEELCHAIR: TRANSFERS: BED, CHAIR, WHEELCHAIR - STEP 1: Does the patient require assistance of a person or device, or need extra time with bed, chair, or whe elchair transfers? Yes. TRANSFERS: BED, CHAIR, WHEELCHAIR - STEP 2: Does the patient require the assistance of a helper? Yes. TRANSFERS: BED, CHAIR, WHEELCHAIR - STEP 3: How much assistance does the patient require from the helper? Steadying/guiding assistance TRANSFERS: BED, CHAIR, WHEELCHAIR - SCORE: 4-MIN TRANSFERS: TOILET: Activity did not occur on this shift TRANSFERS: TOILET - SCORE: 0-UNK TRANSFERS: SHOWER: Activity did not occur on this shift TRANSFERS: SHOWER - SCORE: 0-UNK TRANSFERS: TUB: Activity did not occur on this shift TRANSFERS: TUB - SCORE: 0-UNK LOCOMOTION: WALK: LOCOMOTION: WALK - STEP 1: Does the patient need help from a person or device, or need extra time to walk 150 feet? Yes. LOCOMOTION: WALK - STEP 2: How much assistance does the patient require to walk a minimum of 150 feet? Only supervision, cuing, or coaxing LOCOMOTION: WALK - SCORE: 5-SUP LOCOMOTION: WHEELCHAIR: LOCOMOTION: WHEELCHAIR - STEP 1: Does the patient need help to go 150 feet in a wheelchair? Yes. LOCOMOTION: WHEELCHAIR - STEP 2: How much assistance does the patient need from the helper? Only supervision, cuing, or coaxing LOCOMOTION: WHEELCHAIR - SCORE: 5-SUP LOCOMOTION: STAIRS: LOCOMOTION: STAIRS - STEP 1: Does the patient need help to go up and down 12 to 14 stairs? Yes. LOCOMOTION: STAIRS - STEP 2: How much assistance does the patient need from the helper to go a minimum of 12 to 14 stairs? Only barillas pervision, cuing, or coaxing LOCOMOTION: STAIRS - SCORE: 5-SUP COMPREHENSION: COMPREHENSION - SCORE: 0-UNK EXPRESSION EXPRESSION - SCORE: 0-UNK SOCIAL INTERACTION: SOCIAL INTERACTION - SCORE: 0-UNK PROBLEM SOLVING: PROBLEM SOLVING - SCORE: 0-UNK MEMORY: MEMORY - SCORE: 0-UNK SIGNATURE PANEL: The following modified sections: Transfers: Bed, Chair, Wheelchair - Score, Transfers: Toilet - Score , Locomotion: Walk - Score, Locomotion: Wheelchair - Score, Locomotion: Stairs - Score were [electron mary] signed by Joon Persaud PTA on TueMar 23 2018 15:38:33 GMT-0600 (Central Standard Time)
--- NOTE | 2018-03-23 15:40 | FAST ---
ENCOUNTER DATE AND TIME: 03/23/2018 08:00 (LIME FILTER OPERATOR) NAME SHANDA BARTON DATE OF : 1930 DATE OF ADMISSION: 03/12/2018 12:40 (LIME FILTER OPERATOR) PHONE: AGE: 88 SSN# [id number] GENDER: Female ENCOUNTER PHYSICIAN: Dr. Aman Lackey M.D. ADMISSION DIAGNOSIS: - Neurologic Conditions 03 - Parkinsonism (03.2) Parkinson's Disease. EATING: Activity did not occur on this shift EATING - SCORE: 0-UNK GROOMING: Activity did not occur on this shift GROOMING - SCORE: 0-UNK BATHING: Activity did not occur on this shift BATHING - SCORE: 0-UNK DRESSING - UPPER BODY: Activity did not occur on this shift Patient is not dressing in public clothing ARTICLES SCORE Total number of steps: 0 DRESSING - UPPER BODY - SCORE: 0-UNK DRESSING - LOWER BODY: Activity did not occur on this shift Patient is not dressing in public clothing ARTICLES SCORE Total number of steps: 0 DRESSING - LOWER BODY - SCORE: 0-UNK TOILETING: Activity did not occur on this shift TOILETING - SCORE: 0-UNK BLADDER MANAGEMENT: Activity did not occur on this shift BLADDER MANAGEMENT - SCORE: 7-IND BOWEL MANAGEMENT: Activity did not occur on this shift BOWEL MANAGEMENT - SCORE: 7-IND TRANSFERS: BED, CHAIR, WHEELCHAIR: TRANSFERS: BED, CHAIR, WHEELCHAIR - STEP 1: Does the patient require assistance of a person or device, or need extra time with bed, chair, or whe elchair transfers? Yes. TRANSFERS: BED, CHAIR, WHEELCHAIR - STEP 2: Does the patient require the assistance of a helper? Yes. TRANSFERS: BED, CHAIR, WHEELCHAIR - STEP 3: How much assistance does the patient require from the helper? Steadying/guiding assistance TRANSFERS: BED, CHAIR, WHEELCHAIR - SCORE: 4-MIN TRANSFERS: TOILET: Activity did not occur on this shift TRANSFERS: TOILET - SCORE: 0-UNK TRANSFERS: SHOWER: Activity did not occur on this shift TRANSFERS: SHOWER - SCORE: 0-UNK TRANSFERS: TUB: Activity did not occur on this shift TRANSFERS: TUB - SCORE: 0-UNK LOCOMOTION: WALK: Activity did not occur on this shift LOCOMOTION: WALK - SCORE: 0-UNK LOCOMOTION: WHEELCHAIR: LOCOMOTION: WHEELCHAIR - STEP 1: Does the patient need help to go 150 feet in a wheelchair? Yes. LOCOMOTION: WHEELCHAIR - STEP 2: How much assistance does the patient need from the helper? Only supervision, cuing, or coaxing LOCOMOTION: WHEELCHAIR - SCORE: 5-SUP LOCOMOTION: STAIRS: Activity did not occur on this shift LOCOMOTION: STAIRS - SCORE: 0-UNK COMPREHENSION: COMPREHENSION - SCORE: 0-UNK EXPRESSION EXPRESSION - SCORE: 0-UNK SOCIAL INTERACTION: SOCIAL INTERACTION - SCORE: 0-UNK PROBLEM SOLVING: PROBLEM SOLVING - SCORE: 0-UNK MEMORY: MEMORY - SCORE: 0-UNK SIGNATURE PANEL: The following modified sections: Transfers: Bed, Chair, Wheelchair - Score, Transfers: Toilet - Score , Locomotion: Walk - Score, Locomotion: Wheelchair - Score, Locomotion: Stairs - Score were [electron mary] signed by Joon Persaud PTA on TueMar 23 2018 15:39:38 GMT-0600 (Central Standard Time)
--- NOTE | 2018-03-23 17:32 | R.PN ---
ENCOUNTER DATE AND TIME: 03/23/2018 17:29 (SHAMPOOER) NAME SHANDA BARTON DATE OF : 1930 DATE OF ADMISSION: 03/12/2018 12:40 (SHAMPOOER) Parkinson's DiseaseCHIEF COMPLAINT: Postural and gait instability secondary to Parkinson's disease. SUBJECTIVE: Pt denied any depression. Pt denied any Shortness of Breath. Self-propelled wheelchair 500' with standby assistance. Ambulated 115' with standby assistance using a rolling walker with slow kyphotic erika. Up and down 15 steps with standby assistance. MRI of the left foot shows moderate osteomyelitis of the first metatarsal head. Dr. Harley and Dr. Mitzy olvera are following the patient. Continue vancomycin per ID. Chest x-ray shows chronic interstitial raffi g disease. No pneumonia. VITAL SIGNS Temperature: 98 F SBP/DBP: 139/60 Pulse: 65 Resp: 14 MEDICATION ALLERGIES: Codeine Penicillin Acetaminophen allopurinol carbidopa fentanyl hydrocodone bitartrate levodopa lidocaine lorazepam Propoxyphene HCl rasagiline mesylate ropinirole HCl TRAMADOL verapamil ENVIRONMENTAL ALLERGIES: None Known - Substance Allergies None Known - Other Allergies None Known CONSULT: Perform Neuro consult NURSING: - Shower allowing shower ACTIVITIES OOB only with supervision THERAPIES: - Occupational Therapy Evaluate and Treat. - Speech Therapy Memory Strategies. Speech Intelligibility Training. - Physical Therapy Evaluate and Treat. PHYSICAL EXAM - Gen Alert and awake Lying in bed No apparent distress Oriented to: person, time, and place - Skin No skin breakdown. Normacephalic - Eyes No abnormalities - ENMT No abnormalities - Neck No abnormalities - CVS RRR - Chest Clear - Resp Clear to auscultation - Abd Soft - GI Soft Deferred - No abnormalities - Ext no edema - MSK 4/5 weakness in both lower extremities. - Neuro 4/5 strength right upper and lower extremities. - Psych No abnormalities ASSESSMENT: Pt. is a 88 yo Right-handed white female.On 03/09/2018 she was admitted to [facility] with diagnosis Parkinson's Disease.Her impairment category is Neurologic Conditions 03 - [place] insonism (03.2).Pre-morbidly, Pt. was independent/mod-I in Sphincter Control, Transfers Control, Comm unication, Social Cognition, Self-Care, and Locomotion; and she had good Sphincter Control.Currently, she has deficits of Endurance, Safety Awareness, Transfers Control, Balance, Locomotion, and Self-Ca re.Pt. is now referred to [facility] for acute in-patient rehabilitation in [place] to maximize patient's functional independence in activities of daily living, strength, ROM, and m obility.- Rehab Goal Patient has realistic goal of being discharged at assistance level 4-Dorota to reside at Home with Fam soumya/Relatives. MDM/PLAN: - Physical Therapy Gait dysfunction - to improve, our physical therapists will perform initial evaluation of pt's statu s upon admission and devise an individualized program for Gait Training, and Wheel Chair mobility Inability to transfer - to improve, our physical therapists will perform initial evaluation of pt's status upon admission and devise an individualized program for Bed mobility Need for home safety evaluation - to improve, our physical therapists will perform initial evaluatio n of pt's status upon admission and devise an individualized program for Home Evaluation Need in caregiver upon discharge - to improve, our physical therapists will perform initial evaluati on of pt's status upon admission and devise an individualized program for Caregiver Training New precaution - to improve, our physical therapists will perform initial evaluation of pt's status upon admission and devise an individualized program for Patient precaution education Poor balance - to improve, our physical therapists will perform initial evaluation of pt's status up on admission and devise an individualized program for Balance Training Poor endurance - to improve, our physical therapists will perform initial evaluation of pt's status upon admission and devise an individualized program for Endurance Training Weakness - to improve, our physical therapists will perform initial evaluation of pt's status upon a dmission and devise an individualized program for Aquatic Therapy, Neuromuscular Reeducation, and Str engthening Achieving independence - to improve, our physical therapists will perform initial evaluation of pt's status upon admission and devise an individualized program for Community Reintegration Activities - Occupational Therapy ADL deficits - to improve, our occupation therapists will perform initial evaluation of pt's status upon admission and devise an individualized program for Bathing, Bed mobility, Community Reintegratio n, Cooking, Dressing, Eating, Fine Motor Skills, Grooming, Homemaking, Kitchen Mobility, Laundry, Pat ient Education, Safety Awareness, Splinting - Positioning, Transfers(Toilet, Tub, Shower), and Wheel Chair Management Need for customer care team coach - to improve, our occupation therapists will perform initial evaluation of pt's status upon admission and devise an individualized program for Caregiver Training Weakness - to improve, our occupation therapists will perform initial evaluation of pt's status upon admission and devise an individualized program for Aquatic Therapy, Balance, Endurance, UE ROM, and UE strengthening - Diet Type Continue Regular - Diet - Liquid Texture Continue Regular - Tube Feed Continue N/A - N/A Perform Neuro consult - Diet - Solid Texture Continue Regular - Shower allowing shower FUNCTIONAL STATUS: UPDATED AT WEEKLY TEAM CONFERENCE - Bladder Same accident frequency: 7-Ind - No accidents in the past 7 days - Bowel Same accident frequency: 7-Ind - No accidents in the past 7 days - Walking Same score based on distance walked: 2(50-149ft) - Wheelchair Same score based on distance traveled: 0(N/A) FUNCTIONAL STATUS: - Self-Care A. Eating Ind B. Grooming Ind C. Bathing sup D. Dressing - Upper sup E. Dressing - Lower sup F. Toileting sup - Sphincter Control G: Bladder control Ind H: Bowel control Ind - Transfers Control I. Bed/Chair/Wheelchair modA J. Toilet Dorota K. Tub/Shower ADNO - Locomotion L. Walk/Wheelchair (C) Dorota L. Walk/Wheelchair (W) Dorota M. Stairs ADNO - Communication N. Comprehension (B) Ind O. Expression (B) Ind - Social Cognition P. Social Interaction Ind Q. Problem Solving Ind R. Memory Ind - Endurance Fair - Balance Fair - Safety Awareness Fair CURRENT FUNC. DEFICITS: Endurance, Safety Awareness, Transfers Control, Balance, Locomotion, and Self-Care SIGNATURE PANEL: (SHAMPOOER)
[2018-03-23 19:28] VITALS: TEMP 97.6
--- NOTE | 2018-03-23 19:43 | P.PN ---
Date of Service: 03/23/18 Vital Signs Temp Pulse Resp BP Pulse Ox 97.6 F 98 H 17 175/59 H 98 03/23/18 19:27 03/23/18 19:27 03/23/18 19:27 03/23/18 19:27 03/23/18 19:27 Medications Acetaminophen (Tylenol -Tablet) 650 mg PO Q4H PRN PRN Reason: [id number] Stop: 04/13/18 09:36 Last Admin: 03/20/18 04:08 Dose: 650 mg Alprazolam (Xanax) 0.5 mg PO BEDTIME [facility] Stop: 04/16/18 21:01 Last Admin: 03/22/18 20:44 Dose: 0.5 mg Apixaban (Eliquis) 2.5 mg PO BID [facility] Stop: 04/11/18 20:01 Last Admin: 03/23/18 08:53 Dose: 2.5 mg Baclofen (Lioresal) 5 mg PO BID PRN PRN Reason: MUSCLE SPASMS Stop: 04/11/18 20:01 Last Admin: 03/23/18 11:20 Dose: 5 mg Cholecalciferol (Vitamin D 1000 Iu Tab) 5,000 unit PO DAILY [facility] Stop: 04/22/18 08:01 Last Admin: 03/23/18 08:52 Dose: 5,000 unit Colchicine (Colcrys) 0.6 mg PO DAILY [facility] Stop: 04/12/18 08:01 Last Admin: 03/23/18 08:51 Dose: 0.6 mg Collagenase (Santyl Ointment) 1 appl TOP DAILY [facility] Stop: 04/15/18 08:01 Last Admin: 03/23/18 08:54 Dose: 1 david Emollient Gel (Medihoney Woundcare Gel) 1 appl TOP MoWeFr@1400 [facility] Stop: 04/13/18 08:01 Last Admin: 03/22/18 13:19 Dose: 1 appl Ferrous Sulfate (Feosol) 325 mg PO Q24H [facility] Stop: 04/22/18 12:01 Last Admin: 03/23/18 11:21 Dose: 325 mg Guaifenesin (Robitussin 100mg/5ml) 100 mg PO BID PRN PRN Reason: COUGH Stop: 04/15/18 20:01 Home Med (Home Med) 1 ea PO DAILY [facility] Stop: 04/20/18 18:16 Last Admin: 03/23/18 08:55 Dose: 1 ea Home Med (Home Med) 0 ea PO DAILY [facility] Stop: 04/23/18 08:01 Hydralazine HCl (Apresoline) 50 mg PO BID [facility] Stop: 04/15/18 20:01 Last Admin: 03/23/18 08:52 Dose: 50 mg Doxycycline Hyclate 100 mg/ (Sodium Chloride) 100 mls @ 100 mls/hr IVPB Q12HR [facility]; Protocol Stop: 04/19/18 20:01 Last Admin: 03/23/18 08:42 Dose: 100 mls Ciprofloxacin/Dextrose (Cipro 200 Mg/100 Ml Ivpb (Premix)) 200 mg in 100 mls @ 100 mls/hr IV Q24H [facility]; Protocol Stop: 04/19/18 20:01 Last Admin: 03/22/18 19:33 Dose: 100 mls L-Arginine/L-Glutamine/HMB (Driss) 1 pkt PO BID [facility] Stop: 04/16/18 20:01 Last Admin: 03/23/18 08:00 Dose: Not Given Lorazepam (Ativan) 0.5 mg PO 1X PRN PRN Reason: AGITATION Stop: 04/14/18 17:53 Last Admin: 03/15/18 17:54 Dose: 0.5 mg Losartan Potassium (Cozaar) 100 mg PO DAILY [facility] Stop: 04/12/18 08:01 Last Admin: 03/23/18 08:53 Dose: 100 mg Multivitamins/Iron (Hemocyte Plus) 1 tab PO DAILY WITH BREAKFAST [facility] Stop: 04/13/18 08:01 Last Admin: 03/23/18 08:51 Dose: 1 tab Propranolol HCl (Inderal) 20 mg PO BID [facility] Stop: 04/16/18 20:01 Last Admin: 03/23/18 08:53 Dose: 20 mg Lab Results (last 24 hrs) 03/23/18 14:40: Miscellaneous Test Sent 03/23/18 06:05: Sodium 142, Potassium 4.3, Chloride 109 H, Carbon Dioxide 28, BUN 71 H, Creatinine 2.40 H, Estimated GFR 19 L, Glucose 96, Uric Acid 4.0, Calcium 8.7, Phosphorus 4.7, Total Bilirubin 0.4, Direct Bilirubin 0.1, AST 64 H , ALT 50, Alkaline Phosphatase 152 H, Serum Total Protein 5.7 L, Albumin 2.4 L, Globulin 3.3, Albumin/Globulin Ratio 0.7 L, Prealbumin 12.3 L 03/23/18 06:05: WBC 6.1, RBC 3.31 L, Hgb 10.3 L, Hct 30.5 L, MCV 92.1, MCH 31.0 , MCHC 33.7, RDW 16.2 H, Plt Count 185, MPV 9.6, Neutrophils % 62.2, Lymphocytes % 18.2, Monocytes % 14.6 H, Eosinophils % 4.4, Basophils % 0.6, Absolute Neutrophils 3.8, Segmented Neutrophils 56, Band Neutrophils 1, Absolute Lymphocytes 1.1, Lymphocytes 28, Monocytes 9, Absolute Monocytes 0.9, Eosinophils 5 H, Absolute Eosinophils 0.3, Basophils 1, Absolute Basophils 0.0, Morphology Comment Not seen 03/23/18 05:00: Uric Acid Cancelled, Phosphorus Cancelled, Total Bilirubin Cancelled, Direct Bilirubin Cancelled, AST Cancelled, ALT Cancelled, Alkaline Phosphatase Cancelled, Serum Total Protein Cancelled, Albumin Cancelled, Globulin Cancelled, Albumin/Globulin Ratio Cancelled Microbiology Results 03/12/18 13:55 Catheterized Urine [place] Count - Final BETWEEN 10,000 & 100,000 CFU/ML 03/12/18 13:55 Catheterized Urine - Final Escherichia Coli Assessment/ Plan: Nephrology. Doing well. CPS stable without CP or SOB. No acute pain. No acute events overnight. Vitals, medications, blood work and imaging reviewed in the chart. Laboratory Data (last 24 hrs) 03/22/18 12:21: Sodium 139, Potassium 4.1, BUN 66 H, Creatinine 2.40 H, Glucose 113 H 03/22/18 12:21: WBC 6.1, Hgb 11.7 L, Hct 34.6 L, Plt Count 182 Imagings Data: EXAM DESCRIPTION: RAD - Chest Pa And Lat (2 Views) - 03/16/2018 3:33 pm CLINICAL HISTORY: Cough and congestion, pneumonia COMPARISON: March 09 TECHNIQUE: PA and lateral views of the chest were obtained. FINDINGS: The lungs are clear. Patient has mild chronic interstitial lung disease similar or less prominent than seen March 09. No new or progressive lung parenchymal process. Heart size is normal and central vasculature is within normal limits. No pleural effusion or pneumothorax seen. No acute bony finding noted. No aortic abnormality. IMPRESSION: Mild chronic interstitial lung disease. Lung markings are less pronounced than seen on March 09. No focal pneumonia identified. No new or progressive finding from prior study. EXAM DESCRIPTION: MRI - Foot Left Wo Cont - 03/15/2018 6:34 pm CLINICAL HISTORY: wound to L foot, R/O Osteomyelitis COMPARISON: No comparisons FINDINGS: Ill-defined soft tissue thickening and edema is seen along the plantar anterior aspect of the left foot. A soft tissue wound is seen at the level of the first metatarsal head plantar aspect. Abnormal diminished T1 signal is seen involving the plantar aspect of the first metatarsal head as well as the base of the proximal phalanx of the great toe. Abnormal marrow signal is also noted involving the interphalangeal joint of the great toe. A fracture is seen involving the plantar base of the distal phalanx of the great toe. These regions demonstrate correlating T2/IR hyperintensity. Abnormal poorly defined diminished areas of T1 signal are seen involving the distal fifth metatarsal head and base of the proximal phalanx of the fifth toe. T2/IR hyperintensity is also present in these regions. No drainable fluid collection. IMPRESSION: Moderate osteomyelitis of the great toe is present with involvement of the first metatarsal head. Mild osteomyelitis also likely present involving the distal fifth metatarsal and proximal phalanx of the fifth toe. EXAM DESCRIPTION: CT - Head C Spine Cap Wo Con - 03/09/2018 5:28 pm CLINICAL HISTORY: Trauma, head and neck injury. Chest, abdomen and pelvis pain. fall, low back pain COMPARISON: No comparisons TECHNIQUE: CT head without contrast. CT cervical spine without contrast with coronal and sagittal reformatted images. CT chest, abdomen and pelvis without contrast with coronal and sagittal reformatted images of the spine. All CT scans are performed using dose optimization technique as appropriate and may include automated exposure control or mA/KV adjustment according to patient size. FINDINGS: CT HEAD WITHOUT CONTRAST: No intracranial hemorrhage, hydrocephalus or extra-axial fluid collection. Mild generalized brain atrophy is present with mild periventricular and deep white matter chronic microvascular ischemic changes. No areas of brain edema or midline shift. Small amount of fluid is seen in both maxillary antra. The calvarium is intact. Mild vertebral atherosclerosis. CT CERVICAL SPINE WITHOUT CONTRAST: No fracture or subluxation. Mild moderate lower cervical spondylosis is present. The prevertebral soft tissues are normal in thickness. CT CHEST, ABDOMEN, PELVIS WITHOUT CONTRAST: NOTE: Lack of contrast is a significant limitation in the assessment of trauma related findings. Specifically, solid organ, vascular and bowel evaluation is significantly limited. The lungs are clear.No pneumothorax or pericardial/pleural fluid. No evidence of intra-abdominal visceral injury, free fluid or free air is seen within the above detailed limitations. No concerning pelvic findings. No fractures. Advanced degenerative changes involve the thoracolumbar spine. IMPRESSION: Negative for acute traumatic findings within the above detailed limitations. Conclusions/Impression: A/ MARGARITO may be due to overdiuresis. CKD III with proteinuria. HTN with CKD. Edema, controlled. 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 Iron Deficiency. Gout. Hypocalcemia. Hypoalbuminemia. Chronic Pain/ Diffuse OA. Chronic pyuria. Acute osteomyelitis of the left 1st toe. P/ Continue current POC and Medications. Agree with abx. Hold Lasix at this time. No NSAIDs. AM labs. Daily weight. Encourage nutrition. PT as tolerated. Possible transfer to [facility] tomorrow.
[2018-03-23] MEDS: ALPRAZOLAM 0.5 MG TABLET PO SCH (20:27)
[2018-03-23] MEDS: Ciprofloxacin 200mg IV 200 MG/100 ML IV.SOLN. IV SCH (20:27)
--- NOTE | 2018-03-24 02:45 | FAST ---
SHIFT START DATE/TIME: 03/23/2018 19:00 (DRUM MAKER) SHIFT END DATE/TIME: 03/24/2018 07:00 (DRUM MAKER) NAME SHANDA BARTON DATE OF : 1930 DATE OF ADMISSION: 03/12/2018 12:40 (DRUM MAKER) PHONE: AGE: 88 SSN# [id number] GENDER: Female ENCOUNTER PHYSICIAN: Dr. Aman Lackey M.D. ADMISSION DIAGNOSIS: - Neurologic Conditions 03 - Parkinsonism (03.2) Parkinson's Disease. EATING: Activity did not occur on this shift EATING - SCORE: 0-UNK GROOMING: Activity did not occur on this shift GROOMING - SCORE: 0-UNK BATHING: Activity did not occur on this shift BATHING - SCORE: 0-UNK DRESSING - UPPER BODY: Patient is not dressing in public clothing ARTICLES SCORE Total number of steps: 0 DRESSING - UPPER BODY - SCORE: 0-UNK DRESSING - LOWER BODY: Patient is not dressing in public clothing ARTICLES SCORE Total number of steps: 0 DRESSING - LOWER BODY - SCORE: 0-UNK TOILETING: TOILETING - STEP 1: Does the patient require the assistance of a person or device, or need extra time with toileting? Yes . TOILETING - STEP 2: Does the patient require the assistance of a helper? Yes. TOILETING - STEP 3: How much assistance does the patient require from the helper? Hands-on assistance from the helper TOILETING - STEP 4: Of the 3 tasks: 1) Adjusting clothing prior to use, 2) Cleansing of perineal area, 3) Adjusting clot vania after use; How many tasks does the patient perform WITHOUT assistance of the helper? No tasks; h elper performs all three tasks TOILETING - SCORE: 1-DEP BLADDER MANAGEMENT: [place] removes incontinent device (Depends, pull ups, etc.); cleans the patient after accident / inco ntinent episode; and, applies new incontinent device. BLADDER MANAGEMENT - SCORE: 1-DEP BOWEL MANAGEMENT: Activity did not occur on this shift BOWEL MANAGEMENT - SCORE: 7-IND TRANSFERS: BED, CHAIR, WHEELCHAIR: TRANSFERS: BED, CHAIR, WHEELCHAIR - STEP 1: Does the patient require assistance of a person or device, or need extra time with bed, chair, or whe elchair transfers? Yes. TRANSFERS: BED, CHAIR, WHEELCHAIR - STEP 2: Does the patient require the assistance of a helper? Yes. TRANSFERS: BED, CHAIR, WHEELCHAIR - STEP 3: How much assistance does the patient require from the helper? Lifting of the legs TRANSFERS: BED, CHAIR, WHEELCHAIR - STEP 4: How many legs does the patient require the helper to lift? both legs TRANSFERS: BED, CHAIR, WHEELCHAIR - SCORE: 3-MOD TRANSFERS: TOILET: TRANSFERS: TOILET - STEP 1: Does the patient require the assistance of a person or device, or need extra time with toilet transfe rs? Yes. TRANSFERS: TOILET - STEP 2: Does the patient require the assistance of a helper? Yes. TRANSFERS: TOILET - STEP 3: How much assistance does the patient require from the helper? Patient performs half or more of the tr ansferring tasks TRANSFERS: TOILET - STEP 4: Does the patient need only incidental help such as contact guard or steadying during toilet transfer? No. Patient needs more than incidental help TRANSFERS: TOILET - SCORE: 3-MOD TRANSFERS: SHOWER: Activity did not occur on this shift TRANSFERS: SHOWER - SCORE: 0-UNK TRANSFERS: TUB: Activity did not occur on this shift TRANSFERS: TUB - SCORE: 0-UNK LOCOMOTION: WALK: Activity did not occur on this shift LOCOMOTION: WALK - SCORE: 0-UNK LOCOMOTION: WHEELCHAIR: Activity did not occur on this shift LOCOMOTION: WHEELCHAIR - SCORE: 0-UNK COMPREHENSION: COMPREHENSION: TYPE: Both COMPREHENSION - STEP 1: Does the patient require help from a person or device, or need extra time to understand complex and a bstract ideas (such as current events, finances, discharge planning, medical issues, relationships, e tc)? Yes. COMPREHENSION - STEP 2: Does the patient require help to understand questions or statements about basic needs or ideas (such as hunger, thirst, sleep, safety, daily schedule, room location, or discomfort) half or more of the t carissa? No. COMPREHENSION - STEP 3: How often does the patient need help to understand directions and conversation about basic needs? 10% - 24% of the time COMPREHENSION - SCORE: 4-MIN EXPRESSION EXPRESSION: TYPE: Both EXPRESSION - STEP 1: Does the patient require help from a person or device, or need extra time expressing complex and abst ract ideas (such as current events, finances, discharge planning, medical issues, relationships, etc) ? No. EXPRESSION - STEP 2: Does the patient need extra time, require an assistive device (such as augmentive communication syste m or a communication board), OR does s/he have mild difficulty expressing complex and abstract ideas (including mild dysarthria or mild word-find problems)? Yes. EXPRESSION - SCORE: 6-VINNY SOCIAL INTERACTION: SOCIAL INTERACTION - STEP 1: Does the patient require a helper to interact with others in social and therapeutic situations? No. SOCIAL INTERACTION - STEP 2: Does the patient need extra time in social situations, OR does s/he interact with staff, other patien ts, and family members ONLY in structured environments, OR does s/he require medication for social in teraction? Yes, patient needs extra time SOCIAL INTERACTION - SCORE: 6-VINNY PROBLEM SOLVING: PROBLEM SOLVING - STEP 1: Does the patient need help from a person or device, or need extra time to solve complex problems such as managing a checking account or confronting interpersonal problems? Yes. PROBLEM SOLVING - STEP 2: Does the patient solve basic routine problems half or more of the time? Yes. PROBLEM SOLVING - STEP 3: How often does the patient need help to solve basic routine problems? 10%-24% of the time PROBLEM SOLVING - SCORE: 4-MIN MEMORY: MEMORY - STEP 1: Does the patient need help from a person or device, or need extra time to remember frequently encount ered people, daily routines, and executing requests? No. MEMORY - STEP 2: Does the patient have slight difficulty recognizing frequently encountered people, daily routines, or executing requests without the need for repetition or using self-initiated or environmental cues to remember? Yes. MEMORY - SCORE: 6-VINNY
[2018-03-24] MEDS ORDERED: ULORIC 40 MG PO SCH (08:00)
[2018-03-24] MEDS: JUVEN PACKET PO SCH (08:00)
[2018-03-24] MEDS: CAFFEINE PO SCH (08:50)
[2018-03-24] MEDS: ASPIRIN PO SCH (08:50)
[2018-03-24] MEDS: LOSARTAN POTASSIUM 50 MG TABLET PO SCH (08:51)
[2018-03-24] MEDS: FE SULF/FA/VIT B COMP & C TAB PO SCH (08:58)
[2018-03-24] MEDS: VITAMIN D 1000 UNIT TAB PO SCH (08:58)
[2018-03-24] MEDS: HYDRALAZINE HCL 25 MG TABLET PO SCH (08:59)
[2018-03-24] MEDS: PROPRANOLOL HCL 10 MG TAB PO SCH (08:59)
[2018-03-24] MEDS: APIXABAN 2.5 MG TABLET PO SCH (08:59)
[2018-03-24] MEDS: COLCHICINE 0.6 MG TAB PO SCH (09:04)
[2018-03-24 09:05] VITALS: BP 158/70
--- NOTE | 2018-03-24 10:06 | P.RH.PN ---
Estimated Length of Stay: 12 Expected Discharge Date: 03/24/18 Discharge Disposition Plan: Home Family Support: Yes Nursing Home Goal: Mobility, Transfers, Self Care Vital Signs: Last Vital Signs Temp 97.6 F 03/23/18 19:27 Pulse 98 H 03/23/18 20:27 Resp 17 03/23/18 19:27 BP 158/70 H 03/24/18 08:59 Pulse Ox 98 03/23/18 19:27 Laboratory: Laboratory Last Values WBC 6.1 K/uL (4.3-10.9) 03/23/18 06:05 RBC 3.31 M/uL (3.86-4.86) L 03/23/18 06:05 Hgb 10.3 g/dL (12.0-15.0) L 03/23/18 06:05 Hct 30.5 % (36.0-45.0) L 03/23/18 06:05 MCV 92.1 fL (80-100) 03/23/18 06:05 MCH 31.0 pg (27.0-35.0) 03/23/18 06:05 MCHC 33.7 g/dL (32.0-36.0) 03/23/18 06:05 RDW 16.2 % (12.1-15.2) H 03/23/18 06:05 Plt Count 185 K/uL (152-406) 03/23/18 06:05 MPV 9.6 fL (7.6-11.3) 03/23/18 06:05 Neutrophils % 62.2 % (41.7-73.7) 03/23/18 06:05 Lymphocytes % 18.2 % (15.3-44.8) 03/23/18 06:05 Monocytes % 14.6 % (3.3-12.3) H 03/23/18 06:05 Eosinophils % 4.4 % (0-4.4) 03/23/18 06:05 Basophils % 0.6 % (0-1.3) 03/23/18 06:05 Absolute Neutrophils 3.8 K/uL (1.8-8.0) 03/23/18 06:05 Segmented Neutrophils 56 % (40-80) 03/23/18 06:05 Band Neutrophils 1 % (0-1) 03/23/18 06:05 Absolute Lymphocytes 1.1 K/uL (0.7-4.9) 03/23/18 06:05 Lymphocytes 28 % (15-42) 03/23/18 06:05 Monocytes 9 % (0-10) 03/23/18 06:05 Absolute Monocytes 0.9 K/uL (0.1-1.3) 03/23/18 06:05 Eosinophils 5 % (0-3) H 03/23/18 06:05 Absolute Eosinophils 0.3 K/uL (0-0.5) 03/23/18 06:05 Basophils 1 % (0-1) 03/23/18 06:05 Absolute Basophils 0.0 K/uL (0-0.5) 03/23/18 06:05 Morphology Comment Not seen (NOT SEEN) 03/23/18 06:05 Sodium 142 mmol/L (136-145) 03/23/18 06:05 Potassium 4.3 mmol/L (3.5-5.1) 03/23/18 06:05 Chloride 109 mmol/L (98-107) H 03/23/18 06:05 Carbon Dioxide 28 mmol/L (21-32) 03/23/18 06:05 BUN 71 mg/dL (7-18) H 03/23/18 06:05 Creatinine 2.40 mg/dL (0.55-1.3) H 03/23/18 06:05 Estimated GFR 19 mL/min (=/>90) L 03/23/18 06:05 Glucose 96 mg/dL (74-106) 03/23/18 06:05 Uric Acid 4.0 mg/dL (2.6-6.0) 03/23/18 06:05 Calcium 8.7 mg/dL (8.5-10.1) 03/23/18 06:05 Phosphorus 4.7 mg/dL (2.5-4.9) 03/23/18 06:05 Magnesium 2.5 mg/dL (1.8-2.4) H 03/21/18 06:08 Total Bilirubin 0.4 mg/dL (0.2-1.0) 03/23/18 06:05 Direct Bilirubin 0.1 mg/dL (0-0.2) 03/23/18 06:05 AST 64 U/L (15-37) H 03/23/18 06:05 ALT 50 U/L (12-78) 03/23/18 06:05 Alkaline Phosphatase 152 U/L (45-117) H 03/23/18 06:05 Serum Total Protein 5.7 g/dL (6.4-8.2) L 03/23/18 06:05 Albumin 2.4 g/dL (3.4-5.0) L 03/23/18 06:05 Globulin 3.3 g/dL (2.3-3.5) 03/23/18 06:05 Albumin/Globulin Ratio 0.7 (1.1-1.8) L 03/23/18 06:05 Prealbumin 12.3 mg/dL (20-40) L 03/23/18 06:05 Urine Color Yellow 03/12/18 13:55 Urine Appearance Clear 03/12/18 13:55 Urine pH 7.0 (5.0-7.0) 03/12/18 13:55 Ur Specific [place] <=1.005 (1.005-1.030) 03/12/18 13:55 Urine Ketones Negative (NEG) 03/12/18 13:55 Urine Blood 3+ (NEG) H 03/12/18 13:55 Urine Nitrite Negative (NEG) 03/12/18 13:55 Urine Bilirubin Negative (NEG) 03/12/18 13:55 Urine Urobilinogen 1.0 mg/dL (0.2-1.0) 03/12/18 13:55 Ur Leukocyte Esterase 2+ (NEG) H 03/12/18 13:55 Urine RBC 10-20 /HPF (NONE SEEN) H 03/12/18 13:55 Urine WBC 5-10 /HPF (<5) H 03/12/18 13:55 Ur Squamous Epith Cells <5 /HPF (NONE SEEN) 03/12/18 13:55 Urine Bacteria 20-50 /HPF (<20) H 03/12/18 13:55 Urine Culture Reflexed Not needed 03/12/18 13:55 Urine Glucose Negative (NEG) 03/12/18 13:55 Urine Total Protein Trace (NEG) 03/12/18 13:55 Vancomycin Trough 19.3 ug/mL (5.0-20.0) 03/20/18 01:40 Miscellaneous Test Sent 12/20/18 14:40 Weight: 167 lb 6 oz Wound Present: Yes Closed Surgical Incision Present: No Negative Pressure Wound Therapy Present: No Physician Update: She will go to [facility] today for LTAC to continue dual antibiotics for osteomyelitis. She has done well with physical and occupational therapy. She will be followed by ID while at LTAC. Medical Issues: Osteomyelitis - on Ciprofloxacin 200mg Q24H IVPB and Doxycycline 100mg Q12H IVPB Functional Improvement: Patient has been progressing w/ therapy, however has been limited due to re-occuring HARE. Patient has good attitude toward therapy. Functional Improvement Occupational Therapy: Patient continues to require supervision and set up with all BADL tasks due to her difficulty with headaches and debility. She is very motivated, and participatory, however. 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 Please see the Rehabilitation Signature page for all necessary signatures.
[2018-03-24] MEDS: DOXYCYCLINE 100 MG in NA CHLORIDE 0.9% 100 ML IVPB SCH (10:22)
[2018-03-24] MEDS: COLLAGENASE 30 GM OINTMENT TOP SCH (10:22)
--- NOTE | 2018-03-24 11:04 | FAST ---
SHIFT START DATE/TIME: 03/24/2018 07:00 (MIDDLE SCHOOL COUNSELOR) SHIFT END DATE/TIME: 03/24/2018 19:00 (MIDDLE SCHOOL COUNSELOR) NAME SHANDA BARTON DATE OF : 1930 DATE OF ADMISSION: 03/12/2018 12:40 (MIDDLE SCHOOL COUNSELOR) PHONE: AGE: 88 SSN# [id number] GENDER: Female ENCOUNTER PHYSICIAN: Dr. Aman Lackey M.D. ADMISSION DIAGNOSIS: - Neurologic Conditions 03 - Parkinsonism (03.2) Parkinson's Disease. EATING: EATING - STEP 1: Does the patient require the assistance of a person or device, or need extra time when eating? Yes. EATING - STEP 2: Does the patient require the assistance of a helper? No, patient only requires an assistive device, O R s/he takes more than reasonable time to eat, OR there is a safety concern, OR s/he requires modifie d food consistency EATING - SCORE: 6-VINNY GROOMING: Comb/brush hair Oral care GROOMING - STEP 1: Does the patient require the assistance of a person or device, or need extra time when grooming? Yes. GROOMING - STEP 2: Does the patient require the assistance of a helper? Yes. GROOMING - STEP 3: How much assistance does the patient require from the helper? Incidental touching assistance from the helper while grooming GROOMING - SCORE: 4-MIN BATHING: Activity did not occur on this shift BATHING - SCORE: 0-UNK DRESSING - UPPER BODY: T-shirt/pullover shirt (four steps) ARTICLES SCORE Total number of steps: 4 DRESSING - UPPER BODY - STEP 1: Does the patient require help from a person or device, or need extra time when dressing above the jess st? Yes. DRESSING - UPPER BODY - STEP 2: Does the patient require the assistance of a helper? Yes. DRESSING - UPPER BODY - STEP 3: Does the helper touch the patient while dressing? Yes. DRESSING - UPPER BODY - STEP 4: How many of the total steps does the patient complete on his/her own? 2 DRESSING - UPPER BODY - SCORE: 3-MOD DRESSING - LOWER BODY: Elastic waist pants (three steps) ARTICLES SCORE Total number of steps: 3 DRESSING - LOWER BODY - STEP 1: Does the patient require help from a person or device, or need extra time when dressing below the jess st? Yes. DRESSING - LOWER BODY - STEP 2: Does the patient require the assistance of a helper? Yes. DRESSING - LOWER BODY - STEP 3: Does the helper touch the patient while dressing? Yes. DRESSING - LOWER BODY - STEP 4: How many of the total steps does the patient complete on his/her own? 2 DRESSING - LOWER BODY - SCORE: 3-MOD TOILETING: TOILETING - STEP 1: Does the patient require the assistance of a person or device, or need extra time with toileting? Yes . TOILETING - STEP 2: Does the patient require the assistance of a helper? Yes. TOILETING - STEP 3: How much assistance does the patient require from the helper? Hands-on assistance from the helper TOILETING - STEP 4: Of the 3 tasks: 1) Adjusting clothing prior to use, 2) Cleansing of perineal area, 3) Adjusting clot vania after use; How many tasks does the patient perform WITHOUT assistance of the helper? Two tasks TOILETING - SCORE: 3-MOD BLADDER MANAGEMENT: BLADDER MANAGEMENT - STEP 1: Does the patient control the bladder completely and intentionally without equipment or devices or med ications, and is always continent? Yes. BLADDER MANAGEMENT - SCORE: 7-IND BLADDER MANAGEMENT - FREQUENCY OF ACCIDENTS: BLADDER MANAGEMENT(FA) - STEP 1: How many accidents has the patient had during the current shift? 0 BOWEL MANAGEMENT: BOWEL MANAGEMENT - STEP 1: Does the patient control bowels completely and intentionally without equipment devices or medications AND is always continent? Yes. BOWEL MANAGEMENT - SCORE: 7-IND BOWEL MANAGEMENT - FREQUENCY OF ACCIDENTS: BOWEL MANAGEMENT(FA) - STEP 1: How many accidents has the patient had during the current shift? 0 TRANSFERS: BED, CHAIR, WHEELCHAIR: TRANSFERS: BED, CHAIR, WHEELCHAIR - STEP 1: Does the patient require assistance of a person or device, or need extra time with bed, chair, or whe elchair transfers? Yes. TRANSFERS: BED, CHAIR, WHEELCHAIR - STEP 2: Does the patient require the assistance of a helper? Yes. TRANSFERS: BED, CHAIR, WHEELCHAIR - STEP 3: How much assistance does the patient require from the helper? Lifting of the legs TRANSFERS: BED, CHAIR, WHEELCHAIR - STEP 4: How many legs does the patient require the helper to lift? both legs TRANSFERS: BED, CHAIR, WHEELCHAIR - SCORE: 3-MOD TRANSFERS: TOILET: TRANSFERS: TOILET - STEP 1: Does the patient require the assistance of a person or device, or need extra time with toilet transfe rs? Yes. TRANSFERS: TOILET - STEP 2: Does the patient require the assistance of a helper? Yes. TRANSFERS: TOILET - STEP 3: How much assistance does the patient require from the helper? Patient performs half or more of the tr ansferring tasks TRANSFERS: TOILET - STEP 4: Does the patient need only incidental help such as contact guard or steadying during toilet transfer? No. Patient needs more than incidental help TRANSFERS: TOILET - SCORE: 3-MOD TRANSFERS: SHOWER: Activity did not occur on this shift TRANSFERS: SHOWER - SCORE: 0-UNK TRANSFERS: TUB: Activity did not occur on this shift TRANSFERS: TUB - SCORE: 0-UNK LOCOMOTION: WALK: Activity did not occur on this shift LOCOMOTION: WALK - SCORE: 0-UNK LOCOMOTION: WHEELCHAIR: Activity did not occur on this shift LOCOMOTION: WHEELCHAIR - SCORE: 0-UNK COMPREHENSION: COMPREHENSION - SCORE: 0-UNK EXPRESSION EXPRESSION - SCORE: 0-UNK SOCIAL INTERACTION: SOCIAL INTERACTION - SCORE: 0-UNK PROBLEM SOLVING: PROBLEM SOLVING - SCORE: 0-UNK MEMORY: MEMORY - SCORE: 0-UNK SIGNATURE PANEL: The following modified sections: Eating - Score, Grooming - Score, Bathing - Score, Dressing - Upper Body - Score, Dressing - Lower Body - Score, Toileting - Score, Bladder Management - Score, Bowel Man agement - Score, Transfers: Bed, Chair, Wheelchair - Score, Transfers: Toilet - Score, Transfers: Sammie wer - Score, Transfers: Tub - Score, Locomotion: Walk - Score, Locomotion: Wheelchair - Score, Compre hension - Score, Expression - Score, Social Interaction - Score, Problem Solving - Score, Memory - Sc ore were [electronically] signed by Eliza Greco CNA on TueMar 24 2018 11:04:22 GMT-0600 (Centra l Standard Time)
--- NOTE | 2018-03-24 14:45 | FAST ---
ENCOUNTER DATE AND TIME: 03/24/2018 08:00 (CEMETERY WARDEN) NAME SHANDA BARTON DATE OF : 1930 DATE OF ADMISSION: 03/12/2018 12:40 (CEMETERY WARDEN) PHONE: AGE: 88 SSN# [id number] GENDER: Female ENCOUNTER PHYSICIAN: Dr. Aman Lackey M.D. ADMISSION DIAGNOSIS: - Neurologic Conditions 03 - Parkinsonism (03.2) Parkinson's Disease. EATING: Activity did not occur on this shift EATING - SCORE: 0-UNK GROOMING: Activity did not occur on this shift GROOMING - SCORE: 0-UNK BATHING: Activity did not occur on this shift BATHING - SCORE: 0-UNK DRESSING - UPPER BODY: Activity did not occur on this shift Patient is not dressing in public clothing ARTICLES SCORE Total number of steps: 0 DRESSING - UPPER BODY - SCORE: 0-UNK DRESSING - LOWER BODY: Activity did not occur on this shift Patient is not dressing in public clothing ARTICLES SCORE Total number of steps: 0 DRESSING - LOWER BODY - SCORE: 0-UNK TOILETING: Activity did not occur on this shift TOILETING - SCORE: 0-UNK BLADDER MANAGEMENT: Activity did not occur on this shift BLADDER MANAGEMENT - SCORE: 7-IND BOWEL MANAGEMENT: Activity did not occur on this shift BOWEL MANAGEMENT - SCORE: 7-IND TRANSFERS: BED, CHAIR, WHEELCHAIR: Activity did not occur on this shift TRANSFERS: BED, CHAIR, WHEELCHAIR - SCORE: 0-UNK TRANSFERS: TOILET: Activity did not occur on this shift TRANSFERS: TOILET - SCORE: 0-UNK TRANSFERS: SHOWER: Activity did not occur on this shift TRANSFERS: SHOWER - SCORE: 0-UNK TRANSFERS: TUB: Activity did not occur on this shift TRANSFERS: TUB - SCORE: 0-UNK LOCOMOTION: WALK: Activity did not occur on this shift LOCOMOTION: WALK - SCORE: 0-UNK LOCOMOTION: WHEELCHAIR: Activity did not occur on this shift LOCOMOTION: WHEELCHAIR - SCORE: 0-UNK LOCOMOTION: STAIRS: Activity did not occur on this shift LOCOMOTION: STAIRS - SCORE: 0-UNK COMPREHENSION: COMPREHENSION - SCORE: 0-UNK EXPRESSION EXPRESSION - SCORE: 0-UNK SOCIAL INTERACTION: SOCIAL INTERACTION - SCORE: 0-UNK PROBLEM SOLVING: PROBLEM SOLVING - SCORE: 0-UNK MEMORY: MEMORY - SCORE: 0-UNK SIGNATURE PANEL: The following modified sections: Transfers: Bed, Chair, Wheelchair - Score, Transfers: Toilet - Score , Locomotion: Walk - Score, Locomotion: Wheelchair - Score, Locomotion: Stairs - Score were [electron mary] signed by Joon Persaud PTA on TueMar 24 2018 14:44:06 GMT-0600 (Central Standard Time)
--- NOTE | 2018-03-24 15:30 | FAST ---
ENCOUNTER DATE AND TIME: 03/20/2018 08:00 (LOIN TRIMMER) NAME SHANDA BARTON DATE OF : 1930 DATE OF ADMISSION: 03/12/2018 12:40 (LOIN TRIMMER) PHONE: AGE: 88 SSN# [id number] GENDER: Female ENCOUNTER PHYSICIAN: Dr. Aman Lackey M.D. ADMISSION DIAGNOSIS: - Neurologic Conditions 03 - Parkinsonism (03.2) Parkinson's Disease. EATING: EATING - STEP 1: Does the patient require the assistance of a person or device, or need extra time when eating? No. EATING - SCORE: 7-IND GROOMING: GROOMING - STEP 1: Does the patient require the assistance of a person or device, or need extra time when grooming? No. GROOMING - SCORE: 7-IND BATHING: Abdomen Buttocks Chest Left arm Left lower leg and foot Left upper leg Perineal area Right arm Right lower leg and foot Right upper leg BATHING - STEP 1: Does the patient require the assistance of a person or device, or need extra time when bathing? Yes. BATHING - STEP 2: Does the patient require the assistance of a helper? Yes. BATHING - STEP 3: How much assistance does the patient require from the helper? Only incidental help such as placement of a wash cloth in his/her hand a few times as s/he bathes OR help to bathe just one or two areas of the body BATHING - SCORE: 4-MIN DRESSING - UPPER BODY: T-shirt/pullover shirt (four steps) ARTICLES SCORE Total number of steps: 4 DRESSING - UPPER BODY - STEP 1: Does the patient require help from a person or device, or need extra time when dressing above the jess st? Yes. DRESSING - UPPER BODY - STEP 2: Does the patient require the assistance of a helper? Yes. DRESSING - UPPER BODY - STEP 3: Does the helper touch the patient while dressing? No. DRESSING - UPPER BODY - SCORE: 5-SUP DRESSING - LOWER BODY: Elastic waist pants (three steps) Sock - Right foot (one step) Underwear (three steps) ARTICLES SCORE Total number of steps: 7 DRESSING - LOWER BODY - STEP 1: Does the patient require help from a person or device, or need extra time when dressing below the jess st? Yes. DRESSING - LOWER BODY - STEP 2: Does the patient require the assistance of a helper? Yes. DRESSING - LOWER BODY - STEP 3: Does the helper touch the patient while dressing? Yes. DRESSING - LOWER BODY - STEP 4: How many of the total steps does the patient complete on his/her own? 4 DRESSING - LOWER BODY - SCORE: 3-MOD TOILETING: Activity did not occur on this shift TOILETING - SCORE: 0-UNK BLADDER MANAGEMENT: Activity did not occur on this shift BLADDER MANAGEMENT - SCORE: 7-IND BOWEL MANAGEMENT: Activity did not occur on this shift BOWEL MANAGEMENT - SCORE: 7-IND TRANSFERS: BED, CHAIR, WHEELCHAIR: Activity did not occur on this shift TRANSFERS: BED, CHAIR, WHEELCHAIR - SCORE: 0-UNK TRANSFERS: TOILET: Activity did not occur on this shift TRANSFERS: TOILET - SCORE: 0-UNK TRANSFERS: SHOWER: TRANSFERS: SHOWER - STEP 1: Does the patient require the assistance of a person or device, or need extra time with shower transfe rs? Yes. TRANSFERS: SHOWER - STEP 2: Does the patient require the assistance of a helper? Yes. TRANSFERS: SHOWER - STEP 3: How much assistance does the patient require from the helper? More than incidental help TRANSFERS: SHOWER - STEP 4: How much more help does the patient require from the helper? Lifting the patient either up OR down fr om the wheelchair onto the shower chair TRANSFERS: SHOWER - SCORE: 3-MOD TRANSFERS: TUB: Activity did not occur on this shift TRANSFERS: TUB - SCORE: 0-UNK LOCOMOTION: WALK: Activity did not occur on this shift LOCOMOTION: WALK - SCORE: 0-UNK LOCOMOTION: WHEELCHAIR: Activity did not occur on this shift LOCOMOTION: WHEELCHAIR - SCORE: 0-UNK LOCOMOTION: STAIRS: Activity did not occur on this shift LOCOMOTION: STAIRS - SCORE: 0-UNK COMPREHENSION: COMPREHENSION: TYPE: Both COMPREHENSION - STEP 1: Does the patient require help from a person or device, or need extra time to understand complex and a bstract ideas (such as current events, finances, discharge planning, medical issues, relationships, e tc)? No. COMPREHENSION - STEP 2: Does the patient need extra time, require an assistive device (such as glasses for visual comprehensi on or a hearing aid for auditory comprehension) or does s/he have mild difficulty understanding compl ex and abstract information? Yes. COMPREHENSION - SCORE: 6-VINNY EXPRESSION EXPRESSION: TYPE: Both EXPRESSION - STEP 1: Does the patient require help from a person or device, or need extra time expressing complex and abst ract ideas (such as current events, finances, discharge planning, medical issues, relationships, etc) ? No. EXPRESSION - STEP 2: Does the patient need extra time, require an assistive device (such as augmentive communication syste m or a communication board), OR does s/he have mild difficulty expressing complex and abstract ideas (including mild dysarthria or mild word-find problems)? Yes. EXPRESSION - SCORE: 6-VINNY SOCIAL INTERACTION: SOCIAL INTERACTION - STEP 1: Does the patient require a helper to interact with others in social and therapeutic situations? No. SOCIAL INTERACTION - STEP 2: Does the patient need extra time in social situations, OR does s/he interact with staff, other patien ts, and family members ONLY in structured environments, OR does s/he require medication for social in teraction? Yes, patient needs extra time SOCIAL INTERACTION - SCORE: 6-VINNY PROBLEM SOLVING: PROBLEM SOLVING - STEP 1: Does the patient need help from a person or device, or need extra time to solve complex problems such as managing a checking account or confronting interpersonal problems? No. PROBLEM SOLVING - STEP 2: Does the patient require extra time to make decisions or solve problems, OR does s/he have slight dif ficulty reading, initiating, or self-correcting in unfamiliar situations? Yes, patient needs extra ti me. PROBLEM SOLVING - SCORE: 6-VINNY MEMORY: MEMORY - STEP 1: Does the patient need help from a person or device, or need extra time to remember frequently encount ered people, daily routines, and executing requests? No. MEMORY - STEP 2: Does the patient have slight difficulty recognizing frequently encountered people, daily routines, or executing requests without the need for repetition or using self-initiated or environmental cues to remember? Yes. MEMORY - SCORE: 6-VINNY SIGNATURE PANEL: The following modified sections: Eating - Score, Grooming - Score, Bathing - Score, Dressing - Upper Body - Score, Dressing - Lower Body - Score, Toileting - Score, Transfers: Bed, Chair, Wheelchair - S core, Transfers: Toilet - Score, Transfers: Tub - Score, Transfers: Shower - Score, Comprehension - S core, Expression - Score, Social Interaction - Score, Problem Solving - Score, Memory - Score were [e lectronically] signed by Mayda Banuelos OT on TueMar 24 2018 15:30:17 T-0600 (Central Standard T carissa)
--- NOTE | 2018-03-24 15:40 | FAST ---
ENCOUNTER DATE AND TIME: 03/22/2018 08:00 (CLAIMS CONFIGURATION ANALYST) NAME SHANDA BARTON DATE OF : 1930 DATE OF ADMISSION: 03/12/2018 12:40 (CLAIMS CONFIGURATION ANALYST) PHONE: AGE: 88 N# [id number] GENDER: Female ENCOUNTER PHYSICIAN: Dr. Aman Lackey M.D. ADMISSION DIAGNOSIS: - Neurologic Conditions 03 - Parkinsonism (03.2) Parkinson's Disease. EATING: EATING - STEP 1: Does the patient require the assistance of a person or device, or need extra time when eating? No. EATING - SCORE: 7-IND GROOMING: Comb/brush hair Oral care Wash, rinse, and dry face Wash, rinse, and dry hands GROOMING - STEP 1: Does the patient require the assistance of a person or device, or need extra time when grooming? No. GROOMING - SCORE: 7-IND BATHING: Abdomen Buttocks Chest Left arm Left lower leg and foot Left upper leg Perineal area Right arm Right lower leg and foot Right upper leg BATHING - STEP 1: Does the patient require the assistance of a person or device, or need extra time when bathing? Yes. BATHING - STEP 2: Does the patient require the assistance of a helper? Yes. BATHING - STEP 3: How much assistance does the patient require from the helper? Only supervision, cuing, coaxing, instr uctions, encouragement BATHING - SCORE: 5-SUP DRESSING - UPPER BODY: T-shirt/pullover shirt (four steps) ARTICLES SCORE Total number of steps: 4 DRESSING - UPPER BODY - STEP 1: Does the patient require help from a person or device, or need extra time when dressing above the jess st? Yes. DRESSING - UPPER BODY - STEP 2: Does the patient require the assistance of a helper? Yes. DRESSING - UPPER BODY - STEP 3: Does the helper touch the patient while dressing? No. DRESSING - UPPER BODY - SCORE: 5-SUP DRESSING - LOWER BODY: Elastic waist pants (three steps) Sock - Right foot (one step) Tied or buckled shoe - Left foot (two steps) Tied or buckled shoe - Right foot (two steps) Underwear (three steps) ARTICLES SCORE Total number of steps: 11 DRESSING - LOWER BODY - STEP 1: Does the patient require help from a person or device, or need extra time when dressing below the jess st? Yes. DRESSING - LOWER BODY - STEP 2: Does the patient require the assistance of a helper? Yes. DRESSING - LOWER BODY - STEP 3: Does the helper touch the patient while dressing? Yes. DRESSING - LOWER BODY - STEP 4: How many of the total steps does the patient complete on his/her own? 10 DRESSING - LOWER BODY - SCORE: 4-MIN TOILETING: TOILETING - STEP 1: Does the patient require the assistance of a person or device, or need extra time with toileting? Yes . TOILETING - STEP 2: Does the patient require the assistance of a helper? Yes. TOILETING - STEP 3: How much assistance does the patient require from the helper? Only supervision TOILETING - SCORE: 5-SUP BLADDER MANAGEMENT: Activity did not occur on this shift BLADDER MANAGEMENT - SCORE: 7-IND BOWEL MANAGEMENT: Activity did not occur on this shift BOWEL MANAGEMENT - SCORE: 7-IND TRANSFERS: BED, CHAIR, WHEELCHAIR: Activity did not occur on this shift TRANSFERS: BED, CHAIR, WHEELCHAIR - SCORE: 0-UNK TRANSFERS: TOILET: TRANSFERS: TOILET - STEP 1: Does the patient require the assistance of a person or device, or need extra time with toilet transfe rs? Yes. TRANSFERS: TOILET - STEP 2: Does the patient require the assistance of a helper? Yes. TRANSFERS: TOILET - STEP 3: How much assistance does the patient require from the helper? Only supervision, cuing, coaxing, OR he lp to set out transfer equipment or to lock brakes and/or lift foot rests TRANSFERS: TOILET - SCORE: 5-SUP TRANSFERS: SHOWER: TRANSFERS: SHOWER - STEP 1: Does the patient require the assistance of a person or device, or need extra time with shower transfe rs? Yes. TRANSFERS: SHOWER - STEP 2: Does the patient require the assistance of a helper? Yes. TRANSFERS: SHOWER - STEP 3: How much assistance does the patient require from the helper? Only supervision, cuing, coaxing, or he lp to set out transfer equipment or to lock brakes and/or lift foot rests TRANSFERS: SHOWER - SCORE: 5-SUP TRANSFERS: TUB: Activity did not occur on this shift TRANSFERS: TUB - SCORE: 0-UNK LOCOMOTION: WALK: Activity did not occur on this shift LOCOMOTION: WALK - SCORE: 0-UNK LOCOMOTION: WHEELCHAIR: Activity did not occur on this shift LOCOMOTION: WHEELCHAIR - SCORE: 0-UNK LOCOMOTION: STAIRS: Activity did not occur on this shift LOCOMOTION: STAIRS - SCORE: 0-UNK COMPREHENSION: COMPREHENSION: TYPE: Both COMPREHENSION - STEP 1: Does the patient require help from a person or device, or need extra time to understand complex and a bstract ideas (such as current events, finances, discharge planning, medical issues, relationships, e tc)? No. COMPREHENSION - STEP 2: Does the patient need extra time, require an assistive device (such as glasses for visual comprehensi on or a hearing aid for auditory comprehension) or does s/he have mild difficulty understanding compl ex and abstract information? No. COMPREHENSION - SCORE: 7-IND EXPRESSION EXPRESSION: TYPE: Both EXPRESSION - STEP 1: Does the patient require help from a person or device, or need extra time expressing complex and abst ract ideas (such as current events, finances, discharge planning, medical issues, relationships, etc) ? No. EXPRESSION - STEP 2: Does the patient need extra time, require an assistive device (such as augmentive communication syste m or a communication board), OR does s/he have mild difficulty expressing complex and abstract ideas (including mild dysarthria or mild word-find problems)? No. EXPRESSION - SCORE: 7-IND SOCIAL INTERACTION: SOCIAL INTERACTION - STEP 1: Does the patient require a helper to interact with others in social and therapeutic situations? No. SOCIAL INTERACTION - STEP 2: Does the patient need extra time in social situations, OR does s/he interact with staff, other patien ts, and family members ONLY in structured environments, OR does s/he require medication for social in teraction? No. SOCIAL INTERACTION - SCORE: 7-IND PROBLEM SOLVING: PROBLEM SOLVING - STEP 1: Does the patient need help from a person or device, or need extra time to solve complex problems such as managing a checking account or confronting interpersonal problems? No. PROBLEM SOLVING - STEP 2: Does the patient require extra time to make decisions or solve problems, OR does s/he have slight dif ficulty reading, initiating, or self-correcting in unfamiliar situations? No. PROBLEM SOLVING - SCORE: 7-IND MEMORY: MEMORY - STEP 1: Does the patient need help from a person or device, or need extra time to remember frequently encount ered people, daily routines, and executing requests? No. MEMORY - STEP 2: Does the patient have slight difficulty recognizing frequently encountered people, daily routines, or executing requests without the need for repetition or using self-initiated or environmental cues to remember? No. MEMORY - SCORE: 7-IND SIGNATURE PANEL: The following modified sections: Eating - Score, Grooming - Score, Bathing - Score, Dressing - Upper Body - Score, Dressing - Lower Body - Score, Toileting - Score, Transfers: Bed, Chair, Wheelchair - S core, Transfers: Toilet - Score, Transfers: Tub - Score, Transfers: Shower - Score, Comprehension - S core, Expression - Score, Social Interaction - Score, Problem Solving - Score, Memory - Score were [e lectronically] signed by Mayda Banuelos OT on TueMar 24 2018 15:40:26 GMT-0600 (Central Standard T carissa)
--- NOTE | 2018-03-24 16:45 | P.PN ---
Subjective Date of Service: 03/24/18 Primary Care Provider: Nephrology-Dr. Pruitt Chief Complaint: S.P Fall Subjective: Tolerating diet, Ambulating, Improving, Doing well Review of Systems 10-point ROS is otherwise unremarkable Physical Examination - Vital Signs Temperature: 97.6 F Blood Pressure: 158/70 Pulse: 98 Respirations: 17 Pulse Ox (%): 98 - Physical Exam General: Alert, In no apparent distress HEENT: Atraumatic, PERRLA, EOMI Neck: Supple, JVD not distended Respiratory: Clear to auscultation bilaterally, Normal air movement Cardiovascular: Regular rate/rhythm, Normal S1 S2 Gastrointestinal: Normal bowel sounds, No tenderness Musculoskeletal: No tenderness Integumentary: No rashes Neurological: Normal speech, Normal tone, Normal affect Lymphatics: No axilla or inguinal lymphadenopathy - Studies Medications List Reviewed: Yes Assessment And Plan - Current Problems (Diagnosis) (1) Osteomyelitis Current Visit: Yes Status: Acute Plan: Left great toe osteomyelitis of the metatarsal and 5th distal metatarsal and phalanx -the patient currently on IV antibiotics. Will continue that here in the hospital -infectious disease consulted. Appreciated recommendations at this time. -pending placement to long-term acute care facility at this time. (2) Encounter for rehabilitation Current Visit: Yes Status: Acute Plan: Patient Admitted to rehab for Rehab Services. -PT/OT/Speech Working with Patient (3) Status post fall Current Visit: No Status: Acute Plan: Now In Inpatient Rehab. -Fall Precaution given -Patient working with PT and OT (4) MARGARITO (acute kidney injury) Current Visit: No Status: Resolved Plan: Resolved on Discharge from medical Surgery -Will monitor closely (5) Rhabdomyolysis Current Visit: No Status: Resolved Plan: Resolved now in Medical Surgery -Will continue to Monitor closely Qualifiers: Rhabdomyolysis type: non-traumatic Qualified Code(s): M62.82 - Rhabdomyolysis (6) Parkinson disease Current Visit: No Status: Chronic - Plan Pt now Admitted to the inpatient Rehab after her Acute illness has resolved. Pt working with PT/OT/Speech. Doing well overall. Currently pending placement to a long-term acute care facility for IV antibiotics. Continue to monitor closely Discharge Plan: Other Plan to discharge in: 72 Hours - Code Status/Comfort Care Code Status Assessed: Yes Physician Review: Patient Assessed, Agree with Above Assessment and Plan Critical Care: No
== END 2018-03-24 11:30 | DRG 56 ==
LOC: 5TH 12:40
PROVIDERS: ADMIT Psychiatry & Neurology Neurology with Special Qualifications in Child Neurology; ATTEND Psychiatry & Neurology Neurology with Special Qualifications in Child Neurology
DX: G20 Parkinson's disease (principal); L89.893 Pressure ulcer of other site, stage 3; N17.9 Acute kidney failure, unspecified; M62.82 Rhabdomyolysis; M86.172 Other acute osteomyelitis, left ankle and foot; N39.0 Urinary tract infection, site not specified; N18.4 Chronic kidney disease, stage 4 (severe); M10.9 Gout, unspecified; I50.9 Heart failure, unspecified; M19.90 Unspecified osteoarthritis, unspecified site; B96.20 Unspecified Escherichia coli [E. coli] as the cause of diseases classified elsewhere; I12.9 Hypertensive chronic kidney disease with stage 1 through stage 4 chronic kidney disease, or unspecified chronic kidney disease; R51 Headache; M40.209 Unspecified kyphosis, site unspecified; F32.9 Major depressive disorder, single episode, unspecified; E83.51 Hypocalcemia; E88.09 Other disorders of plasma-protein metabolism, not elsewhere classified; G89.29 Other chronic pain; D63.1 Anemia in chronic kidney disease
CPT/HCPCS: 36415; 71045; 71046; 80048; 80076; 80202; 81001; 82040; 82565; 83735; 84100; 84134; 84550; 85025; 87077; 87086; 87088; 87186; 97110; 97112; 97116; 97124; 97162; 97167; 97530; 97542; J0744; J2405; J3590; J7030